=== PATIENT | male | born 1970 | race African-American/Black ===

== ENCOUNTER 2023-07-26 23:59 | Observation (INO) | payer MEDICAID, SELFPAY ==
--- NOTE | ~2023-07-26 | CT_ITS ---
EXAMINATION: CT ABDOMEN AND PELVIS WITHOUT CONTRAST CLINICAL INFORMATION: Rectal bleeding. COMPARISON: None available. TECHNIQUE: Multidetector volumetric imaging was performed from the superior aspect of the liver through the pubic symphysis. Sagittal and coronal reformatted images were obtained on the technologist's workstation. This CT examination was performed using dose optimization techniques as appropriate, variously including the following: *Automated exposure control *Adjustment of mA and/or kV according to patient size (this includes techniques or standardized protocols for targeted exams where dose is matched to indication/reason for exam; i.e. extremities or head) *Use of iterative reconstruction technique DLP: 1216. mGy-cm FINDINGS: LUNG BASES: The visualized lung bases are unremarkable. LIVER, GALLBLADDER, AND BILIARY TREE: The liver is normal in size, shape, and attenuation. No focal hepatic lesion or biliary ductal dilatation is present. The gallbladder is unremarkable with no evidence of radiopaque gallstones, gallbladder wall thickening, or obvious pericholecystic inflammatory changes. PANCREAS: Unremarkable. SPLEEN: Unremarkable. ADRENAL GLANDS: Unremarkable. KIDNEYS AND URETERS: The kidneys are normal in size, shape, and attenuation. There are a few scattered renal hypodensities likely small cysts but too small to characterize. There is no hydronephrosis. BLADDER: Unremarkable. GASTROINTESTINAL TRACT: There are diverticula of the sigmoid colon without diverticulitis. The appendix is visualized and is within normal limits ABDOMINAL WALL: No significant hernia is appreciated. LYMPH NODES: Normal. VASCULAR: There is mild atherosclerotic plaque of the abdominal aorta. PELVIC VISCERA: Unremarkable. OSSEOUS STRUCTURES: Unremarkable. CT/CT abdomen pelvis wo IV con IMPRESSION: Diverticula of the sigmoid colon without diverticulitis. No other significant abnormality seen. Fleischner guidelines were followed.
--- NOTE | ~2023-07-26 | XR_ITS ---
EXAMINATION: XR CHEST CLINICAL INFORMATION: Shortness of breath. COMPARISON: None available. TECHNIQUE: Frontal view of the chest was obtained. FINDINGS: No significant abnormality is noted involving the heart, lungs, mediastinum, bony thorax or soft tissues. XR/XR chest 1V IMPRESSION: Unremarkable examination.
[2023-07-27] VITALS (10 sets, daily range): BP systolic 123–190; BP diastolic 51–83; PULSE 57–122; RESP 12–20; TEMP 36.5–36.9; O2SAT 96–100; BMI 39.6
[2023-07-27 00:33] LABS: MANUAL DIFF FLAG NO
[2023-07-27 00:36] LABS: Basophils Percent Auto 0.2 % (0-2); Eosinophils Absolute Auto 0.2 X10*3/uL (0.0-0.4); Hematocrit 38.5 % (42.0-52.0); Hemoglobin 13.1 g/dl (14.0-18.0); Imm Gran Abs Auto 0.04 X10*3/uL (0.00-0.03); Imm Gran Pct Auto 0.4 % (0.0-0.4); Lymphocytes Percent Auto 28.4 % (20-40); Mean Corpuscular Hemoglobin 32.9 pg (27.0-33.0); Mean Corpuscular Volume 96.7 fL (80.0-98.0); Mean Platelet Volume 9.9 fL (9.4-12.4); Monocytes Absolute Auto 0.5 X10*3/uL (0.1-1.2); Monocytes Percent Auto 5.1 % (2-11); Neutrophils Absolute Auto 6.7 x10*3/uL (2.0-8.3); Neutrophils Percent Auto 63.9 % (45-73); Platelet Count 192 X10*3/uL (160-400); Red Blood Count 3.98 X10*6/uL (4.60-5.80); Red Cell Distribution Width 13.1 % (11.0-16.0); White Blood Count 10.4 X10*3/uL (4.8-10.8)
[2023-07-27 00:48] LABS: Alanine Aminotransferase 25 U/L (0-40); Alkaline Phosphatase 68 U/L (39-117); Anion Gap 19 (12-20); Aspartate Amino Transferase 35 U/L (5-37); Bilirubin Total 0.5 mg/dL (0.0-1.0); Blood Urea Nitrogen 20 mg/dL (9-16); Calcium 9.4 mg/dL (8.4-10.2); Carbon Dioxide 18 mmol/L (22-29); Chloride 109 mmol/L (96-108); Creatinine Clr Calc Pharmacy 66.5; Estimated Glomerular Filt Rate 35; Glucose Random 135 mg/dL (60-115); Potassium 3.6 mmol/L (3.3-5.1); Sodium 142 mmol/L (135-145); Total Protein 7.5 g/dL (6.5-8.0)
--- NOTE | 2023-07-27 01:00 | ED_ITS ---
HPI - General Adult General Chief complaint: General Medical Stated complaint: gen med Time Seen by Provider: 07/27/23 00:45 Source: patient Mode of arrival: ambulatory Limitations: no limitations History of Present Illness HPI narrative: Patient comes to the emergency room complaining of multiple episodes of rectal bleeding. Patient states that about a year ago, he 1st noticed that he started having rectal bleeding. Patient became frightened and did not want to come to the emergency room or see his primary care physician due to fear. Eventually, the bleeding self-resolved. Patient states that over the last year he has had multiple episodes of small amount of rectal bleeding with bowel movements. Patient denies any rectal pain, occasionally patient has abdominal pain. However, over last month, patient noted that he lost approximately 25 lb. This time, patient has had rectal bleeding for about a week. Patient states it only happens with bowel movements. denies dysuria . Patient states that he has not been seen by a primary care physician in many years . Has never had a colonoscopy Related Data Allergies Allergy/AdvReac Type Severity Reaction Status Date / Time No Known Allergies Allergy Unverified 05/24/20 14:48 Review of Systems 2 Review of Systems: Constitutional : reports a 25 lb unintentional weight loss in couple of months, No Fever, No Chills, No Night Sweats, No Fatigue, No Malaise ENT/Mouth : No Hearing loss, No Ear Pain, No Nasal Congestion, No Sinus Pain, No Hoarseness, No sore throat, No Rhinorrhea, No Swallowing Difficulty Eyes: No Eye Pain, No Swelling, No Redness, No Foreign Body, No Discharge, No Vision Changes Cardiovascular : No Chest Pain, No SOB, No Dyspnea on Exertion, No Orthopnea, No Edema, No Palpitations Respiratory : No Cough, No Sputum, No Wheezing, No Smoke Exposure, No Dyspnea Gastrointestinal : No Nausea, No Vomiting, No Diarrhea, No Constipation, Complaining of intermittent rectal bleeding Genitourinary : no irregular bleeding, No Dysuria, No Urinary Frequency, No Hematuria, No Urinary Incontinence, No Urgency, No Flank Pain, No Urinary Flow Changes, No Hesitancy Musculoskeletal : No joint pain, No Myalgias, No Joint Swelling Skin : patient of intermittent rash in the neck and back of the legs. With patches. Neuro : No Weakness, No Numbness, No Paresthesias, No Loss of Consciousness, No Dizziness, No Headache Psych : No Anxiety/Panic, No Depression, No SI/HI/AH/VH, No Social Issues, Heme/Lymph: No Bruising, No Bleeding,No Lymphadenopathy Endocrine : No Polyuria, No Polydipsia, No Temperature Intolerance [facility] Social History Social History Smoked in Last 30 Days: No Use of substances other than those prescribed or required for medical reasons: Yes Substance Use Type: Marijuana Advance Directives: No Advance Directives Information Provided: No Physical Exam ED Vital Signs: Vital Signs - 24 hr 07/27/23 00:02 07/27/23 00:43 07/27/23 04:12 Temperature 98.4 F Pulse Rate 122 H 79 64 Respiratory Rate 18 12 20 Blood Pressure 123/51 L 146/71 H Pulse Oximetry 96 98 Oxygen Delivery Method Room Air Room Air BMI result Body Mass Index 39.6 Const Other: Appearance: Alert. Oriented X3. No acute distress. Eyes: Pupils equal, round and reactive to light. ENT: Pharynx normal. Neck: Normal inspection. Neck supple. No lymph nodes noted. No crepitus CVS: Normal heart rate and rhythm. Pulses normal. Normal S1 and S2 Respiratory: No respiratory distress. Breath sounds normal. No Wheezing. No rales Abdomen: Soft and nontender. No rigidity. No distention. digital rectal exam: Brown stool Skin: Skin warm and dry. Normal skin color. Normal skin turgor. Extremities: No lower extremity edema. No Lacerations. No Rash Neuro: Oriented X 3. No motor deficit. No sensory deficit. Moving all extremities. No slurred speech. CN 2 through 12 grossly intact Psych: calm, cooperative, normal affect Medications Administered Discontinued Medications Generic Name Dose Route Start Last Admin Trade Name Ericq PRN Reason Stop Dose Admin Sodium Chloride 1,000 mls @ 999 mls/hr 07/27/23 01:33 07/27/23 03:20 Ns IVCONT 07/27/23 02:33 Infused .Q1H1M ONE Infusion Medical Decision Making Medical Decision Making [facility] Narrative: - My interpretation of labs: patient's creatinine 1.97, we will have to the exam without contrast. Patient eventually will need a colonoscopy. his hemoglobin is slightly decreased, 13.1. We do not have labs to compare to. Patient has not been seen by physician in many years. Patient's creatinine elevated. Patient denies any recent history of nausea vomiting or diarrhea. -patient has occult test is negative. However, patient eventually will need a colonoscopy. -my interpretation of CT scan: No obvious abnormality mild due to elevated creatinine, CT scan could not be done with contrast -patient's creatinine was 1.97, improved with fluids, now 1.69. -I discussed the patient with Dr. Workman, patient being admitted Differential Diagnosis Differential Diagnoses: The differential diagnosis associated with the presentation includes (Acute kidney injury, chronic kidney injury, GI bleed) Admission/Observation Consideration of admission/observation: Escalation of care including admission/observation considered Consult Healthcare Provider Management of the patient was discussed with: Hospitalist Lab Data MDM Lab Attestation statement: I reviewed the patient's lab results. 07/27/23 00:29 07/27/23 03:10 Labs: Lab Results 07/27/23 07/27/23 07/27/23 Range/Units 00:29 00:59 01:24 WBC 10.4 (4.8-10.8) X10*3/uL RBC 3.98 L (4.60-5.80) X10*6/uL Hgb 13.1 L (14.0-18.0) g/dl Hct 38.5 L (42.0-52.0) % MCV 96.7 (80.0-98.0) fL MCH 32.9 (27.0-33.0) pg MCHC 34.0 (31.0-36.0) g/dl RDW 13.1 (11.0-16.0) % Plt Count 192 (160-400) X10*3/uL MPV 9.9 (9.4-12.4) fL Immature Gran % (Auto) 0.4 (0.0-0.4) % Neut % (Auto) 63.9 (45-73) % Lymph % (Auto) 28.4 (20-40) % [place] % (Auto) 5.1 (2-11) % Eos % (Auto) 2.0 (0-4) % Baso % (Auto) 0.2 (0-2) % Lymph # (Auto) 3.0 (1.2-4.9) X10*3/uL [place] # (Auto) 0.5 (0.1-1.2) X10*3/uL Eos # (Auto) 0.2 (0.0-0.4) X10*3/uL Baso # (Auto) 0.0 (0.0-0.2) X10*3/uL Abs Immat Gran (auto) 0.04 H (0.00-0.03) X10*3/uL Absolute Neuts (auto) 6.7 (2.0-8.3) x10*3/uL Absolute Nucleated RBC 0.000 (0.0-0.012) X10*3/uL Nucleated RBC % (auto) 0.0 (0.0-0.2) /100WBC PT 11.4 (11.1-13.3) SEC INR 0.9 (0.9-1.1) APTT 27.2 (26.0-36.4) SEC Sodium 142 (135-145) mmol/L Potassium 3.6 (3.3-5.1) mmol/L Chloride 109 H (96-108) mmol/L Carbon Dioxide 18 L (22-29) mmol/L Anion Gap 19 (12-20) BUN 20 H (9-16) mg/dL Creatinine 1.97 H (0.5-1.4) mg/dL Estim Creat Clear Calc 66.5 Estimated GFR 35 Random Glucose 135 H (60-115) mg/dL Calcium 9.4 (8.4-10.2) mg/dL Total Bilirubin 0.5 (0.0-1.0) mg/dL AST 35 (5-37) U/L ALT 25 (0-40) U/L Alkaline Phosphatase 68 (39-117) U/L Total Protein 7.5 (6.5-8.0) g/dL Albumin 4.0 (3.5-5.0) g/dL Stool Occult Blood NEGATIVE (NEGATIVE) Influenza Type A (PCR) NEGATIVE (Negative) Influenza Type B (PCR) NEGATIVE (Negative) RSV RNA Qual (PCR) NEGATIVE (Negative) SARS-CoV-2 RNA (RT-PCR) NEGATIVE (Negative) 07/27/23 Range/Units 03:10 WBC (4.8-10.8) X10*3/uL RBC (4.60-5.80) X10*6/uL Hgb (14.0-18.0) g/dl Hct (42.0-52.0) % MCV (80.0-98.0) fL MCH (27.0-33.0) pg MCHC (31.0-36.0) g/dl RDW (11.0-16.0) % Plt Count (160-400) X10*3/uL MPV (9.4-12.4) fL Immature Gran % (Auto) (0.0-0.4) % Neut % (Auto) (45-73) % Lymph % (Auto) (20-40) % [place] % (Auto) (2-11) % Eos % (Auto) (0-4) % Baso % (Auto) (0-2) % Lymph # (Auto) (1.2-4.9) X10*3/uL [place] # (Auto) (0.1-1.2) X10*3/uL Eos # (Auto) (0.0-0.4) X10*3/uL Baso # (Auto) (0.0-0.2) X10*3/uL Abs Immat Gran (auto) (0.00-0.03) X10*3/uL Absolute Neuts (auto) (2.0-8.3) x10*3/uL Absolute Nucleated RBC (0.0-0.012) X10*3/uL Nucleated RBC % (auto) (0.0-0.2) /100WBC PT (11.1-13.3) SEC INR (0.9-1.1) APTT (26.0-36.4) SEC Sodium 141 (135-145) mmol/L Potassium 4.1 (3.3-5.1) mmol/L Chloride 109 H (96-108) mmol/L Carbon Dioxide 23 (22-29) mmol/L Anion Gap 13 (12-20) BUN 19 H (9-16) mg/dL Creatinine 1.69 H (0.5-1.4) mg/dL Estim Creat Clear Calc 77.5 Estimated GFR 42 Random Glucose 107 (60-115) mg/dL Calcium 9.0 (8.4-10.2) mg/dL Total Bilirubin (0.0-1.0) mg/dL AST (5-37) U/L ALT (0-40) U/L Alkaline Phosphatase (39-117) U/L Total Protein (6.5-8.0) g/dL Albumin (3.5-5.0) g/dL Stool Occult Blood (NEGATIVE) Influenza Type A (PCR) (Negative) Influenza Type B (PCR) (Negative) RSV RNA Qual (PCR) (Negative) SARS-CoV-2 RNA (RT-PCR) (Negative) Independent Interpretation I performed an independent interpretation of an: CT Scan Radiology Impression Discussion of test interpretation with radiology: I have reviewed the radiologist's reading. Radiologist Impression: FINDINGS: LUNG BASES: The visualized lung bases are unremarkable. LIVER, GALLBLADDER, AND BILIARY TREE: The liver is normal in size, shape, and attenuation. No focal hepatic lesion or biliary ductal dilatation is present. The gallbladder is unremarkable with no evidence of radiopaque gallstones, gallbladder wall thickening, or obvious pericholecystic inflammatory changes. PANCREAS: Unremarkable. SPLEEN: Unremarkable. ADRENAL GLANDS: Unremarkable. KIDNEYS AND URETERS: The kidneys are normal in size, shape, and attenuation. There are a few scattered renal hypodensities likely small cysts but too small to characterize. There is no hydronephrosis. BLADDER: Unremarkable. GASTROINTESTINAL TRACT: There are diverticula of the sigmoid colon without diverticulitis. The appendix is visualized and is within normal limits ABDOMINAL WALL: No significant hernia is appreciated. LYMPH NODES: Normal. VASCULAR: There is mild atherosclerotic plaque of the abdominal aorta. PELVIC VISCERA: Unremarkable. OSSEOUS STRUCTURES: Unremarkable. CT/CT abdomen pelvis wo IV con IMPRESSION: Diverticula of the sigmoid colon without diverticulitis. No other significant abnormality seen. Fleischner guidelines were followed. Critical Care Time Critical Care Time Critical Care Time: Yes Total Critical Care Time: 60 Attestation: I have personally provided critical care time. Time includes review of lab data, radiology results, discussion with consultants, and monitoring for potential decompensation. Intervention performed as documented. Discharge Plan Discharge Clinical Impression: POPPY (acute kidney injury) Patient Disposition: Admitted As Inpatient
[2023-07-27 01:04] LABS: OBS Int Ctl Valid YES; OBS1 NEGATIVE (NEGATIVE)
[2023-07-27 01:13] LABS: Influenza A PCR NEGATIVE (Negative); Influenza B PCR NEGATIVE (Negative); Resp Syncy Virus RNA Qual PCR NEGATIVE (Negative); SARS COV2 PCR INHOUSE NEGATIVE (Negative)
[2023-07-27 01:35] LABS: INTERNATIONAL NORM RATIO 0.9 (0.9-1.1); Prothrombin Time 11.4 SEC (11.1-13.3)
[2023-07-27 01:38] LABS: Partial Thromboplastin Time 27.2 SEC (26.0-36.4)
[2023-07-27] MEDS: 0.9 % Sodium Chloride 1,000 ML 999 ML IVCONT (01:44)
[2023-07-27 03:27] LABS: Anion Gap 13 (12-20); Blood Urea Nitrogen 19 mg/dL (9-16); Carbon Dioxide 23 mmol/L (22-29); Chloride 109 mmol/L (96-108); Creatinine Clr Calc Pharmacy 77.5; Estimated Glomerular Filt Rate 42; Glucose Random 107 mg/dL (60-115); Potassium 4.1 mmol/L (3.3-5.1); Sodium 141 mmol/L (135-145)
--- NOTE | 2023-07-27 04:45 | P.HPHOSP_ITS ---
History of Present Illness Date of Service: 07/27/23 Chief Complaint: Blood in stools This is a 53-year-old male with no pertinent past medical history and not on prescription medications who presents to the emergency department for evaluation of blood in stools. Patient states he has not seen a physician in many many years. He 1st noticed blood in stool about a year ago. It self resolved and patient did not see physician for it. He noticed blood in stools again about 1 week prior to presentation. It is associated with abdominal pain. Also has been having nausea. No fever or chills. No colonoscopy in the past. Does admit to taking ibuprofen [id number]. No history of alcohol or tobacco use disorder. No chest discomfort, palpitations, cough, changes in urinary habits. In the emergency department, creatinine found to be elevated Review of Systems 2 Constitutional: Constitutional: Reports fatigue Cardiovascular: Cardiovascular: Reports no additional cardiovascular complaints Respiratory: Respiratory: Reports no additional respiratory complaints Gastrointestinal: Gastrointestinal: Reports abdominal pain and Reports hematochezia Genitourinary: Genitourinary: Reports no additional male genitourinary complaints Endocrine: Endocrine: Reports fatigue PMFSH Pertinent family history: No family history of early CAD Social History Patient Tobacco Use Status: Never used Tobacco Smoked in Last 30 Days: No Use of substances other than those prescribed or required for medical reasons: Yes Substance Use Type: Marijuana Advance Directives: No Advance Directives Information Provided: No Nutrition Risks: No Nutritional Risk Meds Allergies Allergy/AdvReac Type Severity Reaction Status Date / Time No Known Allergies Allergy Unverified 05/24/20 14:48 Physical Exam 2 Vital Signs and Narrative: Vital Signs: Last Vital Signs Temp 98.4 F 07/27/23 00:02 Pulse 64 07/27/23 04:12 Resp 20 07/27/23 04:12 BP 146/71 H 07/27/23 04:12 Pulse Ox 98 07/27/23 04:12 O2 Del Method Room Air 07/27/23 04:12 BMI result Body Mass Index 39.6 Middle-aged male lying in bed in no distress Neck supple, no JVD Regular rate and rhythm, S1-S2 heard Regular breath sounds bilaterally, no wheezing or crackles appreciated Abdomen soft nontender, no guarding, no rigidity Patient is awake, alert and oriented to self, place, time and person ; no focal motor deficit Psych: Normal mood No pedal edema Results Labs 07/27/23 00:29 07/27/23 03:10 Labs: Laboratory Results - last 24 hr 07/27/23 07/27/23 07/27/23 00:29 00:59 01:24 MCV 96.7 MCH 32.9 MCHC 34.0 RDW 13.1 Plt Count 192 MPV 9.9 Immature Gran % (Auto) 0.4 Neut % (Auto) 63.9 Lymph % (Auto) 28.4 [place] % (Auto) 5.1 Eos % (Auto) 2.0 Baso % (Auto) 0.2 Lymph # (Auto) 3.0 [place] # (Auto) 0.5 Eos # (Auto) 0.2 Baso # (Auto) 0.0 Abs Immat Gran (auto) 0.04 H Absolute Neuts (auto) 6.7 Absolute Nucleated RBC 0.000 Nucleated RBC % (auto) 0.0 PT 11.4 INR 0.9 APTT 27.2 Anion Gap 19 Estim Creat Clear Calc 66.5 Estimated GFR 35 Random Glucose 135 H Calcium 9.4 Total Bilirubin 0.5 AST 35 ALT 25 Alkaline Phosphatase 68 Total Protein 7.5 Albumin 4.0 Stool Occult Blood NEGATIVE Influenza Type A (PCR) NEGATIVE Influenza Type B (PCR) NEGATIVE RSV RNA Qual (PCR) NEGATIVE SARS-CoV-2 RNA (RT-PCR) NEGATIVE 07/27/23 03:10 MCV MCH MCHC RDW Plt Count MPV Immature Gran % (Auto) Neut % (Auto) Lymph % (Auto) [place] % (Auto) Eos % (Auto) Baso % (Auto) Lymph # (Auto) [place] # (Auto) Eos # (Auto) Baso # (Auto) Abs Immat Gran (auto) Absolute Neuts (auto) Absolute Nucleated RBC Nucleated RBC % (auto) PT INR APTT Anion Gap 13 Estim Creat Clear Calc 77.5 Estimated GFR 42 Random Glucose 107 Calcium 9.0 Total Bilirubin AST ALT Alkaline Phosphatase Total Protein Albumin Stool Occult Blood Influenza Type A (PCR) Influenza Type B (PCR) RSV RNA Qual (PCR) SARS-CoV-2 RNA (RT-PCR) Imaging Radiologist's Impressions: Impressions Chest X-Ray 07/27/23 00:41 IMPRESSION: Unremarkable examination. Abdomen/Pelvis CT 07/27/23 01:32 IMPRESSION: Diverticula of the sigmoid colon without diverticulitis. No other significant abnormality seen. Fleischner guidelines were followed. Assessment and Plan (1) Blood in the stool: Status: Acute (2) Elevated serum creatinine: Status: Acute Plan This is a 53-year-old male with no pertinent past medical history and not on prescription medications who presents to the emergency department for evaluation of blood in stools. #. Bright red blood in stools: Will admit patient with cardiac monitoring. Administering IV Protonix. Resuscitated with IV crystalloids. Consulted Gastroenterology, appreciate assistance. Closely monitor H&H #. Elevated creatinine: POPPY CKD. Unknown baseline. Continue to monitor and avoid nephrotoxins. #. Obesity: Counseled regarding diet and exercise DVT prophylaxis: Mechanical Quality Stroke Does the patient have a stroke diagnosis?: No VTE Prior VTE?: No VTE Risk Level:: Medical - moderate - high VTE Device Contraindication: N/A - Device Ordered VTE Drug Contraindication: Treatment Not Indicated
[2023-07-27] MEDS: 0.9 % Sodium Chloride 500 ML IV (05:25)
[2023-07-27] MEDS: Pantoprazole Sodium 40 MG/10 ML VIAL 80 MG IVPUSH (05:27)
[2023-07-27] MEDS: Melatonin 3 MG TABLET 6 MG PO (05:27)
[2023-07-27 05:35] LABS: Hemoglobin 12.4 g/dl (14.0-18.0); Mean Corpuscular HGB Conc 33.5 g/dl (31.0-36.0); Mean Corpuscular Hemoglobin 32.9 pg (27.0-33.0); Mean Corpuscular Volume 98.1 fL (80.0-98.0); Mean Platelet Volume 10.1 fL (9.4-12.4); Platelet Count 178 X10*3/uL (160-400); Red Blood Count 3.77 X10*6/uL (4.60-5.80); Red Cell Distribution Width 13.2 % (11.0-16.0); White Blood Count 11.1 X10*3/uL (4.8-10.8)
[2023-07-27 05:39] LABS: Anion Gap 12 (12-20); Blood Urea Nitrogen 18 mg/dL (9-16); Calcium 8.9 mg/dL (8.4-10.2); Carbon Dioxide 23 mmol/L (22-29); Chloride 110 mmol/L (96-108); Creatinine Clr Calc Pharmacy 86.2; Estimated Glomerular Filt Rate 48; Glucose Random 106 mg/dL (60-115); Potassium 4.1 mmol/L (3.3-5.1); Sodium 141 mmol/L (135-145)
[2023-07-27 05:44] LABS: Appearance Urine Clear; Color Urine Yellow; Glucose Urine UA Negative (Negative); Leukocyte Esterase Urine Negative (Negative); Nitrite Urine Negative (Negative); PH 5.5 (5.0-9.0); Specific Gravity - Urine 1.025 (1.005-1.025); Urine Blood Negative (Negative); Urine Ketones 15 mg/dL (Negative); Urine Protein Trace mg/dL (Neg-Trace)
[2023-07-27 05:49] LABS: Bacteria Urine None Seen (None Seen); RBC Urine 0-2 /HPF (0-2); Squamous Epithelial Cell Urine 0-2 /HPF (0-2); WBC Urine 0-5 /HPF (0-5)
--- NOTE | 2023-07-27 06:17 | PC.NURSE ---
pt reports not taking any medications during the day
--- NOTE | 2023-07-27 06:31 | PHA.MEDREC ---
Pharmacy Consult ? Medication Reconciliation Pharmacy has completed the medication reconciliation.pt reportes no home medications
[2023-07-27] MEDS: Acetaminophen 325 MG TABLET 650 MG PO ×2 (07:27→20:35)
[2023-07-27] MEDS: 0.9 % Sodium Chloride Flush 3 ML SYRINGE IVFLUSH ×2 (07:28→20:35)
--- NOTE | 2023-07-27 07:32 | PC.NURSE ---
pt is alert and oriented, skin appropriate for ethnicity, respirations even and unlabored, pt reports having a headache, 7/10 pain and an itchy/achy rash under his chin/neck area/abd folds. ns on the monitor and vs stable
--- NOTE | 2023-07-27 09:16 | MHC.CM.PN ---
CM met with patient at bedside. TESHA delivered. Patient states he was staying with a sister up until recently but is now homeless, mostly sleeping in [place] in [place]. Independent with ambulation and ADLs. + THRIVE - resource guide provided. No PCP, requesting assistance with this - task sent to CM assistant teacher. No HCP, CM offered education & assistance, patient declining at this time. DP: Goal is dc to [facility]. CM will provide assistance. May require Lyft or bus pass.
[2023-07-27 10:31] LABS: Iron 92 mcg/dL (45-160); Percent Iron Saturation 37 % (15-50); Total Iron Binding Capacity 252 mcg/dL (228-428); Unsaturated Iron Binding 160 ug/dL
[2023-07-27 10:51] LABS: C Reactive Protein 0.46 mg/dL (< or = 0.50)
[2023-07-27 11:15] LABS: Erythrocyte Sedimentation Rate 18 MM/HR (0-15)
[2023-07-27 11:52] LABS: Vitamin B12 180 pg/mL (200-900)
--- NOTE | 2023-07-27 12:22 | PM.EVENT ---
Event Note Date of Service: 07/27/23 Event Note: Seen and evaluated this morning Stable H&H No recurrent of BRBPR Check lab work pending GI eval Time Spent With Patient Time: Total time managing care of this patient today ____ minutes.
--- NOTE | 2023-07-27 13:05 | PC.NURSE ---
pt is currently resting comfortably, eating some of his liquid diet lunch, in no apparent distress at this time and pt is awaiting a room assignment
--- NOTE | 2023-07-27 15:28 | PC.NURSE ---
report given to imc rn
--- NOTE | 2023-07-27 16:11 | MHC.SHP ---
Pre-Procedural Eval Section A Date of Service: 07/27/23 The patient is an INPATIENT: Yes Changes since office visit: No Cold of Flu in the past 2 weeks, No New Medical Problems, No Changes in Medication and No Patient answered all questions The History & Physical has been completed within 30 days and I have reviewed it.: Yes Section B Chief Complaint: Blood in Stool Allergies: Allergies Allergy/AdvReac Type Severity Reaction Status Date / Time No Known Allergies Allergy Unverified 05/24/20 14:48 Plan I have reviewed the history and physical and performed a pertinent physical examination on my patient. No changes have occurred unless specified. Time Spent With Patient Time: Total time managing care of this patient today ____ minutes.
--- NOTE | 2023-07-27 16:11 | PM.EVENT ---
Event Note Date of Service: 07/27/23 Event Note: GI consult dictated colonoscopy planned 07/28 for further evaluation of rectal bleeding. Time Spent With Patient Time: Total time managing care of this patient today ____ minutes.
[2023-07-27] MEDS: PEG 3350/Na Sulf,Bicarb,Cl/KCL 4,000 ML SOLN.RECON 4000 ML PO (17:53)
[2023-07-28] VITALS (11 sets, daily range): BP systolic 110–175; BP diastolic 60–83; PULSE 64–75; RESP 16–20; TEMP 36.2–37.3; O2SAT 97–100; BMI 39.4
[2023-07-28] MEDS: Melatonin 3 MG TABLET 6 MG PO ×2 (02:05→21:10)
[2023-07-28] MEDS: Acetaminophen 325 MG TABLET 650 MG PO ×3 (02:05→21:10)
--- NOTE | 2023-07-28 02:55 | CONS_ITS ---
DATE OF SERVICE: HISTORY OF PRESENT ILLNESS: Mr. Carpenter is a pleasant 53-year-old man seen today in consultation at the request of Dr. Workman because of rectal bleeding. He reports about a year ago he had a large amount of bright red blood per rectum, which filled the toilet bowl. This was not associated with abdominal pain or rectal pain. More recently, he has had blood associated with bowel movements occurring 3/7 days. There has been some crampy abdominal discomfort. He has not undergone previous colonoscopy. He also has a weight loss of about 20 pounds in this time. He was evaluated in the emergency department where laboratory studies were obtained as well as abdominal imaging. These are reviewed, but showed no obvious malignancy and no blood in the stools. PAST MEDICAL HISTORY: He denies other medical or surgical problems. CURRENT MEDICATIONS: His current medication list is reviewed in the chart. ALLERGIES: THERE ARE NONE REPORTED. FAMILY HISTORY: This is reviewed with the patient and is negative for GI malignancy. SOCIAL HISTORY: He does smoke marijuana. He denies other drug use. REVIEW OF SYSTEMS: SKIN: No pruritus. HEENT: Negative. CARDIOPULMONARY: He denies shortness of breath or chest pain. GASTROINTESTINAL: As above. GENITOURINARY: Negative. NEUROPSYCHIATRIC: Negative. PHYSICAL EXAMINATION: GENERAL: Shows a pleasant male, in no acute distress. VITAL SIGNS: Reviewed in the electronic medical record and are stable. SKIN: Anicteric. HEENT: Shows no scleral icterus. NECK: Without lymphadenopathy or thyromegaly. LUNGS: Clear. HEART: Shows a regular rate and rhythm. S1, S2. No murmur. ABDOMEN: Soft without focal mass or tenderness. Bowel sounds are present. No organomegaly is noted. EXTREMITIES: Without edema. LABORATORY DATA AND IMAGING STUDIES: Reviewed. IMPRESSION: Rectal bleeding. Discussed colonoscopy with the patient including risks and benefits of the procedure. He understands these and agrees to proceed. This will be arranged for tomorrow. In the interim, I recommend avoiding anticoagulants and monitoring his hematocrit. MD MEAGAN Aldana/MADINA / [phone]
[2023-07-28 07:18] LABS: Hematocrit 34.5 % (42.0-52.0); Hemoglobin 11.6 g/dl (14.0-18.0); Mean Corpuscular HGB Conc 33.6 g/dl (31.0-36.0); Mean Corpuscular Hemoglobin 33.3 pg (27.0-33.0); Mean Corpuscular Volume 99.1 fL (80.0-98.0); Mean Platelet Volume 10.7 fL (9.4-12.4); Platelet Count 161 X10*3/uL (160-400); Red Blood Count 3.48 X10*6/uL (4.60-5.80); Red Cell Distribution Width 13.1 % (11.0-16.0); White Blood Count 7.5 X10*3/uL (4.8-10.8)
[2023-07-28 07:33] LABS: Anion Gap 8 (12-20); Blood Urea Nitrogen 12 mg/dL (9-16); Calcium 8.3 mg/dL (8.4-10.2); Carbon Dioxide 26 mmol/L (22-29); Chloride 108 mmol/L (96-108); Creatinine Clr Calc Pharmacy 127.2; Estimated Glomerular Filt Rate > 60; Glucose Random 96 mg/dL (60-115); Potassium 3.6 mmol/L (3.3-5.1); Sodium 138 mmol/L (135-145)
[2023-07-28] MEDS: 0.9 % Sodium Chloride Flush 3 ML SYRINGE IVFLUSH ×2 (09:51→17:14)
--- NOTE | 2023-07-28 10:45 | MHC.CM.PN ---
EMR REVIEWED, CM MET WPT TO DISCUSS DISPO AND PT STILL INTERESTED IN JAIL PLACEMENT, PT REPORTS HE HAD CONTACTED [facility] ONE WEEK AGO AND THERE WERE NO BEDS AVAILABLE. CM CONTACTED [facility] WHO REPORTED THEY ARE FULL AND [facility], CM SPOKE W/RN AT [facility] AND PT IS CLEARED FOR BED, CM GIVEN INSTRUCTIONS TO CALL DAILY AT 9:30AM TO DETERMINE IF THEY HAVE AN AVAILABLE BED.
--- NOTE | 2023-07-28 11:48 | P.CONAN_ITS ---
[facility], [facility] Active Problems Active Problems: All Active Problems (Updated 07/27/23 @ 05:16 by Mitchel Workman MD) Blood in the stool (Acute) Elevated serum creatinine (Acute) POPPY (acute kidney injury) (Acute) Likely sleep apnea Surgical History History of Problems with Anesthesia: No Social History Household Members: None Housing: Homeless Do you presently have visiting nurse or other home services: No Patient Tobacco Use Status: Never used Tobacco Substance Use Type: Marijuana service: No Meds Allergies Allergy/AdvReac Type Severity Reaction Status Date / Time No Known Allergies Allergy Unverified 05/24/20 14:48 Active Medications: Current Medications Acetaminophen (Acetaminophen 325 Mg Tablet) 650 mg PO Q6H PRN PRN Reason: Pain, Mild (Pain Scale 1-3) Last Admin: 07/28/23 02:05 Dose: 650 mg Melatonin (Melatonin 3 Mg Tablet) 6 mg PO BEDTIME PRN PRN Reason: Insomnia Last Admin: 07/28/23 02:05 Dose: 6 mg Ondansetron HCl (Ondansetron Hcl 4 Mg/2 Ml Vial) 4 mg IVPUSH Q8H PRN PRN Reason: Nausea and Vomiting Sodium Chloride (0.9 % Sodium Chloride Flush 3 Ml Syringe) [facility] Last Admin: 07/28/23 09:51 Dose: 3 ml Home Medications Medication Instructions Recorded Confirmed Last Taken Type No Known Home Meds 07/27/23 07/27/23 Unknown History Exam Height,Weight and Vital Signs: Height 6 ft 4 in Weight 147 kg Last Vital Signs Temp 98.6 F 07/28/23 11:38 Pulse 65 07/28/23 11:38 Resp 20 07/28/23 11:38 BP 158/79 H 07/28/23 11:38 Pulse Ox 99 07/28/23 11:38 O2 Del Method Room Air 07/28/23 11:38 Pertinent Lab Results Pertinent Lab Results: Laboratory Tests 07/27/23 07/27/23 07/27/23 00:29 00:59 01:24 WBC 10.4 RBC 3.98 L Hgb 13.1 L Hct 38.5 L MCV 96.7 MCH 32.9 MCHC 34.0 RDW 13.1 Plt Count 192 MPV 9.9 Immature Gran % (Auto) 0.4 Neut % (Auto) 63.9 Lymph % (Auto) 28.4 Carbon % (Auto) 5.1 Eos % (Auto) 2.0 Baso % (Auto) 0.2 Lymph # (Auto) 3.0 Carbon # (Auto) 0.5 Eos # (Auto) 0.2 Baso # (Auto) 0.0 Abs Immat Gran (auto) 0.04 H Absolute Neuts (auto) 6.7 Absolute Nucleated RBC 0.000 Nucleated RBC % (auto) 0.0 ESR PT 11.4 INR 0.9 APTT 27.2 Sodium 142 Potassium 3.6 Chloride 109 H Carbon Dioxide 18 L Anion Gap 19 BUN 20 H Creatinine 1.97 H Estim Creat Clear Calc 66.5 Estimated GFR 35 Random Glucose 135 H Calcium 9.4 Iron TIBC % Saturation Unsat Iron Binding Total Bilirubin 0.5 AST 35 ALT 25 Alkaline Phosphatase 68 C-Reactive Protein Total Protein 7.5 Albumin 4.0 Carcinoembryonic Ag Vitamin B12 Urine Color Urine Appearance Urine pH Ur Specific [place] Urine Protein Urine Glucose (UA) Urine Ketones Urine Blood Urine Nitrite Ur Leukocyte Esterase Urine RBC Urine WBC Ur Squamous Epith Cells Urine Bacteria Hyaline Casts Stool Occult Blood NEGATIVE Influenza Type A (PCR) NEGATIVE Influenza Type B (PCR) NEGATIVE RSV RNA Qual (PCR) NEGATIVE SARS-CoV-2 RNA (RT-PCR) NEGATIVE 07/27/23 07/27/23 07/27/23 03:10 05:18 05:34 WBC 11.1 H RBC 3.77 L Hgb 12.4 L Hct 37.0 L MCV 98.1 H MCH 32.9 MCHC 33.5 RDW 13.2 Plt Count 178 MPV 10.1 Immature Gran % (Auto) Neut % (Auto) Lymph % (Auto) Carbon % (Auto) Eos % (Auto) Baso % (Auto) Lymph # (Auto) Carbon # (Auto) Eos # (Auto) Baso # (Auto) Abs Immat Gran (auto) Absolute Neuts (auto) Absolute Nucleated RBC 0.000 Nucleated RBC % (auto) 0.0 ESR 18 H PT INR APTT Sodium 141 141 Potassium 4.1 4.1 Chloride 109 H 110 H Carbon Dioxide 23 23 Anion Gap 13 12 BUN 19 H 18 H Creatinine 1.69 H 1.52 H Estim Creat Clear Calc 77.5 86.2 Estimated GFR 42 48 Random Glucose 107 106 Calcium 9.0 8.9 Iron TIBC % Saturation Unsat Iron Binding Total Bilirubin AST ALT Alkaline Phosphatase C-Reactive Protein 0.46 Total Protein Albumin Carcinoembryonic Ag 2.00 Vitamin B12 Urine Color Yellow Urine Appearance Clear Urine pH 5.5 Ur Specific [place] 1.025 Urine Protein Trace Urine Glucose (UA) Negative Urine Ketones 15 Urine Blood Negative Urine Nitrite Negative Ur Leukocyte Esterase Negative Urine RBC 0-2 Urine WBC 0-5 Ur Squamous Epith Cells 0-2 Urine Bacteria None Seen Hyaline Casts 3-5 Stool Occult Blood Influenza Type A (PCR) Influenza Type B (PCR) RSV RNA Qual (PCR) SARS-CoV-2 RNA (RT-PCR) 07/27/23 07/27/23 07/28/23 10:09 10:55 05:58 WBC 7.5 RBC 3.48 L Hgb 11.6 L Hct 34.5 L MCV 99.1 H MCH 33.3 H MCHC 33.6 RDW 13.1 Plt Count 161 MPV 10.7 Immature Gran % (Auto) Neut % (Auto) Lymph % (Auto) Carbon % (Auto) Eos % (Auto) Baso % (Auto) Lymph # (Auto) Carbon # (Auto) Eos # (Auto) Baso # (Auto) Abs Immat Gran (auto) Absolute Neuts (auto) Absolute Nucleated RBC 0.000 Nucleated RBC % (auto) 0.0 ESR PT INR APTT Sodium 138 Potassium 3.6 Chloride 108 Carbon Dioxide 26 Anion Gap 8 L BUN 12 Creatinine 1.03 Estim Creat Clear Calc 127.2 Estimated GFR > 60 Random Glucose 96 Calcium 8.3 L D Iron 92 TIBC 252 % Saturation 37 Unsat Iron Binding 160 Total Bilirubin AST ALT Alkaline Phosphatase C-Reactive Protein Total Protein Albumin Carcinoembryonic Ag Vitamin B12 180 L Urine Color Urine Appearance Urine pH Ur Specific [place] Urine Protein Urine Glucose (UA) Urine Ketones Urine Blood Urine Nitrite Ur Leukocyte Esterase Urine RBC Urine WBC Ur Squamous Epith Cells Urine Bacteria Hyaline Casts Stool Occult Blood Influenza Type A (PCR) Influenza Type B (PCR) RSV RNA Qual (PCR) SARS-CoV-2 RNA (RT-PCR) Airway Mallampati Class: III TM Dist: >3cm Neck ROM: Full Loose/Missing/Broken Teeth: Yes, Upper and Lower Heart: RRR Lungs: CTA Assessment and Plan Assessment Anesthesia Assessment: Anesthesia Plan Discussed and Chart Reviewed Final Anesthetic Review History of Problems with Anesthesia: No NPO: Yes ASA Class: III Final Preanesthetic Review: Meds/Allgs Chart Reviewed, Consent Obtained/Reviewed and Anes Risks/Benef Reviewed Patient Risk: Intermediate Procedure Risk: Low Anesthetic Plan Anesthetic Plan: MAC: Disposition: Standard PACU
--- NOTE | 2023-07-28 12:43 | PM.OP ---
Brief Operative Note Date of Service: 07/28/23 Pre-op diagnosis: blood in stool Post-op diagnosis: same Surgeon: Malvin Shepherd MD Anesthesia: MAC Was an Water Main Inspector used for this Procedure?: No Estimated blood loss (mL): 0 Pathology: none sent Condition: stable Disposition: PACU
--- NOTE | 2023-07-28 12:44 | PM.EVENT ---
Event Note Date of Service: 07/28/23 Event Note: Colonoscopy note dictated sigmoid diverticulosis internal hemorrhoids no bleeding rec advance diet dc when stable. Time Spent With Patient Time: Total time managing care of this patient today ____ minutes.
--- NOTE | 2023-07-28 12:52 | MHC.CM.PN ---
CM CONTACTED THE [facility] AND [facility] WHICH HAS REOPENED, UNFORTUNATELY THEY DO NOT HAVE ANY OPEN BEDS.
--- NOTE | 2023-07-28 13:04 | P.PNIM_ITS ---
Subjective Subjective Date of Service: 07/28/23 Interval History: having diarrhea from preperations but no blood denies any pain, fever or chills H&H stable Review of Systems Review of Systems: Yes all other systems are reviewed and are negative Physical Exam 2 Vital Signs: Vital Signs: Last Vital Signs Temp 97.2 F 07/28/23 12:55 Pulse 69 07/28/23 12:55 Resp 16 07/28/23 12:55 BP 130/83 07/28/23 12:55 Pulse Ox 99 07/28/23 12:55 O2 Del Method Room Air 07/28/23 12:55 BMI result Body Mass Index 39.4 Const: Other: Constitutional : Awake, interactive, obese, not in distress Neck : Normal inspection, Supple Cardiovascular : RRR, no JVP, no lower extremity edema Respiratory : good bilateral air entry, no crackles, wheezes or rhonchi Gastrointestinal: soft, lax, Normal bowel sounds, Non tender Skin : Warm, Dry Neurological : Alert & oriented x3, No focal deficit Objective Data Active Medications Acetaminophen (Acetaminophen 325 Mg Tablet) 650 mg PO Q6H PRN PRN Reason: Pain, Mild (Pain Scale 1-3) Last Admin: 07/28/23 02:05 Dose: 650 mg Documented By: SOLITARIO Melatonin (Melatonin 3 Mg Tablet) 6 mg PO BEDTIME PRN PRN Reason: Insomnia Last Admin: 07/28/23 02:05 Dose: 6 mg Documented By: SOLITARIO Ondansetron HCl (Ondansetron Hcl 4 Mg/2 Ml Vial) 4 mg IVPUSH Q8H PRN PRN Reason: Nausea and Vomiting Sodium Chloride (0.9 % Sodium Chloride Flush 3 Ml Syringe) 3 ml IVFLUSH [facility] Last Admin: 07/28/23 09:51 Dose: 3 ml Documented By: VANDANA Labs 07/28/23 05:58 07/28/23 05:58 Labs: Laboratory Results - last 24 hr 07/28/23 05:58 MCV 99.1 H MCH 33.3 H MCHC 33.6 RDW 13.1 Plt Count 161 MPV 10.7 Absolute Nucleated RBC 0.000 Nucleated RBC % (auto) 0.0 Anion Gap 8 L Estim Creat Clear Calc 127.2 Estimated GFR > 60 Random Glucose 96 Calcium 8.3 L D Assessment and Plan (1) Blood in the stool: Status: Acute (2) POPPY (acute kidney injury): Status: Acute Plan This is a 53-year-old male with no pertinent past medical history and not on prescription medications who presents to the emergency department for evaluation of blood in stools. # Bright red blood in stools likely lower GI source on IV Protonix Stable H&H Gastroenterology to do colonoscopy today pending blood work # POPPY Unclear baseline; Cr improved to normal Continue to monitor and avoid nephrotoxins. # Obesity Counseled regarding diet and exercise DVT prophylaxis: Mechanical Quality Stroke Does the patient have a stroke diagnosis?: No VTE Prior VTE?: No VTE Risk Level:: Medical - moderate - high VTE Device Contraindication: N/A - Device Ordered VTE Drug Contraindication: Treatment Not Indicated
--- NOTE | 2023-07-28 13:16 | OP_ITS ---
DATE OF SERVICE: 07/28/2023 SURGEON: Malvin Shepherd MD INDICATIONS: GI bleeding. PREOPERATIVE DIAGNOSIS: POSTOPERATIVE DIAGNOSIS: PROCEDURE PERFORMED: Colonoscopy to the terminal ileum. ESTIMATED BLOOD LOSS: COMPLICATIONS: ANESTHESIA: Monitored anesthesia care. ASSISTANTS: SPECIMENS: DESCRIPTION OF PROCEDURE: A history and physical was performed. The risks and benefits of the procedure were explained to the patient. Informed consent was obtained. The patient was placed in the left lateral decubitus position. A digital rectal exam was performed and was found to be normal. The Olympus pediatric video colonoscope was introduced into the rectum and advanced to the cecum. The cecum was identified by transillumination, palpation, and identification of ileocecal valve. Examination was performed. The scope was removed. He tolerated the procedure well and was returned to the recovery area in stable condition. FINDINGS: The terminal ileum was examined and appeared normal. The visualized colonic mucosa was normal. The quality of the prep was good. There was moderate sigmoid diverticulosis. No polyps were identified. Retroflexed examination showed some small internal hemorrhoids. IMPRESSION: Diverticulosis. RECOMMENDATION: 1. Follow up as needed. 2. Repeat colonoscopy is recommended in 10 years for average risk individuals. MD MEAGAN Aldana/MADINA / [phone]
[2023-07-28] MEDS: Simethicone 80 MG TAB.CHEW PO (21:10)
[2023-07-28] MEDS: diphenhydrAMINE HCl 2 % Cream 28 GM TUBE 1 APPL TOPICAL (22:40)
[2023-07-29] MEDS: 0.9 % Sodium Chloride Flush 3 ML SYRINGE IVFLUSH ×2 (01:48→08:39)
[2023-07-29 03:49] VITALS: BP 134/64; PULSE 67; RESP 15; TEMP 36.7; O2SAT 99
[2023-07-29 08:00] VITALS: BP 146/73; PULSE 63; RESP 18; TEMP 36.5; O2SAT 99
--- NOTE | 2023-07-29 09:18 | HO.POSTANES ---
Post Anesthesia Evaluation Post Anesthesia Evaluation Date of Service: 07/28/23 Vital Signs: Vital Signs Temp Pulse Resp BP Pulse Ox O2 Del Method 07/29/23 08:00 97.7 F 63 18 146/73 H 99 Room Air 07/29/23 03:49 98.1 F 67 15 134/64 99 Room Air 07/28/23 23:21 99.0 F 73 17 155/80 H 97 Room Air Anesthesia: Monitored Mental Status: Awake Pain Control: Satisfactory Nausea/Vomiting: None Hydration: Adequate Anesthesia-Related Issues: No Anes. Related Issues
--- NOTE | 2023-07-29 10:23 | PM.DS ---
DS: Providers Provider Date of Service: 07/29/23 Date of admission: 07/27/23 04:44 Primary care physician: None Physician Consults: 07/27/23 05:09 Consult to Gastroenterology Routine Consulting Provider: Kaushik Turner Reason for consultation: ?GI bleed DS: Diagnosis Discharge Diagnosis (1) Blood in the stool: Status: Acute (2) POPPY (acute kidney injury): Status: Acute (3) B12 deficiency: Status: Acute DS: Summary Hospital Course Hospital Course: Admission note HPI This is a 53-year-old male with no pertinent past medical history and not on prescription medications who presents to the emergency department for evaluation of blood in stools. Patient states he has not seen a physician in many many years. He 1st noticed blood in stool about a year ago. It self resolved and patient did not see physician for it. He noticed blood in stools again about 1 week prior to presentation. It is associated with abdominal pain. Also has been having nausea. No fever or chills. No colonoscopy in the past. Does admit to taking ibuprofen [id number]. No history of alcohol or tobacco use disorder. No chest discomfort, palpitations, cough, changes in urinary habits. Hospital course The patient was admitted for evaluation. seen by GI who did a colonoscopy showing no evidence of polyps or masses. he was found to have internal hemorroids. recommended repeating Colonoscopy in 10 years. Kidney function was elevated and responded well to IV fluids as it improved back to normal level. no previous baseline available for him. Noted to have anemia. Iron studies within normal but B12 was low so he was started on B12 replacement upon discharge. Increase Fiber intake and avoid constipation Start B12 replacement Repeat colonoscopy in 10 years Time Attestation Discharge coordination time: Greater than 30 minutes Quality: Safe Use of Opioids Does Pt have an Active Cancer Diagnosis on the Problem List?: No Quality: Stroke Does the patient have a stroke diagnosis?: No Physical Exam Vital Signs: Vital Signs: Last Vital Signs Temp 97.7 F 07/29/23 08:00 Pulse 63 07/29/23 08:00 Resp 18 07/29/23 08:00 BP 146/73 H 07/29/23 08:00 Pulse Ox 99 07/29/23 08:00 O2 Del Method Room Air 07/29/23 08:00 BMI result Body Mass Index 39.4 Const: Other: Constitutional : Awake, interactive, obese, not in distress Neck : Normal inspection, Supple Cardiovascular : RRR, no JVP, no lower extremity edema Respiratory : good bilateral air entry, no crackles, wheezes or rhonchi Gastrointestinal: soft, lax, Normal bowel sounds, Non tender Skin : Warm, Dry Neurological : Alert & oriented x3, No focal deficit DS: Data Imaging Chest x-ray: Radiologist's impression: ITS Impressions Chest X-Ray 07/27/23 00:41 IMPRESSION: Unremarkable examination. Abdomen/Pelvis CT 07/27/23 01:32 IMPRESSION: Diverticula of the sigmoid colon without diverticulitis. No other significant abnormality seen. Fleischner guidelines were followed. Discharge Plan Discharge Anticipated Discharge Date/Time: 07/29/23 10:20 Patient Disposition: Half-Way Discharge Diagnosis: internal hemorroids Acute kidney injury Referrals: Physician,None [Primary Care Provider] - 1 Week Discharge Medications: New mecobalamin (vitamin B12) 5,000 mcg tablet,chewable 5,000 mcg PO DAILY Qty: 30 0RF Discharge Orders: Discharge Order (Routine); Ordered 07/29/23 Ordered By: Edson Christina Diet: Advance to usual diet Activity on Discharge: As tolerated Plan of Treatment: Increase Fiber intake and avoid constipation Start B12 replacement Repeat colonoscopy in 10 years
--- NOTE | 2023-07-29 11:09 | MHC.CM.PN ---
Pt has been medically cleared for DC, He is going to [facility] via [facility], he was given information and assistance with setting up PCP appt. at [facility] he was given donated backpack.
[2023-07-29 11:18] VITALS: BP 157/78; PULSE 66; RESP 18; TEMP 36.9; O2SAT 98
[2023-07-30 06:39] LABS: Transglutaminase Ab IgG <1.0 U/mL; Transglutaminase IgA <1.0 U/mL
[2023-08-03 23:48] LABS: Calprotectin, Fecal 54 mcg/g
== END 2023-07-29 13:07 | disposition home or self-care (01) ==
LOC: HO.ED 07-27 04:46 → HO.EDOVER 07-27 04:47 → HO.IMC 07-27 15:17
PROVIDERS: Internal Medicine Gastroenterology; Radiology Vascular & Interventional Radiology; Admitting Provider Student in an Organized Health Care Education/Training Program; Emergency Provider Emergency Medicine; Visit Provider Student in an Organized Health Care Education/Training Program
PROC: 0DJD8ZZ Inspection of Lower Intestinal Tract, Via Natural or Artificial Opening Endoscopic (ICD-10-PCS; CPT 45378; principal; 2023-07-28 14:00)
DX: N17.9 Acute kidney failure, unspecified (principal); K62.5 Hemorrhage of anus and rectum; R94.4 Abnormal results of kidney function studies; E66.9 Obesity, unspecified; Z68.39 Body mass index [BMI] 39.0-39.9, adult; K64.8 Other hemorrhoids; K57.30 Diverticulosis of large intestine without perforation or abscess without bleeding; E53.8 Deficiency of other specified B group vitamins; D64.9 Anemia, unspecified; Z20.822 Contact with and (suspected) exposure to COVID-19; Z20.828 Contact with and (suspected) exposure to other viral communicable diseases
CPT/HCPCS: 45378; 0241U; 36415; 71045; 74176; 80048; 80053; 81001; 82272; 82378; 82607; 83540; 83993; 85025; 85027; 85610; 85652; 85730; 86140; 86364; 96361; 96374; 99222; 99285; C9113; J2250; J2704

== ENCOUNTER → 2023-07-27 04:44 | Outpatient (BNV) | payer MEDICAID, SELFPAY | PROVIDERS: Admitting Provider Student in an Organized Health Care Education/Training Program; Emergency Provider Emergency Medicine; Visit Provider Student in an Organized Health Care Education/Training Program | DX: K92.1 Melena (principal); N17.9 Acute kidney failure, unspecified; E53.8 Deficiency of other specified B group vitamins | CPT/HCPCS: 99222; 99232; 99239; 99499 ==

== ENCOUNTER 2024-12-08 07:12 | Emergency (ER) | payer MEDICAID, SELFPAY ==
[2024-12-08 07:14] VITALS: BP 155/80; PULSE 88; RESP 20; TEMP 35.8; O2SAT 100; BMI 35.1
[2024-12-08 07:33] LABS: MANUAL DIFF FLAG NO
[2024-12-08 07:36] LABS: Basophils Percent Auto 0.3 % (0-2); Eosinophils Absolute Auto 0.3 X10*3/uL (0.0-0.4); Eosinophils Percent Auto 3.3 % (0-4); Hematocrit 38.8 % (42.0-52.0); Hemoglobin 13.9 g/dl (14.0-18.0); Imm Gran Abs Auto 0.02 X10*3/uL (0.00-0.03); Imm Gran Pct Auto 0.2 % (0.0-0.4); Lymphocytes Absolute Auto 3.8 X10*3/uL (1.2-4.9); Lymphocytes Percent Auto 42.6 % (20-40); Mean Corpuscular HGB Conc 35.8 g/dl (31.0-36.0); Mean Corpuscular Hemoglobin 34.9 pg (27.0-33.0); Mean Corpuscular Volume 97.5 fL (80.0-98.0); Mean Platelet Volume 9.8 fL (9.4-12.4); Monocytes Absolute Auto 0.6 X10*3/uL (0.1-1.2); Monocytes Percent Auto 6.7 % (2-11); Neutrophils Absolute Auto 4.2 x10*3/uL (2.0-8.3); Neutrophils Percent Auto 46.9 % (45-73); Platelet Count 184 X10*3/uL (160-400); Red Blood Count 3.98 X10*6/uL (4.60-5.80); Red Cell Distribution Width 12.4 % (11.0-16.0); White Blood Count 8.9 X10*3/uL (4.8-10.8)
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
--- OUTSIDE RECORDS SUMMARY | 2024-12-08 07:37 | XMS_ITS | Clinical Summary ---
Author Organization [address] [facility] Address [address] [place] [address] Phone Care Team Providers Care Assisted Living Assistant Name Role Phone Physician, Pcp Unknown Primary Care Provider Linda vailable Social History Tobacco Use Types Packs/Day Years Used Date Smoking Tobacco: Never Assessed Sex and Gender Information Value Date Recorded Sex Assigned at Not on file Legal Sex Male 1:31 PM EDT Gender Identity Not on file Sexual Orientation Not on file Plan of Treatment Health Maintenance Due Date Last Done Comments DTaP,Tdap,and Td Vaccines (1 - Tdap) 02/02/1987 Hepatitis B Vaccines (1 of 3 - 19+ 3-dose series) 02/02/1987 Pneumococcal Vaccine: 50+ Ye ars (1 of 1 - PCV) 02/02/2018 Zoster Vaccines (1 of 2) 02/02/2018 Colorectal Cancer Screening: Colonoscopy 04/08/2024 Depression Screening 04/08/2024 HIV Screening 04/08/2024 Hepatitis C Screening 04/08/2024 Social Influencers of Health Screening 04/08/2024 COVID-19 Vaccine ( - 2023-2 5 season) 2024 Influenza Vaccine (#1) 2024 Cholesterol Screening (Lipid Panel) 07/26/2029 07/26/2024 HIB Vaccines Aged Out No longer eligi ble based on patient's age to complete this topic HPV Vaccines Aged Out No longer eligi ble based on patient's age to complete this topic Hepatitis A Vaccines Aged Out No long er eligible based on patient's age to complete this topic IPV Vaccines Aged Out No longer eligi ble based on patient's age to complete this topic MMR Vaccines Aged Out No longer eligi ble based on patient's age to complete this topic Meningococcal ACWY Vaccine Aged Out N o longer eligible based on patient's age to complete this topic Meningococcal B Vacine Aged Out No lo nger eligible based on patient's age to complete this topic Pneumococcal Vaccine: Pediat rics (0 to 5 Years) and At-Risk Patients (6 to 64 Years) Aged Out No longer eligi ble based on patient's age to complete this topic RSV Immunization Patients Un kelsey 20 months Aged Out No longer eligible b ased on patient's age to complete this topic Varicella Vaccines Aged Out No longer eligible based on patient's age to complete this topic Procedures Procedure Name Priority Date/Time Associated Diagnosis Comments LIPID PANEL WITH REFLEX TO DIRECT LDL Routine 07/26/2024 9:43 AM EST Vitamin B12 deficiency anemia, unspecified Mixed hyperlipidemia Obesity, unspecified from Last 3 Months or Most Recently Relevant to Health Maintenance Results * Lipid panel with reflex to direct LDL (07/26/2024 9:43 AM EST) Cholesterol 162 0 - 200 mg/dL LAB CHEMISTRY METHOD 07/26/2024 6:17 PM EST [facility] Triglycerides 44 0 - 150 mg/dL LAB CHEMISTRY METHOD 07/26/2024 6:17 PM EST [facility] HDL 54 >=40 mg/dL LAB CHEMISTRY METHOD 07/26/2024 6:17 PM [facility] LDL Calculated 99 0 - 100 mg/dL LAB CHEMISTRY METHOD 07/26/2024 6:17 PM EST [facility] VLDL Cholesterol Juan 8.8 mg/dL LAB CHEMISTRY METHOD 07/26/2024 6:17 PM [facility] Non HDL Chol. (LDL+VLDL) 108 <145 mg/dL LAB CHEMISTRY METHOD 07/26/2024 6:17 PM EST [facility] Chol/HDL Ratio 3.0 0.0 - 4.4 LAB CHEMISTRY METHOD 07/26/2024 6:17 PM [facility] Blood Venous blood specimen / Unknown 07/26/2024 9:43 AM EST 07/26/2024 6:01 PM EST us Ginyn Dial NP LAB BLOOD ORDERABLES Final Result [facility] [address] [place] [address], from Last 3 Months or Most Recently Relevant to Health Maintenance Insurance MEDICAID - [place] Care Teams Assisted Living Assistant Relationship Specialty Start Date End Date Physician, Pcp Unknown PCP - General 07/26/24
--- OUTSIDE RECORDS SUMMARY | 2024-12-08 07:37 | XMS_ITS ---
Author Organization [facility] Address [address] [place] [phone] Care Team Providers Care Kiln Transfer Operator Name Role Phone Ginny Dial Primary Care Provider REASON FOR VISIT phone: lab f/u Medications Medication SIG (Take, Route, Frequency, Duration) Notes Start Date End Date Status Naprosyn 500 mg 1 tab(s) orally 2 times a day 02/02/2019 Not-Taking Vitamin B-12 1000 mcg 1 tab(s) chewable once a day 08/13/2023 Active escitalopram 5 mg 1 tab orally once a day in morning Please deliver to [facility] [address] Active Tylenol 8 HR Arthritis Pain 650 mg 2 tab(s) orally every 8 hours for 30 days 09/11/2023 Active rosuvastatin 10 mg 1 tab(s) orally once a day Active cloNIDine 0.1 mg 1 tab(s) orally once a day at bedtime Please deliver to [facility] for [address] 02/23/2024 Active Social History Sex Assigned At : Social History Observation Description Sex Assigned At Male Encounters Encounter Location Date Provider Diagnosis [facility]-HEALTH [address] [place] [address] [place], [place] [phone] 08/10/2024 Ginny Dial Person consulting fo r explanation of examination or test findings Z71.2 and Vitamin B12 deficiency anemia, unspecified D51.9 Assessments Encounter Date Diagnosis (ICD Code) Assessment Notes Treatment Notes Treatment Clinical Notes 08/10/2024 Person consulting for explanation of examination or test findings (ICD-10 - Z71.2) Reviewed results of recent diagnostic testing with client. Testing was (ab)normal. Future plan of action discussed. 08/10/2024 Vitamin B12 deficiency anemia, unspecified (ICD-10 - D51.9) denies fatigue/weakness 08/10/2024 Other Time spent in visit: 8 minutes Plan Of Treatment Medication Medication Name Sig Start Date Stop Date Notes Vitamin B-12 1000 mcg 1 tab(s) chewable once a day 023 Treatment Notes Assessment Notes Person consulting for explan ation of examination or test findings Reviewed results of recent diagnostic testing with client. Testing was (ab)normal. Future plan of action discussed. Vitamin B12 deficiency anemia, unspecifi ed denies fatigue/weakness Other Time spent in visit: 8 minutes Next Appt Details Follow Up: 6 Months, Reason: CPE Provider Name:Ginny mazariegos, 02/20/2025 10:00:00 AM, [address] [place] [address], [phone], Progress Notes * Braeden REYES WDOB: 8 (54 yo M)Acc No.[id number]:08/10/2024 Progress Notes Patient:?Braeden REYES W Provider:?RAJ Stout :1970???Age:54 Y???Sex:Male Mitch e:08/10/2024 Address:[address] [place], [place] [phone] Subjective: * Chief Complaints: * ???Phone: lab f/u * HPI: ???General:? This encounter is being performed over the telephone. The patient has consented to a telephone encounter.Limitations of this method of delivery of health services were discussed. The patient was made aware that privacy measures are in place to protect confidentiality of this type of visit. Location of provider:. ? -[place]: 53 y/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 Diverticulosis and hyperlipidemia, presents self for lab f/u today -[facility] - He was seen by BRENDA. Notes we have was from 11/2023 with noted c6-c7 cervical disc herniation nerve impingement and possible cord compression. He is yet to call [facility] to scheudle surgery due to his increasingly weak left arm with finger paresthesia. The surgery will be on a pinched nerve in the elbow area. - ETOH- as a teenage -MJ - 1-2 x/wk - from the streets; smoking since 9 y/o; calms him down -Mood: reports stable; established with our MH team -cigarettes?denies -Declines Flu shot. * ROS:?GENERAL:?Constitutional?denies,?fevers, Fatigue.?Respiratory?denies,?shortness of breath.?Neuro?Patient notesparesthesia to fingers.?Cardiovascular?denies,?chest pain/pressure.? * Medical History:? * Surgical History:? * Hospitalization/Major Diagno stic Procedure:? * Medications:?TakingcloNIDine 0.1 mg tablet 1 tab(s) orally once a day at bedtime , Notes to Pharmacist: Please deliver to [facility] [address]escitalopram 5 mg tablet 1 tab orally once a day in morning , Notes to Pharmacist: Please deliver to [facility] for [address]Tylenol 8 HR Arthritis Pain 650 mg tablet, extended release 2 tab(s) orally every 8 hours rosuvastatin 10 mg tablet 1 tab(s) orally once a day Vitamin B-12 1000 mcg tablet 1 tab(s) chewable once a day Taking cloNIDine 0.1 mg tablet 1 tab(s) orally once a day at bedtime , Notes to Pharmacist: Please deliver to [facility] [address]Taking escitalopram 5 mg tablet 1 tab orally once a day in morning , Notes to Pharmacist: Please deliver to [facility] Services for [address]Taking Tylenol 8 HR Arthritis Pain 650 mg tablet, extended release 2 tab(s) orally every 8 hours Taking rosuvastatin 10 mg tablet 1 tab(s) orally once a day Taking Vitamin B-12 1000 mcg tablet 1 tab(s) chewable once a day Not-Taking/PRNNaprosyn 500 mg tablet 1 tab(s) orally 2 times a day Medication List reviewed and reconciled with the patientNot-Taking/PRN Naprosyn 500 mg tablet 1 tab(s) orally 2 times a day Medication List reviewed and reconciled with the patient Objective: * Vitals:? * ???Past Orders: ???Lab:THYROID STIMULATING H ORMONE WITH REFLEX TO FREE T4 AND FREE T3 (Order Date - 07/26/2024) (Collection Date & Time - 07/26/2024 09:43 AM) ?Result: Normal ? Value Reference Range ?TSH 0.78 0.40-4.00 - mcI U/mL ???Lab:HEMOGLOBIN A1C (Order Date - 07/26/2024) (Collection Date & Time - 07/26/2024 09:43 AM) ?Result: Normal ? Value Reference Range ?Hemoglobin A1C 4.9 <6.5 - % ?Mean Bld Glu Estim. 94 - mg/dL ???Lab:VITAMIN B12 (Order Da te - 07/26/2024) (Collection Date & Time - 07/26/2024 09:43 AM) ?Result: Normal ? Value Reference Range ?Vitamin B-12 401 250-900 - pcg/mL ???Lab:COMPLETE BLOOD COUNT (Order Date - 07/26/2024) (Collection Date & Time - 07/26/2024 09:43 AM) ?Result: low H & H; h igh MCV and MCH ? Value Reference Range ?WBC 5.7 4.8-10.8 - K/mc L ?RBC 3.90 L 4.50-5.50 - M/m cL ?Hemoglobin 13.1 L 13.5-17.5 - g/dL ?Hematocrit 39.5 L 42.0-54.0 - % ?MCV 102.3 H 79.0-98.0 - FL ?MCH 33.9 H 27.0-32.0 - pcg ?MCHC 33.2 32.0-37.0 - g/d L ?RDW 12.8 11.0-15.0 - % ?Platelets 161 130-400 - K/mcL ?MPV 11.8 H 7.0-11.0 - FL ?NRBC 0.0 <1.0 - % ?NRBC Absolute 0.00 <0.10 - K/mcL ???Lab:LIPID PANEL WITH REFL EX TO DIRECT LDL (Order Date - 07/26/2024) (Collection Date & Time - 07/26/2024 09:43 AM) ?Result: Normal ? Value Reference Range ?Cholesterol 162 0-200 - mg/dL ?Triglycerides 44 0-150 - mg/dL ?HDL 54 >=40 - mg/dL ?LDL Calculated 99 0-100 - mg/dL ?VLDL Cholesterol Juan 8.8 - mg/dL ?Non HDL Chol. (LDL+VLDL) 108 <145 - mg/dL ?Chol/HDL Ratio 3.0 0.0-4 .4 - * Examination: ???General Examination: ???Unable to perform PE due to constraints of telephone encounter. Assessment: * Assessment: 1.?Person consulting for exp lanation of examination or test findings - Z71.2 (Primary)???2.?Vitamin B12 deficiency anemia, unspecified - D51.9??? Plan: * Treatment: 2.?Vitamin B12 deficiency an emia, unspecified? Continue Vitamin B-12 tablet, 1000 mcg, 1 tab(s), chewable, once a day.?? Notes: denies fatigue/weakness?? 3.?Others? Notes: Time spent in visit: 8 minutes?? * Procedure Codes:?40782 Non B illable Level 7L1013 CLINIC VST/ENCOUNTER ALL-INCLUSIVE * Follow Up:?6 Months (Reason: CPE) * Images: Billing Information: * Visit Code:? * Procedure Codes:? 59971 Non Billable Level 3. T1015 CLINIC VST/ENCOUNTER ALL-INCLUSIVE. Care Plan Details* * Sign off status: Completed true * Provider:?RAJ Stout Date: ?08/10/2024 Generated for Howard lomas/Candis/Jaspal on:?12/08/2024 07:37 AM EDT
--- OUTSIDE RECORDS SUMMARY | 2024-12-08 07:37 | XMS_ITS ---
Author Organization [facility] Address [address] [place] [phone] Care Team Providers Care Betting Clerks Name Role Phone Ginny Dial Primary Care Provider REASON FOR VISIT [employer] gift card at clinic for client Social History Sex Assigned At : Social History Observation Description Sex Assigned At Male Encounters Encounter Location Date Provider [facility] [address] [place] [phone] 08/16/2024 Ginny Dial Plan Of Treatment Next Appt Details Provider Name:Bernywinifred mazariegos, 02/20/2025 10:00:00 AM, [address] [place] [address], [phone], Progress Notes * Braeden REYES WDOB: 8 (54 yo M)Acc No.[id number]:08/16/2024 Patient:?Braeden REYES :1970???Age:54 Y???Sex:Male Address:[address] [place] [address], [phone] * true * Date:? Generated for Printi ng/Faxing/eTransmitting on:?12/08/2024 07:37 AM EDT
--- OUTSIDE RECORDS SUMMARY | 2024-12-08 07:37 | XMS_ITS | Encounter Summary ---
Author Organization [employer] Address [address] [place] [address] Care Team Providers Care Kitchen Operator Name Role Phone Physician, Pcp Unknown Primary Care Provider Linda vailable Encounter Details Date Type Department Care Team (Late st Contact Info) Description 07/26/2024 Lab Requisition [facility] - Main Lab [address] [facility] [place] [address] Ginny Dial, TYLER [address] [place] [address] Vitamin B12 deficiency anemia, unspecified; Mixed hyperlipidemia; Obesity, unspecified Social History Tobacco Use Types Packs/Day Years Used Date Smoking Tobacco: Never Assessed Sex and Gender Information Value Date Recorded Sex Assigned at Not on file Legal Sex Male 1:31 PM EDT Gender Identity Not on file Sexual Orientation Not on file documented as of this encounter Plan of Treatment Not on file documented as of this encounter Procedures Procedure Name Priority Date/Time Associated Diagnosis Comments THYROID STIMULATING HORMONE WITH REFLEX TO FREE T4 AND FREE T3 Routine 07/26/2024 9:43 AM EST Vitamin B12 deficiency anemia, unspecified Mixed hyperlipidemia Obesity, unspecified LIPID PANEL WITH REFLEX TO DIRECT LDL Routine 07/26/2024 9:43 AM EST Vitamin B12 deficiency anemia, unspecified Mixed hyperlipidemia Obesity, unspecified COMPLETE BLOOD COUNT Routine 07/26/2024 9:43 AM EST Vitamin B12 deficiency anemia, unspecified Mixed hyperlipidemia Obesity, unspecified HEMOGLOBIN A1C Routine 07/26/2024 9:43 AM EST Vitamin B12 deficiency anemia, unspecified Mixed hyperlipidemia Obesity, unspecified VITAMIN B12 Routine 07/26/2024 9:43 AM EST Vitamin B12 deficiency anemia, unspecified Mixed hyperlipidemia Obesity, unspecified documented in this encounter Results * Vitamin B12 (07/26/2024 9:43 AM EST) Pathologist [facility] Vitamin B-12 401 250 - 900 pcg/mL LAB CHEMISTRY METHOD 07/26/2024 6:22 PM EST [facility] Blood Venous blood specimen / Unknown 07/26/2024 9:43 AM EST 07/26/2024 6:01 PM EST [facility] LAB BLOOD ORDERABLES Final Result [facility] [address] [place] [address], [place] [phone] * Thyroid stimulating hormone with reflex to free t4 and free t3 (07/26/2024 9:43 AM EST) [facility] TSH 0.78 0.40 - 4.00 mcIU/mL LAB CHEMISTRY METHOD 07/26/2024 6:08 PM EST [facility] Blood Venous blood specimen / Unknown 07/26/2024 9:43 AM EST 07/26/2024 6:01 PM EST [facility] LAB BLOOD ORDERABLES Final Result [facility] [address] [place] [address], [place] [phone] * Lipid panel with reflex to direct LDL (07/26/2024 9:43 AM EST) [facility] Cholesterol 162 0 - 200 mg/dL LAB CHEMISTRY METHOD 07/26/2024 6:17 PM EST [facility] Triglycerides 44 0 - 150 mg/dL LAB CHEMISTRY METHOD 07/26/2024 6:17 PM EST [facility] HDL 54 >=40 mg/dL LAB CHEMISTRY METHOD 07/26/2024 6:17 PM [facility] LDL Calculated 99 0 - 100 mg/dL LAB CHEMISTRY METHOD 07/26/2024 6:17 PM [facility] VLDL Cholesterol Juan 8.8 mg/dL LAB CHEMISTRY METHOD 07/26/2024 6:17 PM [facility] Non HDL Chol. (LDL+VLDL) 108 <145 mg/dL LAB CHEMISTRY METHOD 07/26/2024 6:17 PM [facility] Chol/HDL Ratio 3.0 0.0 - 4.4 LAB CHEMISTRY METHOD 07/26/2024 6:17 PM [facility] Blood Venous blood specimen / Unknown 07/26/2024 9:43 AM EST 07/26/2024 6:01 PM EST us Eddionel Dial [employer] LAB BLOOD ORDERABLES Final Result Performing Organization Address City/[facility]/ZIP Co de Phone Number [facility] [address] [place] [address], [place] [phone] * Hemoglobin A1c (07/26/2024 9:43 AM EST) Pathologist [facility] Hemoglobin A1C 4.9 <6.5 % LAB CHEMISTRY METHOD 07/27/2024 1:00 PM [facility] Mean Bld Glu Estim. 94 mg/dL LAB CHEMISTRY METHOD 07/27/2024 1:00 PM [facility] Blood Venous blood specimen / Unknown 07/26/2024 9:43 AM EST 07/26/2024 5:51 PM EST us Eddielinoreen Dial [employer] LAB BLOOD ORDERABLES Final Result Performing Organization Address City/[facility]/ZIP Co de Phone Number [facility] [address] [place] [address], [place] [phone] * (ABNORMAL) Complete blood count (07/26/2024 9:43 AM EST) WBC 5.7 4.8 - 10.8 K/mcL LAB HEMETOLOGY METHOD 07/26/2024 5:51 PM [facility] RBC 3.90(L) 4.50 - 5.50 M/mcL LAB HEMETOLOGY METHOD 07/26/2024 5:51 PM [facility] Hemoglobin 13.1(L) 13.5 - 17.5 g/dL LAB HEMETOLOGY METHOD 07/26/2024 5:51 PM [facility] Hematocrit 39.5(L) 42.0 - 54.0 % LAB HEMETOLOGY METHOD 07/26/2024 5:51 PM [facility] MCV 102.3(H) 79.0 - 98.0 FL LAB HEMETOLOGY METHOD 07/26/2024 5:51 PM [facility] MCH 33.9(H) 27.0 - 32.0 pcg LAB HEMETOLOGY METHOD 07/26/2024 5:51 PM [facility] MCHC 33.2 32.0 - 37.0 g/dL LAB HEMETOLOGY METHOD 07/26/2024 5:51 PM [facility] RDW 12.8 11.0 - 15.0 % LAB HEMETOLOGY METHOD 07/26/2024 5:51 PM [facility] Platelets 161 130 - 400 K/[facility] LAB HEMETOLOGY METHOD 07/26/2024 5:51 PM [facility] MPV 11.8(H) 7.0 - 11.0 FL LAB HEMETOLOGY METHOD 07/26/2024 5:51 PM [facility] NRBC 0.0 <1.0 % LAB HEMETOLOGY METHOD 07/26/2024 5:51 PM [facility] NRBC Absolute 0.00 <0.10 K/[facility] LAB HEMETOLOGY METHOD 07/26/2024 5:51 PM EST [facility] Blood Venous blood specimen / Unknown 07/26/2024 9:43 AM EST 07/26/2024 5:51 PM EST us Ginny Dial [employer] TE[employer] LAB BLOOD ORDERABLES Final Result [facility] [address] [place] [address], documented in this encounter Visit Diagnoses Diagnosis Vitamin B12 deficiency anemia, unspecified Mixed hyperlipidemia Obesity, unspecified documented in this encounter Care Teams Kitchen Operator Relationship Specialty Start Date End Date Physician, Pcp Unknown PCP - General 07/26/24 documented as of this encounter
[2024-12-08 07:51] LABS: Alanine Aminotransferase 16 U/L (0-40); Alkaline Phosphatase 62 U/L (39-117); Anion Gap 10 (12-20); Aspartate Amino Transferase 26 U/L (5-37); Bilirubin Direct 0.2 mg/dL (0.0-0.5); Bilirubin Total 0.5 mg/dL (0.0-1.0); Blood Urea Nitrogen 18 mg/dL (9-16); Carbon Dioxide 23 mmol/L (22-29); Chloride 112 mmol/L (96-108); Creatinine Clr Calc Pharmacy 113.7; Estimated Glomerular Filt Rate > 60; Glucose Random 114 mg/dL (60-115); Lipase 25 U/L (8-78); Potassium 3.7 mmol/L (3.3-5.1); Sodium 141 mmol/L (135-145); Total Protein 7.3 g/dL (6.5-8.0)
--- NOTE | 2024-12-08 08:20 | ECG_ITS ---
Test Reason : cp Blood Pressure : */* mmHG Vent. Rate : 63 BPM Atrial Rate : 63 BPM P-R Int : 180 ms QRS Dur : 82 ms QT Int : 408 ms P-R-T Axes : 43 4 30 degrees QTcB Int : 417 ms Normal sinus rhythm Normal ECG No previous ECGs available Referred By: Keyla Benitez Electronically Signed By: JAZZMINE WHITESIDE
[2024-12-08 08:30] LABS: Appearance Urine Clear; Color Urine Yellow; Glucose Urine UA Negative (Negative); Leukocyte Esterase Urine Negative (Negative); Nitrite Urine Negative (Negative); OBS Int Ctl Valid YES; OBS1 NEGATIVE (NEGATIVE); Specific Gravity - Urine >= 1.030 (1.005-1.025); UMIC TRIGGER UACC YES; Urine Blood Trace (Negative); Urine Ketones Trace mg/dL (Negative); Urine Protein 30 (1+) mg/dL (Neg-Trace)
[2024-12-08] MEDS: Magnesium Hydrox/Alum Hydrox 30 ML ORAL.SUSP PO (08:33)
[2024-12-08] MEDS: ondansetron HCL 4 MG/2 ML VIAL IVPUSH (08:33)
[2024-12-08] MEDS: 0.9 % Sodium Chloride 1,000 ML 999 ML IV (08:34)
[2024-12-08 08:35] LABS: Bacteria Urine None Seen (None Seen); Hyaline Casts Urine 0-2 /LPF (0-2); Squamous Epithelial Cell Urine 0-2 /HPF (0-2); WBC Urine 0-5 /HPF (0-5)
--- NOTE | 2024-12-08 08:42 | ED_ITS ---
HPI - General Adult General Chief complaint: General Medical Stated complaint: vomiting rash head to toe Time Seen by Provider: 12/08/24 07:55 Source: patient, RN notes reviewed and old records reviewed Mode of arrival: ambulatory History of Present Illness ED Provider: Keyla Benitez PA-C HPI narrative: 54-year-old male with no significant past medical history presenting to the ED complaining of epigastric abdominal pain/ worsening acid reflux x 1 week with associated nausea, decreased p.o. intake, and spitting up. Also reports generalized fatigue, lightheadedness, generalized weakness, and black tarry stool noted yesterday. Also reports pruritic/burning intermittent rash to scalp, back, groin, hands x 1 month. Denies rash at present. Did take Zyrtec and prednisone without relief. Denies seeing grease remover. Denies CP/SOB, diarrhea, constipation, dysuria /hematuria, anticoagulation use. Denies new exposures, travel, sick contacts Related Data Previous Rx's ?Medication ?Instructions ?Recorded mecobalamin (vitamin B12) 5,000 5,000 mcg PO DAILY #30 tabs 07/29/23 mcg chewable tablet famotidine 20 mg tablet (Pepcid) 20 mg PO DAILY #14 tabs 12/08/24 triamcinolone acetonide 0.025 % 1 appl topical BID PRN rash #80 12/08/24 topical cream grams Allergies Allergy/AdvReac Type Severity Reaction Status Date / Time No Known Allergies Allergy Verified 12/08/24 07:20 Review of Systems 2 Review of Systems: Yes all other systems are reviewed and are negative Constitutional: Constitutional: Reports as per HPI Neurologic: Denies Abnormal speech present [facility] Past Medical History Attestation statement: The following information was validated with the patient. Source: old records reviewed Social History Social History Household Members: None Housing: Homeless Do you presently have visiting nurse or other home services: No Patient Tobacco Use Status: Never used Tobacco Substance Use Type: Marijuana Advance Directives: No Advance Directives Information Provided: No Do you have a plan to hurt others: No Plan service: No Physical Exam ED Vital Signs: Vital Signs - 24 hr 12/08/24 07:14 12/08/24 10:36 Temperature 96.4 F L 96.4 F L Pulse Rate 88 88 Respiratory Rate 20 20 Blood Pressure 155/80 H 155/80 H Pulse Oximetry 100 100 Oxygen Delivery Method Room Air Room Air BMI result Body Mass Index 35.1 Const General: cooperative, healthy appearing and no acute distress Orientation/consciousness: patient oriented x3 Limitations: no limitations HENMT Head: Yes normal to inspection and Yes atraumatic Ears: hearing grossly normal bilaterally General nose exam: Normal external nose present Face and sinus: Yes normal facial exam Eyes General: appearance normal, both eyes and all related structures EOM: EOMs intact bilaterally Neck Neck: Yes normal visual inspection and Yes no meningeal signs Resp Effort & Inspection: normal respiratory effort and no respiratory distress Auscultation: clear to auscultation bilaterally Cardio Rate: regular rate Heart sounds: S1 normal heart sound present and S2 normal heart sound present GI Inspection: Yes normal to inspection Palpation (GI): Soft to palpation, nontender, no guarding and not rigid General: Yes no CVA tenderness Back/Spine/Pelvis Back: no CVA tenderness Skin Rashes: no rashes Wounds: no wounds Neuro General: patient oriented x3, gait normal, tone normal, moves all extremities, no meningeal signs, no focal motor deficits and CN's II-XI intact bilaterally Cranial nerves: Yes CN's II-XII intact bilaterally and Yes Bilaterally intact EOM present Cognition (Neuro): normal cognition Speech: No Abnormal speech present Gait exam (Neuro): Normal gait present Motor exam (neuro): 5/5 motor strength present throughout Extrem General: Yes normal to inspection Course Course Course Narrative: -1011-- labs reassuring. Troponin negative - UA with RBCs, not infected - occult stool negative Results discussed with patient including worrisome signs and symptoms and strict return precautions, and when to return to the emergency department. > discussed needed follow up with GI for likely endoscopy and dermatology for fluctuating rash patient is tolerating p.o. in the ED without difficulty. They verbalized understanding and feel safe for discharge at this time. Medications Administered Discontinued Medications Generic Name Dose Route Start Last Admin Trade Name Freq PRN Reason Stop Dose Admin Al Hydroxide/Mg Hydroxide 30 ml 12/08/24 08:21 12/08/24 08:33 Magnesium Hydrox/Alum Hydrox 30 Ml Oral.Susp PO 12/08/24 08:22 30 ml ONCE ONE Administration Sodium Chloride 1,000 mls @ 999 mls/hr 12/08/24 08:30 12/08/24 10:31 Ns IV 12/08/24 09:30 Infused .Q1H1M HERRERA Infusion Lidocaine HCl 5 ml 12/08/24 10:09 12/08/24 10:31 Lidocaine Hcl Viscous 2 % 15 Ml Solution MUCOUS MEM 12/08/24 10:10 5 ml ONCE ONE Administration Ondansetron HCl 4 mg 12/08/24 08:21 12/08/24 08:33 Ondansetron Hcl 4 Mg/2 Ml Vial IVPUSH 12/08/24 08:22 4 mg ONCE ONE Administration Medical Decision Making Medical Decision Making MDM Narrative: 54-year-old male with no significant past medical history presenting to the ED complaining of epigastric abdominal pain/ worsening acid reflux x 1 week with associated nausea, decreased p.o. intake, and spitting up. Also reports generalized fatigue, lightheadedness, generalized weakness, and black tarry stool noted yesterday. Also reports pruritic/burning intermittent rash to scalp, back, groin, hands x 1 month. on exam vital signs stable, NAD, nontoxic appearing, abdomen is soft and nontender, no CVAT. No appreciable rash at present. No palm/ sole involvement. No sloughing. Concern for GERD/gastritis vs atypical ACS vs PUD/UGIB. Concern for contact dermatitis vs psoriasis/ eczema. No evidence of SJS or TENs. plan: EKG, labs, UA, occult stool, GI cocktail, re-evaluate Please refer to course for remaining clinical decision making, interpretation of labs/imaging results, and discussions with consultants and/or family members. Differential Diagnosis Differential Diagnoses: The differential diagnosis associated with the presentation includes As above Admission/Observation Consideration of admission/observation: Escalation of care including admission/observation considered Lab Data [facility] Lab Attestation statement: I reviewed the patient's lab results. 12/08/24 07:28 12/08/24 07:28 Labs: Lab Results 12/08/24 12/08/24 Range/Units 07:28 08:22 WBC 8.9 (4.8-10.8) X10*3/uL RBC 3.98 L (4.60-5.80) X10*6/uL Hgb 13.9 L (14.0-18.0) g/dl Hct 38.8 L (42.0-52.0) % MCV 97.5 (80.0-98.0) fL MCH 34.9 H (27.0-33.0) pg MCHC 35.8 (31.0-36.0) g/dl RDW 12.4 (11.0-16.0) % Plt Count 184 (160-400) X10*3/uL MPV 9.8 (9.4-12.4) fL Immature Gran % (Auto) 0.2 (0.0-0.4) % Neut % (Auto) 46.9 (45-73) % Lymph % (Auto) 42.6 H (20-40) % [place] % (Auto) 6.7 (2-11) % Eos % (Auto) 3.3 (0-4) % Baso % (Auto) 0.3 (0-2) % Lymph # (Auto) 3.8 (1.2-4.9) X10*3/uL [place] # (Auto) 0.6 (0.1-1.2) X10*3/uL Eos # (Auto) 0.3 (0.0-0.4) X10*3/uL Baso # (Auto) 0.0 (0.0-0.2) X10*3/uL Abs Immat Gran (auto) 0.02 (0.00-0.03) X10*3/uL Absolute Neuts (auto) 4.2 (2.0-8.3) x10*3/uL Absolute Nucleated RBC 0.000 (0.0-0.012) X10*3/uL Nucleated RBC % (auto) 0.0 (0.0-0.2) /100WBC Sodium 141 (135-145) mmol/L Potassium 3.7 (3.3-5.1) mmol/L Chloride 112 H (96-108) mmol/L Carbon Dioxide 23 (22-29) mmol/L Anion Gap 10 L (12-20) BUN 18 H (9-16) mg/dL Creatinine 1.07 (0.5-1.4) mg/dL Estim Creat Clear Calc 113.7 Estimated GFR > 60 Random Glucose 114 (60-115) mg/dL Calcium 9.0 D (8.4-10.2) mg/dL Magnesium 1.9 (1.6-2.6) mg/dL Total Bilirubin 0.5 (0.0-1.0) mg/dL Direct Bilirubin 0.2 (0.0-0.5) mg/dL AST 26 (5-37) U/L ALT 16 (0-40) U/L Alkaline Phosphatase 62 (39-117) U/L Troponin I High Sens < 2.7 (<3.5-35.0) ng/L Total Protein 7.3 (6.5-8.0) g/dL Albumin 4.0 (3.5-5.0) g/dL Lipase 25 (8-78) U/L Urine Color Yellow Urine Appearance Clear Urine pH 6.0 (5.0-9.0) Ur Specific White >= 1.030 H (1.005-1.025) Urine Protein 30 (1+) H (Neg-Trace) mg/dL Urine Glucose (UA) Negative (Negative) mg/dL Urine Ketones Trace (Negative) mg/dL Urine Blood Trace H (Negative) Urine Nitrite Negative (Negative) Ur Leukocyte Esterase Negative (Negative) Urine RBC 3-5 H (0-2) /HPF Urine WBC 0-5 (0-5) /HPF Ur Squamous Epith Cells 0-2 (0-2) /HPF Urine Bacteria None Seen (None Seen) Hyaline Casts 0-2 (0-2) /LPF Stool Occult Blood NEGATIVE (NEGATIVE) Independent Interpretation I performed an independent interpretation of an: EKG ( My interpretation EKG normal sinus rhythm rate of 63. NC interval 180. QTC 417. No STEMI) Radiology Impression Discussion of test interpretation with radiology: I have reviewed the radiologist's reading. External Record Review External record reviewed: Inpatient record, Office record, Outpatient record, Prior outpatient labs, Prior outpatient radiology, Primary care record and Outside ED record Tests considered The following testing was considered but not selected: As above Prescription Management I considered prescription management with: Pain Medication Chronic Conditions Patient?s care impacted by: Other Social Determinants Patient?s care significantly limited by Social Determinants of Health including: Other Social Determinant of Health Discharge Plan Discharge Clinical Impression: Gastritis, Rash Patient Disposition: Home, Self-Care Instructions: Gastritis (DC), Acute Rash (ED) Additional Instructions: your blood work and EKG are reassuring Your urine does have blood in it, it is not infected. Please follow up with your primary care doctor in regards to this You should follow up with Gastroenterology, you may need an endoscopy Please also follow up with Dermatology If her symptoms persist or worsen, you are unable to eat or drink have persistent or worsening nausea, vomiting, abdominal pain, chest pain, or rash return to the ED Prescriptions: New famotidine [Pepcid] 20 mg tablet 20 mg PO DAILY Qty: 14 0RF triamcinolone acetonide 0.025 % cream 1 appl topical BID PRN (Reason: rash) Qty: 80 0RF Rx Instructions: Apply to RASH only. Can potentially discolor skin. AVOID application to face, hands, feet & genital area No Action mecobalamin (vitamin B12) 5,000 mcg tablet,chewable 5,000 mcg PO DAILY Qty: 30 0RF Referrals: [facility] [Provider Group] - 1 week [facility] [Outside] [facility] [Outside] Ginny Dial APRN [Primary Care Provider] - 5 days Interventions: ED Discharge Assessment Last Done: 12/08/24 10:36 Discharge Date/Time: 12/08/24 10:37 Print Language: Romanian
[2024-12-08 08:59] LABS: Magnesium 1.9 mg/dL (1.6-2.6)
[2024-12-08 09:05] LABS: Troponin-I High Sensitivity < 2.7 ng/L (<3.5-35.0)
[2024-12-08] MEDS: Lidocaine HCl Viscous 2 % 15 ML SOLUTION 5 ML MUCOUS MEM (10:31)
[2024-12-08 10:36] VITALS: BP 155/80; PULSE 88; RESP 20; TEMP 35.8; O2SAT 100
== END 2024-12-08 10:37 | disposition home or self-care (01) ==
PROVIDERS: Physician Assistant; Emergency Provider Emergency Medicine; PCP Nurse Practitioner
DX: K29.70 Gastritis, unspecified, without bleeding (principal); R21 Rash and other nonspecific skin eruption; R10.13 Epigastric pain; F12.90 Cannabis use, unspecified, uncomplicated; Z79.899 Other long term (current) drug therapy
CPT/HCPCS: 36415; 80048; 80076; 81001; 82272; 83690; 83735; 84484; 85025; 93005; 96361; 96374; 99284; J2405

== ENCOUNTER → 2024-12-08 08:20 | Outpatient (BNV) | payer MEDICAID, SELFPAY | PROVIDERS: Emergency Provider Emergency Medicine; PCP Nurse Practitioner; Visit Provider Internal Medicine | DX: R07.9 Chest pain, unspecified (principal) | CPT/HCPCS: 93010 ==

== ENCOUNTER 2024-12-15 06:26 | Emergency (ER) | payer MEDICAID, SELFPAY ==
[2024-12-15 06:38] VITALS: BP 140/76; PULSE 73; RESP 18; TEMP 37.1; O2SAT 99; BMI 33.5
[2024-12-15 06:56] LABS: MANUAL DIFF FLAG NO
[2024-12-15 06:59] LABS: Hematocrit 36.7 % (42.0-52.0); Hemoglobin 13.4 g/dl (14.0-18.0); Mean Corpuscular HGB Conc 36.5 g/dl (31.0-36.0); Mean Corpuscular Hemoglobin 35.2 pg (27.0-33.0); Mean Corpuscular Volume 96.3 fL (80.0-98.0); Red Blood Count 3.81 X10*6/uL (4.60-5.80); Red Cell Distribution Width 12.4 % (11.0-16.0); White Blood Count 8.2 X10*3/uL (4.8-10.8)
[2024-12-15 07:00] LABS: Basophils Percent Auto 0.1 % (0-2); Eosinophils Absolute Auto 0.3 X10*3/uL (0.0-0.4); Eosinophils Percent Auto 3.2 % (0-4); Imm Gran Abs Auto 0.02 X10*3/uL (0.00-0.03); Imm Gran Pct Auto 0.2 % (0.0-0.4); Lymphocytes Absolute Auto 3.3 X10*3/uL (1.2-4.9); Lymphocytes Percent Auto 39.6 % (20-40); Mean Platelet Volume 9.4 fL (9.4-12.4); Monocytes Absolute Auto 0.7 X10*3/uL (0.1-1.2); Monocytes Percent Auto 7.9 % (2-11); Platelet Count 179 X10*3/uL (160-400)
[2024-12-15 07:12] LABS: Alanine Aminotransferase 15 U/L (0-40); Albumin Level 3.8 g/dL (3.5-5.0); Alkaline Phosphatase 53 U/L (39-117); Anion Gap 13 (12-20); Aspartate Amino Transferase 24 U/L (5-37); Bilirubin Direct 0.2 mg/dL (0.0-0.5); Bilirubin Total 0.7 mg/dL (0.0-1.0); Blood Urea Nitrogen 16 mg/dL (9-16); Calcium 10.3 mg/dL (8.4-10.2); Carbon Dioxide 24 mmol/L (22-29); Chloride 110 mmol/L (96-108); Estimated Glomerular Filt Rate > 60; Glucose Random 105 mg/dL (60-115); Potassium 3.5 mmol/L (3.3-5.1); Sodium 143 mmol/L (135-145); Total Protein 6.9 g/dL (6.5-8.0)
--- OUTSIDE RECORDS SUMMARY | 2024-12-15 07:41 | XMS_ITS ---
Author Organization [facility] Address [address] [place] [phone] Care Team Providers Care Belt Maker Name Role Phone Ginny Dial Primary Care Provider [phone] Reason For Referral Reason evaluate for CAL D with no relief from H2 Valerie Diagnosis 1 Gastro-esophageal re flux disease with esophagitis, without bleeding (K21.00) Referral Organization [facility] Referring Provider First Name Ginny Referring Provider Last Name Yojana Referring Provider Speciality Nurse Maurice haddad Referred Provider [facility], Gastroenterology Referred Provider Specialty Gastroentero logy General Notes Charla Ramon 2024 09:27:11 AM >Faxed to [facility] Referral Priority Routine Reason evaluate for rec urrent dermatitis Diagnosis 1 Dermatitis, unspecif ied (L30.9) Referral Organization [facility] Referring Provider First Name Ginny Referring Provider Last Name Yojana Referring Provider Speciality Nurse Maurice haddad Referred Provider Kurtis Yates Referred Provider Specialty Dermatology General Notes Charla Ramon 2024 09:36:46 AM >[facility] does not take [facility], referred to [facility], referral and notes faxed Referral Priority Routine REASON FOR VISIT ER - referral Medications Medication SIG (Take, Route, Frequency, Duration) Notes Start Date End Date Status escitalopram 5 mg 1 tab orally once a day in morning Please deliver to [facility] [address] [place] [address]. Active cloNIDine 0.1 mg 1 tab(s) orally once a day at bedtime Please deliver to [facility] [address] 02/23/2024 Active triamcinolone topical 0.025% 1 mehnaz applied topically 3 times a day Active Naprosyn 500 mg 1 tab(s) orally 2 times a day 02/02/2019 Unknown famotidine 20 mg 1 tab(s) orally 2 times a day Active Tylenol 8 HR Arthritis Pain 650 mg 2 tab(s) orally every 8 hours for 30 days 09/11/2023 Unknown Vitamin B-12 1000 mcg 1 tab(s) chewable once a day 08/13/2023 Active rosuvastatin 10 mg 1 tab(s) orally once a day Active Social History Sex Assigned At : Social History Observation Description Sex Assigned At Male Problems Problem Type SNOMED Code ICD Code Onset Dates Problem Status W/U Status Risk Notes Problem Gastroesophageal reflux disease with esophagitis (disorder) (575169531) Gastro-esoph ageal reflux disease with esophagitis, without bleeding (K21.00) Active confirmed Vital Signs Height 75.5 in 12/12/2024 Encounters Encounter Location Date Provider Diagnosis [address] [phone] 12/12/2024 Ginny Dial Dermatitis, unspecified L30.9 and Gastro-esophageal reflux disease with esophagitis, without bleeding K21.00 Assessments Encounter Date Diagnosis (ICD Code) Assessment Notes Treat ment Notes Treatment Clinical Notes 12/12/2024 Dermatitis, unspecified (ICD-10 - L30.9) 12/12/2024 Gastro-esophageal reflux disease with esophagitis, without bleeding (ICD-10 - K21.00) Plan Of Treatment Referrals Referral Date Details 12/12/2024 12/12/2024, eval uate for GERD with no relief from H2 Valerie, Gastroenterology [facility] 12/12/2024 12/12/2024, eval uate for recurrent dermatitis, Kurtis Yates Next Appt Details Provider Name:Ginny Gore delilah, 12/26/2024 09:00:00 AM, [address] [place] [address], [phone], Provider Name:Ginny Gore delilah, 02/20/2025 10:00:00 AM, [address] [place] [address], [phone], Progress Notes * Braeden REYES WDOB: [birth year] (54 yo M)Acc No.[id number]:12/12/2024 Patient:Braeden GILLIAM :1970???Age:54 Y???Sex:Male Address:[address] [place] [address], Verify address, [place], [address] Subjective: * Chief Complaints: * ???ER - referral * HPI: ???General:? reports skin eruptions from scalp to toes reports abdomina discomfort. * Medical History:? * Surgical History:? * Hospitalization/Major Diagno stic Procedure:? * Medications:?Takingfamotidin e 20 mg tablet 1 tab(s) orally 2 times a day triamcinolone topical 0.025% cream 1 mehnaz applied topically 3 times a day cloNIDine 0.1 mg tablet 1 tab(s) orally once a day at bedtime , Notes to Pharmacist: Please deliver to [facility] [address]escitalopram 5 mg tablet 1 tab orally once a day in morning , Notes to Pharmacist: Please deliver to [facility] [address]rosuvastatin 10 mg tablet 1 tab(s) orally once a day Vitamin B-12 1000 mcg tablet 1 tab(s) chewable once a day Taking famotidine 20 mg tablet 1 tab(s) orally 2 times a day Taking triamcinolone topical 0.025% cream 1 mehnaz applied topically 3 times a day Taking cloNIDine 0.1 mg tablet 1 tab(s) orally once a day at bedtime , Notes to Pharmacist: Please deliver to [facility] [address]Taking escitalopram 5 mg tablet 1 tab orally once a day in morning , Notes to Pharmacist: Please deliver to [facility] [address]Taking rosuvastatin 10 mg tablet 1 tab(s) orally once a day Taking Vitamin B-12 1000 mcg tablet 1 tab(s) chewable once a day UnknownTylenol 8 HR Arthritis Pain 650 mg tablet, extended release 2 tab(s) orally every 8 hours Naprosyn 500 mg tablet 1 tab(s) orally 2 times a day Medication List reviewed and reconciled with the patientUnknown Tylenol 8 HR Arthritis Pain 650 mg tablet, extended release 2 tab(s) orally every 8 hours Unknown Naprosyn 500 mg tablet 1 tab(s) orally 2 times a day Medication List reviewed and reconciled with the patient Objective: * Vitals:?Ht: 75.5. * Physical Examination:? Assessment: * Assessment: 1.?Dermatitis, unspecified - L30.9 (Primary)???2.?Gastro-esophageal reflux disease with esophagitis, without bleeding - K21.00??? Plan: * Treatment: 2.?Gastro-esophageal reflux disease with esophagitis, without bleeding? Referral To:Gastroenterology [facility]??Gastroenterology ?Reason:evaluate for GERD with no relief from H2 Valerie * Procedure Codes:? * true * Date:? Generated for Howard lomas/Candis/eTransmitting on:?12/15/2024 07:41 AM EDT Consultation Request Notes Referral Date Referring Provider Referred Provider Not es 12/12/2024 Ginny Dial [facility], Gastroenterology evaluate for GERD with no relief from H2 Valerie 12/12/2024 Ginny Dial Peter eval uate for recurrent dermatitis
--- OUTSIDE RECORDS SUMMARY | 2024-12-15 07:41 | XMS_ITS | Patient Health Record ---
Author Organization [facility] Address [address], [place] [id number] Care Team Providers Care Cardiac Nurse Specialist Name Role Phone Elena Perez Primary Care Provider [phone] Tam Degroot Unavailable [phone] Jany Che Unavailable [phone] Daina Medrano Unavailable [phone] Allergies No Known Allergies Results Component Value Reference Range Notes VITAMIN B12 Reviewed date:03/17/2024 01:30:30 PM Interpretation:Normal Performing Lab: Notes/Report: Busy Moos, a member of [address] [address] Log Stacker Operator - Annie Pickard MD VITAMIN B12 491 250-900 pg/mL CBC Reviewed date:03/17/2024 01:30:43 PM Interpretation:Abnormal Performing Lab: Notes/Report: Original Ordering Provider: ELENA PEREZ APRN WBC 7.3 4.8-10.8 x10-3/uL RBC 3.8 4.5-5.5 x10-6/uL HEMOGLOBIN 12.8 13.5-17.5 g/dL HEMATOCRIT 38.0 42-54 % MCV 100.3 79-98 fL MCH 33.8 27-32 pg MCHC 33.7 32-37 g/dL RDW 13.3 11-15 % PLT COUNT 239 130-400 x10-3/uL MEAN PLATELET VOLUME 10.2 7-11 fL NRBC % AUTO 0.0 <1 % NRBC # AUTO 0.00 <0.1 x10-3/uL COMPREHENSIVE METABOLIC PANE L Reviewed date:03/17/2024 01:30:15 PM Interpretation:Normal Performing Lab: Notes/Report: GLUCOSE 92 70-100 mg/dL Reference range applicable to fasting specimens only BUN 11 5-25 mg/dL CREAT 1.12 0.7-1.3 mg/dL GLOMERULAR FILTRATION RATE 77 >60 This eGFR result was calculated using the CKD-EPI 2020 Creatinine Equation SODIUM 141 135-145 mEq/L POTASSIUM 4.3 3.5-5.5 mmol/L CHLORIDE 109 96-110 mmol/L CO2 26 21-32 mmol/L ANION GAP 6 3-11 CALCIUM 9.3 8.5-10.5 mg/dL TOTAL PROTEIN 6.8 6.0-8.0 G/dL ALBUMIN 3.3 3.2-5.0 G/dL BILI,TOTAL 0.7 0.0-1.4 mg/dL SGOT 12 10-42 U/L SGPT 13 10-60 U/L ALK PHOS 76 42-121 U/L GLYCOHEMOGLOBIN PROFILE Reviewed date:03/17/2024 01:30:01 PM Interpretation:Normal Performing Lab: Notes/Report: Original Ordering Provider: ELENA PEREZ APRN Busy Moos[place] [address] Log Stacker Operator - Annie Pickard MD GLYCATED HEMOGLOBIN A1C 5.7 <6.5 % ESTIMATED AVERAGE GLUCOSE 117 LIPID PROFILE Reviewed date:03/17/2024 01:30:24 PM Interpretation:High Performing Lab: Notes/Report: CHOLESTEROL 216 0-200 mg/dL TRIGLYCERIDES 73 0-150 mg/dL HDL CHOLESTEROL 43 >40 mg/dL LDL CALCULATED 159 0-100 mg/dL TC-HDLC RATIO 5.0 0-4.4 mg/dL THYROID PROFILE Reviewed date:03/17/2024 01:30:07 PM Interpretation:Normal Performing Lab: Notes/Report: TSH CASCADE 0.78 0.40-4.00 uIU/ml VITAMIN B12 Reviewed date:07/27/2024 01:48:05 PM Interpretation:Normal Performing Lab: Notes/Report: Vitamin B-12 401 250-900 pcg/mL COMPLETE BLOOD COUNT Reviewed date:07/27/2024 01:47:50 PM Interpretation:low H & H; high MCV and MCH Performing Lab: Notes/Report: WBC 5.7 4.8-10.8 K/mcL RBC 3.90 4.50-5.50 M/mcL Hemoglobin 13.1 13.5-17.5 g/dL Hematocrit 39.5 42.0-54.0 % MCV 102.3 79.0-98.0 FL MCH 33.9 27.0-32.0 pcg MCHC 33.2 32.0-37.0 g/dL RDW 12.8 11.0-15.0 % Platelets 161 130-400 K/mcL MPV 11.8 7.0-11.0 FL NRBC 0.0 <1.0 % NRBC Absolute 0.00 <0.10 K/mcL LIPID PANEL WITH REFLEX TO D IRECT LDL Reviewed date:07/27/2024 01:47:01 PM Interpretation:Normal Performing Lab: Notes/Report: Cholesterol 162 0-200 mg/dL Triglycerides 44 0-150 mg/dL HDL 54 >=40 mg/dL LDL Calculated 99 0-100 mg/dL VLDL Cholesterol Juan 8.8 Non HDL Chol. (LDL+VLDL) 108 <145 mg/dL Chol/HDL Ratio 3.0 0.0-4.4 THYROID STIMULATING HORMONE WITH REFLEX TO FREE T4 AND FREE T3 Reviewed date:07/27/2024 01:47:08 PM Interpretation:Normal Performing Lab: Notes/Report: TSH 0.78 0.40-4.00 mcIU/mL HEMOGLOBIN A1C Reviewed date:07/27/2024 01:46:53 PM Interpretation:Normal Performing Lab: Notes/Report: Hemoglobin A1C 4.9 <6.5 % Mean Bld Glu Estim. 94 Reason For Referral Reason PT-1 Requested for [facility] [address] [facility] 12 months x 2 visits a month Referral Organization [facility] Referring Provider First Name Elena Referring Provider Last Name Yojana Referring Provider Speciality Nurse Prac cornelioioner Referred Provider PT1, Request Referral Priority Routine Reason evaluate for CAL D with no relief from H2 Valerie Diagnosis 1 Gastro-esophageal re flux disease with esophagitis, without bleeding (K21.00) Referral Organization [facility] Referring Provider First Name Elena Referring Provider Last Name Yojana Referring Provider Speciality Nurse Prac cornelioioner Referred Provider [facility], Gastroenterology Referred Provider Specialty Gastroentero logy General Charla Lincoln 2024 09:27:11 AM >Faxed to [facility] Referral Priority Routine Reason evaluate for rec urrent dermatitis Diagnosis 1 Dermatitis, unspecif ied (L30.9) Referral Organization [facility] Referring Provider First Name Elena Referring Provider Last Name Yojana Referring Provider Speciality Nurse Maurice haddad Referred Provider Kurtis Yates Referred Provider Specialty Dermatology General Notes Charla Ramon 2024 09:36:46 AM >[facility] does not take [facility], referred to [facility], referral and notes faxed Referral Priority Routine Medications Medication SIG (Take, Route, Frequency, Duration) Notes Start Date End Date Status Tylenol 8 HR Arthritis Pain 650 mg 2 tab(s) orally every 8 hours for 30 days 09/11/2023 Unknown escitalopram 5 mg 1 tab orally once a day in morning Please deliver to [facility] [address] [place] [address]. Active cloNIDine 0.1 mg 1 tab(s) orally once a day at bedtime Please deliver to [facility] [address] 02/23/2024 Active triamcinolone topical 0.025% 1 mehnaz applied topically 3 times a day Active Naprosyn 500 mg 1 tab(s) orally 2 times a day 02/02/2019 Unknown Vitamin B-12 1000 mcg 1 tab(s) chewable once a day 08/13/2023 Active rosuvastatin 10 mg 1 tab(s) orally once a day Active famotidine 20 mg 1 tab(s) orally 2 times a day Active Social History Tobacco Use: Social History Observation Description Date Details (start date - stop date) Never Smoker NA - NA Sex Assigned At : Social History Observation Description Sex Assigned At Male Tobacco Use Assessment MU Question Answer Notes What is your current smoking status? nonsmoker Problems Problem Type SNOMED Code ICD Code Onset Dates Problem Status W/U Status Risk Notes Problem Vitamin B>12< deficiency anaemia (41037603) Vitamin B12 deficiency anemia, unspecified (D51.9) Active confirmed Problem Obesity (610004225) Obesity, unspecified (E66.9) Active confirmed Problem Mixed hyperlipidemia (528982986) Mixed hyperlipidemia (E78.2) Active confirmed Problem Severe recurrent major depression without psychotic features (29365355) Major depressive disorder, recurrent severe without psychotic features (F33.2) Active confirmed Problem Generalized anxiety disorder (44293335) Generalized anxiety disorder (F41.1) Active confirmed Problem Insomnia 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 disorder (73407839) Insomnia due to other mental disorder (F51.05) Active confirmed Problem Peripheral vascular disease (453665642) Peripheral vascular disease, unspecified (I73.9) Active confirmed Problem Diverticular disease of colon (193609828) Diverticulosis of large intestine without perforation or abscess without bleeding (K57.30) Active confirmed Problem Cervical radiculopathy (27765961) Radiculopathy, cervical region (M54.12) Active confirmed Problem Lumbar radiculopathy (991240321) Radiculopathy, lumbar region (M54.16) Active confirmed Problem Gastroesophageal reflux disease with esophagitis (disorder) (111711439) Gastro-esophageal reflux disease with esophagitis, without bleeding (K21.00) Active confirmed Problem Body mass index 35.00 to 39.99 (304263205306870) Body mass index [BMI] 36.0-36.9, adult (Z68.36) Active confirmed Problem Sheltered homelessness (480813018723178) Sheltered homelessness (Z59.01) Active confirmed Problem Recurrent major depression (28145675) Major depressive disorder, recurrent, unspecified (F33.9) Inactive confirmed Problem Migraine without aura, not refractory (disorder) (418488787) Migraine, unspecified, not intractable, without status migrainosus (G43.909) Inactive confirmed Problem Backache (491936272) Dorsalgia, unspecified (M54.9) Inactive confirmed Problem Headache (28438932) Headache (R51) Inactive conf irmed Problem Financially poor (76463927) Insufficient social insurance and welfare support (Z59.7) Inactive confirmed Vital Signs Temperature 98.6 degrees Fahrenheit 07/26/2024 Blood pressure diastolic 83 07/26/2024 Oximetry 100 07/26/2024 Height 75.5 in 12/12/2024 Blood pressure systolic 143 07/26/2024 Weight 276.4 lbs 07/26/2024 BMI 34.09 kg/m2 07/26/2024 Encounters Encounter Location Date Provider Diagnosis [address] [id number] 02/23/2024 Tam Degroot Major depressive disorder, recurrent severe without psychotic features F33.2 ; Generalized anxiety disorder F41.1 ; Insomnia due to other mental disorder F51.05 ; Vitamin B12 deficiency anemia, unspecified D51.9 ; Obesity, unspecified E66.9 and Encounter for screening for COVID-[address]11[address] [id number] 03/16/2024 Eddieliza Casionan Encounter for screening for COVID-19 Z11.52 ; Mixed hyperlipidemia E78.2 ; Obesity, unspecified E66.9 ; Vitamin B12 deficiency anemia, unspecified D51.9 and Peripheral vascular disease, unspecified I73.[address] [id number] 03/16/2024 Tam Degroot Major depressive disorder, recurrent severe without psychotic features F33.2 ; Generalized anxiety disorder F41.1 ; Insomnia due to other mental disorder F51.05 ; Sheltered homelessness Z59.01 ; Vitamin B12 deficiency anemia, unspecified D51.9 ; Obesity, unspecified E66.9 and Encounter for screening for COVID-19 Z11.52 [facility] [address] [place] [address] [facility] [place], [place] [id number] 03/28/2024 Eddieliza Casionan Mixed hyperlipidemia E78.2 ; Person consulting for explanation of examination or test findings Z71.2 and Vitamin B12 deficiency anemia, unspecified D51.[address] [id number] 05/17/2024 Tam Degroot Major depressive disorder, recurrent severe without psychotic features F33.2 ; Generalized anxiety disorder F41.1 ; Insomnia due to other mental disorder F51.05 ; Sheltered homelessness Z59.01 ; Vitamin B12 deficiency anemia, unspecified D51.9 ; Obesity, unspecified E66.9 ; Mixed hyperlipidemia E78.2 and Encounter for screening for COVID-[address] Z11.[address] [id number] 06/22/2024 Tam Degroot Major depressive disorder, recurrent severe without psychotic features F33.2 ; Generalized anxiety disorder F41.1 ; Insomnia due to other mental disorder F51.05 ; Mixed hyperlipidemia E78.2 and Encounter for screening for COVID-19 Z11.52 [facility] [address] [phone] 07/12/2024 Daina Medrano [facility] [address] [place] [phone] 07/13/2024 Daina Medrano [address] [id number] 07/26/2024 Eddieliza Casionan Encounter for screening for COVID-19 Z11.52 ; Mixed hyperlipidemia E78.2 ; Obesity, unspecified E66.9 ; Vitamin B12 deficiency anemia, unspecified D51.9 ; Immunization not carried out because of patient refusal Z28.21 and Sheltered homelessness Z59.01 [facility] [address] [place] [address] [facility] [place] [id number] 08/10/2024 Eddieliza Casionan Person consulting for explanation of examination or test findings Z71.2 and Vitamin B12 deficiency anemia, unspecified D51.[address] [id number] 02/23/2024 Eddieliza Casionan [address] [id number] 02/23/2024 Eddieliza Casionan Vitamin B12 deficiency anemia, unspecified D51.[address] [id number] 07/26/2024 Eddieliza Casionan [facility] [address] [place] [id number] 07/26/2024 Eddieliza Casionan [address] [id number] 07/28/2024 Eddieliza Casionan [facility] [address] [place] [id number] 08/09/2024 [facility]a [facility] [address] [place] [address] [address] [place] [address] 08/16/2024 Eddieliza Casionan [address] [id number] 12/12/2024 Eddieliza Casionan Dermatitis, unspecified L30.9 and Gastro-esophageal reflux disease with esophagitis, without bleeding K21.00 Assessments Encounter Date Diagnosis (ICD Code) Assessment Notes Treat ment Notes Treatment Clinical Notes 02/23/2024 Major depressive disorder, recurrent severe without psychotic features (ICD-10 - F33.2) Reviewed hx of psychiatric illness, treatment received and medication trials with client. Discussed current medications as to indications, actions and side effects. Reviewed risks benefits of treatment versus non treatment. Medication education provided. Patient given opportunity to ask questions. Patient gives informed consent to proceed with prescribed treatment. 1. [employer] HEALTH MANAGEMENT CONSULTANT reviewed: see exam 2. Medications: will continue escitalopram to target depression and anxiety S/E of Escitalopram include but are not limited to: nausea, sweating, insomnia, somnolence, sexual side effects and headache. Serious but rare S/E include but are not limited to hyponatremia, mainly in elderly, GI bleeding especially when combined with NSAIDS. First line SSRI option R/T tolerability and minimal drug interaction potential. Off lablel for social anxiety and PTSD 3. Cont psychotherapy: has f/u appt Darcy hCe [facility] scheduled 4. Labs/Procedures: labs ordered by PCP at [facility] and reviewed with PCP. 5. Exercise/Nutrition: sleep, regular exercise and nutrition all have a direct impact on our health and well-being. Keeping them in balance is especially important when we face stressful times in our lives. Eat balanced meals, get 6-8 hours of sleep a night, daily walking as able. 6. Understands plan and verbalizes agreement, allowed time for clarifying questions. Clonidine most common side effects include but are not limited to dry mouth, somnolence, dizziness, constipation, fatigue, headache. Serious but rare s/e include hypotension, syncope, orthostasis. Minimize s/e by administering at bedtime. Need to taper dose to avoid rebound hypertension. 03/16/2024 Mixed hyperlipidemia (ICD-10 - E78.2) Denies statin SE 03/16/2024 Encounter for screening for COVID-19 (ICD-10 - Z11.52) Covid screening is negative. Discussed in detail with patient how to practice social distancing by avoiding public spaces and crowds now, wearing a mask in public to keep nose and mouth covered, and washing hands frequently especially before eating and after using the bathroom. Return to clinic if you develop any symptoms of concern to be rescreened or go to the emergency room if you are having concerning symptoms for COVID-19. 03/16/2024 Major depressive disorder, recurrent severe without psychotic features (ICD-10 - F33.2) Reviewed hx of psychiatric illness, treatment received and medication trials with client. Discussed current medications as to indications, actions and side effects. Reviewed risks benefits of treatment versus non treatment. Medication education provided. Patient given opportunity to ask questions. Patient gives informed consent to proceed with prescribed treatment. 1. [employer] HEALTH MANAGEMENT CONSULTANT reviewed: see exam 2. Medications: will continue escitalopram to target depression and anxiety S/E of Escitalopram include but are not limited to: nausea, sweating, insomnia, somnolence, sexual side effects and headache. Serious but rare S/E include but are not limited to hyponatremia, mainly in elderly, GI bleeding especially when combined with NSAIDS. First line SSRI option R/T tolerability and minimal drug interaction potential. Off lablel for social anxiety and PTSD 3. Cont psychotherapy: has f/u jennifer Che [facility] scheduled 4. Labs/Procedures: labs ordered by PCP at [facility] and reviewed with PCP. 5. Exercise/Nutrition: sleep, regular exercise and nutrition all have a direct impact on our health and well-being. Keeping them in balance is especially important when we face stressful times in our lives. Eat balanced meals, get 6-8 hours of sleep a night, daily walking as able. 6. Understands plan and verbalizes agreement, allowed time for clarifying questions. Clonidine most common side effects include but are not limited to dry mouth, somnolence, dizziness, constipation, fatigue, headache. Serious but rare s/e include hypotension, syncope, orthostasis. Minimize s/e by administering at bedtime. Need to taper dose to avoid rebound hypertension. 03/28/2024 Mixed hyperlipidemia (ICD-10 - E78.2) denies SE from statin 03/28/2024 Person consulting for explanation of examination or test findings (ICD-10 - Z71.2) Reviewed results of recent diagnostic testing with client. Future plan of action discussed with from results of diagnostic testing. 05/17/2024 Major depressive disorder, recurrent severe without psychotic features (ICD-10 - F33.2) Reviewed hx of psychiatric illness, treatment received and medication trials with client. Discussed current medications as to indications, actions and side effects. Reviewed risks benefits of treatment versus non treatment. Medication education provided. Patient given opportunity to ask questions. Patient gives informed consent to proceed with prescribed treatment. 1. [employer] HEALTH MANAGEMENT CONSULTANT reviewed: see exam 2. Medications: will continue escitalopram to target depression and anxiety S/E of Escitalopram include but are not limited to: nausea, sweating, insomnia, somnolence, sexual side effects and headache. Serious but rare S/E include but are not limited to hyponatremia, mainly in elderly, GI bleeding especially when combined with NSAIDS. First line SSRI option R/T tolerability and minimal drug interaction potential. Off lablel for social anxiety and PTSD 3. Cont psychotherapy: has f/u appt Darcy Che [facility] scheduled 4. Labs/Procedures: labs ordered by PCP at [facility] and reviewed with PCP. 5. Exercise/Nutrition: sleep, regular exercise and nutrition all have a direct impact on our health and well-being. Keeping them in balance is especially important when we face stressful times in our lives. Eat balanced meals, get 6-8 hours of sleep a night, daily walking as able. 6. Understands plan and verbalizes agreement, allowed time for clarifying questions. Continue clonidine for insomnia and iritability. Clonidine most common side effects include but are not limited to dry mouth, somnolence, dizziness, constipation, fatigue, headache. Serious but rare s/e include hypotension, syncope, orthostasis. Minimize s/e by administering at bedtime. Need to taper dose to avoid rebound hypertension. 06/22/2024 Major depressive disorder, recurrent severe without psychotic features (ICD-10 - F33.2) Reviewed hx of psychiatric illness, treatment received and medication trials with client. Discussed current medications as to indications, actions and side effects. Reviewed risks benefits of treatment versus non treatment. Medication education provided. Patient given opportunity to ask questions. Patient gives informed consent to proceed with prescribed treatment. 1. [employer] HEALTH MANAGEMENT CONSULTANT reviewed: see exam 2. Medications: will continue escitalopram to target depression and anxiety S/E of Escitalopram include but are not limited to: nausea, sweating, insomnia, somnolence, sexual side effects and headache. Serious but rare S/E include but are not limited to hyponatremia, mainly in elderly, GI bleeding especially when combined with NSAIDS. First line SSRI option R/T tolerability and minimal drug interaction potential. Off lablel for social anxiety and PTSD 3. Cont psychotherapy: has f/u appt Darcy Che [facility] scheduled 4. Labs/Procedures: no nnew labs for review 5. Exercise/Nutrition: sleep, regular exercise and nutrition all have a direct impact on our health and well-being. Keeping them in balance is especially important when we face stressful times in our lives. Eat balanced meals, get 6-8 hours of sleep a night, daily walking as able. 6. Understands plan and verbalizes agreement, allowed time for clarifying questions. Continue clonidine for insomnia and iritability. Clonidine most common side effects include but are not limited to dry mouth, somnolence, dizziness, constipation, fatigue, headache. Serious but rare s/e include hypotension, syncope, orthostasis. Minimize s/e by administering at bedtime. Need to taper dose to avoid rebound hypertension. 07/26/2024 Mixed hyperlipidemia (ICD-10 - E78.2) Denies SE from statins 07/26/2024 Encounter for screening for COVID-19 (ICD-10 - Z11.52) Covid screening is negative. Discussed in detail with patient how to practice social distancing by avoiding public spaces and crowds now, wearing a mask in public to keep nose and mouth covered, and washing hands frequently especially before eating and after using the bathroom. Return to clinic if you develop any symptoms of concern to be rescreened or go to the emergency room if you are having concerning symptoms for COVID-19. 08/10/2024 Person consulting for explanation of examination or test findings (ICD-10 - Z71.2) Reviewed results of recent diagnostic testing with client. Testing was (ab)normal. Future plan of action discussed. 02/23/2024 Vitamin B12 deficiency anemia, unspecified (ICD-10 - D51.9) 12/12/2024 Dermatitis, unspecified (ICD-10 - L30.9) 12/12/2024 Gastro-esophageal reflux disease with esophagitis, without bleeding (ICD-10 - K21.00) 02/23/2024 Generalized anxiety disorder (ICD-10 - F41.1) Common side effects of Hydroxyzine/Vistari l include but are not limited to: dizziness, drowsiness, blurred vision, dry mouth, stomach upset, or headache. Do not drive or perform activities which require concentration until you understand how Hydroxyzine affects you. 03/16/2024 Obesity, unspecified (ICD-10 - E66.9) Engaged discussion on maintaining healthy lifestyle: healthy diet low on fats and simple carbohydrates, and regular physical exercise of at least 30 minutes daily 03/16/2024 Generalized anxiety disorder (ICD-10 - F41.1) Per clt hydroxyzine not as effective as clonidine and would like to stop. Will cont clonidine at HS. 03/28/2024 Vitamin B12 deficiency anemia, unspecified (ICD-10 - D51.9) will continue with B12 supplement 05/17/2024 Generalized anxiety disorder (ICD-10 - F41.1) Stopped previously, too sedating. Will remove from active med list. 06/22/2024 Generalized anxiety disorder (ICD-10 - F41.1) Stopped hydroxyzine as too sedating.Aware clonidine and escitalopram may help with anxiety reduction. 07/26/2024 Obesity, unspecified (ICD-10 - E66.9) Engaged discussion on maintaining healthy lifestyle: healthy diet low on fats and simple carbohydrates, and regular physical exercise of at least 30 minutes daily 08/10/2024 Vitamin B12 deficiency anemia, unspecified (ICD-10 - D51.9) denies fatigue/weakness 02/23/2024 Insomnia due to other mental disorder (ICD-10 - F51.05) Aware clonidine may help with sleep, anxiety and irritability. 03/16/2024 Vitamin B12 deficiency anemia, unspecified (ICD-10 - D51.9) Will check cbc and B12 03/16/2024 Insomnia due to other mental disorder (ICD-10 - F51.05) Aware clonidine may help with sleep, anxiety and irritability. 05/17/2024 Insomnia due to other mental disorder (ICD-10 - F51.05) Aware clonidine may help with sleep, anxiety and irritability. 06/22/2024 Insomnia due to other mental disorder (ICD-10 - F51.05) Aware clonidine may help with sleep, anxiety and irritability. 07/26/2024 Vitamin B12 deficiency anemia, unspecified (ICD-10 - D51.9) Will check B12 02/23/2024 Vitamin B12 deficiency anemia, unspecified (ICD-10 - D51.9) F/U with PCP on B-12 replacement. 03/16/2024 Peripheral vascular disease, unspecified (ICD-10 - I73.9) gave compression stockings and instructed on proper use 03/16/2024 Sheltered homelessness (ICD-10 - Z59.01) Clt just learned he got an apartment at [address] [address] in [place]. He also got his SS benefits. He is excited and anxious. 05/17/2024 Sheltered homelessness (ICD-10 - Z59.01) Clslime will be moving to new apartment at [address] in [place] in August. He is collecting SS benefits and purchasing things for the apartment. He is excited and anxious. 06/22/2024 Mixed hyperlipidemia (ICD-10 - E78.2) Prescribed by PCP for cholesterol, educated on medication and encouraged to take on daily basis. 07/26/2024 Immunization not carried out because of patient refusal (ICD-10 - Z28.21) Declines Flu shot. Aware of risks 02/23/2024 Obesity, unspecified (ICD-10 - E66.9) Has lost some weight purposefully, walking more. 03/16/2024 Vitamin B12 deficiency anemia, unspecified (ICD-10 - D51.9) F/U with PCP on B-12 replacement today. 05/17/2024 Vitamin B12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
--- OUTSIDE RECORDS SUMMARY | 2024-12-15 07:41 | XMS_ITS | Clinical Summary ---
Author Organization [address] [facility] Address [address] [place] [address] Phone Care Team Providers Care Collet Maker Name Role Phone Physician, Pcp Unknown Primary [...] age to complete this topic Meningococcal B Vaccine Aged Out No l onger eligible based on patient's age to complete [...] LAB CHEMISTRY METHOD 07/26/2024 6:17 PM EST [facility] Triglycerides 44 0 - 150 mg/dL LAB CHEMISTRY METHOD 07/26/2024 6:17 PM EST [facility] HDL 54 >=40 mg/dL LAB CHEMISTRY METHOD 07/26/2024 6:17 PM EST [facility] LDL Calculated 99 0 - 100 mg/dL LAB CHEMISTRY METHOD 07/26/2024 6:17 PM EST [facility] VLDL Cholesterol Juan 8.8 mg/dL LAB CHEMISTRY METHOD 07/26/2024 6:17 PM EST [facility] Non HDL Chol. (LDL+VLDL) 108 <145 mg/dL LAB CHEMISTRY METHOD 07/26/2024 6:17 PM EST [facility] Chol/HDL Ratio 3.0 0.0 - 4.4 LAB CHEMISTRY METHOD 07/26/2024 6:17 PM [facility] Blood Venous blood specimen / Unknown 07/26/2024 9:43 AM EST 07/26/2024 6:01 PM EST us Ginny Dial NP LAB BLOOD ORDERABLES Final Result [facility] [address] [place] [address], from Last 3 Months or Most Recently Relevant to Health Maintenance Insurance MEDICAID - [place] Care Teams Collet Maker Relationship Specialty Start Date End Date Physician, Pcp Unknown PCP - General 07/26/24
--- OUTSIDE RECORDS SUMMARY | 2024-12-15 07:41 | XMS_ITS ---
Author Organization [facility] Address [address] [place] [phone] Care Team Providers Care Dental Laboratory Technician Name Role Phone Ginny Dial Primary Care Provider Tam Degroot Unavailable [phone] REASON FOR VISIT BH: check on new apartment, Symptom screening by [facility] staff pre entrance to clinic, if does [...] deliver to [facility] [address] [place] [address]. Active cloNIDine 0.1 mg 1 tab(s) orally once a day at bedtime Please deliver to [facility] [address] [place] [address]. 02/23/2024 Active Social History Tobacco Use: Social History Observation Description Date Details (start date - stop date) Never Smoker NA - NA Sex Assigned At : Social History Observation Description Sex Assigned At Male Tobacco Use Assessment MU Question Answer Notes What is your current smoking status? nonsmoker Encounters Encounter Location Date Provider Diagnosis [facility] [address] [place] [address] [facility] [place] [phone] 08/18/2024 Tam Degroot Encounter for screening for [...] for COVID-19. Next Appt Details Provider Name:Ginny Gore delilah, 12/26/2024 09:00:00 AM, [address] [place] [address], [phone], Provider Name:Ginny Gore delilah, 02/20/2025 10:00:00 AM, [address] [place] [address], [phone], Progress Notes * Braeden REYES WDOB: 8 (54 yo M)Acc No.[id number]:08/18/2024 Progress Notes Patient:?Braeden REYES W Provider:?Tam Degroot PMHNP-BC :1970???Age:54 Y???Sex:Male Mitch e:08/18/2024 Address:[address] [place] [address], [phone] Pcp:Ginny Dial Subjective: * Chief Complaints: * ???1. BH: check on new apart ment. 2. Symptom screening by [facility] staff pre entrance to clinic. 3. if [...] ligaments torn 2015. * Hospitalization/Major Diagno stic Procedure:?[facility] Orthopedic surgery 2014. * Family History:?Mother: dece ased 50 yrs, Multiple Myeloma, heart disease, diagnosed with Cancer, disseminated, diagnosed with Cardiopathy.?Father: , hx unknown.?Family Hx: diagnosed with Cardiopathy, Cancer, disseminated.?2 sister(s) - healthy. 1 son(s) . .? Has not heard from son, he is in [employer] Unknown health info for father. * Social History:?Housing/living arrangements: 09/09/23-been at [facility] over 1 month, previously sleeping outside in [place] HX:08/14/[address] [place] [address], 2 weeks ago; feels unsafe from insect bites in the clinic01/23: at was living on streets.. ???SDoH Screening?Entered Date?09/09/2023 ?How is this screening being conducted today??By phone ?What is your housing situation today??I have housing today, but I am worried about losing housing in the future [facility] Detention ?Think about the place you live. Do you have problems with any of the following? (Check all that apply)?Pest such as bugs, ants, or mice Pt has received multiple bug bites in the long term. ?Within the past 12 months, you worried [...] ?In the past 12 months has the [facility], gas, oil, or water Health Plotter threatened to shut off services in your [...] STI testing today?08/14/2023 ???Mental Health: 09/09/23-engaging with [facility] team. Has an intake with med prescriber, Fannie Degroot, FLORYP-09/10/2411 Depression and anxiety; not currenlty seeing anyone for MH counseling.. ???School?Last grade completed?12 ?Required SPED services?No ?Reading/Writing competent?Literate ???Work Hx: most recent employment [employer] last worked in 1995Incarcerated doing pre-release [phone]. 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 ???Income: 09/09/23-received SNAP but has been waiting for appt with medical and/or psych provider to complete med report for his EAEDC tdakxgrmptf62/8/23 Food stamps; has applied SSI spoke with Shy for next steps.. ???Legal issues/Incarcerations: Fio came out 2006.. ???PCP/last visit: 07/29/23 [facility] Inpatient for Blood in Stool. ???Transportation: 08/14/2023, [...] deliver to [facility] Taking escitalopram 5 mg tablet 1 tab orally once a day in morning , Notes to Pharmacist: Please deliver to [facility] Taking Tylenol 8 HR Arthritis Pain 650 [...] * Electronic signature of STEPHANIE Palm on 12/15/2024 at 07:41 AM EDT Sign off status: Pending * Provider:?CAILIN NuñezHNP-BC Date:?1 10/19/2023 Generated for Howard lomas/Candis/Rosaitting on:?12/15/2024 07:41 AM EDT History and Physical Notes * Examination Category Sub-Category Detail Notes Psychiatry MassPat Review as appropriate Re viewed 08/17/2024, no entries
--- OUTSIDE RECORDS SUMMARY | 2024-12-15 07:41 | XMS_ITS ---
Author Organization [facility] Address [address] [place] [phone] Care Team Providers Care Digital Production Manager Name Role Phone Ginny Dial Primary Care Provider REASON FOR VISIT Ben's gift card at clinic for client Social History Sex Assigned At : Social History Observation Description Sex Assigned At Male Encounters Encounter Location Date Provider [facility] [address] [place] [phone] 08/16/2024 Ginny Dial Plan Of Treatment Next Appt Details Provider Name:Ginny Camglenda mazariegos, 12/26/2024 09:00:00 AM, [address] [place] [address], [phone], Provider Name:Bernywinifred mazariegos, 02/20/2025 10:00:00 AM, [address] [place] [address], [phone], Progress Notes * Braeden REYES WDOB: 8 (54 yo M)Acc No.[id number]:08/16/2024 Patient:?Braeden REYES :1970???Age:54 Y???Sex:Male Address:[address] [place] [address], [phone] * true * Date:? Generated for Printi ng/Faxing/eTransmitting on:?12/15/2024 07:41 AM EDT
--- OUTSIDE RECORDS SUMMARY | 2024-12-15 07:41 | XMS_ITS | Encounter Summary ---
Author Organization [employer] Address [address] [place] [address] Care Team Providers Care Passenger Car Cleaning Supervisor Name Role Phone Physician, Pcp Unknown Primary Care Provider Linda vailable Encounter Details Date Type Department Care Team (Late st Contact Info) Description 07/26/2024 Lab Requisition [facility] - Main Lab [address] [facility] [place] [address] Ginny Dial, TYL[address] [place] [address] Vitamin B12 deficiency anemia, unspecified; Mixed hyperlipidemia; [...] LAB CHEMISTRY METHOD 07/26/2024 6:22 PM EST [facility] Blood Venous blood specimen / Unknown 07/26/2024 9:43 AM EST 07/26/2024 6:01 PM EST [facility] BLOOD ORDERABLES Final Result [facility] [address] [place] [address], [place] [phone] * Thyroid stimulating hormone with reflex to free t4 and free t3 (07/26/2024 9:43 AM EST) [facility] TSH 0.78 0.40 - 4.00 mcIU/mL LAB CHEMISTRY METHOD 07/26/2024 6:08 PM EST [facility] Blood Venous blood specimen / Unknown 07/26/2024 9:43 AM EST 07/26/2024 6:01 PM EST [facility] BLOOD ORDERABLES Final Result [facility] [address] [place] [address], [place] [phone] * Lipid panel with reflex to direct LDL (07/26/2024 9:43 AM EST) [facility] Cholesterol 162 0 - 200 mg/dL LAB CHEMISTRY METHOD 07/26/2024 6:17 PM EST [facility] Triglycerides 44 0 - 150 mg/dL LAB CHEMISTRY METHOD 07/26/2024 6:17 PM EST [facility] HDL 54 >=40 mg/dL LAB CHEMISTRY METHOD 07/26/2024 6:17 PM [facility] LDL Calculated 99 0 - 100 mg/dL LAB CHEMISTRY METHOD 07/26/2024 6:17 PM [facility] VLDL Cholesterol Juan 8.8 mg/dL LAB CHEMISTRY METHOD 07/26/2024 6:17 PM [facility] Non HDL Chol. (LDL+VLDL) 108 <145 mg/dL LAB CHEMISTRY METHOD 07/26/2024 6:17 PM [facility] Chol/HDL Ratio 3.0 0.0 - 4.4 LAB CHEMISTRY METHOD 07/26/2024 6:17 PM [facility] Blood Venous blood specimen / Unknown 07/26/2024 9:43 AM EST 07/26/2024 6:01 PM EST us Eddionel Dial KEYSEATING MACHINE SET UP OPERATOR LAB BLOOD ORDERABLES Final Result Performing Organization Address City/[facility]/ZIP Co de Phone Number [facility] [address] [place] [address], [place] [phone] * Hemoglobin A1c (07/26/2024 9:43 AM EST) Pathologist [facility] Hemoglobin A1C 4.9 <6.5 % LAB CHEMISTRY METHOD 07/27/2024 1:00 PM [facility] Mean Bld Glu Estim. 94 mg/dL LAB CHEMISTRY METHOD 07/27/2024 1:00 PM [facility] Blood Venous blood specimen / Unknown 07/26/2024 9:43 AM EST 07/26/2024 5:51 PM EST us Eddielinoreen Dial KEYSEATING MACHINE SET UP OPERATOR LAB BLOOD ORDERABLES Final Result Performing Organization Address City/[facility]/ZIP Co de Phone Number [facility] [address] [place] [address], [place] [phone] * (ABNORMAL) Complete blood count (07/26/2024 9:43 AM EST) WBC 5.7 4.8 - 10.8 K/mcL LAB HEMETOLOGY METHOD 07/26/2024 5:51 PM [facility] RBC 3.90(L) 4.50 - 5.50 M/mcL LAB HEMETOLOGY METHOD 07/26/2024 5:51 PM [facility] Hemoglobin 13.1(L) 13.5 - 17.5 g/dL LAB HEMETOLOGY METHOD 07/26/2024 5:51 PM [facility] Hematocrit 39.5(L) 42.0 - 54.0 % LAB HEMETOLOGY METHOD 07/26/2024 5:51 PM [facility] MCV 102.3(H) 79.0 - 98.0 FL LAB HEMETOLOGY METHOD 07/26/2024 5:51 PM [facility] MCH 33.9(H) 27.0 - 32.0 pcg LAB HEMETOLOGY METHOD 07/26/2024 5:51 PM [facility] MCHC 33.2 32.0 - 37.0 g/dL LAB HEMETOLOGY METHOD 07/26/2024 5:51 PM [facility] RDW 12.8 11.0 - 15.0 % LAB HEMETOLOGY METHOD 07/26/2024 5:51 PM [facility] Platelets 161 130 - 400 K/[facility] LAB HEMETOLOGY METHOD 07/26/2024 5:51 PM [facility] MPV 11.8(H) 7.0 - 11.0 FL LAB HEMETOLOGY METHOD 07/26/2024 5:51 PM [facility] NRBC 0.0 <1.0 % LAB HEMETOLOGY METHOD 07/26/2024 5:51 PM [facility] NRBC Absolute 0.00 <0.10 K/[facility] LAB HEMETOLOGY METHOD 07/26/2024 5:51 PM EST [facility] Blood Venous blood specimen / Unknown 07/26/2024 9:43 AM EST 07/26/2024 5:51 PM EST us Ginny Dial KEYSEATING MACHINE SET UP OPERATOR LAB BLOOD ORDERABLES Final Result [facility] [address] [place] [address], documented in this encounter Visit Diagnoses Diagnosis Vitamin B12 deficiency anemia, unspecified Mixed hyperlipidemia Obesity, unspecified documented in this encounter Care Teams Passenger Car Cleaning Supervisor Relationship Specialty Start Date End Date Physician, Pcp Unknown PCP - General 07/26/24 documented as of this encounter
--- NOTE | 2024-12-15 08:01 | ED_ITS ---
HPI - General Adult General Chief complaint: Abdominal Pain Stated complaint: Gastritis + Rash Time Seen by Provider: 12/15/24 07:53 Source: patient Mode of arrival: ambulatory Limitations: no limitations History of Present Illness HPI narrative: This is a 54-year-old man with a past medical history of internal hemorrhoids, vitamin-D B12 deficiency who presents for evaluation noted gastritis. Patient states that his symptoms have been present for the last several weeks. Patient states on occasion spitting up. He states no nausea or vomiting. He states no hematemesis. He states decreased oral intake as a result of this discomfort. He states no fevers or chills. He states no chest pain or dyspnea. He states no exertional symptoms, lighthedness or syncope. He states no melena or hematochezia. He states he called and was able to schedule an appointment with Gastroenterology in March. He states no urinary symptoms. Related Data Previous Rx's ?Medication ?Instructions ?Recorded mecobalamin (vitamin B12) 5,000 5,000 mcg PO DAILY #30 tabs 07/29/ mcg chewable tablet famotidine 20 mg tablet (Pepcid) 20 mg PO DAILY #14 tabs 12/08/24 triamcinolone acetonide 0.025 % 1 appl topical BID PRN rash #80 12/08/24 topical cream grams famotidine 20 mg tablet 20 mg PO BID 30 days #60 tabs 12/15/24 Allergies Allergy/AdvReac Type Severity Reaction Status Date / Time No Known Allergies Allergy Verified 12/15/24 06:40 [facility] Social History Social History Household Members: None Housing: Homeless Do you presently have visiting nurse or other home services: No Patient Tobacco Use Status: Never used Tobacco Substance Use Type: Marijuana Advance Directives: No Advance Directives Information Provided: No Do you have a plan to hurt others: No Plan service: No Physical Exam ED Vital Signs: Vital Signs - 24 hr 12/15/24 06:38 Temperature 98.8 F Pulse Rate 73 Respiratory Rate 18 Blood Pressure 140/76 H Pulse Oximetry 99 Oxygen Delivery Method Room Air BMI result Body Mass Index 33.5 Gen: NAD, AOx3 HEENT: NCAT, EOMI, normal conjunctiva CV: RRR Pulm: CTAB, no increased work of breathing GI: Soft, NTND, no rebound, guarding or rigidity Neuro: Grossly non focal Medical Decision Making Medical Decision Making MDM Narrative: Differential diagnosis includes, but is not limited to Gastritis, gastroesophageal reflux, pancreatitis. Patient is afebrile and hemodynamically stable on room air. Exam is benign and reassuring. I reviewed and interpreted labs, which are noncontributory. On re-examination, patient is well-appearing and in no acute distress. I suspect patient's symptoms are likely secondary to gastritis and thus will increase famotidine to twice daily from once daily. He will certainly benefit from outpatient Gastroenterology follow up and outpatient endoscopy. I have discussed these recommendations with the patient, which he verbalizes understanding. There is no indication for further emergent evaluation in this otherwise well-appearing patient as above. Patient is provided written and verbal instructions, educational materials, recommendations for outpatient follow-up, prescription for Famotidine, strict return precautions and teach back is performed. Patient states understanding and agreement with plan of care. Patient is discharged home in stable and improved condition. Admission/Observation Consideration of admission/observation: Escalation of care including admission/observation considered Lab Data [facility] Lab Attestation statement: I reviewed the patient's lab results. CBC demonstrates baseline chronic anemia with Hemoglobin 13.4 (previous 13.), CMP shows no acute kidney injury or elevated anion gap to suggest starvation ketosis, otherwise metabolic panel is reassuring. Lipase is within normal limits pointing away from acute pancreatitis. 12/15/24 06:44 12/15/24 06:44 Labs: Lab Results 12/15/24 Range/Units 06:44 WBC 8.2 (4.8-10.8) X10*3/uL RBC 3.81 L (4.60-5.80) X10*6/uL Hgb 13.4 L (14.0-18.0) g/dl Hct 36.7 L (42.0-52.0) % MCV 96.3 (80.0-98.0) fL MCH 35.2 H (27.0-33.0) pg MCHC 36.5 H (31.0-36.0) g/dl RDW 12.4 (11.0-16.0) % Plt Count 179 (160-400) X10*3/uL MPV 9.4 (9.4-12.4) fL Immature Gran % (Auto) 0.2 (0.0-0.4) % Neut % (Auto) 49.0 (45-73) % Lymph % (Auto) 39.6 (20-40) % Cochran % (Auto) 7.9 (2-11) % Eos % (Auto) 3.2 (0-4) % Baso % (Auto) 0.1 (0-2) % Lymph # (Auto) 3.3 (1.2-4.9) X10*3/uL Cochran # (Auto) 0.7 (0.1-1.2) X10*3/uL Eos # (Auto) 0.3 (0.0-0.4) X10*3/uL Baso # (Auto) 0.0 (0.0-0.2) X10*3/uL Abs Immat Gran (auto) 0.02 (0.00-0.03) X10*3/uL Absolute Neuts (auto) 4.0 (2.0-8.3) x10*3/uL Absolute Nucleated RBC 0.000 (0.0-0.012) X10*3/uL Nucleated RBC % (auto) 0.0 (0.0-0.2) /100WBC Sodium 143 (135-145) mmol/L Potassium 3.5 (3.3-5.1) mmol/L Chloride 110 H (96-108) mmol/L Carbon Dioxide 24 (22-29) mmol/L Anion Gap 13 (12-20) BUN 16 (9-16) mg/dL Creatinine 1.20 (0.5-1.4) mg/dL Estim Creat Clear Calc TNP Estimated GFR > 60 Random Glucose 105 (60-115) mg/dL Calcium 10.3 H D (8.4-10.2) mg/dL Total Bilirubin 0.7 (0.0-1.0) mg/dL Direct Bilirubin 0.2 (0.0-0.5) mg/dL AST 24 (5-37) U/L ALT 15 (0-40) U/L Alkaline Phosphatase 53 (39-117) U/L Total Protein 6.9 (6.5-8.0) g/dL Albumin 3.8 (3.5-5.0) g/dL Discharge Plan Discharge Clinical Impression: Acute gastritis Patient Disposition: Home, Self-Care Instructions: Gastritis (ED), Diet for Stomach Ulcers and Gastritis (ED) Additional Instructions: You were seen and evaluated in the emergency room. Your vital signs and blood work were very reassuring. You were given a new prescription for famotidine/Pepcid. You should 20 mg by mouth twice a day (once in the morning and once at night). If after 2 weeks of this therapy your symptoms are persisting, please call your Outboard Motor Assembler as they may need to consider additional/alternative medication options. Please follow-up with your primary care doctor in the next 5-7 days. Please return to the emergency room if you develop any worsening symptoms. Prescriptions: New famotidine 20 mg tablet 20 mg PO BID 30 Days Qty: 60 0RF No Action famotidine [Pepcid] 20 mg tablet 20 mg PO DAILY Qty: 14 0RF triamcinolone acetonide 0.025 % cream 1 appl topical BID PRN (Reason: rash) Qty: 80 0RF Rx Instructions: Apply to RASH only. Can potentially discolor skin. AVOID application to face, hands, feet & genital area mecobalamin (vitamin B12) 5,000 mcg tablet,chewable 5,000 mcg PO DAILY Qty: 30 0RF Print Language: Mosotho
[2024-12-15 08:09] LABS: Lipase 25 U/L (8-78)
[2024-12-15 08:55] VITALS: BP 146/81; PULSE 63; RESP 16; TEMP 36.7; O2SAT 100
== END 2024-12-15 08:56 | disposition home or self-care (01) ==
PROVIDERS: Emergency Provider Emergency Medicine; PCP Nurse Practitioner
DX: K29.00 Acute gastritis without bleeding (principal); Z79.899 Other long term (current) drug therapy
CPT/HCPCS: 36415; 80048; 80076; 83690; 85025; 99282; 99283

== ENCOUNTER 2025-01-04 10:52 | Outpatient (AMB) | payer MEDICAID, SELFPAY ==
--- NOTE | 2025-01-04 10:54 | A.OFFVIS_ITS ---
Vital Signs 01/04/25 11:11 Height 6 ft 4 in Weight 276 lb BMI 33.6 BP 166/77 H Blood Pressure Location Lt brachial Position Sitting Pulse 70 Pulse Oximetry (%) 100 Oxygen Delivery Method Room Air Intake Visit Reasons: Gastroesophageal reflux disease (GERD) Intake Note: Patient new consult for GERD. Patient cc: abdominal pain with bloating, gagging/nauseas with food and saliva(can not eat), constipation with hard stool, and acid reflux. Patient is been going to the ER due his Melena and abd pain. Oil Heat Technician Required: No Accompanied by: Self / Same As Patient Allergies No Known Allergies Allergy (Verified 01/04/25 10:53) HPI HPI Gastroesophageal reflux disease (GERD): Details: Patient is a 54-year-old male with PMH of vitamin B12 deficiency and hyperlipidemia. Referred by PCP for further evaluation of GERD. The patient reports a five-year history of GERD, with primary symptom of regurgitation and minimal pyrosis. He has been self-managing with OTC omeprazole, taken approximately once weekly. Over the past 1.5 months, he has experienced a worsening of symptoms, without an identifiable trigger. He presented to the ER at [facility] on 12/08/24 for dark stools. A stool test was negative for occult blood. He denies any recurrence of melena since that visit. At that time, he was prescribed famotidine 20 mg daily. Due to persistent GERD symptoms, he returned to [facility] ER on 12/15/24, and famotidine was increased to 20 mg BID. After no symptom relief, he presented again on 12/28/24, and sought further evaluation at [facility], where carafate was added to his treatment regimen. The patient reports experiencing mild improvement in symptoms as of yesterday. He also notes a recent episode of constipation over the past week, though he had a bowel movement yesterday. He states his bowel habits are typically regular. He endorses intermittent use of ibuprofen (Motrin) for headaches, typically 800?1600 mg once weekly, until discontinuing this practice about a month ago. When discussing weight history, he shares that he resided in a longterm last July, during which he had limited access to food and experienced high stress, which may have contributed to weight change Associated symptoms: n/v x 1 week, decreased appetite Aggravating factors: Fried foods, dairy Alleviating attempts: as above Patient denies: fever/chills, ab pain, dysphasia or hematochezia. Social hx: denies ETOH use marijuana 3-4x/week, denies recreational drug use non-smoker family hx -Mother ? multiple myeloma -denies personal hx of CA denies significant cardiopulmonary history omperazole 20 mg daily h. pylori EGD [facility] Medical History (Updated 01/04/25 @ 13:22 by Sera Nassar CNP) Acid reflux Surgical History (Updated 01/04/25 @ 11:16 by Letty Barron) History of ankle surgery Family History (Updated 01/04/25 @ 11:17 by Letty Barron) Mother Cancer Social History Household Members: None Housing: Homeless Do you presently have visiting nurse or other home services: No Patient Tobacco Use Status: Never used Tobacco Substance Use Type: Marijuana service: No Review of Systems Const Reports as per HPI ENT Reports as per HPI Card Reports as per HPI Resp Reports as per HPI GI Reports as per HPI Reports as per HPI Physical Exam Vital Signs: Last Vital Signs Pulse 70 01/04/25 11:11 BP 166/77 H 01/04/25 11:11 Pulse Ox 100 01/04/25 11:11 Oxygen Delivery Method Room Air 01/04/25 11:11 BMI result Body Mass Index 33.6 Const General: healthy appearing, no acute distress and well developed Nutritional Appearance: well nourished Orientation/consciousness: patient oriented x3 HEENT Head: Yes normal to inspection, Yes normocephalic and Yes atraumatic Face and sinus: Yes normal facial exam Eyes General: appearance normal, both eyes and all related structures Neck Neck: Yes normal visual inspection Resp Effort & Inspection: normal respiratory effort, able to speak in complete sentences, no tracheal deviation and symmetric chest movement Auscultation: clear to auscultation bilaterally Cardio Jugular venous distension: no JVD Rate: regular rate Rhythm: regular rhythm Heart sounds: S1 normal heart sound present, S2 normal heart sound present, no gallops and no murmurs GI Inspection: Yes normal to inspection and No distended Palpation (GI): Soft to palpation, not firm, nontender and No hepatosplenomegaly present Auscultation: normal bowel sounds Neuro General: patient oriented x3 Gait exam (Neuro): Normal gait present Psych Appearance: grossly normal Mental Status: mental status grossly normal Speech and movement: Normal speech and movement present Affect: normal affect Attitude: cooperative Thought process: Normal thought process present Thought content: Normal thought content present Insight: Good insight present (Psych) Judgement: Good judgement present (Psych) Results Reviewed Results Reviewed: Laboratory Tests 07/27/23 07/27/23 12/15/24 10:09 21:00 06:44 RBC 3.81 L Hgb 13.4 L Hct 36.7 L MCV 96.3 MCH 35.2 H MCHC 36.5 H AST 24 ALT 15 Alkaline Phosphatase 53 Total Protein 6.9 Albumin 3.8 Lipase 25 Stool Calprotectin 54 Tiss Transglutamin IgG <1.0 Tiss Transglutamin IgA <1.0 Results: Thyroid, TSH, B12 levels all stable July 2024 per referral documentation. Also with normal lipid levels. CBC with evidence of anemia. DATE OF SERVICE: 07/28/2023 SURGEON: Malvin Shepherd MD INDICATIONS: GI bleeding. PREOPERATIVE DIAGNOSIS: POSTOPERATIVE DIAGNOSIS: PROCEDURE PERFORMED: Colonoscopy to the terminal ileum. ESTIMATED BLOOD LOSS: COMPLICATIONS: ANESTHESIA: Monitored anesthesia care. ASSISTANTS: SPECIMENS: DESCRIPTION OF PROCEDURE: A history and physical was performed. The risks and benefits of the procedure were explained to the patient. Informed consent was obtained. The patient was placed in the left lateral decubitus position. A digital rectal exam was performed and was found to be normal. The Olympus pediatric video colonoscope was introduced into the rectum and advanced to the cecum. The cecum was identified by transillumination, palpation, and identification of ileocecal valve. Examination was performed. The scope was removed. He tolerated the procedure well and was returned to the recovery area in stable condition. FINDINGS: The terminal ileum was examined and appeared normal. The visualized colonic mucosa was normal. The quality of the prep was good. There was moderate sigmoid diverticulosis. No polyps were identified. Retroflexed examination showed some small internal hemorrhoids. IMPRESSION: Diverticulosis. RECOMMENDATION: 1. Follow up as needed. 2. Repeat colonoscopy is recommended in 10 years for average risk individuals. Assessment & Plan Assessment & Plan (1) Acid reflux: Code(s): K21.9 - Gastro-esophageal reflux disease without esophagitis Category: Medical Qualifiers: Esophagitis presence: esophagitis presence not specified Qualified Code(s): K21.9 - Gastro-esophageal reflux disease without esophagitis Plan: * Reviewed ER note from 12/08/2024 with reassuring ACS rule-out; repeat labs and findings from 12/15/2024 ER visit were unchanged. * Records from 12/29/2023 ER visit are unavailable for review. * Agree with differential diagnosis of gastritis vs peptic ulcer disease (PUD) vs uncontrolled GERD. * Plan to obtain H. pylori testing. * Patient understands to hold Pepcid for 1 week and not to resume omeprazole until after testing is complete. He can bridge with the sucralfate. * EGD is planned for further evaluation. * Patient instructed to resume omeprazole as prescribed after testing, to be taken 30?60 minutes before meals. * advised against NSAID use, Tylenol is preferred agent for pain management GERD Lifestyle and Dietary Education: * Advised against heavy meals; encouraged small, frequent meals instead of large ones. * Instructed to remain upright for 2?3 hours after eating. * Advised to avoid late-night meals, spicy foods, caffeine, alcohol, known dietary triggers, and tight-fitting clothing. * Emphasis placed on gradual implementation of lifestyle changes to improve adherence and symptom control. Plan Follow-up in 2 weeks or sooner as needed. Time: I spent a total of 60 minutes on the date of encounter which includes: Preparing to see the patient (reviewed previous documentation, test results and medical history) Performing a medically appropriate exam and/or evaluation Ordering medications, tests, and procedures Documenting clinical information in the health record Orders: Orders IRON PROFILE Today K21.9 - Gastro-esophageal reflux disease without esophagitis H Pylori Breath Test Today K21.9 - Gastro-esophageal reflux disease without esophagitis Medications: New omeprazole 20 mg PO DAILY 90 caps 1RF Coding Level of Care Code New Pt New Pt Level 5 (71476) Patient Type New Diagnoses Gastroesophageal reflux disease, unspecified whether esophagitis present K21.9 Esophagitis presence: esophagitis presence not specified
[2025-01-04 11:11] VITALS: BP 166/77; PULSE 70; O2SAT 100; BMI 33.6
--- OUTSIDE RECORDS SUMMARY | 2025-01-04 12:22 | XMS_ITS | Clinical Summary ---
Author Organization [address] [facility] Address [address] [place] [address] Phone Care Team Providers Care Epitaxial Reactor Technician Name Role Phone Physician, Pcp Unknown Primary [...] - 2023-2 5 season) 2024 Influenza Vaccine (Season Ended) 2025 Cholesterol Screening (Lipid Panel) 07/26/2029 07/26/2024 HIB [...] LAB CHEMISTRY METHOD 07/26/2024 6:17 PM EST [facility] Triglycerides 44 0 - 150 mg/dL LAB CHEMISTRY METHOD 07/26/2024 6:17 PM EST [facility] HDL 54 >=40 mg/dL LAB CHEMISTRY METHOD 07/26/2024 6:17 PM EST [facility] LDL Calculated 99 0 - 100 mg/dL LAB CHEMISTRY METHOD 07/26/2024 6:17 PM EST [facility] VLDL Cholesterol Juan 8.8 mg/dL LAB CHEMISTRY METHOD 07/26/2024 6:17 PM EST [facility] Non HDL Chol. (LDL+VLDL) 108 <145 mg/dL LAB CHEMISTRY METHOD 07/26/2024 6:17 PM EST [facility] Chol/HDL Ratio 3.0 0.0 - 4.4 LAB CHEMISTRY METHOD 07/26/2024 6:17 PM [facility] Blood Venous blood specimen / Unknown 07/26/2024 9:43 AM EST 07/26/2024 6:01 PM EST us Ginny Dial NP LAB BLOOD ORDERABLES Final Result [facility] [place] [facility] LAB [address] [place] [address], from Last 3 Months or Most Recently Relevant to Health Maintenance Insurance MEDICAID - [place] Care Teams Epitaxial Reactor Technician Relationship Specialty Start Date End Date Physician, Pcp Unknown PCP - General 07/26/24
--- OUTSIDE RECORDS SUMMARY | 2025-01-04 12:22 | XMS_ITS | Encounter Summary ---
Author Organization [employer] Address [address] [place] [address] Care Team Providers Care Java Security Engineer Name Role Phone Physician, Pcp Unknown Primary Care Provider Linda vailable Encounter Details Date Type Department Care Team (Late st Contact Info) Description 07/26/2024 Lab Requisition [facility] - Main Lab [address] [facility] [place] [address] Ginny Dial, TYLER [address] [place] [address] Vitamin B12 deficiency anemia, unspecified; Mixed hyperlipidemia; [...] Vitamin B12 (07/26/2024 9:43 AM EST) Pathologist [facility] Vitamin B-12 401 250 - 900 pcg/mL LAB CHEMISTRY METHOD 07/26/2024 6:22 PM EST [facility] Blood Venous blood specimen / Unknown 07/26/2024 9:43 AM EST 07/26/2024 6:01 PM EST [facility] LAB BLOOD ORDERABLES Final Result [facility] [address] [place] [address], [place] [phone] * Thyroid stimulating hormone with reflex to free t4 and free t3 (07/26/2024 9:43 AM EST) [facility] TSH 0.78 0.40 - 4.00 mcIU/mL LAB CHEMISTRY METHOD 07/26/2024 6:08 PM EST [facility] Blood Venous blood specimen / Unknown 07/26/2024 9:43 AM EST 07/26/2024 6:01 PM EST [facility] LAB BLOOD ORDERABLES Final Result [facility] [address] [place] [address], [place] [phone] * Lipid panel with reflex to direct LDL (07/26/2024 9:43 AM EST) [facility] Cholesterol 162 0 - 200 mg/dL LAB CHEMISTRY METHOD 07/26/2024 6:17 PM EST [facility] Triglycerides 44 0 - 150 mg/dL LAB CHEMISTRY METHOD 07/26/2024 6:17 PM EST [facility] HDL 54 >=40 mg/dL LAB CHEMISTRY METHOD 07/26/2024 6:17 PM [facility] LDL Calculated 99 0 - 100 mg/dL LAB CHEMISTRY METHOD 07/26/2024 6:17 PM [facility] VLDL Cholesterol Juan 8.8 mg/dL LAB CHEMISTRY METHOD 07/26/2024 6:17 PM [facility] Non HDL Chol. (LDL+VLDL) 108 <145 mg/dL LAB CHEMISTRY METHOD 07/26/2024 6:17 PM [facility] Chol/HDL Ratio 3.0 0.0 - 4.4 LAB CHEMISTRY METHOD 07/26/2024 6:17 PM [facility] Blood Venous blood specimen / Unknown 07/26/2024 9:43 AM EST 07/26/2024 6:01 PM EST us Eddionel Dial SENIOR MEDICAL TECHNOLOGIST LAB BLOOD ORDERABLES Final Result Performing Organization Address City/[facility]/ZIP Co de Phone Number [facility] [address] [place] [address], [place] [phone] * Hemoglobin A1c (07/26/2024 9:43 AM EST) Pathologist [facility] Hemoglobin A1C 4.9 <6.5 % LAB CHEMISTRY METHOD 07/27/2024 1:00 PM [facility] Mean Bld Glu Estim. 94 mg/dL LAB CHEMISTRY METHOD 07/27/2024 1:00 PM [facility] Blood Venous blood specimen / Unknown 07/26/2024 9:43 AM EST 07/26/2024 5:51 PM EST us Eddielinoreen Dial SENIOR MEDICAL TECHNOLOGIST LAB BLOOD ORDERABLES Final Result Performing Organization Address City/[facility]/ZIP Co de Phone Number [facility] [address] [place] [address], [place] [phone] * (ABNORMAL) Complete blood count (07/26/2024 9:43 AM EST) WBC 5.7 4.8 - 10.8 K/mcL LAB HEMETOLOGY METHOD 07/26/2024 5:51 PM [facility] RBC 3.90(L) 4.50 - 5.50 M/mcL LAB HEMETOLOGY METHOD 07/26/2024 5:51 PM [facility] Hemoglobin 13.1(L) 13.5 - 17.5 g/dL LAB HEMETOLOGY METHOD 07/26/2024 5:51 PM [facility] Hematocrit 39.5(L) 42.0 - 54.0 % LAB HEMETOLOGY METHOD 07/26/2024 5:51 PM [facility] MCV 102.3(H) 79.0 - 98.0 FL LAB HEMETOLOGY METHOD 07/26/2024 5:51 PM [facility] MCH 33.9(H) 27.0 - 32.0 pcg LAB HEMETOLOGY METHOD 07/26/2024 5:51 PM [facility] MCHC 33.2 32.0 - 37.0 g/dL LAB HEMETOLOGY METHOD 07/26/2024 5:51 PM [facility] RDW 12.8 11.0 - 15.0 % LAB HEMETOLOGY METHOD 07/26/2024 5:51 PM [facility] Platelets 161 130 - 400 K/[facility] LAB HEMETOLOGY METHOD 07/26/2024 5:51 PM [facility] MPV 11.8(H) 7.0 - 11.0 FL LAB HEMETOLOGY METHOD 07/26/2024 5:51 PM [facility] NRBC 0.0 <1.0 % LAB HEMETOLOGY METHOD 07/26/2024 5:51 PM [facility] NRBC Absolute 0.00 <0.10 K/[facility] LAB HEMETOLOGY METHOD 07/26/2024 5:51 PM EST [facility] Blood Venous blood specimen / Unknown 07/26/2024 9:43 AM EST 07/26/2024 5:51 PM EST us Ginny Dial SENIOR MEDICAL TECHNOLOGIST LAB BLOOD ORDERABLES Final Result [facility] [address] [place] [address], documented in this encounter Visit Diagnoses Diagnosis Vitamin B12 deficiency anemia, unspecified Mixed hyperlipidemia Obesity, unspecified documented in this encounter Care Teams Java Security Engineer Relationship Specialty Start Date End Date Physician, Pcp Unknown PCP - General 07/26/24 documented as of this encounter
== END 2025-01-04 12:10 | disposition home or self-care (01) ==
LOC: HO.HGI 10:53
PROVIDERS: PCP Nurse Practitioner; Visit Provider Nurse Practitioner Family
DX: K21.9 Gastro-esophageal reflux disease without esophagitis (principal)
CPT/HCPCS: 99205

== ENCOUNTER → 2025-01-04 10:52 | Outpatient (BNVA) | payer MEDICAID, SELFPAY | PROVIDERS: PCP Nurse Practitioner; Visit Provider Nurse Practitioner Family | DX: K21.9 Gastro-esophageal reflux disease without esophagitis (principal) | CPT/HCPCS: 99212 ==

== ENCOUNTER 2025-01-18 10:49 | Outpatient (AMB) | payer MEDICAID, SELFPAY ==
[2025-01-18 11:03] VITALS: BP 146/78; PULSE 96; BMI 33.3
--- NOTE | 2025-01-18 11:03 | A.OFFVIS_ITS ---
Vital Signs 01/18/25 11:03 Height 6 ft 4 in Weight 273 lb 5.971 oz BMI 33.3 BP 146/78 H Blood Pressure Location Lt brachial Position Sitting Pulse 96 Intake Visit Reasons: 2w GERD Intake Note: Braeden presents in the office as a 2 week follow up GERD. CC: He wants to have an EGD - he states that when he eats or drinks he has the feeling of is stuck in is chest. He has issues with nausea and vomiting, pains in the stomach. Residential Therapist Required: No Allergies No Known Allergies Allergy (Verified 01/18/25 11:06) HPI HPI 2w GERD: Details: Patient is a 54-year-old male with PMH of vitamin B12 deficiency and hyperlipidemia. He is here today for two week follow up on GERD. He expresses frustration over previous medications not providing relief and uncertainties about steps taken for diagnosis. Shares he does not recall our plan from last visit to hold omeprazole for H. pylori testing. States he would like to proceed with endoscopy and not go through with breath testing. He reports persistent nausea, regurgitation and inability to ingest food or liquids. These symptoms have been ongoing for the past six weeks and worsened over the last two weeks. Food and water are regurgitated within minutes, causing him to avoid eating. He also reports difficulty swallowing both liquids and solids, which has worsened over the past two weeks. These symptoms cause persistent headaches due to dehydration and nutrition deficiencies. He reports severe discomfort post meals, which jaclyn him from eating regularly. Previous treatments with omeprazole and sucralfate have been ineffective. Patient denies: ab pain or melena/hematochezia. Social History: - Diet: Avoiding fried or highly seasoned foods, consuming bland diets. - Alcohol/Tobacco/Drug Use: Rare alcohol use in the past, not currently using. Marijuana is used occasionally. - Occupation: Currently on [employer], no recent work due to health issues. [facility] Medical History (Updated 01/18/25 @ 12:43 by Sera Nassar CNP) Weight loss Acid reflux Surgical History Hx of colonoscopy History of ankle surgery Family History Mother Cancer Social History Household Members: None Housing: Homeless Do you presently have visiting nurse or other home services: No Patient Tobacco Use Status: Never used Tobacco Substance Use Type: Marijuana service: No Review of Systems Const Reports as per HPI ENT Reports as per HPI Card Reports as per HPI Resp Reports as per HPI GI Reports as per HPI Reports as per HPI Physical Exam Vital Signs: Last Vital Signs Pulse 96 01/18/25 11:03 BP 146/78 H 01/18/25 11:03 BMI result Body Mass Index 33.3 Const General: healthy appearing, no acute distress and well developed Nutritional Appearance: well nourished Orientation/consciousness: patient oriented x3 HEENT Head: Yes normal to inspection, Yes normocephalic and Yes atraumatic Face and sinus: Yes normal facial exam Eyes General: appearance normal, both eyes and all related structures Neck Neck: Yes normal visual inspection Resp Effort & Inspection: normal respiratory effort, able to speak in complete sentences, no tracheal deviation and symmetric chest movement Auscultation: clear to auscultation bilaterally Cardio Jugular venous distension: no JVD Rate: regular rate Rhythm: regular rhythm Heart sounds: S1 normal heart sound present, S2 normal heart sound present, no gallops and no murmurs GI Inspection: Yes normal to inspection, No distended and Yes obesity Palpation (GI): Soft to palpation, not firm, nontender and No hepatosplenomegaly present Auscultation: normal bowel sounds Neuro General: patient oriented x3 Gait exam (Neuro): Normal gait present Psych Appearance: grossly normal Mental Status: mental status grossly normal Speech and movement: Normal speech and movement present Affect: normal affect Attitude: cooperative Thought process: Normal thought process present Thought content: Normal thought content present Insight: Good insight present (Psych) Judgement: Good judgement present (Psych) Assessment & Plan Assessment & Plan (1) Acid reflux: Code(s): K21.9 - Gastro-esophageal reflux disease without esophagitis Category: Medical Qualifiers: Esophagitis presence: esophagitis presence not specified Qualified Code(s): K21.9 - Gastro-esophageal reflux disease without esophagitis Plan: Reviewed the plan from our previous visit and the rationale for the initial workup. DDX also discussed:Poorly controlled GERD VS Esophageal stricture VS PUD VS other gastrointestinal obstruction. EGD ordered at time of our last visit. Educated about scheduling process and to expect a call from our surgical assistant certified team. Would like H.pylori testing given abrupt exacerbation in GERD symptoms and PUD as differential. However, Braeden declined as he is apprehensive on holding the PPI for 2 weeks as indicated for accurate results despite education. Additional Tests: Barium swallow study to evaluate swallowing difficulties. Medications: Switch to Pantoprazole 40 mg twice daily. Can continue sucralfate if helpful, refill sent. Encouraged to take pantoprazole as prescribed, taken at least 30-60 minutes before a meal. Education on GERD prevention : -Advised against heavy meals; encouraged small, frequent meals instead of large ones. - Instructed to remain upright for 2?3 hours after eating. - Advised to avoid late-night meals, spicy foods, caffeine, alcohol, known dietary triggers, and tight-fitting clothing. - Emphasis placed on gradual implementation of lifestyle changes to improve adherence and symptom control. (2) Weight loss: Code(s): R63.4 - Abnormal weight loss Category: Medical Plan: We do note an 3 lb weight loss since our last visit on 01/04/2025 and a total of 15 lb weight loss since 12/08/2024. Colonoscopy done in July 2023, showed diverticulosis, no polyps with recommendation to repeat in 10 years. He is a nonsmoker and denies EtOH use. We will attempt to obtain recent ER note from [facility] to explore if any imaging was complete. We will proceed with plan as above and also obtain basic and screening labs. Plan Written instructions provided. Follow-up 6 weeks or sooner as needed. 1345: Spoke with pt after visit to let him know we added on the CXR and urine test. Also discuss changing pantorprazole to 40 mg daily to avoid insurance approval delays. He requested anti-nausea medication at the time of our call. We will send Rx of ondansetron. 12/08/2024 EKG with NSR and QT of 408. Time: I spent a total of 60 minutes on the date of encounter which includes: Preparing to see the patient (reviewed previous documentation, test results and medical history) Performing a medically appropriate exam and/or evaluation Ordering medications, tests, and procedures Documenting clinical information in the health record Orders: Orders Hepatitis A,B,C Profile Today Z11.59 - Encounter for screening for other viral diseases Vitamin B12 and Folate Today E53.8 - Deficiency of other specified B group vitamins Vitamin D 1,25 dihydroxy Today K21.9 - Gastro-esophageal reflux disease without esophagitis Comprehensive Met. Panel Today K21.9 - Gastro-esophageal reflux disease without esophagitis TSH reflex Free T4 Today R63.4 - Abnormal weight loss Lipase Today R63.4 - Abnormal weight loss FL barium swallow Today K21.9 - Gastro-esophageal reflux disease without esophagitis, R13.10 - Dysphagia, unspecified Parathyroid Hormone Intact Today E83.52 - Hypercalcemia HIV Ab/Ag Today Z11.3 - Encounter for screening for infections with a predominantly sexual mode of transmission Hemoglobin A1c Today R63.4 - Abnormal weight loss C Reactive Protein Today R63.4 - Abnormal weight loss Protein Electrophoresis, Serum Today R63.4 - Abnormal weight loss Protein Electrophoresis,Ran Ur Today R63.4 - Abnormal weight loss XR chest 2V Today R63.4 - Abnormal weight loss Medications: New pantoprazole Take one tablet daily. Best taken on empty stomach 30 minutes before a meal. 40 mg PO DAILY [address] tablet on tongue and allow to dissolve three times a day NEEDED for nausea 4 mg translingual Q8H PRN 45 tabs 0RF nausea and vomiting Changed From sucralfate 1 g PO QIDACHS To sucralfate Take on tablet three times daily as needed. Take on an empty stomach. Avoid antacids within 30 minutes. 1 g PO TID 90 tabs 1RF Discontinued omeprazole Discontinued Reason: Duplicate 20 mg PO DAILY 90 caps 1RF Coding Level of Care Code Established Pt Est Pt Level 5 (02785) Patient Type Established Diagnoses Gastroesophageal reflux disease, unspecified whether esophagitis present K21.9 Esophagitis presence: esophagitis presence not specified Weight loss R63.4
--- OUTSIDE RECORDS SUMMARY | 2025-01-18 11:55 | XMS_ITS | Encounter Summary ---
Author Organization [facility] Address [address] [place] [address] Care Team Providers Care Company Driver Name Role Phone Physician, Pcp Unknown Primary Care Provider Linda vailable Encounter Details Date Type Department Care Team (Late st Contact Info) Description 07/26/2024 Lab Requisition [facility] - Main Lab [address] [facility] [place] [address] Ginny Dial, TYLER [address] [place] [address] Vitamin B12 deficiency anemia, unspecified; Mixed hyperlipidemia; [...] Vitamin B12 (07/26/2024 9:43 AM EST) Pathologist [facility] Vitamin B-12 401 250 - 900 pcg/mL LAB CHEMISTRY METHOD 07/26/2024 6:[address] [facility] Blood Venous blood specimen / Unknown 07/26/2024 9:43 AM EST 07/26/2024 6:01 PM EST [facility] LAB BLOOD ORDERABLES Final Result [facility] [address] [place] [address], [place] [phone] * Thyroid stimulating hormone with reflex to free t4 and free t3 (07/26/2024 9:43 AM EST) [facility] TSH 0.78 0.40 - 4.00 mcIU/mL LAB CHEMISTRY METHOD 07/26/2024 6:[address] [facility] Blood Venous blood specimen / Unknown 07/26/2024 9:43 AM EST 07/26/2024 6:01 PM EST [facility] LAB BLOOD ORDERABLES Final Result [facility] [address] [place] [address], [place] [phone] * Lipid panel with reflex to direct LDL (07/26/2024 9:43 AM EST) [facility] Cholesterol 162 0 - 200 mg/dL LAB CHEMISTRY METHOD 07/26/2024 6:[address] [facility] Triglycerides 44 0 - 150 mg/dL LAB CHEMISTRY METHOD 07/26/2024 6:[address] [facility] HDL 54 >=40 mg/dL LAB CHEMISTRY METHOD 07/26/2024 6:17 PM [facility] LDL Calculated 99 0 - 100 mg/dL LAB CHEMISTRY METHOD 07/26/2024 6:17 PM [facility] VLDL Cholesterol Juan 8.8 mg/dL LAB CHEMISTRY METHOD 07/26/2024 6:17 PM [facility] Non HDL Chol. (LDL+VLDL) 108 <145 mg/dL LAB CHEMISTRY METHOD 07/26/2024 6:17 PM [facility] Chol/HDL Ratio 3.0 0.0 - 4.4 LAB CHEMISTRY METHOD 07/26/2024 6:17 PM [facility] Blood Venous blood specimen / Unknown 07/26/2024 9:43 AM EST 07/26/2024 6:01 PM EST us Eddionel Dial [employer] LAB BLOOD ORDERABLES Final Result Performing Organization Address City/[facility]/ZIP Co de Phone Number [facility] [address] [place] [address], [place] [phone] * Hemoglobin A1c (07/26/2024 9:43 AM EST) Pathologist [facility] Hemoglobin A1C 4.9 <6.5 % LAB CHEMISTRY METHOD 07/27/2024 1:00 PM [facility] Mean Bld Glu Estim. 94 mg/dL LAB CHEMISTRY METHOD 07/27/2024 1:00 PM [facility] Blood Venous blood specimen / Unknown 07/26/2024 9:43 AM EST 07/26/2024 5:51 PM EST us Eddielinoreen Dial [employer] LAB BLOOD ORDERABLES Final Result Performing Organization Address City/[facility]/ZIP Co de Phone Number [facility] [address] [place] [address], [place] [phone] * (ABNORMAL) Complete blood count (07/26/2024 9:43 AM EST) WBC 5.7 4.8 - 10.8 K/mcL LAB HEMETOLOGY METHOD 07/26/2024 5:51 PM [facility] RBC 3.90(L) 4.50 - 5.50 M/mcL LAB HEMETOLOGY METHOD 07/26/2024 5:51 PM [facility] Hemoglobin 13.1(L) 13.5 - 17.5 g/dL LAB HEMETOLOGY METHOD 07/26/2024 5:51 PM [facility] Hematocrit 39.5(L) 42.0 - 54.0 % LAB HEMETOLOGY METHOD 07/26/2024 5:51 PM [facility] MCV 102.3(H) 79.0 - 98.0 FL LAB HEMETOLOGY METHOD 07/26/2024 5:51 PM [facility] MCH 33.9(H) 27.0 - 32.0 pcg LAB HEMETOLOGY METHOD 07/26/2024 5:51 PM [facility] MCHC 33.2 32.0 - 37.0 g/dL LAB HEMETOLOGY METHOD 07/26/2024 5:51 PM [facility] RDW 12.8 11.0 - 15.0 % LAB HEMETOLOGY METHOD 07/26/2024 5:51 PM [facility] Platelets 161 130 - 400 K/[facility] LAB HEMETOLOGY METHOD 07/26/2024 5:51 PM [facility] MPV 11.8(H) 7.0 - 11.0 FL LAB HEMETOLOGY METHOD 07/26/2024 5:51 PM [facility] NRBC 0.0 <1.0 % LAB HEMETOLOGY METHOD 07/26/2024 5:51 PM [facility] NRBC Absolute 0.00 <0.10 K/[facility] LAB HEMETOLOGY METHOD 07/26/2024 5:[address] [facility] Blood Venous blood specimen / Unknown 07/26/2024 9:43 AM EST 07/26/2024 5:51 PM EST us Ginny Dial [employer] LAB BLOOD ORDERABLES Final Result [facility] [address] [place] [address], documented in this encounter Visit Diagnoses Diagnosis Vitamin B12 deficiency anemia, unspecified Mixed hyperlipidemia Obesity, unspecified documented in this encounter Care Teams Company Driver Relationship Specialty Start Date End Date Physician, Pcp Unknown PCP - General 07/26/24 documented as of this encounter
--- OUTSIDE RECORDS SUMMARY | 2025-01-18 11:55 | XMS_ITS | Patient Health Record ---
Author Organization [facility] Address [address] [place], [place] [id number] Care Team Providers Care Medical Tech Name Role Phone Elena Perez Primary Care Provider Tam Degroot Unavailable [phone] Jany Che Unavailable [phone] Daina Medrano Unavailable [phone] Allergies No Known Allergies Results Component Value Reference Range Notes VITAMIN B12 Reviewed date:03/17/2024 01:30:30 PM Interpretation:Normal Performing Lab: Notes/Report: [employer], a member of [address] [address] Can Intake Worker - Annie Pickard MD VITAMIN B12 491 [...] Notes/Report: Original Ordering Provider: ELENA PEREZ APRN [employer], [place] [address] Can Intake Worker - Annie Pickard MD GLYCATED HEMOGLOBIN A1C [...] Reason For Referral Reason PT-1 Requested for [place] [id number] [facility] 12 months x 2 visits a month Referral Organization [facility] Referring Provider First Name Elena Referring Provider Last Name Yojana Referring Provider Speciality Nurse Prac titioner Referred Provider PT1, Request Referral Priority Routine Reason evaluate for CAL D with no relief from H2 Valerie Diagnosis 1 Gastro-esophageal re flux disease with esophagitis, without bleeding (K21.00) Referral Organization [facility] Referring Provider First Name Elena Referring Provider Last Name Yojana Referring Provider Speciality Nurse Prac titioner Referred Provider [facility] er, Gastroenterology Referred Provider Specialty Gastroentero logy General Notes Charla Ramon 2024 09:27:11 AM >Faxed to [facility] Ryland MILLER Ligia 12/19/2024 10:35:21 AM > paperwork refaxed Referral Priority Routine Reason evaluate for rec urrent dermatitis Diagnosis 1 Dermatitis, unspecif ied (L30.9) Referral Organization [facility] Referring Provider First Name Elena Referring Provider Last Name Yojana Referring Provider Speciality Nurse Prac cornelioioner Referred Provider Kurtis Yates Referred Provider Specialty Dermatology General Notes YennyCharla 2024 09:36:46 AM >[facility] does not take [facility], referred to [facility], referral and notes faxedRyland Ligia 12/19/2024 10:36:17 AM > paperwork refaxed Referral Priority Routine Reason To [address] [place] [address] Zelda Heath Referral Organization [facility] Referring Provider First Name Elena Referring Provider Last Name Yojana Referring Provider Speciality Nurse Prac jamesr Referred Provider PT1, Request Referral Priority Routine Medications Medication SIG (Take, Route, Frequency, Duration) Notes Start Date End Date Status famotidine 20 mg 1 tab(s) orally 2 times a day Active triamcinolone topical 0.025% 1 mehnaz applied topically 3 times a day Active cloNIDine 0.1 mg 1 tab(s) orally once a day at bedtime Please deliver to [facility] [address] 02/23/2024 Active Vitamin B-12 1000 mcg 1 tab(s) chewable once a day 08/13/2023 Active Naprosyn 500 mg 1 tab(s) orally 2 times a day 02/02/2019 Unknown escitalopram 5 mg 1 tab orally once a day in morning Please deliver to [facility] [address] Active Tylenol 8 HR Arthritis Pain 650 mg 2 tab(s) orally every 8 hours for 30 days 09/11/2023 Unknown rosuvastatin 10 mg 1 tab(s) orally once a day Active Social History Tobacco Use: [...] Risk Notes Problem Vitamin B>12< deficiency anaemia (03267079) Vitamin B12 deficiency anemia, unspecified (D51.9) Active confirmed Problem Obesity (678272802) Obesity, unspecified (E66.9) Active confirmed Problem Mixed hyperlipidemia (461091323) Mixed hyperlipidemia (E78.2) Active confirmed Problem Severe recurrent major depression without psychotic features (62704911) Major depressive disorder, recurrent severe without psychotic features (F33.2) Active confirmed Problem Generalized anxiety disorder (05679576) Generalized anxiety disorder (F41.1) Active confirmed Problem Insomnia 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 disorder (14585243) Insomnia due to other mental disorder (F51.05) Active confirmed Problem Peripheral vascular disease (718932916) Peripheral vascular disease, unspecified (I73.9) Active confirmed Problem Diverticular disease of colon (521942460) Diverticulosis of large intestine without perforation or abscess without bleeding (K57.30) Active confirmed Problem Cervical radiculopathy (61451479) Radiculopathy, cervical region (M54.12) Active confirmed Problem Lumbar radiculopathy (554143003) Radiculopathy, lumbar region (M54.16) Active confirmed Problem Gastroesophageal reflux disease with esophagitis (disorder) (314084673) Gastro-esophageal reflux disease with esophagitis, without bleeding (K21.00) Active confirmed Problem Body mass index 35.00 to 39.99 (667592822251432) Body mass index [BMI] 36.0-36.9, adult (Z68.36) Active confirmed Problem Sheltered homelessness (715338449736283) Sheltered homelessness (Z59.01) Active confirmed Problem Recurrent major depression (81695490) Major depressive disorder, recurrent, unspecified (F33.9) Inactive confirmed Problem Migraine without aura, not refractory (disorder) (117983370) Migraine, unspecified, not intractable, without status migrainosus (G43.909) Inactive confirmed Problem Backache (985173831) Dorsalgia, unspecified (M54.9) Inactive confirmed Problem Headache (46220801) Headache (R51) Inactive conf irmed Problem Financially poor (40743605) Insufficient social insurance and welfare support (Z59.7) Inactive confirmed Vital Signs Temperature 98.6 degrees Fahrenheit 07/26/2024 Blood pressure diastolic 83 07/26/2024 Oximetry 100 07/26/2024 Height 75.5 in 12/12/2024 Blood pressure systolic 143 07/26/2024 Weight 276.4 lbs 07/26/2024 BMI 34.09 kg/m2 07/26/2024 Encounters Encounter Location Date Provider Diagnosis [address] [id number] 02/23/2024 Tam Degroot Major depressive disorder, recurrent severe without psychotic features F33.2 ; Generalized anxiety disorder F41.1 ; Insomnia due to other mental disorder F51.05 ; Vitamin B12 deficiency anemia, unspecified D51.9 ; Obesity, unspecified E66.9 and Encounter for screening for COVID-[address] [id number] 03/16/2024 Eddieliza Casionan Encounter for screening for COVID-19 Z11.52 ; Mixed hyperlipidemia E78.2 ; Obesity, unspecified E66.9 ; Vitamin B12 deficiency anemia, unspecified D51.9 and Peripheral vascular disease, unspecified I73.[address] [id number] 03/16/2024 Tam Dgeroot Major depressive disorder, recurrent severe without psychotic features F33.2 ; Generalized anxiety disorder F41.1 ; Insomnia due to other mental disorder F51.05 ; Sheltered homelessness Z59.01 ; Vitamin B12 deficiency anemia, unspecified D51.9 ; Obesity, unspecified E66.9 and Encounter for screening for COVID-19 Z11.52 [facility] [address] [place] [address] [facility] [place] [id number] 03/28/2024 Eddieliza Casionan Mixed hyperlipidemia E78.2 ; Person consulting for explanation of examination or test findings Z71.2 and Vitamin B12 deficiency anemia, unspecified D51.[address] [id number] 05/17/2024 Tam Degroot Major depressive disorder, recurrent severe without psychotic features F33.2 ; Generalized anxiety disorder F41.1 ; Insomnia due to other mental disorder F51.05 ; Sheltered homelessness Z59.01 ; Vitamin B12 deficiency anemia, unspecified D51.9 ; Obesity, unspecified E66.9 ; Mixed hyperlipidemia E78.2 and Encounter for screening for COVID-19 [address] [id number] 06/22/2024 Tam Degroot Major depressive disorder, recurrent severe without psychotic features F33.2 ; Generalized anxiety disorder F41.1 ; Insomnia due to other mental disorder F51.05 ; Mixed hyperlipidemia E78.2 and Encounter for screening for COVID-19 Z11.52 [facility] [address] [place] [phone] 07/12/2024 Daina DeFlorio [facility] [address] [place] [phone] 07/13/2024 Daina DeFlorio [address] [id number] 07/26/2024 Eddieliza Casionan Encounter for screening for COVID-19 Z11.52 ; Mixed hyperlipidemia E78.2 ; Obesity, unspecified E66.9 ; Vitamin B12 deficiency anemia, unspecified D51.9 ; Immunization not carried out because of patient refusal Z28.21 and Sheltered homelessness Z59.01 [facility] [address] [place] [address] [facility] [place] [id number] 08/10/2024 Eddieliza Casionan Person consulting for explanation of examination or test findings Z71.2 and Vitamin B12 deficiency anemia, unspecified D51.9 [facility] [address] [place] [id number] 12/29/2024 Eddieliza Casionan [address] [id number] 02/23/2024 Eddieliza Casionan [address] [id number] 02/23/2024 Eddieliza Casionan Vitamin B12 deficiency anemia, unspecified D51.[address] [id number] 07/26/2024 Eddieliza Casionan [facility] [address] [place] [id number] 07/26/2024 Eddieliza Casionan [address] [id number] 07/28/2024 Eddieliza Casionan [facility] [address] [place] [id number] 08/09/2024 Daina Medrano [address] [phone] 08/16/2024 Eddieliza Casionan [address] [id number] 12/12/2024 Eddieliza Casionan Dermatitis, unspecified L30.9 and Gastro-esophageal reflux disease with esophagitis, without bleeding K21.[address] [id number] 12/16/2024 Eddieliza Casionan [address] [id number] 12/29/2024 Eddieliza Casionan [facility] [address] [place], [place] [phone] 12/30/2024 Eddieliza Casionan Assessments Encounter Date Diagnosis (ICD Code) Assessment Notes Treatment Notes Treatment Clinical Notes Section Notes 02/23/2024 Major depressive disorder, recurrent severe without psychotic features (ICD-10 - F33.2) Reviewed hx of psychiatric illness, treatment received and medication trials with client. Discussed current medications as to indications, actions and side effects. Reviewed risks benefits of treatment versus non treatment. Medication education provided. Patient given opportunity to ask questions. Patient gives informed consent to proceed with prescribed treatment. 1. [place] BACK END WEB DEVELOPER reviewed: see exam 2. Medications: will continue [...] Cont psychotherapy: has f/u appt Darcy Che [facility] scheduled 4. Labs/Procedures: labs ordered by PCP at [facility] and reviewed with PCP. 5. Exercise/Nutritio n: sleep, regular exercise and nutrition all have [...] to proceed with prescribed treatment. 1. [place] BACK END WEB DEVELOPER reviewed: see exam 2. Medications: will continue [...] Cont psychotherapy: has f/u appt Darcy Che [facility] scheduled 4. Labs/Procedures: labs ordered by PCP at [facility] and reviewed with PCP. 5. Exercise/Nutritio n: sleep, regular exercise and nutrition all have [...] to proceed with prescribed treatment. 1. [place] BACK END WEB DEVELOPER reviewed: see exam 2. Medications: will continue [...] 3. Cont psychotherapy: has f/u jennifer Che [facility] scheduled 4. Labs/Procedures: labs ordered by PCP at [facility] and reviewed with PCP. 5. Exercise/Nutritio n: sleep, regular exercise and nutrition all have [...] to proceed with prescribed treatment. 1. [place] BACK END WEB DEVELOPER reviewed: see exam 2. Medications: will continue [...] and PTSD 3. Cont psychotherapy: has f/u mehnazt Darcy Che [facility] scheduled 4. Labs/Procedures: no nnew labs for review 5. Exercise/Nutritio n: sleep, regular exercise and nutrition all have [...] (ICD-10 - F41.1) Common side effects of Hydroxyzine/Cocoa ril include but are not limited to: dizziness, [...] just learned he got an apartment at [address] [address] in [place]. He also got his SS benefits. He is excited and anxious. 05/17/2024 Sheltered homelessness (ICD-10 - Z59.01) Clt will be moving to new apartment at [address] [address] in [place] in August. He is collecting SS benefits [...] COVID-19. 07/27/2024 Other 08/09/2024 Other 08/18/2024 Other 12/26/2024 Other 01/03/2025 Other 02/23/2024 Other 03/16/2024 Other 03/16/2024 Other [...] PROFILE 09/10/2023 Next Appt Details Provider Name:Elena mazariegos, 02/20/2025 10:00:00 AM, [facility], [place], [place], [phone], Insurance Providers Payer Name Payer Address Payer Phone Subscriber Number Group Number Insured Name Patient Relationship to Insured Coverage Start Date Coverage End Date [place] C3 [address] [place], [place] [id number] CarpenterBraeden cantor Self - patient is the insured 4 [place] [employer] [facility] [address] [place] [address] [id number] Braeden Carpenter Self - patient is the insured 3 [facility] [address] [address] [place] [address] [id number] Braeden Carpenter Self - patient is the [...] ligaments torn 2014 Hospitalization History Reason Date(Month/Year) [facility] Orthopedic surger y 2014
--- OUTSIDE RECORDS SUMMARY | 2025-01-18 11:55 | XMS_ITS ---
Author Organization [facility] Address [address] [place] [phone] Care Team Providers Care Career Services Assistant Name Role Phone Ginny Dial Primary Care Provider [phone] Allergies No Known Allergies REASON FOR VISIT Office; Abdominal pain, Preplan - f/u referral to GI Medications Medication SIG (Take, Route, Frequency, Duration) Notes Start Date End Date Status Vitamin B-12 1000 mcg 1 tab(s) chewable once a day 08/13/2023 Active Naprosyn 500 mg 1 tab(s) orally 2 times a day 02/02/2019 Unknown escitalopram 5 mg 1 tab orally once a day in morning Please deliver to [facility] [address] Active Tylenol 8 HR Arthritis Pain [...] bedtime Please deliver to [facility] [address] 02/23/2024 Active Social History Tobacco Use: Social History Observation Description Date Details (start date - stop date) Never Smoker NA - NA Sex Assigned At : Social History Observation Description Sex Assigned At Male Tobacco Use Assessment MU Question Answer Notes What is your current smoking status? nonsmoker Encounters Encounter Location Date Provider Diagnosis [address] [id number] 01/03/2025 Ginny Dial Encounter for screening for [...] Details Provider Name:Ginny mazariegos, 02/20/2025 10:00:00 AM, [address] [place] [address], [phone], Progress Notes * Braeden REYES WDOB: [birth year] (54 yo M)Acc No.[id number]:01/03/2025 Progress Notes Patient:?Braeden REYES W Provider:?RAJ Stout :1970???Age:54 Y???Sex:Male Mitch e:01/03/2025 Address:[address] [place], [place] [phone] Subjective: * Chief Complaints: * ???1. Office; Abdominal pain . 2. Preplan - f/u referral to GI. * HPI: ???General:? Symptom Screen: - Fever [...] type of visit. Location of provider:. ? -LEAD CARE MANAGER: 53 y/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 Diverticulosis and hyperlipidemia, presents self for lab f/u today -He just moved to his apartment through [employer] [facility] - He was seen by BRENDA. Notes we have was from 11/2023 with noted c6-c7 cervical disc herniation nerve impingement and possible cord compression. He is yet to call [facility] to scheudle surgery due to his increasingly [...] MH team -cigarettes?denies -Declines Flu shot. * ROS:?No acute C/P no acute SOB, [...] ligaments torn 2014. * Hospitalization/Major Diagno stic Procedure:?[facility] Orthopedic surgery 2014. * Family History:?Mother: dece ased 50 yrs, Multiple Myeloma, heart disease, diagnosed with Cancer, disseminated, diagnosed with Cardiopathy.?Father: , hx unknown.?Family Hx: diagnosed with Cardiopathy, Cancer, disseminated.?2 sister(s) - healthy. 1 son(s) . .? Has not heard from son, he is in [employer] Unknown health info for father. * Social History:?Housing/living arrangements: 09/09/23-been at [facility] over 1 month, previously sleeping outside [place] HX:08/14/[address] [place] [address], 2 weeks ago; feels unsafe from insect bites in the clinic01/23: at [facility] [place] living on streets.. ???SDoH Screening?Entered Date?09/09/2023 ?How is this screening being conducted today??By phone ?What is your housing situation today??I have housing today, but I am worried about losing housing in the future [facility] Half-Way ?Think about the place you live. Do [...] ?In the past 12 months has the [employer], gas, oil, or water [employer] threatened to shut off services in your [...] STI testing today?08/14/2023 ???Mental Health: 09/09/23-engaging with [facility] team. Has an intake with med prescriber, Fannie Degroot, TENISHA-09/10/2411 Depression and anxiety; not currenlty seeing anyone for MH counseling.. 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 ???Income: 09/09/23-received SNAP but has been waiting for appt with medical and/or psych provider to [id number] Food stamps; has applied SSI spoke with Shy for next steps.. ???Legal issues/Incarcerations: Fritz came out 2006.. ???PCP/last visit: 07/29/23 [facility] Inpatient for Blood in Stool. ???Transportation: 08/14/2023, Pt is able to walk most places, Pt is comfortable navigating bus system. ???Marital Status: Single. ???Children: 1 son in does not talk to. ???TBI screening/Head injury Hx: Patient can not recall any times in which he/she experienced sig blow to the head (fall, blast, collision). * Medications:?Taking famotidi ne 20 mg tablet 1 tab(s) orally 2 times a day , Taking triamcinolone topical 0.025% cream 1 mehnaz applied topically 3 times a day , Taking cloNIDine 0.1 mg tablet 1 tab(s) orally once a day at bedtime , Notes to Pharmacist: Please deliver to [facility] [address] [place] [address]., Taking escitalopram 5 mg tablet 1 tab orally once a day in morning , Notes to Pharmacist: Please deliver to [facility] [address] [place] [address]., Taking rosuvastatin 10 mg tablet 1 tab(s) orally once a day , Taking Vitamin B-12 1000 mcg tablet 1 tab(s) chewable once a day , Unknown Tylenol 8 HR Arthritis Pain 650 mg tablet, extended release 2 tab(s) orally every 8 hours , Unknown Naprosyn 500 mg tablet 1 tab(s) orally 2 times a day * Allergies:?N.K.D.A. Objective: * Vitals:? Assessment: * Assessment: 1.?Encounter for screening f or COVID-19 - Z11.52 (Primary)??? Plan: * Treatment: * Images: Billing Information: * Visit Code:? * Procedure Codes:? Care Plan Details* * Electronic signature of Doyle Dial on 01/18/2025 at 11:55 AM EDT Sign off status: Pending * Provider:?RAJ Stout Date: ?01/03/2025 Generated for Howard lomas/Candis/Jaspal on:?01/18/2025 11:55 AM EDT History and Physical Notes * HPI (History of Present Illness) Category Sub-Category Detail Notes Category Not es General -LEAD CARE MANAGER: 53 y/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 Diverticulosis and hyperlipidemia, presents self for lab f/u today -He just moved to his apartment through [employer] - He was seen by BRENDA. Notes [...]
--- OUTSIDE RECORDS SUMMARY | 2025-01-18 11:55 | XMS_ITS | Clinical Summary ---
Author Organization [facility] Address [address] [place] [address] Phone Care Team Providers Care Senior C Software Engineer Name Role Phone Physician, Pcp Unknown [...] LAB CHEMISTRY METHOD 07/26/2024 6:17 PM EST [facility] Triglycerides 44 0 - 150 mg/dL LAB CHEMISTRY METHOD 07/26/2024 6:17 PM EST [facility] HDL 54 >=40 mg/dL LAB CHEMISTRY METHOD 07/26/2024 6:17 PM EST [facility] LDL Calculated 99 0 - 100 mg/dL LAB CHEMISTRY METHOD 07/26/2024 6:17 PM EST [facility] VLDL Cholesterol Juan 8.8 mg/dL LAB CHEMISTRY METHOD 07/26/2024 6:17 PM EST [facility] Non HDL Chol. (LDL+VLDL) 108 <145 mg/dL LAB CHEMISTRY METHOD 07/26/2024 6:17 PM EST [facility] Chol/HDL Ratio 3.0 0.0 - 4.4 LAB CHEMISTRY METHOD 07/26/2024 6:[address] [facility] Blood Venous blood specimen / Unknown 07/26/2024 9:43 AM EST 07/26/2024 6:01 PM EST us Ginny Dial NP LAB BLOOD ORDERABLES Final Result [facility] [place] [facility] [address] [place] [address], from Last 3 Months or Most Recently Relevant to Health Maintenance Insurance MEDICAID - [place] Care Teams Senior C Software Engineer Relationship Specialty Start Date End Date Physician, Pcp Unknown PCP - General 07/26/24
== END 2025-01-18 12:03 | disposition home or self-care (01) ==
LOC: HO.HGI 10:50
PROVIDERS: PCP Nurse Practitioner; Visit Provider Nurse Practitioner Family
DX: K21.9 Gastro-esophageal reflux disease without esophagitis (principal); R63.4 Abnormal weight loss
CPT/HCPCS: 99215

== ENCOUNTER → 2025-01-18 10:49 | Outpatient (BNVA) | payer MEDICAID, SELFPAY | PROVIDERS: PCP Nurse Practitioner; Visit Provider Nurse Practitioner Family | DX: K21.9 Gastro-esophageal reflux disease without esophagitis (principal); R63.4 Abnormal weight loss | CPT/HCPCS: 99212 ==

== ENCOUNTER 2025-02-13 07:55 | Outpatient (REF) | payer MEDICAID, SELFPAY ==
--- NOTE | ~2025-02-13 | FL_ITS ---
EXAMINATION: XR BARIUM SWALLOW CLINICAL INFORMATION: Difficulty swallowing liquids and solids especially solids COMPARISON: None available. TECHNIQUE: Routine barium swallow was performed with thick barium followed by saltine crackers in upright view and thin barium in prone lying view. FINDINGS: Allowing oral administration of thick barium there is normal propagation of bolus from the oral cavity through the pharynx, upper and mid esophagus. In the distal esophagus circumferential narrowing and in the distal esophagus there is a small to moderate size segment of circumferential narrowing and induration suspicious for underlying lesion. The endograft examination measures at least 2 to 5 cm long and circumferential narrowing is 1 cm long. There GE junction is patent. No hiatal hernia or reflux seen in prone lying position FLUOROSCOPY TIME: 2 minutes and 15 seconds DOSE AREA PRODUCT: 288.3 uGy-m2 (microgray-meter squared) FL/FL barium swallow IMPRESSION: Distal esophagus without segment circumferential narrowing and a long segment of induration suspicious for underlying esophageal lesion. Rest of the barium swallow appears unremarkable. Recommend endoscopy. Results were immediately called by phone to Dr. Valencia at 9:00 AM Electronically signed by: Alfred De Anda MD 02/13/2025 09:13 AM EDT
--- NOTE | ~2025-02-13 | XR_ITS ---
CLINICAL HISTORY: R63.4 - Abnormal weight loss 2 view chest x-ray Comparison: None Findings: No consolidation or effusion. Heart size is normal. No acute fracture. IMPRESSION: 1. No acute findings. This document has been electronically signed by: Edward Kirkpatrick MD on 02/16/2025 20:57:36
--- OUTSIDE RECORDS SUMMARY | 2025-02-13 07:58 | XMS_ITS | Patient Health Record ---
Author Organization [facility] Address [address], [place] [id number] Care Team Providers Care Dental Therapist Name Role Phone Elena Perez Primary Care Provider Tam Degroot Unavailable [phone] Jany Che Unavailable [phone] Daina Medrano Unavailable [phone] Allergies No Known Allergies Results Component Value Reference Range Notes VITAMIN B12 Reviewed date:03/17/2024 01:30:30 PM Interpretation:Normal Performing Lab: Notes/Report: [employer], a member of [address] [address] Legal Operations Manager - Annie Pickard MD VITAMIN B12 491 [...] Notes/Report: Original Ordering Provider: ELENA PEREZ APRN [employer], a member of [address] [address] Legal Operations Manager - Annie Pickard MD GLYCATED HEMOGLOBIN A1C [...] Reason For Referral Reason PT-1 Requested for [address] 12 months x 2 visits a month Referral Organization [facility] Referring Provider First Name Elena Referring Provider Last Name Yojana Referring Provider Speciality Nurse Prac titioner Referred Provider PT1, Request Referral Priority Routine Reason [facility] evaluat e for GERD with no relief from H2 Valerie Diagnosis 1 Gastro-esophageal re flux disease with esophagitis, without bleeding (K21.00) Referral Organization [facility] Referring Provider First Name Elena Referring Provider Last Name Yojana Referring Provider Speciality Nurse Prac titioner Referred Provider [facility], Gastroenterology Referred Provider Specialty Gastroentero logy General Notes Charla Ramon 2024 09:27:11 AM >Faxed to [facility] GIRyland Ligia 12/19/2024 10:35:21 AM > paperwork refaxed, FermínRamonaSydney 01/31/2025 02:01:28 PM > pt seen twice - notes requestedArun Paris 01/31/2025 03:20:45 PM > notes to scan Referral Priority Routine Referral Appointment Date 01/04/2025 Reason evaluate for rec urrent dermatitis Diagnosis 1 Dermatitis, unspecif ied (L30.9) Referral Organization [facility] Referring Provider First Name Elena Referring Provider Last Name Yojana Referring Provider Speciality Nurse Prac titioner Referred Provider Kurtis Yates Referred Provider Specialty Dermatology General Notes Charla Ramon 2024 09:36:46 AM >[facility] does not take [facility], referred to [facility], referral and notes faxed, Junay Marcelino 12/19/2024 10:36:17 AM > paperwork refaxed Referral Priority Routine Reason To [address] [place] [address] Zelda Heath GKleberIKleber Referral Organization [facility] Referring Provider First Name Elena Referring Provider Last Name Yojana Referring Provider Speciality Nurse Prac titioner Referred Provider PT1, Request Referral Priority Routine Reason [facility] [address] [address] (12 months X 3 visit) Referral Organization [facility] Referring Provider First Name Elena Referring Provider Last Name Yojana Referring Provider Speciality Nurse Prac titioner Referred Provider PT, -1 Referral Priority Routine Medications Medication SIG (Take, Route, Frequency, Duration) Notes Start Date End Date Status famotidine 20 mg 1 tab(s) orally 2 times a day Active triamcinolone topical 0.025% 1 mehnaz applied topically 3 times a day Active cloNIDine 0.1 mg 1 tab(s) orally once a day at bedtime Please deliver to [facility] [address] [place] [address]. 02/23/2024 Active pantoprazole 40 mg 1 tab(s) orally once a day for 30 day(s) 02/01/2025 Active Vitamin B-12 1000 mcg 1 tab(s) chewable once a day 08/13/2023 Active Naprosyn 500 mg 1 tab(s) orally 2 times a day 02/02/2019 Unknown escitalopram 5 mg 1 tab orally once a day in morning Please deliver to [facility]. Active Tylenol 8 HR Arthritis Pain 650 [...] Risk Notes Problem Vitamin B>12< deficiency anaemia (40725482) Vitamin B12 deficiency anemia, unspecified (D51.9) Active confirmed Problem Obesity (008672462) Obesity, unspecified (E66.9) Active confirmed Problem Mixed hyperlipidemia (436989524) Mixed hyperlipidemia (E78.2) Active confirmed Problem Severe recurrent major depression without psychotic features (09927485) Major depressive disorder, recurrent severe without psychotic features (F33.2) Active confirmed Problem Generalized anxiety disorder (94742029) Generalized anxiety disorder (F41.1) Active confirmed Problem Insomnia 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 disorder (90155417) Insomnia due to other mental disorder (F51.05) Active confirmed Problem Peripheral vascular disease (671884606) Peripheral vascular disease, unspecified (I73.9) Active confirmed Problem Diverticular disease of colon (751653425) Diverticulosis of large intestine without perforation or abscess without bleeding (K57.30) Active confirmed Problem Cervical radiculopathy (03642482) Radiculopathy, cervical region (M54.12) Active confirmed Problem Lumbar radiculopathy (360246731) Radiculopathy, lumbar region (M54.16) Active confirmed Problem Gastroesophageal reflux disease with esophagitis (disorder) (461747225) Gastro-esophageal reflux disease with esophagitis, without bleeding (K21.00) Active confirmed Problem Body mass index 35.00 to 39.99 (012858430481988) Body mass index [BMI] 36.0-36.9, adult (Z68.36) Active confirmed Problem Sheltered homelessness (237661819063334) Sheltered homelessness (Z59.01) Active confirmed Problem Recurrent major depression (79534147) Major depressive disorder, recurrent, unspecified (F33.9) Inactive confirmed Problem Migraine without aura, not refractory (disorder) (729200247) Migraine, unspecified, not intractable, without status migrainosus (G43.909) Inactive confirmed Problem Backache (628471548) Dorsalgia, unspecified (M54.9) Inactive confirmed Problem Headache (83989005) Headache (R51) Inactive conf irmed Problem Financially poor (73559813) Insufficient social insurance and welfare support (Z59.7) Inactive confirmed Vital Signs Temperature 98.6 degrees Fahrenheit 07/26/2024 Blood pressure diastolic 83 07/26/2024 Oximetry 100 07/26/2024 Height 75.5 in 12/12/2024 Blood pressure systolic 143 07/26/2024 Weight 276.4 lbs 07/26/2024 BMI 34.09 kg/m2 07/26/2024 Encounters Encounter Location Date Provider Diagnosis [address] [id number] 02/23/2024 Tam Degroot Major depressive disorder, recurrent severe without psychotic features F33.2 ; Generalized anxiety disorder F41.1 ; Insomnia due to other mental disorder F51.05 ; Vitamin B12 deficiency anemia, unspecified D51.9 ; Obesity, unspecified E66.9 and Encounter for screening for COVID-19 Z11[address] [id number] 03/16/2024 Eddieliza Casionan Encounter for screening for COVID-19 Z11.52 ; Mixed hyperlipidemia E78.2 ; Obesity, unspecified E66.9 ; Vitamin B12 deficiency anemia, unspecified D51.9 and Peripheral vascular disease, unspecified I73.[address] [id number] 03/16/2024 Tam Degroot Major depressive disorder, recurrent severe without psychotic features F33.2 ; Generalized anxiety disorder F41.1 ; Insomnia due to other mental disorder F51.05 ; Sheltered homelessness Z59.01 ; Vitamin B12 deficiency anemia, unspecified D51.9 ; Obesity, unspecified E66.9 and Encounter for screening for COVID-19 Z11.52 [facility] [address] [place] [address] [facility] [place] [id number] 03/28/2024 Eddieliza Casionan Mixed hyperlipidemia E78.2 ; Person consulting for explanation of examination or test findings Z71.2 and Vitamin B12 deficiency anemia, unspecified D51.[address] [id number] 05/17/2024 Tam Degroot Major depressive disorder, recurrent severe without psychotic features F33.2 ; Generalized anxiety disorder F41.1 ; Insomnia due to other mental disorder F51.05 ; Sheltered homelessness Z59.01 ; Vitamin B12 deficiency anemia, unspecified D51.9 ; Obesity, unspecified E66.9 ; Mixed hyperlipidemia E78.2 and Encounter for screening for COVID-19 Z11.[address] [id number] 06/22/2024 Tam Degroot Major depressive disorder, recurrent severe without psychotic features F33.2 ; Generalized anxiety disorder F41.1 ; Insomnia due to other mental disorder F51.05 ; Mixed hyperlipidemia E78.2 and Encounter for screening for COVID-19 Z11.52 [facility] [address] [place] [phone] 07/12/2024 Daina DeFlorio [facility] [address] [place] [phone] 07/13/[address] [id number] 07/26/2024 Eddieliza Casionan Encounter for screening for COVID-19 Z11.52 ; Mixed hyperlipidemia E78.2 ; Obesity, unspecified E66.9 ; Vitamin B12 deficiency anemia, unspecified D51.9 ; Immunization not carried out because of patient refusal Z28.21 and Sheltered homelessness Z59.01 [facility] [address] [place] [address] [facility] [place] [id number] 08/10/2024 Eddieliza Casionan Person consulting for explanation of examination or test findings Z71.2 and Vitamin B12 deficiency anemia, unspecified D51.9 [facility] [address] [place] [id number] 12/29/2024 Eddieliza Casionan [address] [id number] 02/23/2024 Eddieliza Casionan [address] [id number] 02/23/2024 Eddieliza Casionan Vitamin B12 deficiency anemia, unspecified D51.[address] [id number] 07/26/2024 Eddieliza Casionan [facility] [address] [place] [id number] 07/26/2024 Eddieliza Casionan [address] [id number] 07/28/2024 Eddieliza Casionan [facility] [address] [place] [id number] 08/09/2024 Daina [facility] [address] [phone] 08/16/2024 Eddieliza Casionan [address] [id number] 12/12/2024 Eddieliza Casionan Dermatitis, unspecified L30.9 and Gastro-esophageal reflux disease with esophagitis, without bleeding K21.[address] [id number] 12/16/2024 Eddieliza Casionan [address] [id number] 12/29/2024 Eddieliza Casionan [facility] [address] [place] [id number] 12/30/2024 Eddieliza Casionan [address] [id number] 02/01/2025 Eddieliza Casionan Assessments Encounter Date Diagnosis (ICD [...] to proceed with prescribed treatment. 1. 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 Medications: will continue [...] Cont psychotherapy: has f/u appt Darcy Che [facility] scheduled 4. Labs/Procedures: labs ordered by PCP at [facility] and reviewed with PCP. 5. Exercise/Nutritio n: [...] to proceed with prescribed treatment. 1. 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 Medications: will continue [...] Cont psychotherapy: has f/u appt Darcy Che [facility] scheduled 4. Labs/Procedures: labs ordered by PCP at [facility] and reviewed with PCP. 5. Exercise/Nutritio n: [...] to proceed with prescribed treatment. 1. 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 Medications: will continue [...] Cont psychotherapy: has f/u appt Darcy Che [facility] scheduled 4. Labs/Procedures: labs ordered by PCP at [facility] and reviewed with PCP. 5. Exercise/Nutritio n: [...] to proceed with prescribed treatment. 1. 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 Medications: will continue [...] 3. Cont psychotherapy: has f/u jennifer Che [facility] scheduled 4. Labs/Procedures: no nnew labs [...] (ICD-10 - F41.1) Common side effects of Hydroxyzine/[place] ril include but are not limited to: [...] use 03/16/2024 Sheltered homelessness (ICD-10 - Z59.01) Shayne just learned he got an apartment at [address] [address] in [place]. He also got his SS benefits. He is excited and anxious. 05/17/2024 Sheltered homelessness (ICD-10 - Z59.01) Clt will be moving to new apartment at [address] [address] in [place] in August. He is collecting SS benefits [...] PROFILE 09/10/2023 Next Appt Details Provider Name:Elena Sofía delilah, 02/20/2025 10:00:00 AM, [address] [facility], [place], [place], [phone], Insurance Providers Payer Name Payer Address Payer Phone Subscriber Number Group Number Insured Name Patient Relationship to Insured Coverage Start Date Coverage End Date MD Medicaid C3 [address] [place], [place] [id number] [phone] [id number] Braeden Carpenter Self - patient is the insured 4 [employer] [facility] [address] [place] [address] [id number] Braeden Carpenter Self - patient is the insured 3 [facility] [address] [address] [place] [id number] Braeden Carpenter Self - patient is the [...] ligaments torn 2014 Hospitalization History Reason Date(Month/Year) [facility] Orthopedic surger y 2014
[2025-02-13 09:18] LABS: Estimated Average Glucose 100 mg/dL; Hemoglobin A1c % 5.1 % (<6.0)
[2025-02-13 10:02] LABS: Alanine Aminotransferase 10 U/L (0-40); Alkaline Phosphatase 48 U/L (39-117); Anion Gap 9 (12-20); Aspartate Amino Transferase 20 U/L (5-37); Bilirubin Total 1.2 mg/dL (0.0-1.0); Blood Urea Nitrogen 11 mg/dL (9-16); C Reactive Protein 0.13 mg/dL (< or = 0.50); Calcium 8.7 mg/dL (8.4-10.2); Carbon Dioxide 26 mmol/L (22-29); Chloride 108 mmol/L (96-108); Estimated Glomerular Filt Rate > 60; Glucose Random 87 mg/dL (60-115); Iron 133 mcg/dL (45-160); Lipase 14 U/L (8-78); Percent Iron Saturation 51 % (15-50); Potassium 3.1 mmol/L (3.3-5.1); Sodium 140 mmol/L (135-145); Total Iron Binding Capacity 261 mcg/dL (228-428); Total Protein 6.7 g/dL (6.5-8.0); Unsaturated Iron Binding 128 ug/dL
[2025-02-13 10:08] LABS: HBc Num1 0.11 S/CO (0.00-0.79); HBsAGNum1 0.37 S/CO (0.00-0.99); HIV AB/AG Nonreactive (Nonreactive); HIV Num 1 0.07 S/CO (0.00-0.99); Hepatitis A Antibody IgM 0.25 Index (0-0.79); Hepatitis B Core Antibody Nonreactive (Nonreactive); Hepatitis B Surface Antigen Negative (Negative); ~HepC Num1 0.12 S/CO (0.00-0.79); ~Hepatitis A Antibody IgM Nonreactive (Nonreactive); ~Hepatitis B Surface Antibody NONREACTIVE (Nonreactive); ~Hepatitis C Antibody Nonreactive (Nonreactive)
[2025-02-13 10:09] LABS: TSH reflex Free T4 1.13 uIU/mL (0.32-4.0)
[2025-02-13 10:24] LABS: Folate 6.4 ng/mL (> or = 4.0); Vitamin B12 341 pg/mL (200-900)
[2025-02-13 10:26] LABS: Parathyroid Hormone Intact 146.9 pg/mL (8.7-77.1)
[2025-02-14 21:34] LABS: Prot Elec - Albumin 3.9 g/dL (3.8-4.8); Prot Elec - Alpha1 0.3 g/dL (0.2-0.3); Prot Elec - Alpha2 0.4 g/dL (0.5-0.9); Prot Elec - Beta 1 0.5 g/dL (0.4-0.6); Prot Elec - Beta 2 0.4 g/dL (0.2-0.5); Prot Elec - Gamma 1.1 g/dL (0.8-1.7); Prot Elec - Total Protein 6.6 g/dL (6.1-8.1)
[2025-02-20 01:19] LABS: VITAMIN D (1,25 OH) D3 40 pg/mL; Vit D (1,25-Dihydroxy) Total 40 pg/mL (18-72); Vitamin D (1,25 OH) D2 <8 pg/mL
== END 2025-02-13 07:56 | disposition home or self-care (01) ==
LOC: HO.XRAY 07:55
PROVIDERS: PCP Nurse Practitioner; Visit Provider Nurse Practitioner Family
DX: R63.4 Abnormal weight loss (principal); K21.9 Gastro-esophageal reflux disease without esophagitis; R13.10 Dysphagia, unspecified; E53.8 Deficiency of other specified B group vitamins; E83.52 Hypercalcemia; Z11.59 Encounter for screening for other viral diseases; Z11.3 Encounter for screening for infections with a predominantly sexual mode of transmission
CPT/HCPCS: 71046; 74220; 80053; 82607; 82652; 82746; 83036; 83540; 83690; 83970; 84165; 84443; 86140; 86704; 86706; 86709; 86803; 87340; 87389

== ENCOUNTER → 2025-02-13 07:56 | Outpatient (BNV) | payer MEDICAID, SELFPAY | PROVIDERS: PCP Nurse Practitioner; Visit Provider Radiology Diagnostic Radiology | DX: R63.4 Abnormal weight loss (principal) | CPT/HCPCS: 71046 ==

== ENCOUNTER 2025-02-16 12:44 | Day surgery (SDC) | payer OTHER, SELFPAY ==
--- NOTE | 2025-02-15 12:14 | HO.ANESPROP2 ---
HPI - Anesthesia Eval Consult details Narrative: 55yo M for Upper Endoscopy PMFSH Active Problems Active Problems: All Active Problems Weight loss (Acute) Acid reflux (Acute) B12 deficiency (Acute) Past Medical History Medical History (Updated 01/18/25 @ 12:43 by Sera Nassar CNP) Weight loss Acid reflux Family History Family History Mother Cancer Surgical History Surgical History Hx of colonoscopy History of ankle surgery History of Problems with Anesthesia: No Social History Social History Household Members: None Housing: Homeless Do you presently have visiting nurse or other home services: No Patient Tobacco Use Status: Never used Tobacco Substance Use Type: Marijuana service: No Meds Allergies Allergy/AdvReac Type Severity Reaction Status Date / Time No Known Allergies Allergy Verified 01/18/25 11:06 Assessment and Plan Assessment Anesthesia Assessment: Chart Reviewed Final Anesthetic Review History of Problems with Anesthesia: No
[2025-02-16 12:48] VITALS: BMI 33.2
--- NOTE | 2025-02-16 13:13 | P.HPSUR_ITS ---
Pre-Procedural Eval Section A - 24 Hr Update-Section A only Date of Service: 02/16/25 Section B - Complete if H&P > 30 days Chief Complaint: gerd Details of Present Illness: concern for mass on swallowing study Relevant Family History (Specify if Yes): No Relevant Social History: None Present Medications: see Short Stay Collaborative assessment Medical History: Significant History History of Previous Operations: Relevant previous surgery/procedure and date(s) Allergies: Allergies Allergy/AdvReac Type Severity Reaction Status Date / Time No Known Allergies Allergy Verified 02/16/25 12:55 Review of Systems Sugical H&P ROS: Negative: Constitution, Cardiovascular, Respiratory, Neurological, Psychiatric, Hem-Onc, Allergic/Immunologic, Gastrointestinal, Genitourinary, Musculoskeletal, Integumentary, Endocrine and Eyes/Ears/Nose/T hroat Exam Surgical H&P Exam: Normal: HEENT, Normal: Heart, Normal: Lungs, Normal: Extremities, Normal: Abdomen, Normal: Skin and Normal: Neurological Plan Diagnosis/Plan: Unchanged I have reviewed the history and physical and performed a pertinent physical examination on my patient. No changes have occurred unless specified. EGD for esophageal mass Time Spent With Patient Time: Total time managing care of this patient today ____ minutes.
[2025-02-16] MEDS: Lactated Ringers 1,000 ML 100 ML IVCONT (13:14)
[2025-02-16 13:15] VITALS: BP 166/83; PULSE 63; RESP 18; TEMP 36.8; O2SAT 98
--- NOTE | 2025-02-16 13:51 | W.PM.OPN ---
Operative Note Operative Note Date of Service: 02/16/25 Narrative: Procedure Description: EGD Indication: dysphagia and abn ba swallow Anesthesia: MAC FLEXIBLE TRANSORAL UPPER GASTROINTESTINAL ENDOSCOPY UPPER ENDOSCOPY Consent: Indications for the procedure and potential complications of bleeding, perforation, reaction to medications and missed diagnosis were discussed with the patient and informed consent was obtained. Instrument: Olympus GIF H 190 J mid size upper endoscope Monitoring: Vital signs and clinical assessment, continuous EKG monitoring, Pulse oximetry, Carbon Dioxide monitoring and blood pressure monitoring were done throughout the procedure. Procedure: The patient was placed in the left lateral decubitis position and pre-procedure medications were administered and a bite block was placed. The endoscope was inserted into the mouth and advanced under direct vision to the third part of duodenum. A careful inspection was made as the upper endoscope was withdrawn including a retroflexed examination of the proximal stomach; Findings and interventions are described below. Findings: Larynx:normal Esophagus: GE junction at 40 cm, diaphragm hiatus at 44 cm, consistent with 4 cm fixed hiatal hernia. no mass seen. Balloon dialtion at LES and UES to 20 mm, no tears seen. bx taken from GEJ, distal and proximal esophagus Stomach: patchy granularity and erythema . Biopsies were obtained. Grade 2 flap valve on retroflexed examination of the cardia. Pylorus was tight and dilated using balloon with wire guided technique to 20 mm, no tears seen Duodenum: Normal bulb and descending duodenum, bx taken Intervention: Biopsies as noted above, wire guided balloon dilation Impression/Findings: gastritis hiatal hernia tight pyloric outlet PLAN: max dose of PPI, will change to nexium 40 mg BID GERD precautions if ongoing sx and bx neg then CT chest, abdo and pelvis and if still neg then refer for hernia repair
[2025-02-16 13:55] VITALS: BP 132/69; PULSE 64; RESP 18; TEMP 36.3; O2SAT 100
[2025-02-16 14:10] VITALS: BP 150/100; PULSE 56; RESP 16; TEMP 36.5; O2SAT 100
== END 2025-02-16 14:49 | disposition home or self-care (01) ==
PROVIDERS: PCP Nurse Practitioner; Visit Provider Internal Medicine Gastroenterology
PROC: 0DJ08ZZ Inspection of Upper Intestinal Tract, Via Natural or Artificial Opening Endoscopic (ICD-10-PCS; CPT 43235; principal; 2025-02-16 14:30)
DX: R13.10 Dysphagia, unspecified (principal); K21.9 Gastro-esophageal reflux disease without esophagitis; K31.1 Adult hypertrophic pyloric stenosis; K29.30 Chronic superficial gastritis without bleeding; K44.9 Diaphragmatic hernia without obstruction or gangrene; E78.5 Hyperlipidemia, unspecified; E83.52 Hypercalcemia; R63.4 Abnormal weight loss; Z68.33 Body mass index [BMI] 33.0-33.9, adult; E53.8 Deficiency of other specified B group vitamins; Z79.899 Other long term (current) drug therapy
CPT/HCPCS: 43249; 43245; 43239; 88305; 88313; 88342; C1726; J2003; J2704

== ENCOUNTER → 2025-02-16 12:44 | Outpatient (BNV) | payer OTHER, SELFPAY | PROVIDERS: PCP Nurse Practitioner; Visit Provider Internal Medicine Gastroenterology | DX: R13.10 Dysphagia, unspecified (principal); R93.3 Abnormal findings on diagnostic imaging of other parts of digestive tract; K44.0 Diaphragmatic hernia with obstruction, without gangrene; K31.1 Adult hypertrophic pyloric stenosis | CPT/HCPCS: 43245; 43249 ==

== ENCOUNTER 2025-02-16 14:04 | Outpatient (REF) | payer OTHER, SELFPAY ==
--- OUTSIDE RECORDS SUMMARY | 2025-02-16 16:37 | XMS_ITS | Patient Health Record ---
Author Organization [facility] Address [address], [place] [id number] Care Team Providers Care Senior Computer Specialist Name Role Phone Elena Perez Primary Care Provider Tam Degroot Unavailable [phone] Jany Che Unavailable [phone] Daina Medrano Unavailable [phone] Allergies No Known Allergies Results Component Value Reference Range Notes VITAMIN B12 Reviewed date:03/17/2024 01:30:30 PM Interpretation:Normal Performing Lab: Notes/Report: [employer], a member of [address] [address] Banking Analyst - Annie Pickard MD VITAMIN B12 491 [...] Notes/Report: Original Ordering Provider: ELENA PEREZ APRN [employer], a member of [address] [address] Banking Analyst - Annie Pickard MD GLYCATED HEMOGLOBIN A1C [...] <6.5 % Mean Bld Glu Estim. 94 COMPREHENSIVE METABOLIC PANE L Reviewed date:02/14/2025 03:53:57 PM Interpretation:k=3.1 Performing Lab: Notes/Report: k=3.1 ALBUMIN 4 ALK PHOS 48 SGPT 10 ANION GAP 9 SGOT 20 BUN 11 CALCIUM 8.7 CHLORIDE 108 CO2 26 CREAT 1.06 GLOMERULAR FILTRATION RATE >60 GLUCOSE 67 POTASSIUM 3.1 SODIUM 140 LIPASE Reviewed date:02/14/2025 03:54:48 PM Interpretation:Normal Performing Lab: Notes/Report: Normal LIPASE 14 TSH Reviewed date:02/14/2025 03:55:51 PM Interpretation:Normal Performing Lab: Notes/Report: Normal TSH 1.03 IRON Reviewed date:02/14/2025 03:57:17 PM Interpretation:Normal Performing Lab: Notes/Report: Normal Iron 133 GLYCOHEMOGLOBIN PROFILE Reviewed date:02/14/2025 03:58:07 PM Interpretation:Normal Performing Lab: Notes/Report: Normal ESTIMATED AVERAGE GLUCOSE 100 GLYCATED HEMOGLOBIN A1C 5.1 B12 AND FOLATE PROFILE Reviewed date:02/14/2025 03:59:41 PM Interpretation:Negative Performing Lab: Notes/Report: Negative VITAMIN B12 341 FOLATE 6.4 INTACT PTH Reviewed date:02/14/2025 04:00:34 PM Interpretation:High Performing Lab: Notes/Report: High INTACT PTH 146.9 Reason For Referral Reason PT-1 Requested for [facility] [address] [facility] 12 months x 2 visits a month Referral Organization [facility] Referring Provider First Name Elena Referring Provider Last Name Yojana Referring Provider Speciality Nurse Maurice haddad Referred Provider PT1, Request Referral Priority Routine Reason [facility] evaluat e for GERD with no relief from H2 Valerie Diagnosis 1 Gastro-esophageal re flux disease with esophagitis, without bleeding (K21.00) Referral Organization [facility] Referring Provider First Name Elena Referring Provider Last Name Yojana Referring Provider Speciality Nurse Maurice haddad Referred Provider [facility] er, Gastroenterology Referred Provider Specialty Gastroentero logy General Notes Charla Ramon 2024 09:27:11 AM >Faxed to [facility], Junay Marcelino 12/19/2024 10:35:21 AM > paperwork refaxed, Sydney Kovacs 01/31/2025 02:01:28 PM > pt seen twice - notes requestedArun Paris 01/31/2025 03:20:45 PM > notes to scan Referral Priority Routine Referral Appointment Date 01/04/2025 Reason evaluate for rec urrent dermatitis Diagnosis 1 Dermatitis, unspecif ied (L30.9) Referral Organization [facility] Referring Provider First Name Elena Referring Provider Last Name Yojana Referring Provider Speciality Nurse Maurice haddad Referred Provider Javier - NOT [facility], Kurtis Yates Referred Provider Specialty Dermatology General Notes Charla Ramon 2024 09:36:46 AM >[facility] does not take [facility], referred to Truyd Munguia, referral and notes faxed, Juany Marcelino 12/19/2024 10:36:17 AM > paperwork refaxed Referral Priority Routine Reason To [address] [place] [address] Zelda Heath Referral Organization [facility] Referring Provider First Name Elena Referring Provider Last Name Tututy Referring Provider Speciality Nurse Maurice haddad Referred Provider PT1, Request Referral Priority Routine Reason [facility] [address] [facility] [address] [facility] [address] (12 months X 3 visit) Referral Organization [facility] Referring Provider First Name Bernywinifred Referring Provider Last Name Georgimelissa Referring Provider Speciality Nurse Maurice haddad Referred Provider PT, -1 Referral Priority Routine Medications Medication SIG (Take, Route, Frequency, Duration) Notes Start Date End Date Status famotidine 20 mg 1 tab(s) orally 2 times a day Active triamcinolone topical 0.025% 1 mehnaz applied topically 3 times a day Active cloNIDine 0.1 mg 1 tab(s) orally once a day at bedtime Please deliver to [facility] [address] 02/23/2024 Active pantoprazole 40 mg 1 tab(s) orally once a day for 30 day(s) 02/01/2025 Active Vitamin B-12 1000 mcg 1 tab(s) chewable once a day 08/13/2023 Active Naprosyn 500 mg 1 tab(s) orally 2 times a day 02/02/2019 Unknown escitalopram 5 mg 1 tab orally once a day in morning Please deliver to [facility] [address] [place] [address]. Active Tylenol 8 HR Arthritis Pain 650 [...] Risk Notes Problem Vitamin B>12< deficiency anaemia (98879922) Vitamin B12 deficiency anemia, unspecified (D51.9) Active confirmed Problem Obesity (193146314) Obesity, unspecified (E66.9) Active confirmed Problem Mixed hyperlipidemia (579567879) Mixed hyperlipidemia (E78.2) Active confirmed Problem Severe recurrent major depression without psychotic features (82680767) Major depressive disorder, recurrent severe without psychotic features (F33.2) Active confirmed Problem Generalized anxiety disorder (08905322) Generalized anxiety disorder (F41.1) Active confirmed Problem Insomnia 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 disorder (87100769) Insomnia due to other mental disorder (F51.05) Active confirmed Problem Peripheral vascular disease (413910659) Peripheral vascular disease, unspecified (I73.9) Active confirmed Problem Diverticular disease of colon (825292141) Diverticulosis of large intestine without perforation or abscess without bleeding (K57.30) Active confirmed Problem Cervical radiculopathy (45182986) Radiculopathy, cervical region (M54.12) Active confirmed Problem Lumbar radiculopathy (168472053) Radiculopathy, lumbar region (M54.16) Active confirmed Problem Gastroesophageal reflux disease with esophagitis (disorder) (056855707) Gastro-esophageal reflux disease with esophagitis, without bleeding (K21.00) Active confirmed Problem Body mass index 35.00 to 39.99 (537521620912278) Body mass index [BMI] 36.0-36.9, adult (Z68.36) Active confirmed Problem Sheltered homelessness (245075003531151) Sheltered homelessness (Z59.01) Active confirmed Problem Recurrent major depression (57067035) Major depressive disorder, recurrent, unspecified (F33.9) Inactive confirmed Problem Migraine without aura, not refractory (disorder) (677914094) Migraine, unspecified, not intractable, without status migrainosus (G43.909) Inactive confirmed Problem Backache (136835675) Dorsalgia, unspecified (M54.9) Inactive confirmed Problem Headache (16044276) Headache (R51) Inactive conf irmed Problem Financially poor (28642209) Insufficient social insurance and welfare support (Z59.7) Inactive confirmed Vital Signs Temperature 98.6 degrees Fahrenheit 07/26/2024 Blood pressure diastolic 83 07/26/2024 Oximetry 100 07/26/2024 Height 75.5 in 12/12/2024 Blood pressure systolic 143 07/26/2024 Weight 276.4 lbs 07/26/2024 BMI 34.09 kg/m2 07/26/2024 Encounters Encounter Location Date Provider Diagnosis [address] [id number] 02/23/2024 Tam Degroot Major depressive disorder, recurrent severe without psychotic features F33.2 ; Generalized anxiety disorder F41.1 ; Insomnia due to other mental disorder F51.05 ; Vitamin B12 deficiency anemia, unspecified D51.9 ; Obesity, unspecified E66.9 and Encounter for screening for COVID-[address] [id number] 03/16/2024 Eddieliza Casionan Encounter for screening for COVID-19 Z11.52 ; Mixed hyperlipidemia E78.2 ; Obesity, unspecified E66.9 ; Vitamin B12 deficiency anemia, unspecified D51.9 and Peripheral vascular disease, unspecified I73.[address] [id number] 03/16/2024 Tam Degroot Major depressive disorder, recurrent severe without psychotic features F33.2 ; Generalized anxiety disorder F41.1 ; Insomnia due to other mental disorder F51.05 ; Sheltered homelessness Z59.01 ; Vitamin B12 deficiency anemia, unspecified D51.9 ; Obesity, unspecified E66.9 and Encounter for screening for COVID-19 Z11.52 [facility] [address] [place] [address] [facility] [place] [id number] 03/28/2024 Eddieliza Casionan Mixed hyperlipidemia E78.2 ; Person consulting for explanation of examination or test findings Z71.2 and Vitamin B12 deficiency anemia, unspecified D51.[address] [id number] 05/17/2024 Tam Degroot Major depressive disorder, recurrent severe without psychotic features F33.2 ; Generalized anxiety disorder F41.1 ; Insomnia due to other mental disorder F51.05 ; Sheltered homelessness Z59.01 ; Vitamin B12 deficiency anemia, unspecified D51.9 ; Obesity, unspecified E66.9 ; Mixed hyperlipidemia E78.2 and Encounter for screening for COVID-[address] [id number] 06/22/2024 Tam Degroot Major depressive disorder, recurrent severe without psychotic features F33.2 ; Generalized anxiety disorder F41.1 ; Insomnia due to other mental disorder F51.05 ; Mixed hyperlipidemia E78.2 and Encounter for screening for COVID-19 Z11.52 [facility] [address] [place] [phone] 07/12/2024 Daina Medrano [facility] [address] [place] [phone] 07/13/2024 [address]aina [address]Florio [address] [id number] 07/26/2024 Eddieliza Casionan Encounter for screening for COVID-19 Z11.52 ; Mixed hyperlipidemia E78.2 ; Obesity, unspecified E66.9 ; Vitamin B12 deficiency anemia, unspecified D51.9 ; Immunization not carried out because of patient refusal Z28.21 and Sheltered homelessness Z59.01 [facility] [address] [place] [address] [facility] [place] [phone] 08/10/2024 Eddieliza Casionan Person consulting for explanation of examination or test findings Z71.2 and Vitamin B12 deficiency anemia, unspecified D51.9 [facility] [address] [place] [id number] 12/29/2024 Eddieliza Casionan [address] [id number] 02/23/2024 Eddieliza Casionan [address] [id number] 02/23/2024 Eddieliza Casionan Vitamin B12 deficiency anemia, unspecified D51.[address] [id number] 07/26/2024 Eddieliza Casionan [facility] [address] [place] [id number] 07/26/2024 Eddieliza Casionan [address] [id number] 07/28/2024 Eddieliza Casionan [facility] [address] [place] [id number] 08/09/2024 Daina Medrano [address] [phone] 08/16/2024 Eddieliza Casionan [address] [id number] 12/12/2024 Eddieliza Casionan Dermatitis, unspecified L30.9 and Gastro-esophageal reflux disease with esophagitis, without bleeding K21.[address] [id number] 12/16/2024 Edwinifred [facility] [address] [id number] 12/29/2024 [facility] [address] [place] [id number] 12/30/2024 Eddieliza [facility] [address] [id number] 02/01/2025 [facility] Assessments Encounter Date Diagnosis (ICD Code) Assessment [...] to proceed with prescribed treatment. 1. 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 Medications: will continue [...] 3. Cont psychotherapy: has f/u jennifer Che [facility] scheduled 4. Labs/Procedures: labs ordered by PCP at [facility] and reviewed with PCP. 5. [...] to proceed with prescribed treatment. 1. 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 Medications: will continue [...] 3. Cont psychotherapy: has f/u jennifer Che [facility] scheduled 4. Labs/Procedures: labs ordered by PCP at [facility] and reviewed with PCP. 5. [...] to proceed with prescribed treatment. 1. 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 Medications: will continue [...] 3. Cont psychotherapy: has f/u jennifer Che [facility] scheduled 4. Labs/Procedures: labs ordered by PCP at [facility] and reviewed with PCP. 5. [...] to proceed with prescribed treatment. 1. 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 Medications: will continue [...] Cont psychotherapy: has f/u appt Darcy Che [facility] scheduled 4. Labs/Procedures: no nnew labs for [...] (ICD-10 - F41.1) Common side effects of Hydroxyzine/[place] ril include but are not limited to: [...] just learned he got an apartment at [place] [address] in [place]. He also got his SS benefits. He is excited and anxious. 05/17/2024 Sheltered homelessness (ICD-10 - Z59.01) Shayne will be moving to new apartment at [place] [address] in [place] in August. He is collecting SS benefits [...] Date HEPATITIS B SURFACE AB IMMUNITY, QN 060 11/2018 CBC 07/26/2024 GLYCOHEMOGLOBIN PROFILE 07/26/2024 LIPID PROFILE 07/26/2024 THYROID PROFILE 07/26/2024 URINE CULTURE 09/14/2023 HEPATITIS A,B,C PROFILE 09/10/2023 Next Appt Details Provider Name:Elena mazariegos, 02/20/2025 10:00:00 AM, [address] [facility], [place], [place], [phone], Insurance Providers Payer Name Payer Address Payer Phone Subscriber Number Group Number Insured Name Patient Relationship to Insured Coverage Start Date Coverage End Date [place] C[place] [address] [place], [place] [id number] CarpenterBraeden cantor Self - patient is the insured 4 [employer] [address] [place] [address] [id number] Braeden Carpenter Self - patient is the insured 3 [facility] [address] [address] [place] [id number] Braeden Carpenter Self - patient is the [...] ligaments torn 2014 Hospitalization History Reason Date(Month/Year) [facility] Orthopedic surger y 2014
[2025-02-21 14:24] LABS: PEU-Protein Creat Ratio Rand 0.054 (0.025-0.148); PEU-Rand. Prot/Creat Ratio 54 mg/g creat (25-148); PEU-Random Ur. Gamma Globulin 0 %; PEU-Random Urine A1 Globulin 0 %; PEU-Random Urine A2 Globulin 0 %; PEU-Random Urine Albumin 100 %; PEU-Random Urine Beta Globulin 0 %; PEU-Random Urine Creatinine 130 mg/dL (20-320); PEU-Random Urine Protein 7 mg/dL (5-25)
== END 2025-02-16 14:05 | disposition home or self-care (01) ==
LOC: HO.LNP 14:04
PROVIDERS: Visit Provider Nurse Practitioner Family
DX: R63.4 Abnormal weight loss (principal)
CPT/HCPCS: 82570; 84156; 84166

== ENCOUNTER 2025-03-03 11:05 | Outpatient (AMB) | payer OTHER, SELFPAY ==
--- NOTE | 2025-03-03 11:16 | MHC.OFFVIS ---
Vital Signs 03/03/25 11:17 Height 6 ft 4 in Weight 252 lb BMI 30.7 BP 136/67 Blood Pressure Location Lt brachial Position Sitting Pulse 80 Pulse Oximetry (%) 99 Oxygen Delivery Method Room Air Intake Visit Reasons: 6 weeks Gerd Intake Note: Patient 6 weeks follow up for GERD, lab, chest x-ray and BS results. Patient cc: abdominal discomfort, patient is not able to eat due his GERD ? and he needed refill on his Ondasentron. Tax Director Required: No Accompanied by: Self / Same As Patient Allergies No Known Allergies Allergy (Verified 03/03/25 11:17) Medication List - Last Reconciled 03/03/25 by Sera Nassar CNP amlodipine 5 mg PO DAILY esomeprazole magnesium 40 mg PO DAILY ondansetron 4 mg translingual Q8H PRN HPI HPI 6 weeks Gerd: Details: Patient is a 54-year-old male with PMH of vitamin B12 deficiency and hyperlipidemia. Who presents for follow up on n/v. He reports ongoing nausea and vomiting that occurs immediately after eating or drinking. These symptoms began roughly two months ago. He tries to eat once a day, and after consuming food, he experiences nausea followed by vomiting. There is no associated physical pain with these episodes. He reports continued weight loss. He requesting refill for ondansetron. Braeden reports constipation, having a bowel movement once a week with soft, formed stool and no blood. Additionally, he feels cold easily and has had poor sleep due to skin issues, including a pervasive rash. Shares he is scheduled to see dermatology next month. States he was started on amlodipine approx 2 weeks ago for hypertension management. Reports he is currently without a PCP due to insurance changes. States he is to established with [facility]CP 10/2025. [facility] Medical History (Updated 03/04/25 @ 06:21 by Sera Nassar CNP) Elevated parathyroid hormone Weight loss Acid reflux Surgical History Hx of colonoscopy History of ankle surgery Family History Mother Cancer Social History Household Members: None Housing: Homeless Are you a primary home child care provider to a significant other at home: No Do you presently have visiting nurse or other home services: No Patient Tobacco Use Status: Never used Tobacco Substance Use Type: Marijuana service: No Review of Systems Const Reports as per [facility] ENT Reports as per HPI Card Reports as per HPI Resp Reports as per HPI GI Reports as per HPI Reports as per [facility] Physical Exam Vital Signs: Last Vital Signs Pulse 80 03/03/25 11:17 BP 136/67 03/03/25 11:17 Pulse Ox 99 03/03/25 11:17 Oxygen Delivery Method Room Air 03/03/25 11:17 BMI result Body Mass Index 30.7 Const General: no acute distress Nutritional Appearance: average body habitus Orientation/consciousness: patient oriented x3 HEENT Head: Yes normal to inspection, Yes normocephalic and Yes atraumatic Face and sinus: Yes normal facial exam Eyes General: appearance normal, both eyes and all related structures Neck Neck: Yes normal visual inspection Resp Effort & Inspection: normal respiratory effort, able to speak in complete sentences, no tracheal deviation and symmetric chest movement Cardio Jugular venous distension: no JVD GI Inspection: Yes distended Neuro General: patient oriented x3 Gait exam (Neuro): Normal gait present Psych Appearance: grossly normal Mental Status: mental status grossly normal Speech and movement: Normal speech and movement present Attitude: Guarded attititude/behavior present Thought process: Normal thought process present Thought content: Normal thought content present Insight: Fair insight present (Psych) Judgement: Good judgement present (Psych) Results Reviewed Results Reviewed: Date of Service: 02/13/25 Procedure(s): XR chest 2V Accession Number(s): [id number] cc: 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 Heart size is normal. No acute fracture. IMPRESSION: 1. No acute findings. Operative Note Date of Service: 02/16/25 Narrative: Procedure Description: EGD Indication: dysphagia and abn ba swallow Anesthesia: MAC FLEXIBLE TRANSORAL UPPER GASTROINTESTINAL ENDOSCOPY UPPER ENDOSCOPY Consent: Indications for the procedure and potential complications of bleeding, perforation, reaction to medications and missed diagnosis were discussed with the patient and informed consent was obtained. Instrument: Olympus GIF H 190 J mid size upper endoscope Monitoring: Vital signs and clinical assessment, continuous EKG monitoring, Pulse oximetry, Carbon Dioxide monitoring and blood pressure monitoring were done throughout the procedure. Procedure: The patient was placed in the left lateral decubitis position and pre-procedure medications were administered and a bite block was placed. The endoscope was inserted into the mouth and advanced under direct vision to the third part of duodenum. A careful inspection was made as the upper endoscope was withdrawn including a retroflexed examination of the proximal stomach; Findings and interventions are described below. Findings: Larynx:normal Esophagus: GE junction at 40 cm, diaphragm hiatus at 44 cm, consistent with 4 cm fixed hiatal hernia. no mass seen. Balloon dialtion at LES and UES to 20 mm, no tears seen. bx taken from GEJ, distal and proximal esophagus Stomach: patchy granularity and erythema . Biopsies were obtained. Grade 2 flap valve on retroflexed examination of the cardia. Pylorus was tight and dilated using balloon with wire guided technique to 20 mm, no tears seen Duodenum: Normal bulb and descending duodenum, bx taken Intervention: Biopsies as noted above, wire guided balloon dilation Impression/Findings: gastritis hiatal hernia tight pyloric outlet PLAN: max dose of PPI, will change to nexium 40 mg BID GERD precautions if ongoing sx and bx neg then CT chest, abdo and pelvis and if still neg then refer for hernia repair PATHOLOGY Collected: 02/16/25 Location: [facility] Received: 02/16/25 Diagnosis A. Duodenum, biopsy: Duodenal mucosa within normal limits; preserved villous architecture and no increase in intraepithelial lymphocytes; negative for metaplasia/dysplasia. B. Stomach, biopsy: Gastric antral mucosa with reactive gastropathy; body mucosa with mild superficial chronic gastritis; negative for H pylori/intestinal metaplasia/dysplasia. C. Gastroesophageal junction, biopsy: Squamocolumnar junctional mucosa with mild chronic inflammation; negative for intestinal metaplasia/dysplasia. D. Esophagus, distal, biopsy: Squamous mucosa within normal limits; negative for inflammation/fungal organism/dysplasia/malignancy. E. Esophagus, proximal, biopsy: Squamous mucosa within normal limits; negative for inflammation/ fungal organisms/dysplasia/malignancy. Clinical History Pre-Op Dx: GERD Post-Op Dx: Hiatal hernia, gastritis Assessment & Plan Assessment & Plan (1) Acid reflux: Comment: EGD with balloon dilation 02/16/25 -hiatal hernia, gastritis , no esophageal mass tears seen, tight pylorus outlet ( balloon dilation). Code(s): K21.9 - Gastro-esophageal reflux disease without esophagitis Category: Medical Qualifiers: Esophagitis presence: esophagitis presence not specified Qualified Code(s): K21.9 - Gastro-esophageal reflux disease without esophagitis Plan: Review above EGD results. Medication: Now taking esomeprazole 40 mg daily. Will add famotindine for HS dosing. Refilled requested ondansteron with instructions on proper use. (2) Weight loss: Code(s): R63.4 - Abnormal weight loss Category: Medical Plan: 21lb loss since our last visit. secondary to low caloric intake/nausea and vomiting. His PTH level is elevated. Repeat Ca is normal. Cannot exclude malignancy. Additional Tests: -CT scan pending to evaluate for underlying causes of weight loss and vomiting. -repeat labs Plan Visit ended prematurely due to early transportation arrival, limiting exam. We were unable to discuss the plan for repeat labs or schedule the next follow-up. Patient is aware of upcoming imaging scheduled for 03/15/25. Our team will reach out to provide an updated plan and coordinate follow-up scheduling. Time: I spent a total of 40 minutes on the date of encounter which includes: Preparing to see the patient (reviewed previous documentation, test results and medical history) Performing a medically appropriate exam and/or evaluation Interprofessional discussion held for optimal care approach Ordering medications, tests, and procedures Documenting clinical information in the health record Orders: Orders Albumin Level Today K21.9 - Gastro-esophageal reflux disease without esophagitis, R63.4 - Abnormal weight loss, R79.89 - Other specified abnormal findings of blood chemistry Parathyroid Hormone Intact Today R79.89 - Other specified abnormal findings of blood chemistry Calcium Today R79.89 - Other specified abnormal findings of blood chemistry Medications: New famotidine Take one tablet daily at bedtime 20 mg PO DAILY 90 tabs 1RF GERD Refilled ondansetron place tablet on tongue and allow to dissolve three times a day NEEDED for nausea 4 mg translingual Q8H PRN 45 tabs 0RF nausea and vomiting Coding Level of Care Code Established Pt Est Pt Level 3 (15840) Patient Type Established Diagnoses Gastroesophageal reflux disease, unspecified whether esophagitis present K21.9 Esophagitis presence: esophagitis presence not specified Weight loss R63.4
[2025-03-03 11:17] VITALS: BP 136/67; PULSE 80; O2SAT 99; BMI 30.7
--- OUTSIDE RECORDS SUMMARY | 2025-03-03 12:20 | XMS_ITS | Patient Health Record ---
Author Organization [facility] Address [address], [place] [id number] Care Team Providers Care Freight Car Builder Name Role Phone Elena Perez Primary Care Provider [phone] Tam Degroot Unavailable [phone] Jany Che Unavailable [phone] Daina Rudolph Unavailable [phone] [facility] Unavailable [phone] Allergies No Known Allergies Results Component Value Reference Range Notes VITAMIN B12 Reviewed date:03/17/2024 01:30:30 PM Interpretation:Normal Performing Lab: Notes/Report: Dymant, a member of [address] [address] Refund Clerk - Annie Pickard MD VITAMIN B12 491 [...] Notes/Report: Original Ordering Provider: ELENA PEREZ APRN [place] [address] Refund Clerk - Annie Pickard MD GLYCATED HEMOGLOBIN A1C [...] Reason For Referral Reason PT-1 Requested for [facility] [address] [facility] 12 months x 2 visits a month Referral Organization [facility] Referring Provider First Name Elena Referring Provider Last Name Yojana Referring Provider Speciality Nurse Maurice haddad Referred Provider PT1, Request Referral Priority Routine Reason [facility] gastro evaluat e for GERD with no relief from H2 Valerie Diagnosis 1 Gastro-esophageal re flux disease with esophagitis, without bleeding (K21.00) Referral Organization [facility] Referring Provider First Name Elena Referring Provider Last Name Yojana Referring Provider Speciality Nurse Maurice haddad Referred Provider [facility] er, Gastroenterology Referred Provider Specialty Gastroentero logy General Notes Charla Ramon 2024 09:27:11 AM >Faxed to [facility], Juany Marcelino 12/19/2024 10:35:21 AM > paperwork refaxed, Sydney Kovacs 01/31/2025 02:01:28 PM > pt seen twice - notes requestedArun Paris 01/31/2025 03:20:45 PM > notes to scan Referral Priority Routine Referral Appointment Date 01/04/2025 Reason evaluate for rec urrent dermatitis Diagnosis 1 Dermatitis, unspecif ied (L30.9) Referral Organization [facility] Referring Provider First Name Elena Referring Provider Last Name Yojana Referring Provider Speciality Nurse Maurice haddad Referred Provider Javier - DO NOT U SE, Kurtis Yates Referred Provider Specialty Dermatology General Notes Charla Ramon 2024 09:36:46 AM >[facility] does not take [facility], referred to Trudy Munguia, referral and notes faxed, Juany Marcelino 12/19/2024 10:36:17 AM > paperwork refaxed Referral Priority Routine Reason To [address] [place] [address] Zelda Heath Referral Organization [facility] Referring Provider First Name Elena Referring Provider Last Name Yojana Referring Provider Speciality Nurse Maurice haddad Referred Provider PT1, Request Referral Priority Routine Reason [facility] [address] [facility] [address] [facility] [address] (12 months X 3 visit) Referral Organization [facility] Referring Provider First Name Elena Referring Provider Last Name Yojana Referring Provider Speciality Nurse Maurice haddad Referred Provider PT, -1 Referral Priority Routine Reason [facility], [address], [facility] P: [phone] F: [phone] evaluate for blurred vision Diagnosis 1 Diverticulosis of la rge intestine without perforation or abscess without bleeding (K57.30) Referral Organization [facility] Referring Provider First Name Elena Referring Provider Last Name Yojana Referring Provider Speciality Nurse Maurice haddad Referred Provider [facility] Referred Provider Specialty Ophthalmolog y General Notes Marie Dias 08:54:38 AM > Faxed to Arun Rm Paris 02/22/2025 12:58:59 PM > tried to contact pt. to schedule, pt. needs to call back to schedule Referral Priority Routine Medications Medication SIG (Take, Route, Frequency, Duration) Notes Start Date End Date Status Tylenol 8 HR Arthritis Pain 650 mg 2 tab(s) orally every 8 hours for 30 days 09/11/2023 Not-Taking cloNIDine 0.1 mg 1 tab(s) orally once a day at bedtime Please deliver to [facility] [address] [place] [address]. 02/23/2024 Not-Taking esomeprazole 40 mg 1 cap(s) orally once a day Active triamcinolone topical 0.025% 1 mehnaz applied topically 3 times a day Not-Taking pantoprazole 40 mg 1 tab(s) orally once a day for 30 day(s) 02/01/2025 Not-Taking AmLODIPine Besylate 5 mg 1 tab(s) orally once a day for 90 days 02/21/2025 Active Naprosyn 500 mg 1 tab(s) orally 2 times a day 02/02/2019 Not-Taking Vitamin B-12 1000 mcg 1 tab(s) chewable once a day 08/13/2023 Not-Taking rosuvastatin 10 mg 1 tab(s) orally once a day Not-Taking escitalopram 5 mg 1 tab orally once a day in morning Please deliver to [facility] [facility]. Not-Taking Social History Tobacco Use: Social History Observation [...] Risk Notes Problem Vitamin B>12< deficiency anaemia (68986716) Vitamin B12 deficiency anemia, unspecified (D51.9) Active confirmed Problem Obesity (379150654) Obesity, unspecified (E66.9) Active confirmed Problem Mixed hyperlipidemia (983369469) Mixed hyperlipidemia (E78.2) Active confirmed Problem Severe recurrent major depression without psychotic features (59385030) Major depressive disorder, recurrent severe without psychotic features (F33.2) Active confirmed Problem Generalized anxiety disorder (30514836) Generalized anxiety disorder (F41.1) Active confirmed Problem Insomnia 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 disorder (71232753) Insomnia due to other mental disorder (F51.05) Active confirmed Problem Essential hypertension (38795428) Essential (primary) hypertension (I10) Active confirmed Problem Peripheral vascular disease (285511186) Peripheral vascular disease, unspecified (I73.9) Active confirmed Problem Diverticular disease of colon (396827829) Diverticulosis of large intestine without perforation or abscess without bleeding (K57.30) Active confirmed Problem Cervical radiculopathy (50181236) Radiculopathy, cervical region (M54.12) Active confirmed Problem Lumbar radiculopathy (216062012) Radiculopathy, lumbar region (M54.16) Active confirmed Problem Gastroesophageal reflux disease with esophagitis (disorder) (497175265) Gastro-esophageal reflux disease with esophagitis, without bleeding (K21.00) Active confirmed Problem Body mass index 30.00 to 34.99 (345992493928060) Body mass index [BMI] 32.0-32.9, adult (Z68.32) Active confirmed Problem Sheltered homelessness (273249259455488) Sheltered homelessness (Z59.01) Active confirmed Problem Recurrent major depression (18120917) Major depressive disorder, recurrent, unspecified (F33.9) Inactive confirmed Problem Migraine without aura, not refractory (disorder) (203241469) Migraine, unspecified, not intractable, without status migrainosus (G43.909) Inactive confirmed Problem Backache (928264265) Dorsalgia, unspecified (M54.9) Inactive confirmed Problem Headache (42595622) Headache (R51) Inactive conf irmed Problem Financially poor (59969360) Insufficient social insurance and welfare support (Z59.7) Inactive confirmed Problem Body mass index 35.00 to 39.99 (453887367504843) Body mass index [BMI] 36.0-36.9, adult (Z68.36) Inactive confirmed Vital Signs Temperature 98 degrees Fahrenheit 02/20/2025 Blood pressure diastolic 88 02/20/2025 Oximetry 97 02/20/2025 Height 75.5 in 02/20/2025 Blood pressure systolic 180 02/20/2025 Weight 264.6 lbs 02/20/2025 BMI 32.63 kg/m2 02/20/2025 Encounters Encounter Location Date Provider Diagnosis [address] [id number] 03/16/2024 Eddielinoreen Perez Encounter for screening for COVID-19 Z11.52 ; Mixed hyperlipidemia E78.2 ; Obesity, unspecified E66.9 ; Vitamin B12 deficiency anemia, unspecified D51.9 and Peripheral vascular disease, unspecified I73.[address] [id number] 03/16/2024 Tam Degroot Major depressive disorder, recurrent severe without psychotic features F33.2 ; Generalized anxiety disorder F41.1 ; Insomnia due to other mental disorder F51.05 ; Sheltered homelessness Z59.01 ; Vitamin B12 deficiency anemia, unspecified D51.9 ; Obesity, unspecified E66.9 and Encounter for screening for COVID-19 Z11.52 [facility] [address] [place] [address] [facility] [place] [id number] 03/28/2024 Eddieliza Casionan Mixed hyperlipidemia E78.2 ; Person consulting for explanation of examination or test findings Z71.2 and Vitamin B12 deficiency anemia, unspecified D51.[address] [id number] 05/17/2024 Tam Degroot Major depressive disorder, recurrent severe without psychotic features F33.2 ; Generalized anxiety disorder F41.1 ; Insomnia due to other mental disorder F51.05 ; Sheltered homelessness Z59.01 ; Vitamin B12 deficiency anemia, unspecified D51.9 ; Obesity, unspecified E66.9 ; Mixed hyperlipidemia E78.2 and Encounter for screening for COVID-[address] [id number] 06/22/2024 Tam Degroot Major depressive disorder, recurrent severe without psychotic features F33.2 ; Generalized anxiety disorder F41.1 ; Insomnia due to other mental disorder F51.05 ; Mixed hyperlipidemia E78.2 and Encounter for screening for COVID-19 Z11.[address] [facility] [address] [address] 07/12/2024 [facility]a [facility] [address] [address] 07/13/[address] [id number] 07/26/2024 Eddieliza Casionan Encounter for screening for COVID-19 Z11.52 ; Mixed hyperlipidemia E78.2 ; Obesity, unspecified E66.9 ; Vitamin B12 deficiency anemia, unspecified D51.9 ; Immunization not carried out because of patient refusal Z28.21 and Sheltered homelessness Z59.01 [facility] [address] [place] [address] [facility] [place] [place] [id number] 08/10/2024 Eddieliza Casionan Person consulting for explanation of examination or test findings Z71.2 and Vitamin B12 deficiency anemia, unspecified D51.[address] [id number] 02/20/2025 Eddieliza Casionan Encounter for screening for COVID-19 Z11.52 ; Encounter for general adult medical examination with abnormal findings Z00.01 ; Dermatitis, unspecified L30.9 ; Diverticulosis of large intestine without perforation or abscess without bleeding K57.30 ; Radiculopathy, lumbar region M54.16 ; Radiculopathy, cervical region M54.12 ; Sheltered homelessness Z59.01 ; Major depressive disorder, recurrent severe without psychotic features F33.2 ; Body mass index [BMI] 32.0-32.9, adult Z68.32 ; Essential (primary) hypertension I10 and Unspecified subjective visual disturbances H53.[address] [id number] 02/20/2025 [facility] [address] [place] [id number] 12/29/2024 Eddieliza Casionan [address] [id number] 02/20/2025 Eddieliza Casionan [address] [id number] 07/26/2024 Eddieliza Casionan [facility] [address] [place] [id number] 07/26/2024 Eddieliza Casionan [address] [id number] 07/28/2024 Eddieliza Casionan [facility] [address] [place] [id number] 08/09/2024 Daina Rudolph [facility] [address] [place] [address] 08/16/2024 Eddieliza Casionan [address] [id number] 12/12/2024 Eddieliza Casionan Dermatitis, unspecified L30.9 and Gastro-esophageal reflux disease with esophagitis, without bleeding K21.[address] [id number] 12/16/2024 Eddieliza Casionan [address] [id number] 12/29/2024 Eddieliza Casionan [facility] [address] [place] [id number] 12/30/2024 Eddieliza Casionan [address] [id number] 02/01/2025 Eddieliza Casionan Assessments Encounter Date Diagnosis (ICD Code) Assessment Notes Treatment Notes Treatment Clinical Notes Section Notes 03/16/2024 Mixed hyperlipidemia (ICD-10 - E78.2) Denies [...] to proceed with prescribed treatment. 1. Mass BOOKING AGENT reviewed: see exam 2. Medications: will continue [...] psychotherapy: has f/u jennifer Che [facility] scheduled 4. Labs/Procedures: labs ordered by PCP at [facility] and reviewed with PCP. 5. Exercise/Nutrition: sleep, [...] to proceed with prescribed treatment. 1. Mass BOOKING AGENT reviewed: see exam 2. Medications: will continue [...] psychotherapy: has f/u jennifer Che [facility] scheduled 4. Labs/Procedures: labs ordered by PCP at [facility] and reviewed with PCP. 5. Exercise/Nutrition: sleep, [...] to proceed with prescribed treatment. 1. Mass BOOKING AGENT reviewed: see exam 2. Medications: will continue [...] has f/u appt Darcy Che [facility] scheduled 4. Labs/Procedures: no nnew [...] was (ab)normal. Future plan of action discussed. 02/20/2025 Encounter for general adult medical examination with abnormal findings (ICD-10 - Z00.01) Annual PE performed.General recommendation for good health made: brush/floss your teeth 2x per day. Eat a healthy diet and obtain 30 minutes of aerobic exercise 5/7 days per week.. Maintain high in take of water and avoid soda and energy drinks. Get 8 hours of sleep every night. 02/20/2025 Encounter for screening for COVID-19 (ICD-10 - [...] you are having concerning symptoms for COVID-19. 12/12/2024 Dermatitis, unspecified (ICD-10 - L30.9) 12/12/2024 Gastro-esophageal reflux disease with esophagitis, without bleeding (ICD-10 - K21.00) 03/16/2024 Obesity, unspecified (ICD-10 - E66.9) Engaged [...] anemia, unspecified (ICD-10 - D51.9) denies fatigue/weakness 02/20/2025 Dermatitis, unspecified (ICD-10 - L30.9) He was showed pictures of when his skin conditions are worse showing excoriations/desqua mations. Today the skin areas of concern are hyperpigmented with leathey texture from possible previous irritation. He stopped his hydroxyzine and reports pruritus in the areas, driving him to scrub with soap, water, alcohol or hydrogen peroxide aside from vatious lotions. He is insisting that he should be on oral medications for this. Advised him to restart his hydroxyzine. I will talk to his [facility] provider. He should refrain from scrubbing and using alcohol and [id number] plain cold water and soap with no aggressive scrubbing. There may be an element of fungal infection especially on inner thighs and buttocks. Gave him a tube of Ketoconazole 1 % to apply 2x/day x 2 weeks with flares 03/16/2024 Vitamin B12 deficiency anemia, unspecified (ICD-10 [...] unspecified (ICD-10 - D51.9) Will check B12 02/20/2025 Diverticulosis of large intestine without perforation or abscess without bleeding (ICD-10 - K57.30) denies bloody stool 03/16/2024 Peripheral vascular disease, unspecified (ICD-10 - I73.9) gave compression stockings and instructed on proper use 03/16/2024 Sheltered homelessness (ICD-10 - Z59.01) Clt just learned he got an apartment at [address] [address] in [place]. He also got his SS benefits. He is excited and anxious. 05/17/2024 Sheltered homelessness (ICD-10 - Z59.01) Clt will be moving to new apartment at [address] [address] in [place] in August. He is collecting SS benefits and purchasing things for the apartment. He is excited and anxious. 06/22/2024 Mixed hyperlipidemia (ICD-10 - E78.2) Prescribed by PCP for cholesterol, educated on medication and encouraged to take on daily basis. 07/26/2024 Immunization not carried out because of patient refusal (ICD-10 - Z28.21) Declines Flu shot. Aware of risks 02/20/2025 Radiculopathy, lumbar region (ICD-10 - M54.16) no ative complaint 03/16/2024 Vitamin B12 deficiency anemia, unspecified (ICD-10 [...] for any assistance with furnishing his apartment 02/20/2025 Radiculopathy, cervical region (ICD-10 - M54.12) No active complaint 03/16/2024 Obesity, unspecified (ICD-10 - E66.9) Has lost some weight purposefully, walking more. 05/17/2024 Obesity, unspecified (ICD-10 - E66.9) Gained back some of the weight he lost. 02/20/2025 Sheltered homelessness (ICD-10 - Z59.01) Has apartment with [facility] 03/16/2024 Encounter for screening for COVID-19 (ICD-10 - Z11.52) Covid screening is negative. 05/17/2024 Mixed hyperlipidemia (ICD-10 - E78.2) Prescribed by PCP for cholesterol, educated on medication and encouraged to take on daily basis. 02/20/2025 Major depressive disorder, recurrent severe without psychotic features (ICD-10 - F33.2) Encouraged to re engage with his mental health provider 05/17/2024 Encounter for screening for COVID-19 (ICD-10 [...] you are having concerning symptoms for COVID-19. 02/20/2025 Body mass index [BMI] 32.0-32.9, adult (ICD-10 - Z68.32) Engaged discussion on maintaining healthy lifestyle: healthy diet low on fats and simple carbohydrates, and regular physical exercise of at least 30 minutes daily 02/20/2025 Essential (primary) hypertension (ICD-10 - I10) He stopped his clonidine. Advised to restart his psyche provider agrees Discussed Amlodipine. Serious S/E: chest pain, LA, hypotension, hepatitis, hypersensitivity reacitons. Lesser S/E: peripheral edema, fatigue, palpitations. dizziness, nausea, flushing, skin reactions. 02/20/2025 Unspecified subjective visual disturbances (ICD-10 - H53.10) Request referaal to ophthalmology 07/27/2024 Other 08/09/2024 Other 08/18/2024 Other 12/26/2024 Other 01/03/2025 Other 03/16/2024 Other 03/16/2024 Other 03/28/2024 Other Time spent in visit: 8 minutes 05/17/2024 Other 06/22/2024 Other 07/26/2024 Other 08/10/2024 Other Time spent in visit: 8 minutes 02/20/2025 Other Plan Of Treatment Pending Test Test Name Order Date HEPATITIS B SURFACE AB IMMUNITY, QN 11/2018 CBC 07/26/2024 GLYCOHEMOGLOBIN PROFILE 07/26/2024 LIPID PROFILE 07/26/2024 THYROID PROFILE 07/26/2024 URINE CULTURE 09/14/2023 HEPATITIS A,B,C PROFILE 09/10/2023 Insurance Providers Payer Name Payer Address Payer Phone Subscriber Number Group Number Insured Name Patient Relationship to Insured Coverage Start Date Coverage End Date MD Medicaid C3 [address] [place], [place] [id number] Braeden Carpenter Self - patient is the insured 4 [employer] [address] [place] [address] [id number] Braeden Carpenter Self - patient is the insured 3 [facility] [address] [address] [place] [address] [id number] Braeden Carpenter Self - patient is the [...] ligaments torn 2014 Hospitalization History Reason Date(Month/Year) [facility] Orthopedic surger y 2014
== END 2025-03-03 12:11 | disposition home or self-care (01) ==
LOC: HO.HGI 11:06
PROVIDERS: Visit Provider Nurse Practitioner Family
DX: K21.9 Gastro-esophageal reflux disease without esophagitis (principal); R63.4 Abnormal weight loss
CPT/HCPCS: 99213

== ENCOUNTER → 2025-03-03 11:05 | Outpatient (BNVA) | payer OTHER, SELFPAY | PROVIDERS: Visit Provider Nurse Practitioner Family | DX: K21.9 Gastro-esophageal reflux disease without esophagitis (principal); R63.4 Abnormal weight loss; Z76.0 Encounter for issue of repeat prescription; Z59.02 Unsheltered homelessness | CPT/HCPCS: 99212 ==

== ENCOUNTER 2025-03-15 09:35 | Outpatient (REF) | payer OTHER, SELFPAY ==
--- NOTE | ~2025-03-15 | CT_ITS ---
EXAMINATION: CT ABDOMEN AND PELVIS WITH CONTRAST CLINICAL INFORMATION: Abnormal weight loss. COMPARISON: July 27, 2023. TECHNIQUE: Multidetector volumetric images were obtained from the superior aspect of the liver through the pubic symphysis following administration 85 mL of Omnipaque 350 intravenous contrast. Sagittal and coronal reformatted images were obtained on the technologist's workstation. Oral contrast: No This CT examination was performed using dose optimization techniques as appropriate, variously including the following: *Automated exposure control *Adjustment of mA and/or kV according to patient size (this includes techniques or standardized protocols for targeted exams where dose is matched to indication/reason for exam; i.e. extremities or head) *Use of iterative reconstruction technique DLP: 1226.6 mGy centimeter. FINDINGS: LUNG BASES: No acute airspace disease. LIVER, GALLBLADDER, AND BILIARY TREE: Liver measures 13 cm. No focal mass. Portal veins, hepatic veins and intrahepatic portion of the IVC are patent. No pericholecystic fluid collection or gallbladder wall thickening. No intrahepatic or extrahepatic biliary ductal dilatation. PANCREAS: No focal mass. No peripancreatic fluid collection. No main pancreatic ductal dilatation. SPLEEN: 9 cm. No focal lesion. ADRENAL GLANDS: No nodular lesion. KIDNEYS AND URETERS: Scattered fluid density lesions both kidneys, the largest measures 1.9 cm in the lower pole right kidney. There is a 0.5 cm slightly dense, 40 units exophytic lesion in the medial aspect midportion of the left kidney.. No hydronephrosis. No gross nephrolithiasis.. BLADDER: Fluid-filled. GASTROINTESTINAL TRACT: Thickened intrathoracic esophagus/gastroesophageal junction. Abundant stool throughout the large intestine. Scattered diverticula in the sigmoid colon. No intestinal obstruction pattern. No pneumatosis intestinalis. The appendix is normal. Scattered diverticula in the right hemicolon with the likely retained contrast. No ascites. No pneumoperitoneum. ABDOMINAL WALL: Fat-containing umbilical hernia, small. LYMPH NODES: Nonspecific mildly prominent mesenteric. VASCULAR: Throughout the abdominal aorta wall and iliac arteries without aneurysm or dissection. PELVIC VISCERA: Not enlarged prostate gland. OSSEOUS STRUCTURES: Mild multilevel spondylosis. Grade 1 retrolisthesis L5-S1 on a degenerative basis. Degenerative changes in both coxofemoral joints. No lytic or blastic lesions. Sclerosis and the inferior sacroiliac joints with vacuum phenomenon. CT/CT abdomen pelvis w IV con IMPRESSION: Thickened intrathoracic esophagus/gastroesophageal junction. Inflammatory versus infectious process should be considered. Neoplasm cannot be excluded. Proteinaceous/hemorrhagic subcentimeter cystic lesion, smaller since prior examination, left kidney. Bilateral renal cysts. Diverticular disease. Moderate osteoarthrosis both coxofemoral joints. Nonspecific mild prominent mesenteric lymph nodes. Small fat-containing umbilical hernia. Fleischner guidelines were followed. Electronically signed by: Adolfo Wei MD 03/15/2025 10:47 AM EDT
--- NOTE | ~2025-03-15 | CT_ITS ---
EXAMINATION: CT CHEST WITH CONTRAST CLINICAL INFORMATION: Abnormal weight loss. COMPARISON: None available. TECHNIQUE: Multidetector volumetric CT imaging of the chest was obtained after the administration of 85 mL of Omnipaque 350 intravenous contrast without immediate adverse reactions. Axial MIP volume rendering provided. Sagittal and coronal reformatted images were obtained. This CT examination was performed using dose optimization techniques as appropriate, variously including the following: *Automated exposure control *Adjustment of mA and/or kV according to patient size (this includes techniques or standardized protocols for targeted exams where dose is matched to indication/reason for exam; i.e. extremities or head) *Use of iterative reconstruction technique DLP: 596.2 mGy centimeter. FINDINGS: TEXTILE MACHINE MECHANIC: Patient's large body habitus. Cardiomediastinal silhouette size is normal. Both upper extremities at the size of the head. Calcifications overlapping the right kidney shadow. LUNGS: No acute airspace disease. No gross pulmonary nodules. No bronchiectasis. No honeycombing. 6 mm thin-wall bleb, right upper lung lobe. MEDIASTINUM: No lymphadenopathy. No pericardial effusion. No aneurysm or dissection, thoracic aorta. No gross calcified plaques. No gross masses. Nonspecific concentric wall thickening, intrathoracic esophagus. The thyroid gland is not enlarged. No gross dominant nodules.. PLEURA: No pleural effusion. No pneumothorax. No calcified pleural plaques. AXILLA: No lymphadenopathy. UPPER ABDOMEN: Subcentimeter cystic lesions, right kidney. Small hiatal hernia. OSSEOUS STRUCTURES: Mild multilevel spondylosis without acute fracture or listhesis. No lytic or blastic lesions. CT/CT chest w IV con IMPRESSION: Concentric wall thickening/edematous intrathoracic esophagus. Inflammatory versus infectious versus neoplasm should be considered. Fleischner guidelines were followed. Electronically signed by: Adolfo Wei MD 03/15/2025 10:40 AM EDT
--- OUTSIDE RECORDS SUMMARY | 2025-03-15 10:05 | XMS_ITS | Encounter Summary ---
Author Organization [facility] Address [address] [place] [address] Care Team Providers Care Rapid Outsole Stitcher Name Role Phone Physician, Pcp Unknown Primary Care Provider Linda vailable Encounter Details Date Type Department Care Team (Late st Contact Info) Description 07/26/2024 Lab Requisition [facility] - Main Lab [address] [facility] [place] [address] Ginny Dial, TYLER [address] [place] [address] Vitamin B12 deficiency anemia, unspecified; Mixed hyperlipidemia; [...] Vitamin B12 (07/26/2024 9:43 AM EST) Pathologist [facility] Vitamin B-12 401 250 - 900 pcg/mL LAB CHEMISTRY METHOD 07/26/2024 6:22 PM EST [facility] Blood Venous blood specimen / Unknown 07/26/2024 9:43 AM EST 07/26/2024 6:01 PM [facility]LOOD [facility] Final Result [facility] [address] [place] [address], [place] [phone] * Thyroid stimulating hormone with reflex to free t4 and free t3 (07/26/2024 9:43 AM EST) [facility] TSH 0.78 0.40 - 4.00 mcIU/mL LAB CHEMISTRY METHOD 07/26/2024 6:08 PM EST [facility] Blood Venous blood specimen / Unknown 07/26/2024 9:43 AM EST 07/26/2024 6:01 PM EST [facility] BLOOD ORDER[facility]LES Final Result [facility] [address] [place] [address], [place] [phone] * Lipid panel with reflex to direct LDL (07/26/2024 9:43 AM EST) [facility] Cholesterol 162 0 - 200 mg/dL LAB CHEMISTRY METHOD 07/26/2024 6:17 PM EST [facility] Triglycerides 44 0 - 150 mg/dL LAB CHEMISTRY METHOD 07/26/2024 6:17 PM EST [facility] HDL 54 >=40 mg/dL LAB CHEMISTRY METHOD 07/26/2024 6:17 PM [facility] LDL Calculated 99 0 - 100 mg/dL LAB CHEMISTRY METHOD 07/26/2024 6:17 PM [facility] VLDL Cholesterol Juan 8.8 mg/dL LAB CHEMISTRY METHOD 07/26/2024 6:17 PM [facility] Non HDL Chol. (LDL+VLDL) 108 <145 mg/dL LAB CHEMISTRY METHOD 07/26/2024 6:17 PM [facility] Chol/HDL Ratio 3.0 0.0 - 4.4 LAB CHEMISTRY METHOD 07/26/2024 6:17 PM [facility] Blood Venous blood specimen / Unknown 07/26/2024 9:43 AM EST 07/26/2024 6:01 PM EST us Eddionel Dial [facility] LAB BLOOD ORDERABLES Final Result Performing Organization Address City/[facility]/ZIP Co de Phone Number [facility] [address] [place] [address], [place] [phone] * Hemoglobin A1c (07/26/2024 9:43 AM EST) Pathologist [facility] Hemoglobin A1C 4.9 <6.5 % LAB CHEMISTRY METHOD 07/27/2024 1:00 PM [facility] Mean Bld Glu Estim. 94 mg/dL LAB CHEMISTRY METHOD 07/27/2024 1:00 PM [facility] Blood Venous blood specimen / Unknown 07/26/2024 9:43 AM EST 07/26/2024 5:51 PM EST us Eddielinoreen Dial [facility] LAB BLOOD ORDERABLES Final Result Performing Organization Address City/[facility]/ZIP Co de Phone Number [facility] [address] [place] [address], [place] [phone] * (ABNORMAL) Complete blood count (07/26/2024 9:43 AM EST) WBC 5.7 4.8 - 10.8 K/mcL LAB HEMETOLOGY METHOD 07/26/2024 5:51 PM [facility] RBC 3.90(L) 4.50 - 5.50 M/mcL LAB HEMETOLOGY METHOD 07/26/2024 5:51 PM [facility] Hemoglobin 13.1(L) 13.5 - 17.5 g/dL LAB HEMETOLOGY METHOD 07/26/2024 5:51 PM [facility] Hematocrit 39.5(L) 42.0 - 54.0 % LAB HEMETOLOGY METHOD 07/26/2024 5:51 PM [facility] MCV 102.3(H) 79.0 - 98.0 FL LAB HEMETOLOGY METHOD 07/26/2024 5:51 PM [facility] MCH 33.9(H) 27.0 - 32.0 pcg LAB HEMETOLOGY METHOD 07/26/2024 5:51 PM [facility] MCHC 33.2 32.0 - 37.0 g/dL LAB HEMETOLOGY METHOD 07/26/2024 5:51 PM [facility] RDW 12.8 11.0 - 15.0 % LAB HEMETOLOGY METHOD 07/26/2024 5:51 PM [facility] Platelets 161 130 - 400 K/[facility] LAB HEMETOLOGY METHOD 07/26/2024 5:51 PM [facility] MPV 11.8(H) 7.0 - 11.0 FL LAB HEMETOLOGY METHOD 07/26/2024 5:51 PM [facility] NRBC 0.0 <1.0 % LAB HEMETOLOGY METHOD 07/26/2024 5:51 PM [facility] NRBC Absolute 0.00 <0.10 K/[facility] LAB HEMETOLOGY METHOD 07/26/2024 5:51 PM EST [facility] Blood Venous blood specimen / Unknown 07/26/2024 9:43 AM EST 07/26/2024 5:51 PM EST us Ginny Dial [facility] LAB BLOOD ORDERABLES Final Result [facility] [address] [place] [address], documented in this encounter Visit Diagnoses Diagnosis Vitamin B12 deficiency anemia, unspecified Mixed hyperlipidemia Obesity, unspecified documented in this encounter Care Teams Rapid Outsole Stitcher Relationship Specialty Start Date End Date Physician, Pcp Unknown PCP - General 07/26/24 documented as of this encounter
--- OUTSIDE RECORDS SUMMARY | 2025-03-15 10:05 | XMS_ITS | Patient Health Record ---
Author Organization [facility] Address [address] [place], [place] [id number] Care Team Providers Care Hotel Services Sales Representative Name Role Phone Elena Perez Primary Care Provider [phone] Tam Degroot Unavailable [phone] [facility], Nursing Unavailable [phone] Jany Che Unavailable [phone] Daina Rudolph Unavailable [phone] [facility], CHW Unavailable [phone] Allergies No Known Allergies Results Component Value Reference Range Notes VITAMIN B12 Reviewed date:03/17/2024 01:30:30 PM Interpretation:Normal Performing Lab: Notes/Report: [facility], a member of [address] [address] Sports Medicine Physician - Annie Pickard MD VITAMIN B12 [id number] [...] Notes/Report: Original Ordering Provider: ELENA PEREZ APRN [facility], a member of [address] [address] Sports Medicine Physician - Annie Pickard MD GLYCATED HEMOGLOBIN A1C [...] Reason For Referral Reason PT-1 Requested for [facility] [address] [facility] 12 months x 2 visits a month Referral Organization [facility] Referring Provider First Name Elena Referring Provider Last Name Yojana Referring Provider Speciality Nurse Maurice haddad Referred Provider PT1, Request Referral Priority Routine Reason [facility] gastro evaluat e for GERD with no relief from H2 Valerie Diagnosis 1 Gastro-esophageal re flux disease with esophagitis, without bleeding (K21.00) Referral Organization [facility] Referring Provider First Name Elena Referring Provider Last Name Yoajna Referring Provider Speciality Nurse Maurice haddad Referred Provider [facility], Gastroenterology Referred Provider Specialty Gastroentero logy General Notes Charla Ramon 2024 09:27:11 AM >Faxed to [facility], Juany Marcelino 12/19/2024 10:35:21 AM > paperwork refaxedFermín Katelyn 01/31/2025 02:01:28 PM > pt seen twice - notes requestedArun Paris 01/31/2025 03:20:45 PM > notes to scan Referral Priority Routine Referral Appointment Date 01/04/2025 Reason evaluate for rec urrent dermatitis Diagnosis 1 Dermatitis, unspecif ied (L30.9) Referral Organization [facility] Referring Provider First Name Elena Referring Provider Last Name Yojana Referring Provider Speciality Nurse Maurice haddad Referred Provider [facility] Referred Provider Specialty Dermatology General Notes Charla Ramon 2024 09:36:46 AM >[facility] does not take [facility], referred to Trudy Munguia, referral and notes faxed, Juany Marcelino 12/19/2024 10:36:17 AM > paperwork refaxed Referral Priority Routine Reason To [address] [place] [address] Zelda Heath Referral Organization [facility] Referring Provider First Name Elena Referring Provider Last Name Yojana Referring Provider Speciality Nurse Maurice haddad Referred Provider PT1, Request Referral Priority Routine Reason [facility] [address] [facility] [address] [facility] [address] (12 months X 3 visit) Referral Organization [facility] Referring Provider First Name Elena Referring Provider Last Name Yojana Referring Provider Speciality Nurse Maurice haddad Referred Provider PT, -1 Referral Priority Routine Reason [facility], [address], [facility] P: [phone] F: [phone] evaluate for blurred vision Diagnosis 1 Diverticulosis of la rge intestine without perforation or abscess without bleeding (K57.30) Referral Organization [facility] Referring Provider First Name Elena Referring Provider Last Name Yojana Referring Provider Speciality Nurse Maurice haddad Referred Provider [facility] Referred Provider Specialty Ophthalmolog y General Notes Marie Dias 08:54:38 AM > Faxed to Ar[facility]m Paris 02/22/2025 12:58:59 PM > tried to contact pt. to schedule, pt. needs to call back to schedule, Charla Ramno 03/07/2025 10:13:29 AM >[facility] tried to reach out to pt again to schedule. I left message with pt to call them back. Referral Priority Routine Medications Medication SIG (Take, Route, Frequency, Duration) Notes Start Date End Date Status Tylenol 8 HR Arthritis Pain 650 mg 2 tab(s) orally every 8 hours for 30 days 09/11/2023 Not-Taking cloNIDine 0.1 mg 1 tab(s) orally once a day at bedtime Please deliver to [facility] [address] [place] [address]. 02/23/2024 Not-Taking esomeprazole 40 mg 1 cap(s) [...] to [facility] [address] [place] [address]. Not-Taking Social History Tobacco Use: Social History [...] Risk Notes Problem Vitamin B>12< deficiency anaemia (27262316) Vitamin B12 deficiency anemia, unspecified (D51.9) Active confirmed Problem Obesity (090558476) Obesity, unspecified (E66.9) Active confirmed Problem Mixed hyperlipidemia (588616294) Mixed hyperlipidemia (E78.2) Active confirmed Problem Severe recurrent major depression without psychotic features (47375143) Major depressive disorder, recurrent severe without psychotic features (F33.2) Active confirmed Problem Generalized anxiety disorder (54993474) Generalized anxiety disorder (F41.1) Active confirmed Problem Insomnia 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 disorder (13215986) Insomnia due to other mental disorder (F51.05) Active confirmed Problem Essential hypertension (28641968) Essential (primary) hypertension (I10) Active confirmed Problem Peripheral vascular disease (892777977) Peripheral vascular disease, unspecified (I73.9) Active confirmed Problem Diverticular disease of colon (098412551) Diverticulosis of large intestine without perforation or abscess without bleeding (K57.30) Active confirmed Problem Cervical radiculopathy (33438008) Radiculopathy, cervical region (M54.12) Active confirmed Problem Lumbar radiculopathy (692582056) Radiculopathy, lumbar region (M54.16) Active confirmed Problem Gastroesophageal reflux disease with esophagitis (disorder) (087273221) Gastro-esophageal reflux disease with esophagitis, without bleeding (K21.00) Active confirmed Problem Body mass index 30.00 to 34.99 (644850381235673) Body mass index [BMI] 32.0-32.9, adult (Z68.32) Active confirmed Problem Sheltered homelessness (123120026630542) Sheltered homelessness (Z59.01) Active confirmed Problem Recurrent major depression (81238553) Major depressive disorder, recurrent, unspecified (F33.9) Inactive confirmed Problem Migraine without aura, not refractory (disorder) (171099470) Migraine, unspecified, not intractable, without status migrainosus (G43.909) Inactive confirmed Problem Backache (930881534) Dorsalgia, unspecified (M54.9) Inactive confirmed Problem Headache (40978078) Headache (R51) Inactive conf irmed Problem Financially poor (39059881) Insufficient social insurance and welfare support (Z59.7) Inactive confirmed Problem Body mass index 35.00 to 39.99 (870319782277692) Body mass index [BMI] 36.0-36.9, adult (Z68.36) Inactive confirmed Vital Signs Temperature 98 degrees Fahrenheit 02/20/2025 Blood pressure diastolic 88 02/20/2025 Oximetry 97 02/20/2025 Height 75.5 in 02/20/2025 Blood pressure systolic 180 02/20/2025 Weight 264.6 lbs 02/20/2025 BMI 32.63 kg/m2 02/20/2025 Encounters Encounter Location Date Provider Diagnosis [address] [id number] 03/16/2024 Elena Perez Encounter for screening for COVID-19 Z11.52 ; Mixed hyperlipidemia E78.2 ; Obesity, unspecified E66.9 ; Vitamin B12 deficiency anemia, unspecified D51.9 and Peripheral vascular disease, unspecified I73.[address] [id number] 03/16/2024 Tam Degroot Major depressive disorder, recurrent severe without psychotic features F33.2 ; Generalized anxiety disorder F41.1 ; Insomnia due to other mental disorder F51.05 ; Sheltered homelessness Z59.01 ; Vitamin B12 deficiency anemia, unspecified D51.9 ; Obesity, unspecified E66.9 and Encounter for screening for COVID-19 Z11.52 [facility] [address] [place], [place] [id number] 03/28/2024 Eddieliza Casionan Mixed hyperlipidemia E78.2 ; Person consulting for explanation of examination or test findings Z71.2 and Vitamin B12 deficiency anemia, unspecified D51.[address] [id number] 05/17/2024 Tam Degroot Major depressive disorder, recurrent severe without psychotic features F33.2 ; Generalized anxiety disorder F41.1 ; Insomnia due to other mental disorder F51.05 ; Sheltered homelessness Z59.01 ; Vitamin B12 deficiency anemia, unspecified D51.9 ; Obesity, unspecified E66.9 ; Mixed hyperlipidemia E78.2 and Encounter for screening for COVID-19 [address] [id number] 06/22/2024 Tam Degroot Major depressive disorder, recurrent severe without psychotic features F33.2 ; Generalized anxiety disorder F41.1 ; Insomnia due to other mental disorder F51.05 ; Mixed hyperlipidemia E78.2 and Encounter for screening for COVID-19 Z11.52 [facility] [address] [phone] 07/12/2024 [facility] [address] [phone] 07/13/[address] [id number] 07/26/2024 Eddieliza Casionan Encounter for screening for COVID-19 Z11.52 ; Mixed hyperlipidemia E78.2 ; Obesity, unspecified E66.9 ; Vitamin B12 deficiency anemia, unspecified D51.9 ; Immunization not carried out because of patient refusal Z28.21 and Sheltered homelessness Z59.01 [facility] [address] [place] [address] [place], [place] [id number] 08/10/2024 Eddieliza Casionan Person consulting for explanation of examination or test findings Z71.2 and Vitamin B12 deficiency anemia, unspecified D51.[address] [id number] 02/20/2025 Eddieliza Casionan Encounter for screening for [...] I10 and Unspecified subjective visual disturbances H53.[address] [id number] 02/20/2025 [facility] [address] [place] [id number] 12/29/2024 Eddieliza Casionan [address] [id number] 07/26/2024 [facility] [address] [place] [id number] 07/26/2024 Eddieliza Casionan [address] [id number] 07/28/2024 Eddieliza Casionan [facility] [address] [place] [id number] 08/09/2024 [facility] [address] [place] [phone] 08/16/2024 Eddieliza Casionan [address] [id number] 12/12/2024 Eddieliza Casionan Dermatitis, unspecified L30.9 and Gastro-esophageal reflux disease with esophagitis, without bleeding K21.[address] [id number] 12/16/2024 Eddieliza Casionan [address] [id number] 12/29/2024 Eddieliza Casionan [facility] [address] [place] [id number] 12/30/2024 Eddieliza Casionan [address] [id number] 02/01/2025 Eddieliza Casionan [place] [place], [place] [id number] 02/20/2025 Elena Perez Assessments Encounter Date Diagnosis (ICD Code) Assessment [...] to proceed with prescribed treatment. 1. Mass WHARF TALLY CLERK reviewed: see exam 2. Medications: will continue [...] Cont psychotherapy: has f/u appt Darcy Che [facility] scheduled 4. Labs/Procedures: labs ordered by PCP at [facility] and reviewed with PCP. 5. Exercise/Nutrition: [...] to proceed with prescribed treatment. 1. Mass WHARF TALLY CLERK reviewed: see exam 2. Medications: will continue [...] 3. Cont psychotherapy: has f/u jennifer Che [facility] scheduled 4. Labs/Procedures: labs ordered by PCP at [facility] and reviewed with PCP. 5. Exercise/Nutrition: [...] to proceed with prescribed treatment. 1. Mass WHARF TALLY CLERK reviewed: see exam 2. Medications: will continue [...] Cont psychotherapy: has f/u mehnazt Darcy Che [facility] scheduled 4. Labs/Procedures: no nnew [...] his hydroxyzine. I will talk to his [facility] provider. He should refrain from scrubbing and using alcohol and [id number] plain cold water and soap with no [...] just learned he got an apartment at [address] [address] in [place]. He also got his SS benefits. He is excited and anxious. 05/17/2024 Sheltered homelessness (ICD-10 - Z59.01) Clt will be moving to new apartment at [address] in [place] in August. He is collecting SS benefits [...] homelessness (ICD-10 - Z59.01) [facility] 03/16/2024 Encounter for screening for [...] agrees Discussed Amlodipine. Serious S/E: chest pain, CT, hypotension, hepatitis, hypersensitivity reacitons. Lesser S/E: peripheral [...] Insured Coverage Start Date Coverage End Date [place] Medicaid C3 [address] [place], [place] [id number] CarpenterBraeden cantor Self - patient is the insured 4 [place] [facility] [address] [place] [address] [id number] Braeden Carpenter Self - patient is the insured 3 [facility] [address] [address] [place] [address] [id number] Braeden Carpenter Self - patient is the [...] ligaments torn 2014 Hospitalization History Reason Date(Month/Year) [facility] Orthopedic surger y 2014
[2025-03-15] MEDS: iohexoL 350 MG/ML 100 ML INFUS..BTL 85 ML IV (10:28)
== END 2025-03-15 09:36 | disposition home or self-care (01) ==
LOC: HO.CT 09:35
PROVIDERS: Visit Provider Internal Medicine Gastroenterology
DX: R63.4 Abnormal weight loss (principal)
CPT/HCPCS: 71260; 74177; Q9967

== ENCOUNTER → 2025-03-15 09:37 | Outpatient (BNV) | payer OTHER, SELFPAY | PROVIDERS: Visit Provider Radiology Diagnostic Radiology | DX: N28.1 Cyst of kidney, acquired (principal); K22.89 Other specified disease of esophagus | CPT/HCPCS: 71260; 74177 ==

== ENCOUNTER 2025-05-26 13:44 | Outpatient (REF) | payer OTHER, SELFPAY ==
--- OUTSIDE RECORDS SUMMARY | 2025-05-26 13:53 | XMS_ITS | Clinical Summary ---
Author Organization [facility] Address [address] [place] [address] Phone Care Team Providers Care Meat Butcher Name Role Phone Physician, Pcp Unknown Primary [...] 2) 02/02/2018 Colorectal Cancer Screening: Colonoscopy 04/08/2024 HIV Screening 04/08/2024 Hepatitis C Screening 04/08/2024 Social Influencers of Health Screening 04/08/2024 Depression Screening 09/07/2024 COVID-19 Vaccine ( - 2023-2 5 season) 2025 Influenza Vaccine (#1) 2025 Cholesterol Screening (Lipid Panel) 07/26/2029 07/26/2024 [...] LAB CHEMISTRY METHOD 07/26/2024 6:17 PM EST [facility] Triglycerides 44 0 - 150 mg/dL LAB CHEMISTRY METHOD 07/26/2024 6:17 PM EST [facility] HDL 54 >=40 mg/dL LAB CHEMISTRY METHOD 07/26/2024 6:17 PM EST [facility] LDL Calculated 99 0 - 100 mg/dL LAB CHEMISTRY METHOD 07/26/2024 6:17 PM EST [facility] VLDL Cholesterol Juan 8.8 mg/dL LAB CHEMISTRY METHOD 07/26/2024 6:17 PM EST [facility] Non HDL Chol. (LDL+VLDL) 108 <145 mg/dL LAB CHEMISTRY METHOD 07/26/2024 6:17 PM EST [facility] Chol/HDL Ratio 3.0 0.0 - 4.4 LAB CHEMISTRY METHOD 07/26/2024 6:17 PM EST [facility] Blood Venous blood specimen / Unknown 07/26/2024 9:43 AM EST 07/26/2024 6:01 PM EST us Ginny Dial NP LAB BLOOD ORDERABLES Final Result [facility] [address] [place] [address], from Last 3 Months or Most Recently Relevant to Health Maintenance Insurance MEDICAID - [place] Care Teams Meat Butcher Relationship Specialty Start Date End Date Physician, Pcp Unknown PCP - General 07/26/24
--- OUTSIDE RECORDS SUMMARY | 2025-05-26 13:53 | XMS_ITS | Encounter Summary ---
Author Organization [facility] Address [address] [place] [address] Care Team Providers Care President Finance Company Name Role Phone Physician, Pcp Unknown Primary Care Provider Linda vailable Encounter Details Date Type Department Care Team (Late st Contact Info) Description 07/26/2024 Lab Requisition [facility] Lab [address] [facility] [place] [address] Ginny Dial, TYLER [address] [place] [address] Vitamin B12 deficiency anemia, unspecified; Mixed hyperlipidemia; [...] Vitamin B12 (07/26/2024 9:43 AM EST) Pathologist [facility] Vitamin B-12 401 250 - 900 pcg/mL LAB CHEMISTRY METHOD 07/26/2024 6:22 PM EST [facility] Blood Venous blood specimen / Unknown 07/26/2024 9:43 AM EST 07/26/2024 6:01 PM EST [facility] LAB BLOOD ORDERABLES Final Result [facility] [address] [place] [address], [place] [phone] * Thyroid stimulating hormone with reflex to free t4 and free t3 (07/26/2024 9:43 AM EST) [facility] TSH 0.78 0.40 - 4.00 mcIU/mL LAB CHEMISTRY METHOD 07/26/2024 6:08 PM EST [facility] Blood Venous blood specimen / Unknown 07/26/2024 9:43 AM EST 07/26/2024 6:01 PM EST [facility] LAB BLOOD ORDERABLES Final Result [facility] [address] [place] [address], [place] [phone] * Lipid panel with reflex to direct LDL (07/26/2024 9:43 AM EST) [facility] Cholesterol 162 0 - 200 mg/dL LAB CHEMISTRY METHOD 07/26/2024 6:17 PM EST [facility] Triglycerides 44 0 - 150 mg/dL LAB CHEMISTRY METHOD 07/26/2024 6:17 PM EST [facility] HDL 54 >=40 mg/dL LAB CHEMISTRY METHOD 07/26/2024 6:17 PM [facility] LDL Calculated 99 0 - 100 mg/dL LAB CHEMISTRY METHOD 07/26/2024 6:17 PM [facility] VLDL Cholesterol Juan 8.8 mg/dL LAB CHEMISTRY METHOD 07/26/2024 6:17 PM [facility] Non HDL Chol. (LDL+VLDL) 108 <145 mg/dL LAB CHEMISTRY METHOD 07/26/2024 6:17 PM [facility] Chol/HDL Ratio 3.0 0.0 - 4.4 LAB CHEMISTRY METHOD 07/26/2024 6:17 PM [facility] Blood Venous blood specimen / Unknown 07/26/2024 9:43 AM EST 07/26/2024 6:01 PM EST us Eddionel Dial [employer] LAB BLOOD ORDERABLES Final Result Performing Organization Address City/[facility]/ZIP Co de Phone Number [facility] [address] [place] [address], [place] [phone] * Hemoglobin A1c (07/26/2024 9:43 AM EST) Pathologist [facility] Hemoglobin A1C 4.9 <6.5 % LAB CHEMISTRY METHOD 07/27/2024 1:00 PM [facility] Mean Bld Glu Estim. 94 mg/dL LAB CHEMISTRY METHOD 07/27/2024 1:00 PM [facility] Blood Venous blood specimen / Unknown 07/26/2024 9:43 AM EST 07/26/2024 5:51 PM EST us Eddielinoreen Dial [employer] INS[employer] LAB BLOOD ORDERABLES Final Result Performing Organization Address City/[facility]/ZIP Co de Phone Number [facility] [address] [place] [address], [place] [phone] * (ABNORMAL) Complete blood count (07/26/2024 9:43 AM EST) WBC 5.7 4.8 - 10.8 K/mcL LAB HEMETOLOGY METHOD 07/26/2024 5:51 PM [facility] RBC 3.90(L) 4.50 - 5.50 M/mcL LAB HEMETOLOGY METHOD 07/26/2024 5:51 PM [facility] Hemoglobin 13.1(L) 13.5 - 17.5 g/dL LAB HEMETOLOGY METHOD 07/26/2024 5:51 PM [facility] Hematocrit 39.5(L) 42.0 - 54.0 % LAB HEMETOLOGY METHOD 07/26/2024 5:51 PM [facility] MCV 102.3(H) 79.0 - 98.0 FL LAB HEMETOLOGY METHOD 07/26/2024 5:51 PM [facility] MCH 33.9(H) 27.0 - 32.0 pcg LAB HEMETOLOGY METHOD 07/26/2024 5:51 PM [facility] MCHC 33.2 32.0 - 37.0 g/dL LAB HEMETOLOGY METHOD 07/26/2024 5:51 PM [facility] RDW 12.8 11.0 - 15.0 % LAB HEMETOLOGY METHOD 07/26/2024 5:51 PM [facility] Platelets 161 130 - 400 K/[facility] LAB HEMETOLOGY METHOD 07/26/2024 5:51 PM [facility] MPV 11.8(H) 7.0 - 11.0 FL LAB HEMETOLOGY METHOD 07/26/2024 5:51 PM [facility] NRBC 0.0 <1.0 % LAB HEMETOLOGY METHOD 07/26/2024 5:51 PM [facility] NRBC Absolute 0.00 <0.10 K/[facility] LAB HEMETOLOGY METHOD 07/26/2024 5:51 PM EST [facility] Blood Venous blood specimen / Unknown 07/26/2024 9:43 AM EST 07/26/2024 5:51 PM EST us Ginny Dial [employer] INSPECTOR LAB BLOOD ORDERABLES Final Result [facility] [address] [place] [address], documented in this encounter Visit Diagnoses Diagnosis Vitamin B12 deficiency anemia, unspecified Mixed hyperlipidemia Obesity, unspecified documented in this encounter Care Teams President Finance Company Relationship Specialty Start Date End Date Physician, Pcp Unknown PCP - General 07/26/24 documented as of this encounter
[2025-05-26 15:01] LABS: Albumin Level 4.2 g/dL (3.5-5.0); Calcium 9.2 mg/dL (8.4-10.2)
[2025-05-26 15:02] LABS: Parathyroid Hormone Intact 64.2 pg/mL (8.7-77.1)
== END 2025-05-26 13:45 | disposition home or self-care (01) ==
LOC: HO.LAB 13:44
PROVIDERS: Visit Provider Nurse Practitioner Family
DX: K44.9 Diaphragmatic hernia without obstruction or gangrene (principal); K21.9 Gastro-esophageal reflux disease without esophagitis; K59.00 Constipation, unspecified; R79.89 Other specified abnormal findings of blood chemistry; R63.4 Abnormal weight loss; Z68.31 Body mass index [BMI] 31.0-31.9, adult
CPT/HCPCS: 36415; 82040; 82310; 83970; 99212

== ENCOUNTER 2025-05-26 13:58 | Outpatient (AMB) | payer OTHER, SELFPAY ==
--- NOTE | 2025-05-26 14:01 | MHC.OFFVIS ---
Vital Signs 05/26/25 14:02 Height 6 ft 4 in Weight 255 lb BMI 31.0 BP 130/66 Blood Pressure Location Lt brachial Position Sitting Pulse 70 Pulse Oximetry (%) 98 Oxygen Delivery Method Room Air Intake Visit Reasons: ct scan results Intake Note: Patient follow up for acid reflux and CT scan results. Patient cc: acid reflux, spitting the food after eating, medication is not helping and he is having same GI issues. Patient wanted to know when he is getting the surgery that he needed for his abd infection. 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 F/U for persistent upper GI sxs (regurgitation, weight concerns, GI discomfort) and review workup for hiatal hernia. Pt describes ongoing upper GI sxs with persistent need to carry receptacle due to expectation of regurgitation. No new or worsening sxs. Weight stable (gained 3 lbs since February). Constipation improved; now has BMs most days (vs. once per week prior), stool consistency still sometimes hard, occasional straining. Open to alternative for constipation that?s covered by insurance . Pt reports regular compliance with prescribed meds but has not noticed sxs relief, resulting in frustration. Barriers to purchasing OTC meds due to cost; unable to obtain Miralax unless covered. No interim hospitalizations or ER visits. No acute events since last review. Completed repeat labs (including hormone studies) today. motility study -[facility] Medical History (Updated 05/31/25 @ 13:27 by Sera Nassar CNP) Constipation Hiatal hernia with gastroesophageal reflux Elevated parathyroid hormone Weight loss Acid reflux Surgical History Hx of colonoscopy History of ankle surgery Family History Mother Cancer Social History Household Members: None Housing: Homeless Are you a primary home care aide to a significant other at home: No Do you presently have visiting nurse or other home services: No Patient Tobacco Use Status: Never used Tobacco Substance Use Type: Marijuana service: No Review of Systems Const Reports as per HPI ENT Reports as per HPI Card Reports as per [facility] Resp Reports as per [facility] GI Reports as per [facility] Reports as per [facility] Physical Exam Vital Signs: Last Vital Signs Pulse 70 05/26/25 14:02 BP 130/66 05/26/25 14:02 Pulse Ox 98 05/26/25 14:02 Oxygen Delivery Method Room Air 05/26/25 14:02 BMI result Body Mass Index 31.0 Const General: healthy appearing, no acute distress and well developed Nutritional Appearance: average body habitus Orientation/consciousness: patient oriented x3 HEENT Head: Yes normal to inspection, Yes normocephalic and Yes atraumatic Face and sinus: Yes normal facial exam Eyes General: appearance normal, both eyes and all related structures Neck Neck: Yes normal visual inspection Resp Effort & Inspection: normal respiratory effort, able to speak in complete sentences, no tracheal deviation and symmetric chest movement Cardio Jugular venous distension: no JVD Rate: regular rate Rhythm: regular rhythm Heart sounds: S1 normal heart sound present, S2 normal heart sound present, no gallops and no murmurs GI Auscultation: normal bowel sounds Neuro General: patient oriented x3 Gait exam (Neuro): Normal gait present Psych Appearance: grossly normal Mental Status: mental status grossly normal Speech and movement: Normal speech and movement present Affect: Irritable affect present Attitude: Guarded attititude/behavior present Thought process: Normal thought process present Thought content: Normal thought content present Insight: Fair insight present (Psych) Judgement: Good judgement present (Psych) Results Reviewed Results Reviewed: Date of Service: 03/15/25 Procedure(s): CT chest w IV con Accession Number(s): [id number] cc: Lonnie Valencia MD~ Report Number: [id number]: Total DLP = 605.00 mGy-cm EXAMINATION: CT CHEST WITH CONTRAST CLINICAL INFORMATION: Abnormal weight loss. COMPARISON: None available. TECHNIQUE: Multidetector volumetric CT imaging of the chest was obtained after the administration of 85 mL of Omnipaque 350 intravenous contrast without immediate adverse reactions. Axial MIP volume rendering provided. Sagittal and coronal reformatted images were obtained. This CT examination was performed using dose optimization techniques as appropriate, variously including the following: *Automated exposure control *Adjustment of mA and/or kV according to patient size (this includes techniques or standardized protocols for targeted exams where dose is matched to indication/reason for exam; i.e. extremities or head) *Use of iterative reconstruction technique DLP: 596.2 mGy centimeter. FINDINGS: FINISHER SPECIAL STOCKS: Patient's large body habitus. Cardiomediastinal silhouette size is normal. Both upper extremities at the size of the head. Calcifications overlapping the right kidney shadow. LUNGS: No acute airspace disease. No gross pulmonary nodules. No bronchiectasis. No honeycombing. 6 mm thin-wall bleb, right upper lung lobe. MEDIASTINUM: No lymphadenopathy. No pericardial effusion. No aneurysm or dissection, thoracic aorta. No gross calcified plaques. No gross masses. Nonspecific concentric wall thickening, intrathoracic esophagus. The thyroid gland is not enlarged. No gross dominant nodules.. PLEURA: No pleural effusion. No pneumothorax. No calcified pleural plaques. AXILLA: No lymphadenopathy. UPPER ABDOMEN: Subcentimeter cystic lesions, right kidney. Small hiatal hernia. OSSEOUS STRUCTURES: Mild multilevel spondylosis without acute fracture or listhesis. No lytic or blastic lesions. CT/CT chest w IV con IMPRESSION: Concentric wall thickening/edematous intrathoracic esophagus. Inflammatory versus infectious versus neoplasm should be considered. Date of Service: 03/15/25 Procedure(s): CT abdomen pelvis w IV con CT ABDOMEN AND PELVIS WITH CONTRAST CLINICAL INFORMATION: Abnormal weight loss. COMPARISON: July 27, 2023. TECHNIQUE: Multidetector volumetric images were obtained from the superior aspect of the liver through the pubic symphysis following administration 85 mL of Omnipaque 350 intravenous contrast. Sagittal and coronal reformatted images were obtained on the technologist's workstation. Oral contrast: No This CT examination was performed using dose optimization techniques as appropriate, variously including the following: *Automated exposure control *Adjustment of mA and/or kV according to patient size (this includes techniques or standardized protocols for targeted exams where dose is matched to indication/reason for exam; i.e. extremities or head) *Use of iterative reconstruction technique DLP: 1226.6 mGy centimeter. FINDINGS: LUNG BASES: No acute airspace disease. LIVER, GALLBLADDER, AND BILIARY TREE: Liver measures 13 cm. No focal mass. Portal veins, hepatic veins and intrahepatic portion of the IVC are patent. No pericholecystic fluid collection or gallbladder wall thickening. No intrahepatic or extrahepatic biliary ductal dilatation. PANCREAS: No focal mass. No peripancreatic fluid collection. No main pancreatic ductal dilatation. SPLEEN: 9 cm. No focal lesion. ADRENAL GLANDS: No nodular lesion. KIDNEYS AND URETERS: Scattered fluid density lesions both kidneys, the largest measures 1.9 cm in the lower pole right kidney. There is a 0.5 cm slightly dense, 40 units exophytic lesion in the medial aspect midportion of the left kidney.. No hydronephrosis. No gross nephrolithiasis.. BLADDER: Fluid-filled. GASTROINTESTINAL TRACT: Thickened intrathoracic esophagus/gastroesophageal junction. Abundant stool throughout the large intestine. Scattered diverticula in the sigmoid colon. No intestinal obstruction pattern. No pneumatosis intestinalis. The appendix is normal. Scattered diverticula in the right hemicolon with the likely retained contrast. No ascites. No pneumoperitoneum. ABDOMINAL WALL: Fat-containing umbilical hernia, small. LYMPH NODES: Nonspecific mildly prominent mesenteric. VASCULAR: Throughout the abdominal aorta wall and iliac arteries without aneurysm or dissection. PELVIC VISCERA: Not enlarged prostate gland. OSSEOUS STRUCTURES: Mild multilevel spondylosis. Grade 1 retrolisthesis L5-S1 on a degenerative basis. Degenerative changes in both coxofemoral joints. No lytic or blastic lesions. Sclerosis and the inferior sacroiliac joints with vacuum phenomenon. CT/CT abdomen pelvis w IV con IMPRESSION: Thickened intrathoracic esophagus/gastroesophageal junction. Inflammatory versus infectious process should be considered. Neoplasm cannot be excluded. Proteinaceous/hemorrhagic subcentimeter cystic lesion, smaller since prior examination, left kidney. Bilateral renal cysts. Diverticular disease. Moderate osteoarthrosis both coxofemoral joints. Nonspecific mild prominent mesenteric lymph nodes. Small fat-containing umbilical hernia. Assessment & Plan Assessment & Plan (1) Hiatal hernia with gastroesophageal reflux: Comment: EGD with balloon dilation 02/16/25 -hiatal hernia, gastritis , no esophageal mass/tears seen, tight pylorus outlet (balloon dilation). Code(s): K44.9 - Diaphragmatic hernia without obstruction or gangrene; K21.9 - Gastro-esophageal reflux disease without esophagitis Category: Medical Plan: Stable, Symptom persistence despite maximal medical mgmt; no acute worsening, weight stabilized. imaging and EGD confirm diagnosis. CT chest and ab/pelvis with findings of Thickened intrathoracic GEl junction; suggestive of Inflammatory versus infectious VS Inflammatory VS neoplasm. However, reassured given unremarkable EGD. Additional Testing: -Await repeat hormone labs?refer to Endo if elevated to R/O contributing endocrine process. -Consider H. plyori retesting off PPI, if patient agreeable Medications: -Continue current GI meds; no new Rx unless sxs change. Lifestyle Recommendations: -Continue hydration (preferably water), small/frequent meals, avoid recumbency post-prandial. -Provided verbal education; reinforce dietary mods. Referrals / Coordination of Care: -Await schedule for general surgery consult (target Jul 2025). -new referral placed to bariatric team today for comprehensive consultation with surgeons who specializes in hiatal hernia repairs with potential for a sooner appt. F/U Plan: Anticipate contact from bariatrics; Offered sooner appt, Braeden opted for F/U after Bariatric/GS input. Call back precautions reviewed. 05/31/25: After dicussion with colleague we will proceed with motility study. We will reach out with patient to discuss. (2) Constipation: Comment: 07/28/2023 colonoscopy complete with good prep-diverticulosis, small internal hemorrhoids. Code(s): K59.00 - Constipation, unspecified Category: Medical Qualifiers: Constipation type: unspecified constipation type Qualified Code(s): K59.00 - Constipation, unspecified Plan: Improved since last f/u; pt declined additional Rx at this time due to cost and symptom resolution. Additional Testing: None at present. Medications: -Discontinue Miralax (pt not taking, unable to afford). -Prescribed Senna 1 tab qHS PRN for backup; avoid daily use long-term. -Continue OTC/generic osmotic laxative only if cost allows and as needed. Lifestyle Recommendations: High fiber diet, maintain hydration, regular physical activity as tolerated. F/U Plan:Monitor sxs; F/U prn for change. (3) Weight loss: Code(s): R63.4 - Abnormal weight loss Category: Medical Plan: Previous wt loss may be multifactorial (hiatal hernia, possible endocrine etiology); now stable. 03/2025 Chest and Abd/pelvis CT scan completed?revealed significant constipation and known hiatal hernia. Normal colonoscopy 2022. Additional Testing:Pending repeat hormone labs; further workup per Endo if abnormal persists. Medications:No changes at present. Lifestyle Recommendations:Continue current dietary and hydration guidance. Referrals / Coordination of Care:Endo referral if hormone labs remain abnormal. F/U Plan:Review labs via portal or at next visit; reassess wt trend at next F/U. (4) Elevated parathyroid hormone: Code(s): R79.89 - Other specified abnormal findings of blood chemistry Category: Medical Plan: Awaiting repeat lab results. Prior abnormal result, possible cause for some sxs/weight issue. Additional Testing:Pending today's results; refer to Endo if abnormal persists. Medications:No changes until Endo input. Lifestyle Recommendations: None specific. Referrals / Coordination of Care:Endo referral if labs remain abnormal. F/U Plan:Review labs via portal or at next visit. Plan Follow-up in 3 months or sooner as needed Time: I spent a total of 20 minutes on the date of encounter which includes: Preparing to see the patient (reviewed previous documentation, test results and medical history) Performing a medically appropriate exam and/or evaluation Ordering medications, tests, and procedures Documenting clinical information in the health record Orders: Referrals Bariatric Surgery Referral K21.9 - Gastro-esophageal reflux disease without esophagitis, K44.9 - Diaphragmatic hernia without obstruction or gangrene Medications: New sennosides (senna) Take one tablet daily at bedtime as needed constipation 8.6 mg PO BEDTIME PRN 90 caps 0RF constipation Discontinued polyethylene glycol 3350 (Miralax) Take 17G (one cap full) daily with 8oz of water Discontinued Reason: Insurance Denied 17 grams PO DAILY 30 days 510 grams 2RF constipation Coding Level of Care Code Established Pt Est Pt Level 3 (53650) Patient Type Established Diagnoses Hiatal hernia with gastroesophageal reflux K44.9; K21.9 Constipation, unspecified constipation type K59.00 Constipation type: unspecified constipation type Weight loss R63.4 Elevated parathyroid hormone R79.89
[2025-05-26 14:02] VITALS: BP 130/66; PULSE 70; O2SAT 98; BMI 31.0
== END 2025-05-26 14:54 | disposition home or self-care (01) ==
PROVIDERS: Visit Provider Nurse Practitioner Family
DX: K44.9 Diaphragmatic hernia without obstruction or gangrene (principal); K21.9 Gastro-esophageal reflux disease without esophagitis; K59.00 Constipation, unspecified; R63.4 Abnormal weight loss; R79.89 Other specified abnormal findings of blood chemistry
CPT/HCPCS: 99213

== ENCOUNTER 2025-06-07 08:55 | Outpatient (AMB) | payer OTHER, SELFPAY ==
--- OUTSIDE RECORDS SUMMARY | 2025-03-06 06:30 | XMS_ITS ---
Author Organization [facility] Address [address] [place] [address] Care Team Providers Care Superintendent Factory Name Role Phone Ginny Dial Primary Care Provider [facility], Nursing Unavailable [phone] REASON FOR VISIT Office: BP 2 week f/u Social History Sex Assigned At : Social History Observation Description Sex Assigned At Male Encounters Encounter Location Date Provider Diagnosis [facility] [address] [place] [address] 03/06/2025 Nursing [facility] Plan Of Treatment No Information Progress Notes * Braeden REYES WDOB: [birth year] (55 yo M)Acc No.[id number]:03/06/2025 Progress Notes Patient: Braeden WAYNE Provider: Nando paez [facility] :1970 A ge:55 Y S ex:Male Date:03/06/2025 Address:[address] [place], [place] [id number] Pcp:Ginny Dial Subjective: * Chief Complaints: * 1 . Office: BP 2 week f/u. * Medical History: Objective: * Vitals: Assessment: Plan: * Treatment: * Images: Billing Information: * Electronic signature of Ivana malhotra [facility] on 06/07/2025 at 09:35 AM EDT Sign off status: Pending * Provider: Nando paez [facility] Date: 0 03/06/2025 Generated for Printi ng/Faxing/eTransmitting on: 1 09:35 AM EDT
--- OUTSIDE RECORDS SUMMARY | 2025-05-20 17:00 | XMS_ITS ---
Author Organization [facility] Address [address] [place] [phone] Care Team Providers Care Funeral Arranger Name Role Phone Ginny Dial Primary Care Provider Migration, Provider Unavailable Unavailable REAS[facility] FOR VISIT [facility] Encounter Medications Medication SIG (Take, [...] deliver to [facility] [address] [place] [address]. 02/23/2024 Not-Taking Escitalopram Oxalate 5 MG 1 tab orally once a day in morning Please deliver to [facility] [address] [place] [address]. Not-Taking Esomeprazole Magnesium 40 MG 1 cap(s) orally once a day Active Triamcinolone Acetonide 0.025 % 1 mehnaz applied topically 3 times a day Not-Taking Social History Sex Assigned At : Social History Observation Description Sex Assigned At Male Encounters Encounter Location Date Provider Diagnosis [address] [phone] 05/20/2025 Provider Migration Essential (primary) hypertension I10 [...] Braeden REYES WDOB: [birth year] (55 yo M)Acc No.[id number]:05/20/2025 Patient: Braeden WAYNE Provider: :1970 A ge:55 Y S ex:Male Date:05/20/2025 Address:[address] [place] [phone] Pcp:Ginny Dial Subjective: * Chief Complaints: * 1 . [facility] En[facility]. * Medical History: * [...] deliver to [facility] [address] [place] [address]., Not-Taking/PRN Escitalopram Oxalate 5 MG Tablet 1 tab orally once a day in morning , Notes to Pharmacist: Please deliver to [facility] [address] [place] [address]., Not-Taking/PRN Rosuvastatin Calcium 10 MG Tablet 1 [...] Electronic signature of Prov ider Migration on 06/07/2025 at 09:35 AM EDT Sign off status: Pending * Provider: Date: 0 05/20/2025 Generated for Howard lomas/Candis/Jaspal on: 1 09:35 AM EDT
[2025-06-07 09:16] VITALS: BP 160/79; PULSE 70; TEMP 36.6; O2SAT 99; BMI 31.2
--- NOTE | 2025-06-07 09:16 | A.OFFVIS_ITS ---
VS Expanded 06/07/25 09:16 BP 160/79 H Blood Pressure Location Rt brachial Blood Pressure Position Sitting Pulse 70 Pulse Source Pulse Oximeter Temp 97.8 F Temperature Source Temporal Artery Scan Pulse Oximetry 99 Height 6 ft 4 in Weight 256 lb 9.6 oz BMI 31.2 Body Fat % 29.3 Body Fat Mass 75.2 Fat Free Mass 181.2 Visceral Fat Rating 16 Body Water % 48.2 Body Water Mass 123.6 Muscle Mass/Score 172.4 Basal Metabolic Rate/Score 2,460 Intake Visit Reasons: OV Hiatal Hernia - Cesario SCOTT Ref. (GI) Allergies No Known Allergies Allergy (Verified 06/07/25 09:26) Medication List - Last Reconciled 06/07/25 by Jude Escobedo MD amlodipine 5 mg PO DAILY esomeprazole magnesium 40 mg PO DAILY famotidine 20 mg PO DAILY ondansetron 4 mg sublingual Q8H PRN sennosides (senna) 8.6 mg PO BEDTIME PRN HPI Comments Details: Was referred by Dr Valencia for a diaphragmatic hernia. Reports worsening regurgitation and heartburn the last year. As a result he has lost 100lbs unintentionally. Tests reviewed: EGD (02/[address] Valencia): 4cm fixed HH, Path: mild GEJ inflammation, no esophageal lesions, H pylori neg. UGI: 02/13/25: circumferential esophageal narrowing CT-chest 03/15/25: small HH, small liver Ct-abd/pelvis 03/15/25: small umbilical hernia EK/25: NSR Colonoscopy (2022): [place] [facility] Medical History (Updated 06/07/25 @ 11:04 by Jude Escobedo MD) Diaphragmatic hernia Hypertension BMI 31.0-31.9,adult Obesity Constipation Hiatal hernia with gastroesophageal reflux Elevated parathyroid hormone Weight loss Acid reflux Surgical History Hx of colonoscopy History of ankle surgery Family History Mother Cancer Social History Household Members: None Housing: Homeless Are you a primary floor care specialist to a significant other at home: No Do you presently have visiting nurse or other home services: No Patient Tobacco Use Status: Never used Tobacco Substance Use Type: Marijuana service: No Physical Exam Vital Signs: Last Vital Signs Temp 97.8 F 06/07/25 09:16 Pulse 70 06/07/25 09:16 BP 160/79 H 06/07/25 09:16 Pulse Ox 99 06/07/25 09:16 BMI result Body Mass Index 31.2 GI Inspection: Yes normal to inspection and Yes obesity Palpation (GI): Soft to palpation Extrem Right lower extremity: normal to inspection Left lower extremity: normal to inspection Assessment & Plan Assessment & Plan (1) Diaphragmatic hernia: Code(s): K44.9 - Diaphragmatic hernia without obstruction or gangrene Category: Medical Qualifiers: Obstruction and gangrene presence: without obstruction or gangrene Qualified Code(s): K44.9 - Diaphragmatic hernia without obstruction or gangrene Plan: 1. We discussed the potential etiology of the hernia worsened by his weight. We discussed the details of the diaphragmatic hernia repair and the potential technical challenges such as being able to achieve enough mobilization of the esophagus back in the abdomen and being able to close the diaphragmatic muscle (crura) primarily with sutures. We also discussed the possibility of using a biologic mesh to close the hernia defect if the crura cannot be adequately re- approximated primarily with sutures. We also discussed the option of doing a gastropexy or a fundoplication to prevent postoperative reflux and prevent hernia recurrence. As we discussed, I favor the gastropexy as the fundoplication can cause several distrurbing symptoms such as gas-bloating, flatulence, inabi lity to burp which can be bothersome to patients. Also we discussed the complexity of a potential hernia recurrence in association with a hernia recurrence. He was in agreement not to have a fundoplication. We also discussed that after surgery, he will need to be on a liquid diet with protein shakes the first week. The second week will add protein bars and soft foods and after the third week we will introduce small amounts of regular food. The transition to normal eating habits will take about 6 weeks which is the time required for the repair to heal completely. 2. Nutritional counseling. Start with one premade PREMIER protein (buy at [employer] or [employer]) shake (mix 4oz of Premier mixed with 4oz low fat unsweetened almond milk each) at 8am-10am, one protein bar (Fit Crunch protein bar, buy at [employer], or [employer]) at 11am-1pm, another premade PREMIER protein shake (mix 4oz of Premier mixed with 4oz low fat unsweetened almond milk each) at 2pm-4pm, dinner at 5pm (10 forks of protein and 10 forks of salad/vegetables), another another [employer]unch protein bar at 7pm-9pm and one more premade PREMIER protein shake (mix 4oz of Premier mixed with 4oz low fat unsweetened almond milk each) at 10pm to midnight. So you do 3 protein shakes, 2.5 protein bars and one meal per day. Meal to include lean meat (beef, fish, pork, turkey, chicken), or afghan yogurt, or egg whites, or beans with a salad with olive oil and fruits (berries, pears, apples, kiwi). Avoid salt, breads, potatoes, rice, pasta, desserts. 3. Each shake would be drunk slowly, like coffee in a period of 2 hours. 4. Cut each bar in 4 pieces and eat each piece in 30min ?to make each bar last 2 hours. 5. I emphasized the importance of measuring accurately the food portion and measure it when serving the food in plate 6. The meal portions include 10 full-size forks of meat and 10 full-size forks of salad. You always eat the meat portion but you can replace up to 5 forks for salad/vegetables with rice, potatoes or pasta, or a fruit ?if you like. The less you do it the better weight loss will be. 7. One full-size fork is what it can be scooped on the fork without falling aside and not what can be bit with the fork. Use regular forks like those you find in a typical restaurant. 8.? Please buy the body composition scale we discussed and send me weight measurements as soon as possible and then once a week. Always include your diet and exercise plan. 9. Start treadmill with an incline of 2.0 and speed of 3.0. Increase incline by 1 every 3 min to a max incline of 8.0, stay 3min at 8.0 and then return to 2.0 and repeat same steps until calorie goal is met. Goal is to burn 2000 calories per week on exercise, which means either 300 calories daily. 10. Alternatively instead of treadmill, or splitting between the two, do stationary bike at a resistance level of 4.0 Increase level by 1.0 every 3 min to a max level of 10.0. Stay at this level for 3 min and then return to level 4.0 and repeat same steps until 300 calories are burned. Goal is to burn 2000 calories per week on exercise 11. Goal is to lose at least 1.5-2lbs per week 12. Goal to lose 10% of your weight before surgery, which is about 25lbs. Ultimate weight goal: 200lbs before surgery 13. Please follow the diet plan exactly without any change. If you don't like something about the plan or you feel hungry you need to communicate with me so I can help you revise the plan. You should not change the plan yourself 14. To be scheduled for EGD to assess the stomach's anatomy. The possibility of biopsies was discussed. Patient needs to avoid use of NSAIDs and aspirin for 1 week prior to EGD. You must be on liquids only the day before your endoscopy. Risks of perforation and bleeding was discussed with the patient. This will be an outpatient procedure with IV sedation.
--- OUTSIDE RECORDS SUMMARY | 2025-06-07 09:35 | XMS_ITS | Patient Health Record ---
Author Organization [facility] Address [address] [place] [address] Care Team Providers Care Eyelet Machine Operator Name Role Phone Ginny Dial Primary Care Provider [phone] Tam Degroot Unavailable [phone] [facility], Nursing Unavailable [phone] Daina Rudolph Unavailable [phone] [facility], CHW Unavailable [phone] Migration, Provider Unavailable Unavailable Allergies No Known Allergies Results Component Value Reference Range Notes VITAMIN B12 Reviewed date:07/27/2024 01:48:05 PM Interpretation:Normal [...] For Referral Reason PT-[address] [facility] [facility] 12 months x 2 visits a month Referral Organization [facility] Referring Provider First Name Ginny Referring Provider Last Name Yojana Referring Provider Speciality Nurse Prac titioner Referred Provider PT1, Request Referral Priority Routine Reason [facility] evaluat e for GERD with no relief from H2 Valerie Diagnosis 1 Gastro-esophageal re flux disease with esophagitis, without bleeding (K21.00) Referral Organization [facility] Referring Provider First Name Ginny Referring Provider Last Name Yojana Referring Provider Speciality Nurse Maurice haddad Referred Provider [facility], Gastroenterology Referred Provider Specialty Gastroentero logy General Notes Charla Ramon 2024 09:27:11 AM >Faxed to [facility], Juany Marcelino 12/19/2024 10:35:21 AM > paperwork refaxedFermín Katelyn 01/31/2025 02:01:28 PM > pt seen twice - notes requestedArun Paris 01/31/2025 03:20:45 PM > notes to scan Referral Priority Routine Referral Appointment Date 01/04/2025 Reason evaluate for recurre nt dermatitis Diagnosis 1 Dermatitis, unspecif ied (L30.9) Referral Organization [facility] Referring Provider First Name Ginny Referring Provider Last Name Yojana Referring Provider Speciality Nurse Maurice haddad Referred Provider Dodie, Dermatology Referred Provider Specialty Dermatology General Notes Charla Ramon 2024 09:36:46 AM >[facility] does not take [facility], referred to Trudy Munguia, referral and notes faxed, Juany Marcelino 12/19/2024 10:36:17 AM > paperwork refaxFermín jay Katelyn 04/04/2025 11:54:49 AM > pt seen note scanned Referral Priority Routine Referral Appointment Date 03/30/[address] [place] [address] Zelda Heath [facility] Referral Organization [facility] Referring Provider First Name Ginny Referring Provider Last Name Yojana Referring Provider Speciality Nurse Maurice haddad Referred Provider PT1, Request Referral Priority Routine Reason [facility] [address] [place] [address] [facility] [address] (12 months X 3 visit) Referral Organization [facility] Referring Provider First Name Ginny Referring Provider Last Name Yojana Referring Provider Speciality Nurse Maurice haddad Referred Provider PT, -1 Referral Priority Routine Reason [facility], [address], [facility] P: [phone] F: [phone] evaluate for blurred vision Diagnosis 1 Diverticulosis of la rge intestine without perforation or abscess without bleeding (K57.30) Referral Organization [facility] Referring Provider First Name Ginny Referring Provider Last Name Yojana Referring Provider Speciality Nurse Maurice haddad Referred Provider Eye, Jag Referred Provider Specialty Ophthalmolog y General Notes Marie Dias 08:54:38 AM > Faxed to Arun Rm Paris 02/22/2025 12:58:59 PM > tried to contact pt. to schedule, pt. needs to call back to schedule, Charla Ramon 03/07/2025 10:13:29 AM >Jag tried to reach out to pt again to schedule. I left message with pt to call them back. Referral Priority Routine Medications Medication SIG (Take, Route, Frequency, Duration) Notes Start Date End Date Status Rosuvastatin Calcium 10 MG 1 tab(s) orally once a day Not-Taking Vitamin B-12 1000 MCG 1 tab(s) chewable once a day 08/13/2023 Not-Taking cloNIDine HCl 0.1 MG 1 tab(s) orally once a day at bedtime Please deliver to [facility] [address] [place] [address]. 02/23/2024 Not-Taking Escitalopram Oxalate 5 MG 1 tab orally once a day in morning Please deliver to [facility] [address] [place] [address]. Not-Taking Esomeprazole Magnesium 40 MG 1 cap(s) orally once a day Active Triamcinolone Acetonide 0.025 % 1 mehnaz applied topically 3 times a day Not-Taking amLODIPine Besylate 5 MG TAKE 1 TABLET BY MOUTH EVERY DAY for 90 Active Tylenol 8 Hour Arthritis Pain 650 MG 2 tab(s) orally every 8 hours for 30 days 09/11/2023 Not-Taking Naprosyn 500 MG 1 tab(s) orally 2 times a day 02/02/2019 Not-Taking Pantoprazole Sodium 40 MG 1 tab(s) orally once a day for 30 day(s) 02/01/2025 Not-Taking Social History Tobacco Use: Social History [...] Risk Notes Problem Vitamin B>12< deficiency anaemia (31635878) Vitamin B12 deficiency anemia, unspecified (D51.9) Active confirmed Problem Obesity (798566837) Obesity, unspecified (E66.9) Active confirmed Problem Mixed hyperlipidemia (204811284) Mixed hyperlipidemia (E78.2) Active confirmed Problem Severe recurrent major depression without psychotic features (88496763) Major depressive disorder, recurrent severe without psychotic features (F33.2) Active confirmed Problem Generalized anxiety disorder (28880865) Generalized anxiety disorder (F41.1) Active confirmed Problem Insomnia 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 disorder (39897033) Insomnia due to other mental disorder (F51.05) Active confirmed Problem Essential hypertension (50462454) Essential (primary) hypertension (I10) Active confirmed Problem Peripheral vascular disease (316063379) Peripheral vascular disease, unspecified (I73.9) Active confirmed Problem Diverticular disease of colon (183339301) Diverticulosis of large intestine without perforation or abscess without bleeding (K57.30) Active confirmed Problem Cervical radiculopathy (42568354) Radiculopathy, cervical region (M54.12) Active confirmed Problem Lumbar radiculopathy (982767720) Radiculopathy, lumbar region (M54.16) Active confirmed Problem Gastroesophageal reflux disease with esophagitis (disorder) (031247333) Gastro-esophageal reflux disease with esophagitis, without bleeding (K21.00) Active confirmed Problem Body mass index 30.00 to 34.99 (262863579703692) Body mass index [BMI] 32.0-32.9, adult (Z68.32) Active confirmed Problem Sheltered homelessness (177491630823107) Sheltered homelessness (Z59.01) Active confirmed Problem Recurrent major depression (32910935) Major depressive disorder, recurrent, unspecified (F33.9) Inactive confirmed Problem Migraine without aura, not refractory (disorder) (921875692) Migraine, unspecified, not intractable, without status migrainosus (G43.909) Inactive confirmed Problem Backache (742076075) Dorsalgia, unspecified (M54.9) Inactive confirmed Problem Headache (41846065) Headache (R51) Inactive conf irmed Problem Financially poor (83699557) Insufficient social insurance and welfare support (Z59.7) Inactive confirmed Problem Body mass index 35.00 to 39.99 (112750670729327) Body mass index [BMI] 36.0-36.9, adult (Z68.36) Inactive confirmed Vital Signs Temperature 98 degrees Fahrenheit 02/20/2025 Blood pressure diastolic 88 02/20/2025 Oximetry 97 02/20/2025 Height 75.5 in 02/20/2025 Blood pressure systolic 180 02/20/2025 Weight 264.6 lbs 02/20/2025 BMI 32.63 kg/m2 02/20/2025 Encounters Encounter Location Date Provider Diagnosis [address] [address] 05/20/2025 Provider Migration Essential (primary) hypertension I10 [address] [address] 06/22/2024 Tam Degroot Major depressive disorder, recurrent severe without psychotic features F33.2 ; Generalized anxiety disorder F41.1 ; Insomnia due to other mental disorder F51.05 ; Mixed hyperlipidemia E78.2 and Encounter for screening for COVID-19 Z11.52 [facility] [address] [address] 07/12/[address] [address] 07/13/[address] [address] 07/26/2024 Eddieliza Georgian Encounter for screening for COVID-19 Z11.52 ; Mixed hyperlipidemia E78.2 ; Obesity, unspecified E66.9 ; Vitamin B12 deficiency anemia, unspecified D51.9 ; Immunization not carried out because of patient refusal Z28.21 and Sheltered homelessness Z59.01 [facility] [address] [place] [address] [facility] [place] [phone] 08/10/2024 Eddielinoreen Camionan Person consulting for explanation of examination or test findings Z71.2 and Vitamin B12 deficiency anemia, unspecified D51.[address] [address] 02/20/2025 Eddieliza Casionan Encounter for screening for [...] I10 and Unspecified subjective visual disturbances H53.[address] [address] 02/20/2025 [facility] [address] [place] [phone] 12/29/2024 Eddieliza Casionan [address] [address] 07/26/2024 Eddieliza Casionan [facility] [address] [place] [phone] 07/26/2024 Eddieliza Casionan [address] [address] 07/28/2024 Eddieliza Casionan [facility] [address] [place] [phone] 08/09/2024 Daina Rudolph [facility] [address] [place] [phone] 08/16/2024 Eddieliza Casionan [address] [address] 12/12/2024 Eddieliza Casionan Dermatitis, unspecified L30.9 and Gastro-esophageal reflux disease with esophagitis, without bleeding K21.[address] [address] 12/16/2024 Eddieliza Casionan [address] [address] 12/29/2024 Eddieliza Casionan [facility] [address] [place] [phone] 12/30/2024 Eddieliza Casionan [address] [address] 02/01/2025 Eddieliza Tutuionan [address] [place] [address] 02/20/2025 Eddieliza Tutuionan [address] [address] 03/30/2025 Bernydionel Laureanoan Assessments Encounter Date Diagnosis (ICD Code) Assessment Notes Treatment Notes Treatment Clinical Notes Section Notes 06/22/2024 Major depressive disorder, recurrent severe without psychotic features (ICD-10 - F33.2) Reviewed hx of psychiatric illness, treatment received and medication trials with client. Discussed current medications as to indications, actions and side effects. Reviewed risks benefits of treatment versus non treatment. Medication education provided. Patient given opportunity to ask questions. Patient gives informed consent to proceed with prescribed treatment. 1. Mass LOOP CUTTER reviewed: see exam 2. Medications: will continue [...] 3. Cont psychotherapy: has f/u jennifer Che [facility] scheduled 4. Labs/Procedures: no nnew [...] with esophagitis, without bleeding (ICD-10 - K21.00) 06/22/2024 Generalized anxiety disorder (ICD-10 - F41.1) [...] his hydroxyzine. I will talk to his [facility] provider. He should refrain from scrubbing and using alcohol and [id number] plain cold water and soap with no aggressive scrubbing. There may be an element of fungal infection especially on inner thighs and buttocks. Gave him a tube of Ketoconazole 1 % to apply 2x/day x 2 weeks with flares 06/22/2024 Insomnia due to other mental disorder (ICD-10 - F51.05) Aware clonidine may help with sleep, anxiety and irritability. 07/26/2024 Vitamin B12 deficiency anemia, unspecified (ICD-10 - D51.9) Will check B12 02/20/2025 Diverticulosis of large intestine without perforation or abscess without bleeding (ICD-10 - K57.30) denies bloody stool 06/22/2024 Mixed hyperlipidemia (ICD-10 - E78.2) Prescribed by PCP for cholesterol, educated on medication and encouraged to take on daily basis. 07/26/2024 Immunization not carried out because of patient refusal (ICD-10 - Z28.21) Declines Flu shot. Aware of risks 02/20/2025 Radiculopathy, lumbar region (ICD-10 - M54.16) no ative complaint 06/22/2024 Encounter for screening for COVID-19 (ICD-10 [...] region (ICD-10 - M54.12) No active complaint 02/20/2025 Sheltered homelessness (ICD-10 - Z59.01) Has apartment with [employer] 02/20/2025 Major depressive disorder, recurrent severe without psychotic features (ICD-10 - F33.2) Encouraged to re engage with his mental health provider 02/20/2025 Body mass index [BMI] 32.0-32.9, adult (ICD-10 - Z68.32) Engaged discussion on maintaining healthy lifestyle: healthy diet low on fats and simple carbohydrates, and regular physical exercise of at least 30 minutes daily 05/20/2025 Essential (primary) hypertension (ICD-10 - I10) 02/20/2025 Essential (primary) hypertension (ICD-10 - I10) He stopped his clonidine. Advised to restart his psyche provider agrees Discussed Amlodipine. Serious S/E: chest pain, [place], hypotension, hepatitis, hypersensitivity reacitons. Lesser S/E: peripheral edema, fatigue, palpitations. dizziness, nausea, flushing, skin reactions. 02/20/2025 Unspecified subjective visual disturbances (ICD-10 - H53.10) Request referaal to ophthalmology 07/27/2024 Other 08/09/2024 Other 08/18/2024 Other 12/26/2024 Other 01/03/2025 Other 06/22/2024 Other 07/26/2024 Other 08/10/2024 Other [...] Insured Coverage Start Date Coverage End Date [place] Medicaid C3 [address] [place], [place] [id number] Braeden Carpenter Self - patient is the insured 4 [facility] [address] [place] [address] [id number] Braeden Carpenter Self - patient is the insured 3 [facility] [address] [address] [place] [address] [id number] Braeden Carpenter Self - patient is the [...] ligaments torn 2014 Hospitalization History Reason Date(Month/Year) [facility] Orthopedic surger y 2014
--- OUTSIDE RECORDS SUMMARY | 2025-06-07 09:35 | XMS_ITS | Encounter Summary ---
Author Organization [employer] Address [address] [place] [address] Care Team Providers Care Rn Recovery Name Role Phone Physician, Pcp Unknown Primary Care Provider Linda vailable Encounter Details Date Type Department Care Team (Late st Contact Info) Description 07/26/2024 Lab Requisition [facility] - Main Lab [address] [facility] [place] [address] Ginny Dial, TYLER [address] [place] [address] Vitamin B12 deficiency anemia, unspecified; Mixed hyperlipidemia; [...] LAB CHEMISTRY METHOD 07/26/2024 6:22 PM EST [facility] Blood Venous blood specimen / Unknown 07/26/2024 9:43 AM EST 07/26/2024 6:01 PM EST [facility] BLOOD [facility] Final Result [facility] [address] [place] [address], [place] [phone] * Thyroid stimulating hormone with reflex to free t4 and free t3 (07/26/2024 9:43 AM EST) [facility] TSH 0.78 0.40 - 4.00 mcIU/mL LAB CHEMISTRY METHOD 07/26/2024 6:08 PM EST [facility] Blood Venous blood specimen / Unknown 07/26/2024 9:43 AM EST 07/26/2024 6:01 PM EST [facility] LAB BLOOD ORDERABLES Final Result [facility] [address] [place] [address], [place] [phone] * Lipid panel with reflex to direct LDL (07/26/2024 9:43 AM EST) [facility] Cholesterol 162 0 - 200 mg/dL LAB CHEMISTRY METHOD 07/26/2024 6:17 PM EST [facility] Triglycerides 44 0 - 150 mg/dL LAB CHEMISTRY METHOD 07/26/2024 6:17 PM EST [facility] HDL 54 >=40 mg/dL LAB CHEMISTRY METHOD 07/26/2024 6:17 PM [facility] LDL Calculated 99 0 - 100 mg/dL LAB CHEMISTRY METHOD 07/26/2024 6:17 PM [facility] VLDL Cholesterol Juan 8.8 mg/dL LAB CHEMISTRY METHOD 07/26/2024 6:17 PM [facility] Non HDL Chol. (LDL+VLDL) 108 <145 mg/dL LAB CHEMISTRY METHOD 07/26/2024 6:17 PM [facility] Chol/HDL Ratio 3.0 0.0 - 4.4 LAB CHEMISTRY METHOD 07/26/2024 6:17 PM [facility] Blood Venous blood specimen / Unknown 07/26/2024 9:43 AM EST 07/26/2024 6:01 PM EST us Eddionel Dial RESIDENTIAL PROPERTY MANAGER LAB BLOOD ORDERABLES Final Result Performing Organization Address City/[facility]/ZIP Co de Phone Number [facility] [address] [place] [address], [place] [phone] * Hemoglobin A1c (07/26/2024 9:43 AM EST) Pathologist [facility] Hemoglobin A1C 4.9 <6.5 % LAB CHEMISTRY METHOD 07/27/2024 1:00 PM [facility] Mean Bld Glu Estim. 94 mg/dL LAB CHEMISTRY METHOD 07/27/2024 1:00 PM [facility] Blood Venous blood specimen / Unknown 07/26/2024 9:43 AM EST 07/26/2024 5:51 PM EST us Eddielinoreen Dial RESIDENTIAL PROPERTY MANAGER LAB BLOOD ORDERABLES Final Result Performing Organization Address City/[facility]/ZIP Co de Phone Number [facility] [address] [place] [address], [place] [phone] * (ABNORMAL) Complete blood count (07/26/2024 9:43 AM EST) WBC 5.7 4.8 - 10.8 K/mcL LAB HEMETOLOGY METHOD 07/26/2024 5:51 PM [facility] RBC 3.90(L) 4.50 - 5.50 M/mcL LAB HEMETOLOGY METHOD 07/26/2024 5:51 PM [facility] Hemoglobin 13.1(L) 13.5 - 17.5 g/dL LAB HEMETOLOGY METHOD 07/26/2024 5:51 PM [facility] Hematocrit 39.5(L) 42.0 - 54.0 % LAB HEMETOLOGY METHOD 07/26/2024 5:51 PM [facility] MCV 102.3(H) 79.0 - 98.0 FL LAB HEMETOLOGY METHOD 07/26/2024 5:51 PM [facility] MCH 33.9(H) 27.0 - 32.0 pcg LAB HEMETOLOGY METHOD 07/26/2024 5:51 PM [facility] MCHC 33.2 32.0 - 37.0 g/dL LAB HEMETOLOGY METHOD 07/26/2024 5:51 PM [facility] RDW 12.8 11.0 - 15.0 % LAB HEMETOLOGY METHOD 07/26/2024 5:51 PM [facility] Platelets 161 130 - 400 K/[facility] LAB HEMETOLOGY METHOD 07/26/2024 5:51 PM [facility] MPV 11.8(H) 7.0 - 11.0 FL LAB HEMETOLOGY METHOD 07/26/2024 5:51 PM [facility] NRBC 0.0 <1.0 % LAB HEMETOLOGY METHOD 07/26/2024 5:51 PM [facility] NRBC Absolute 0.00 <0.10 K/[facility] LAB HEMETOLOGY METHOD 07/26/2024 5:51 PM EST [facility] Blood Venous blood specimen / Unknown 07/26/2024 9:43 AM EST 07/26/2024 5:51 PM EST us Ginny Dial RESIDENTIAL PROPERTY MANAGER LAB BLOOD ORDERABLES Final Result [facility] [address] [place] [address], documented in this encounter Visit Diagnoses Diagnosis Vitamin B12 deficiency anemia, unspecified Mixed hyperlipidemia Obesity, unspecified documented in this encounter Care Teams Rn Recovery Relationship Specialty Start Date End Date Physician, Pcp Unknown PCP - General 07/26/24 documented as of this encounter
--- OUTSIDE RECORDS SUMMARY | 2025-06-07 09:36 | XMS_ITS | Clinical Summary ---
Author Organization [facility] Address [address] [place] [address] Phone Care Team Providers Care Claims Vice President Name Role Phone Physician, Pcp Unknown Primary Care Provider Linda vailable Social History Tobacco Use Types Packs/Day Years Used Date Smoking Tobacco: Never Assessed Sex and Gender Information Value Date Recorded Sex Assigned at Not on file Legal Sex Male 1:31 PM EDT Gender Identity Not on file Sexual Orientation Not on file Plan of Treatment Health Maintenance Due Date Last Done Comments Colorectal Cancer Screening: Colonoscopy 1968 DTaP,Tdap,and Td Vaccines (1 - Tdap) 02/02/1987 Hepatitis B Vaccines (1 of 3 - 19+ 3-dose series) 02/02/1987 Pneumococcal Vaccine: 50+ Ye ars (1 of 1 - PCV) 02/02/2018 Zoster Vaccines (1 of 2) 02/02/2018 HIV Screening 04/08/2024 Hepatitis C Screening 04/08/2024 Social Influencers of Health Screening 04/08/2024 Depression Screening 09/07/2024 COVID-19 Vaccine (1 - 2023-2 5 season) 2025 Influenza Vaccine (#1) 2025 Cholesterol Screening (Lipid Panel) 07/26/2029 07/26/2024 RSV Immunization Adult Patie nts (1 - 1-dose 75+ series) 02/02/2043 HIB Vaccines Aged Out No longer eligi [...] LAB CHEMISTRY METHOD 07/26/2024 6:17 PM EST [facility] Triglycerides 44 0 - 150 mg/dL LAB CHEMISTRY METHOD 07/26/2024 6:17 PM EST [facility] HDL 54 >=40 mg/dL LAB CHEMISTRY METHOD 07/26/2024 6:17 PM EST [facility] LDL Calculated 99 0 - 100 mg/dL LAB CHEMISTRY METHOD 07/26/2024 6:17 PM EST [facility] VLDL Cholesterol Juan 8.8 mg/dL LAB CHEMISTRY METHOD 07/26/2024 6:17 PM EST [facility] Non HDL Chol. (LDL+VLDL) 108 <145 mg/dL LAB CHEMISTRY METHOD 07/26/2024 6:17 PM EST [facility] Chol/HDL Ratio 3.0 0.0 - 4.4 LAB CHEMISTRY METHOD 07/26/2024 6:17 PM EST [facility] Blood Venous blood specimen / Unknown 07/26/2024 9:43 AM EST 07/26/2024 6:01 PM EST us Eddionel Dial MATERIALS TECHNICIAN LAB BLOOD ORDERABLES Final Result [facility] [address] [place] [address], from Last 3 Months or Most Recently Relevant to Health Maintenance Insurance MEDICAID - [place] Care Teams Claims Vice President Relationship Specialty Start Date End Date Physician, Pcp Unknown PCP - General 07/26/24
== END 2025-06-07 11:10 | disposition home or self-care (01) ==
LOC: HO.HBS 08:55
PROVIDERS: Visit Provider Surgery
DX: K44.9 Diaphragmatic hernia without obstruction or gangrene (principal); Z71.3 Dietary counseling and surveillance
CPT/HCPCS: 99204

== ENCOUNTER → 2025-06-07 08:55 | Outpatient (BNVA) | payer OTHER, SELFPAY | PROVIDERS: Visit Provider Surgery | DX: K44.9 Diaphragmatic hernia without obstruction or gangrene (principal) | CPT/HCPCS: 99202 ==

== ENCOUNTER 2025-06-12 10:29 | Day surgery (SDC) | payer OTHER, SELFPAY ==
--- NOTE | 2025-06-08 14:23 | HO.ANESPROP2 ---
Documented by User: Leonela Petty NP 06/08/25 14:23 HPI - Anesthesia Eval Consult details Narrative: 55yo M for Upper Endo Vega PMFSH Active Problems Active Problems: All Active Problems Diaphragmatic hernia (Acute) Hypertension (Acute) BMI 31.0-31.9,adult (Acute) Obesity (Acute) Constipation (Acute) Hiatal hernia with gastroesophageal reflux (Acute) Elevated parathyroid hormone (Acute) Weight loss (Acute) Acid reflux (Acute) B12 deficiency (Acute) Past Medical History Medical History (Updated 06/07/25 @ 11:04 by Jude Escobedo MD) Diaphragmatic hernia Hypertension BMI 31.0-31.9,adult Obesity Constipation Hiatal hernia with gastroesophageal reflux Elevated parathyroid hormone Weight loss Acid reflux Family History Family History Mother Cancer Surgical History Surgical History Hx of colonoscopy History of ankle surgery History of Problems with Anesthesia: No Social History Social History Household Members: None Housing: Homeless Are you a primary career services manager to a significant other at home: No Do you presently have visiting nurse or other home services: No Patient Tobacco Use Status: Never used Tobacco Substance Use Type: Marijuana Have you been hit, kicked, punched, or otherwise hurt by someone within the past year? If so, by whom?: No Are you DNR?: No Advance Directives: No Advance Directives Information Provided: Yes service: No Meds Allergies Allergy/AdvReac Type Severity Reaction Status Date / Time No Known Allergies Allergy Verified 06/07/25 09:26 Home Medications ?Medication ?Instructions ?Recorded ?Confirmed ?Last Taken ?Type amlodipine 5 mg tablet 5 mg PO DAILY 03/03/25 06/07/25 Unknown History Assessment and Plan Assessment Anesthesia Assessment: Chart Reviewed Final Anesthetic Review History of Problems with Anesthesia: No Documented by User: Sheri Mason MD 06/12/25 10:44 [facility] Past Medical History Medical History (Updated 06/07/25 @ 11:04 by Jude Escobedo MD) Diaphragmatic hernia Hypertension BMI 31.0-31.9,adult Obesity Constipation Hiatal hernia with gastroesophageal reflux Elevated parathyroid hormone Weight loss Acid reflux Family History Family History Mother Cancer Family history of problems with anesthesia: No Surgical History Surgical History Hx of colonoscopy History of ankle surgery Social History Social History Household Members: None Housing: Homeless Are you a primary career services manager to a significant other at home: No Do you presently have visiting nurse or other home services: No Patient Tobacco Use Status: Never used Tobacco Substance Use Type: Marijuana Have you been hit, kicked, punched, or otherwise hurt by someone within the past year? If so, by whom?: No Are you DNR?: No Advance Directives: No Advance Directives Information Provided: Yes service: No Meds Allergies Allergy/AdvReac Type Severity Reaction Status Date / Time No Known Allergies Allergy Verified 06/07/25 09:26 Home Medications ?Medication ?Instructions ?Recorded ?Confirmed ?Last Taken ?Type amlodipine 5 mg tablet 5 mg PO DAILY 03/03/25 06/07/25 Unknown History Exam Airway Mallampati Class: II (missing multiple teeth, including top front) TM Dist: >3cm Neck ROM: Full Heart: rrr Lungs: cta Assessment and Plan Assessment Anesthesia Assessment: Anesthesia Plan Discussed Final Anesthetic Review Family History of Problems with Anesthesia: No NPO: Yes ASA Class: II Final Preanesthetic Review: No Changes in Pt Med Stat, Meds/Allgs Chart Reviewed and Consent Obtained/Reviewed Patient Risk: Intermediate Procedure Risk: Intermediate Anesthetic Plan Anesthetic Plan: MAC: Disposition: Standard PACU
[2025-06-10 15:16] VITALS: BMI 31.0
[2025-06-12 10:32] VITALS: BP 124/61; PULSE 89; RESP 18; TEMP 36.1; O2SAT 96; BMI 31.3
[2025-06-12] MEDS: Lactated Ringers 1,000 ML 100 ML IVCONT (10:45)
--- NOTE | 2025-06-12 11:32 | MHC.SHP ---
Pre-Procedural Eval Section A - 24 Hr Update-Section A only Date of Service: 06/12/25 The patient is an INPATIENT: No The patient has been examined within 24 hours of the surgical procedure. The History & Physical has been completed within 30 days and I have reviewed it.: Yes Section B - Complete if H&P > 30 days Chief Complaint: gerd, Relevant Family History (Specify if Yes): No Relevant Social History: None Present Medications: None Medical History: No relevant PMH History of Previous Operations: No relevant previous surgery Allergies: Allergies Allergy/AdvReac Type Severity Reaction Status Date / Time No Known Allergies Allergy Verified 06/07/25 09:26 Review of Systems Sugical H&P ROS: Negative: Constitution, Cardiovascular, Respiratory, Neurological, Psychiatric, Hem-Onc, Allergic/Immunologic, Genitourinary, Musculoskeletal, Integumentary, Endocrine and Eyes/Ears/Nose/Throat and Yes, Specify: Gastrointestinal (Regurgitation) Exam Surgical H&P Exam: Normal: HEENT, Normal: Heart, Normal: Lungs, Normal: Extremities, Normal: Abdomen, Normal: Skin and Normal: Neurological Plan Diagnosis/Plan: Unchanged (EGD to assess etiology of GERD, the hiatal hernia and place the Vega device. Risks of bleeding and perforation were discussed with the patient and he is in agreement with the plan.) I have reviewed the history and physical and performed a pertinent physical examination on my patient. No changes have occurred unless specified. Time Spent With Patient Time: Total time managing care of this patient today ____ minutes.
--- NOTE | 2025-06-12 11:37 | PM.OP ---
Brief Operative Note Date of Service: 06/12/25 Pre-op diagnosis: Diaphragmatic hernia and regurgitation Post-op diagnosis: same Procedure: PROCEDURE DATE: 06/12/2025 PREOPERATIVE DIAGNOSIS: Diaphragmatic hernia and regurgitation POSTOPERATIVE DIAGNOSIS: ?Same as above. 1) 4cm fixed diaphragmatic hernia, PROCEDURE: Ddtaryxk-kzlktm-pwzekvchfklx with biopsies and Vega procedure Surgeon: ?Ger Escobedo M.D.. Ph.D. Freezer Tunnel Operator: None ? Anesthesia: IV sedation Estimated blood loss: ?Minimal FINDINGS AND PROCEDURE: ? OPERATIVE INDICATIONS: ?The patient is a 55 year old male who was referred to me for persistent regurgitation despite use of PPIs and a history of diaphragmatic hernia. Based on this information I recommended an upper endoscopy with the Vega procedure to evaluate the patient's symptoms and assess her GERD. Risks and complications of the surgery were discussed with the patient in advance particularly the possibility of perforation or bleeding that may require surgical intervention. The patient understood the risks and was in agreement with the plan. ? PROCEDURE: After informed consent was obtained by the patient, the patient was ?transferred to the Operating Room and was placed in the supine position.? After successful induction of IV sedation, a mouth block was inserted and the patient was placed in the left lateral decubitus position. An upper endoscopy was performed next, the oropharynx and esophagus appeared within the normal limits. There was a 4cm fixed diaphragmatic hernia. The z-line was smooth. Two biopsies were obtained from the distal esophagus 2-3 cm proximal to the GE junction and two additional biopsies from the GE junction. The stomach was entered and it appeared to be of normal size. There was no gastritis. There was no stricture or ulcer. A biopsy was obtained from the gastric fundus and the antrum. No significant bleeding was noted from any of the biopsy sites. The scope was then advanced into the duodenum which appeared to be normal as well. At that point the duodenum ?and the stomach were decompressed and the scope was withdrawn to the GE junction. We measured 6 cm proximal from the GEJ and that was about 30cm from incisors. The scope was withdrawn from the mouth and the Vega device was introduced to 30cm from incisors. The scope was re-introduced to confirm that the probe was in the esophagus and it was. The scope was withdrawn from the patient's mouth. Suction was connected to the device and was kept on for 45sec. At that point the device was deployed without difficulty and the remaining of the device was withdrawn from the patient's mouth without difficulty. The endoscope was re-introduced and I confirmed that the device was properly deployed in the esophagus at the intended location. At that point the scope was withdrawn from the patient's mouth and the procedure was ended. The patient extubated and was transferred in stable condition to the Recovery Room for further care. I was present and performed all steps of the procedure. There were no residents to assist with this case. Ger Escobedo M.D., Ph.D. Surgeon: Jude Escobedo MD Anesthesia: MAC Was an Freezer Tunnel Operator used for this Procedure?: No Estimated blood loss (mL): 0 IV fluids (mL): 400 Urine output (mL): 0 (No Swift to record output) Pathology: other (1) antrum x1, 2) fundus x1, 3) GE junction x2, 4) distal esophagus x2) Condition: stable Disposition: PACU
--- NOTE | 2025-06-12 11:44 | PC.NURSE ---
redness to right eye noted
[2025-06-12 12:35] VITALS: BP 137/74; PULSE 80; RESP 16; TEMP 36.5; O2SAT 100
[2025-06-12 12:45] VITALS: BP 146/90; PULSE 72; RESP 16; TEMP 36.4; O2SAT 100
[2025-06-12 13:00] VITALS: BP 151/95; PULSE 60; RESP 16; O2SAT 100
--- NOTE | 2025-06-12 13:02 | PC.NURSE ---
patient stated he is nauseous at baseline and always has a lot of siliva after eating or drinking , medicated with Zofran 4mg IV with some relief.
== END 2025-06-12 13:35 | disposition home or self-care (01) ==
PROVIDERS: Visit Provider Surgery
PROC: (CPT 43239; principal; 2025-06-12 11:30)
DX: K21.9 Gastro-esophageal reflux disease without esophagitis (principal); K44.9 Diaphragmatic hernia without obstruction or gangrene; I10 Essential (primary) hypertension
CPT/HCPCS: 43239; 88305; 88313; 88342; J2003; J2250; J2405; J2704

== ENCOUNTER → 2025-06-12 10:29 | Outpatient (BNV) | payer OTHER, SELFPAY | PROVIDERS: Visit Provider Surgery | DX: K44.9 Diaphragmatic hernia without obstruction or gangrene (principal); K21.9 Gastro-esophageal reflux disease without esophagitis | CPT/HCPCS: 43239; 91035 ==

== ENCOUNTER 2025-06-23 09:34 | Outpatient (AMB) | payer OTHER, SELFPAY ==
--- OUTSIDE RECORDS SUMMARY | 2025-01-03 07:30 | XMS_ITS ---
Author Organization [facility] Address [address] [place] [phone] Care Team Providers Care Impression Printer Name Role Phone Ginny Dial Primary Care [...] morning Please deliver to Health Services for [address] Active TYLENOL 8 HR ARTHRITIS PAIN [...] bedtime Please deliver to Health Services for [address] 02/23/2024 Active Social History Tobacco Use: Social History Observation Description Date Details (start date - stop date) Never Smoker NA - NA Sex Assigned At : Social History Observation Description Sex Assigned At Male Tobacco Use Assessment MU Question Answer Notes What is your current smoking status? nonsmoker Encounters Encounter Location Date Provider Diagnosis [address] [address] 01/03/2025 Ginny Dial Encounter for screening for [...] Braeden REYES WDOB: [birth year] (55 yo M)Acc No.[id number]:01/03/2025 Progress Notes Patient: Braeden WAYNE Provider: RAJ Emmanuel :1970 A ge:54 Y S ex:Male Date:01/03/2025 Address:[address] [place], [place] [phone] Subjective: * Chief Complaints: * 1 . [...] this type of visit. Location of provider:. 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 * Hospitalization/Major Diagno stic Procedure: [facility] Orthopedic surgery 2014. * Family History: M other: 50 yrs, Multiple Myeloma, heart disease, diagnosed with Cardiopathy, Cancer, disseminated. F ather: , hx unknown. F amily Hx: diagnosed with Cardiopathy, Cancer, disseminated. 2 sister(s) - healthy. 1 son(s) . . Has not heard from son, he is in [employer] Unknown health info for father. * Social History: H ousing/living arrangements: 09/09/23-been at [facility] over 1 month, previously sleeping outside in [place] in the parksPreviuous HX:08/14/23 [address] into [address] [place] [address], 2 weeks ago; feels unsafe from insect bites in the clinic01/23: [facility] living [facility] streets.. S Alisia Screening Entered Date 0 09/09/2023 How is this screening being conducted today? B y phone What is your housing situation today? I have housing today, but I am worried about losing housing in the future [facility] Think about the place you live. Do you have problems with any of the following? (Check all that apply) P est such as bugs, ants, or mice Pt has received multiple bug bites in the snf. Within the past 12 months, you worried [...] 1 10/15/2022 M ental Health: 09/09/23-engaging with [facility] team. Has an intake with med prescriber, Fannie Degroot, PMHNP-09/10/2411 Depression and anxiety; not currenlty seeing anyone for MH counseling.. S gilma Last grade completed 1 2 Required SPED services N o Reading/Writing competent L iterate W ork Hx: most recent employment Yadira last worked in 1995Incarcerated doing pre-release [id number]. 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 I ncome: 09/09/23-received SNAP but has been waiting for appt with medical and/or psych provider to complete med report for his EAEDC /8/23 Food stamps; has applied SSI spoke with Shy for next steps.. L egal issues/Incarcerations: [employer] came out 2006.. P CP/last visit: 07/29/23 [facility] Inpatient for Blood in Stool. T ransportation: [...] deliver to [facility] [address] [place] [address]., Taking ESCITALOPRAM 5 mg tablet 1 tab orally once a day in morning , Notes to Pharmacist: Please deliver to [facility] [address] [place] [address]., Taking ROSUVASTATIN 10 mg tablet 1 tab(s) [...] * Electronic signature of Doyle Dial on 06/23/2025 at 10:54 AM EDT Sign off status: Pending * Provider: Isaac Dial, ROSALINEC Date: 0 01/03/2025 Generated for Howard lomas/Candis/Jaspal on: 1 10:54 AM EDT History and Physical Notes * HPI (History of Present Illness) Category Sub-Category Detail Notes Category Not es General -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 Diverticulosis and hyperlipidemia, presents self for lab f/u today -[facility] - He was seen by BRENDA. Notes [...]
--- OUTSIDE RECORDS SUMMARY | 2025-03-06 06:30 | XMS_ITS ---
Author Organization [facility] Address [address] [place] [address] Care Team Providers Care Manager Actuarial Name Role Phone Ginny Dial Primary Care Provider [facility], Nursing Unavailable [phone] REASON FOR VISIT Office: BP 2 week f/u Social History Sex Assigned At : Social History Observation Description Sex Assigned At Male Encounters Encounter Location Date Provider Diagnosis [facility] [address] [place] [address] 03/06/2025 Nursing [facility] Plan Of Treatment No Information Progress Notes * Braeden REYES WDOB: [birth year] (55 yo M)Acc No.[id number]:03/06/2025 Progress Notes Patient: Braeden WAYNE Provider: Nando paez [facility] :1970 A ge:55 Y S ex:Male Date:03/06/2025 Address:[address] [place], [place] [id number] Pcp:Ginny Dial Subjective: * Chief Complaints: * 1 . Office: BP 2 week f/u. * Medical History: Objective: * Vitals: Assessment: Plan: * Treatment: * Images: Billing Information: * Electronic signature of Ivana malhotra [facility] on 06/23/2025 at 10:54 AM EDT Sign off status: Pending * Provider: Nando paez [facility] Date: 0 03/06/2025 Generated for Printi ng/Faxing/eTransmitting on: 1 10:54 AM EDT
--- OUTSIDE RECORDS SUMMARY | 2025-05-20 17:00 | XMS_ITS ---
Author Organization [facility] Address [address] [place] [phone] Care Team Providers Care Night Order Selector Name Role Phone Ginny Dial Primary Care Provider Migration, Provider Unavailable Unavailable [facility] VISIT [facility] Encounter Medications Medication SIG (Take, [...] deliver to [facility] [address] [place] [address]. 02/23/2024 Not-Taking Escitalopram Oxalate 5 MG 1 tab orally once a day in morning Please deliver to [facility] [address] [place] [address]. Not-Taking Esomeprazole Magnesium 40 MG 1 cap(s) orally once a day Active Triamcinolone Acetonide 0.025 % 1 mehnaz applied topically 3 times a day Not-Taking Social History Sex Assigned At : Social History Observation Description Sex Assigned At Male Encounters Encounter Location Date Provider Diagnosis [address] [phone] 05/20/2025 Provider Migration Essential (primary) hypertension I10 [...] Braeden REYES WDOB: [birth year] (55 yo M)Acc No.[id number]:05/20/2025 Patient: Braeden WAYNE Provider: :1970 A ge:55 Y S ex:Male Date:05/20/2025 Address:[address] [place] [phone] Pcp:Ginny Dial Subjective: * Chief Complaints: * 1 . [facility] En[facility]. * Medical History: * [...] deliver to [facility] [address] [place] [address]., Not-Taking/PRN Escitalopram Oxalate 5 MG Tablet 1 tab orally once a day in morning , Notes to Pharmacist: Please deliver to [facility] [address] [place] [address]., Not-Taking/PRN Rosuvastatin Calcium 10 MG Tablet 1 [...] Electronic signature of Prov ider Migration on 06/23/2025 at 10:53 AM EDT Sign off status: Pending * Provider: Date: 0 05/20/2025 Generated for Howard lomas/Candis/Jaspal on: 1 10:53 AM EDT
--- OUTSIDE RECORDS SUMMARY | 2025-06-23 10:54 | XMS_ITS | Patient Health Record ---
Author Organization [facility] Address [address] [place] [address] Care Team Providers Care Car Distributor Name Role Phone Ginny Dial Primary Care Provider Tam Degroot Unavailable [phone] [facility], Nursing Unavailable [phone] Daina Rudolph Unavailable [phone] [facility], CHW Unavailable [phone] [facility], Provider Unavailable Unavailable Allergies No Known [...] For Referral Reason PT-1 Requested for H [facility] [address] [facility] 12 months x 2 visits a month Referral Organization [facility] Referring Provider First Name Ginny Referring Provider Last Name Yojana Referring Provider Speciality Nurse Prac titioner Referred Provider PT1, Request Referral Priority Routine Reason [facility] gastro evaluat e for GERD with no relief from H2 Valerie Diagnosis 1 Gastro-esophageal re flux disease with esophagitis, without bleeding (K21.00) Referral Organization [facility] Referring Provider First Name Ginny Referring Provider Last Name Yojana Referring Provider Speciality Nurse Maurice haddad Referred Provider [facility], Gastroenterology Referred Provider Specialty Gastroentero logy General Notes Charla Ramon 2024 09:27:11 AM >Faxed to [facility], Juany Marcelino 12/19/2024 10:35:21 AM > paperwork refaxedFermín Katelyn 01/31/2025 02:01:28 PM > pt seen twice - notes requestedArun Paris 01/31/2025 03:20:45 PM > notes to scan Referral Priority Routine Referral Appointment Date 01/04/2025 Reason evaluate for recurre nt dermatitis Diagnosis 1 Dermatitis, unspecif ied (L30.9) Referral Organization [facility] Referring Provider First Name Ginny Referring Provider Last Name Yojana Referring Provider Speciality Nurse Maurice haddad Referred Provider Dodie, Dermatology Referred Provider Specialty Dermatology General Notes Charla Ramon 2024 09:36:46 AM >[facility] does not take [facility], referred to Trudy Munguia, referral and notes faxed, Juany Marcelino 12/19/2024 10:36:17 AM > paperwork refaxFermín jay Katelyn 04/04/2025 11:54:49 AM > pt seen note scanned Referral Priority Routine Referral Appointment Date 03/30/[address] [place] [address] Zelda Heath [facility] Referral Organization [facility] Referring Provider First Name Ginny Referring Provider Last Name Yojana Referring Provider Speciality Nurse Maurice haddad Referred Provider PT1, Request Referral Priority Routine Reason [facility] [address] [place] [facility] [address] (12 months X 3 visit) Referral Organization [facility] Referring Provider First Name Ginny Referring Provider Last Name Yojana Referring Provider Speciality Nurse Maurice haddad Referred Provider PT, -1 Referral Priority Routine Reason [facility], [address], [facility] P: [phone] F: [phone] evaluate for blurred vision Diagnosis 1 Diverticulosis of la rge intestine without perforation or abscess without bleeding (K57.30) Referral Organization [facility] Referring Provider First Name Ginny Referring [...] deliver to [facility] [address] [place] [address]. 02/23/2024 Not-Taking Escitalopram Oxalate 5 MG 1 tab orally once a day in morning Please deliver to [facility] [address] [place] [address]. Not-Taking Esomeprazole Magnesium 40 MG 1 cap(s) [...] Risk Notes Problem Vitamin B>12< deficiency anaemia (36450886) Vitamin B12 deficiency anemia, unspecified (D51.9) Active confirmed Problem Obesity (376277251) Obesity, unspecified (E66.9) Active confirmed Problem Mixed hyperlipidemia (708491343) Mixed hyperlipidemia (E78.2) Active confirmed Problem Severe recurrent major depression without psychotic features (76803322) Major depressive disorder, recurrent severe without psychotic features (F33.2) Active confirmed Problem Generalized anxiety disorder (78706644) Generalized anxiety disorder (F41.1) Active confirmed Problem Insomnia 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 disorder (86645167) Insomnia due to other mental disorder (F51.05) Active confirmed Problem Essential hypertension (62691046) Essential (primary) hypertension (I10) Active confirmed Problem Peripheral vascular disease (168152462) Peripheral vascular disease, unspecified (I73.9) Active confirmed Problem Diverticular disease of colon (237057172) Diverticulosis of large intestine without perforation or abscess without bleeding (K57.30) Active confirmed Problem Cervical radiculopathy (50679416) Radiculopathy, cervical region (M54.12) Active confirmed Problem Lumbar radiculopathy (636884535) Radiculopathy, lumbar region (M54.16) Active confirmed Problem Gastroesophageal reflux disease with esophagitis (disorder) (426138540) Gastro-esophageal reflux disease with esophagitis, without bleeding (K21.00) Active confirmed Problem Body mass index 30.00 to 34.99 (265597247530839) Body mass index [BMI] 32.0-32.9, adult (Z68.32) Active confirmed Problem Sheltered homelessness (607880592479665) Sheltered homelessness (Z59.01) Active confirmed Problem Recurrent major depression (89803173) Major depressive disorder, recurrent, unspecified (F33.9) Inactive confirmed Problem Migraine without aura, not refractory (disorder) (091009432) Migraine, unspecified, not intractable, without status migrainosus (G43.909) Inactive confirmed Problem Backache (050431305) Dorsalgia, unspecified (M54.9) Inactive confirmed Problem Headache (16436084) Headache (R51) Inactive conf irmed Problem Financially poor (52757937) Insufficient social insurance and welfare support (Z59.7) Inactive confirmed Problem Body mass index 35.00 to 39.99 (819553470884892) Body mass index [BMI] 36.0-36.9, adult (Z68.36) Inactive confirmed Vital Signs Temperature 98 degrees Fahrenheit 02/20/2025 Oximetry 97 02/20/2025 Blood pressure diastolic 88 02/20/2025 Height 75.5 in 02/20/2025 Blood pressure systolic 180 02/20/2025 Weight 264.6 lbs 02/20/2025 BMI 32.63 kg/m2 02/20/2025 Encounters Encounter Location Date Provider Diagnosis [address] [address] 05/20/2025 Provider Migration Essential (primary) hypertension I10 [facility] [address] [address] 07/12/[address] [address] 07/13/[address] [address] 07/26/2024 Eddieliza Casionan Encounter for screening for COVID-19 Z11.52 ; Mixed hyperlipidemia E78.2 ; Obesity, unspecified E66.9 ; Vitamin B12 deficiency anemia, unspecified D51.9 ; Immunization not carried out because of patient refusal Z28.21 and Sheltered homelessness Z59.01 [facility] [address] [place] [address] [facility] [place] [phone] 08/10/2024 Eddionel Laureanoan Person consulting for explanation of examination or test findings Z71.2 and Vitamin B12 deficiency anemia, unspecified D51.[address] [address] 02/20/2025 Eddieliza Casionan Encounter for screening for [...] I10 and Unspecified subjective visual disturbances H53.[address] [address] 02/20/2025 [facility] [address] [place] [phone] 12/29/2024 Eddieliza Casionan [address] [address] 07/26/2024 Eddieliza Casionan [facility] [address] [place] [phone] 07/26/2024 Eddieliza Casionan [address] [address] 07/28/2024 Eddieliza Casionan [facility] [address] [place] [phone] 08/09/2024 [facility]a [facility] [address] [place] [phone] 08/16/2024 Eddieliza Casionan [address] [address] 12/12/2024 Eddieliza Casionan Dermatitis, unspecified L30.9 and Gastro-esophageal reflux disease with esophagitis, without bleeding K21.[address] [address] 12/16/2024 Eddieliza Casionan [address] [address] 12/29/2024 Eddieliza Casionan [facility] [address] [place] [phone] 12/30/2024 Eddieliza Casionan [address] [address] 02/01/2025 Eddieliza Casionan [address] [address] 02/20/2025 Eddieliza Casionan [address] [address] 03/30/2025 Eddieliza Casionan Assessments Encounter Date Diagnosis (ICD Code) Assessment Notes Treatment Notes Treatment Clinical Notes Section Notes 07/26/2024 Mixed hyperlipidemia (ICD-10 - E78.2) Denies [...] with esophagitis, without bleeding (ICD-10 - K21.00) 07/26/2024 Obesity, unspecified (ICD-10 - E66.9) Engaged [...] his hydroxyzine. I will talk to his [facility] health provider. He should refrain from scrubbing and using alcohol and [id number] plain cold water and soap with no aggressive scrubbing. There may be an element of fungal infection especially on inner thighs and buttocks. Gave him a tube of Ketoconazole 1 % to apply 2x/day x 2 weeks with flares 07/26/2024 Vitamin B12 deficiency anemia, unspecified (ICD-10 - D51.9) Will check B12 02/20/2025 Diverticulosis of large intestine without perforation or abscess without bleeding (ICD-10 - K57.30) denies bloody stool 07/26/2024 Immunization not carried out because of patient refusal (ICD-10 - Z28.21) Declines Flu shot. Aware of risks 02/20/2025 Radiculopathy, lumbar region (ICD-10 - M54.16) no ative complaint 07/26/2024 Sheltered homelessness (ICD-10 - Z59.01) Sent message to Venita Che to check for any assistance with furnishing his apartment 02/20/2025 Radiculopathy, cervical region (ICD-10 - M54.12) No active complaint 02/20/2025 Sheltered homelessness (ICD-10 - Z59.01) Has apartment with [employer] 02/20/2025 Major depressive disorder, recurrent severe without [...] agrees Discussed Amlodipine. Serious S/E: chest pain, MS, hypotension, hepatitis, hypersensitivity reacitons. Lesser S/E: peripheral edema, fatigue, palpitations. dizziness, nausea, flushing, skin reactions. 02/20/2025 Unspecified subjective visual disturbances (ICD-10 - H53.10) Request referaal to ophthalmology 07/27/2024 Other 08/09/2024 Other 08/18/2024 Other 12/26/2024 Other 01/03/2025 Other 07/26/2024 Other 08/10/2024 Other Time spent [...] End Date [place] Medicaid C3 [address] [place], [place] [id number] Braeden Carpenter Self - patient is the insured 4 [place] [facility] [address] [place] [address] [id number] Braeden Carpenter Self - patient is the insured 3 [facility] [place] [address] [address] [place] [address] [id number] Braeden Carpenter Self - patient is the [...] torn 2014 Hospitalization History Reason Date(Month/Year) [facility] Orthopedic surger y 2014
--- OUTSIDE RECORDS SUMMARY | 2025-06-23 10:54 | XMS_ITS | Clinical Summary ---
Author Organization [address] [facility] Address [address] [place] [address] Phone Care Team Providers Care Latex Caster Name Role Phone Physician, Pcp Unknown Primary [...] LAB CHEMISTRY METHOD 07/26/2024 6:17 PM EST [facility] Triglycerides 44 0 - 150 mg/dL LAB CHEMISTRY METHOD 07/26/2024 6:17 PM EST [facility] HDL 54 >=40 mg/dL LAB CHEMISTRY METHOD 07/26/2024 6:17 PM EST [facility] LDL Calculated 99 0 - 100 mg/dL LAB CHEMISTRY METHOD 07/26/2024 6:17 PM EST [facility] VLDL Cholesterol Juan 8.8 mg/dL LAB CHEMISTRY METHOD 07/26/2024 6:17 PM EST [facility] Non HDL Chol. (LDL+VLDL) 108 <145 mg/dL LAB CHEMISTRY METHOD 07/26/2024 6:17 PM EST [facility] Chol/HDL Ratio 3.0 0.0 - 4.4 LAB CHEMISTRY METHOD 07/26/2024 6:17 PM EST [facility] Blood Venous blood specimen / Unknown 07/26/2024 9:43 AM EST 07/26/2024 6:01 PM EST us Eddionel Dial MULTI NEEDLE MACHINE OPERATOR LAB BLOOD ORDERABLES Final Result [facility] [address] [place] [address], from Last 3 Months or Most Recently Relevant to Health Maintenance Insurance MEDICAID - [place] Member Subscriber Plan / Payer (Ef fective 2024-Present) Name:Braeden Carpenter Relation to Subscriber:Self Name:Braeden Carpenter Payer ID:[id number] Group ID:Not on file Type:Not on file Address: [facility] [email or web address] [place] ATTN:CLAIM[employer] [address] [place] [address] Care Teams Latex Caster Relationship Specialty Start Date End Date Physician, Pcp Unknown PCP - General 07/26/24
--- OUTSIDE RECORDS SUMMARY | 2025-06-23 10:54 | XMS_ITS | Encounter Summary ---
Author Organization [employer] Address [address] [place] [address] Care Team Providers Care Seismograph Operator Helper Name Role Phone Physician, Pcp Unknown Primary Care Provider Linda vailable Encounter Details Date Type Department Care Team (Late st Contact Info) Description 07/26/2024 Lab Requisition [facility] - Main Lab [address] [facility] [place] [address] Ginny Dial, TYLER [address] [place] [address] Vitamin B12 deficiency anemia, unspecified; Mixed hyperlipidemia; [...] Vitamin B12 (07/26/2024 9:43 AM EST) Pathologist [facility] Vitamin B-12 401 250 - 900 pcg/mL LAB CHEMISTRY METHOD 07/26/2024 6:22 PM EST [facility] Blood Venous blood specimen / Unknown 07/26/2024 9:43 AM EST 07/26/2024 6:01 PM EST [facility] BLOOD ORDERABLES Final Result [facility] [address] [place] [address], [place] [phone] * Thyroid stimulating hormone with reflex to free t4 and free t3 (07/26/2024 9:43 AM EST) [facility] TSH 0.78 0.40 - 4.00 mcIU/mL LAB CHEMISTRY METHOD 07/26/2024 6:08 PM EST [facility] Blood Venous blood specimen / Unknown 07/26/2024 9:43 AM EST 07/26/2024 6:01 PM EST [facility] BLOOD ORDERABLES Final Result [facility] [address] [place] [address], [place] [phone] * Lipid panel with reflex to direct LDL (07/26/2024 9:43 AM EST) [facility] Cholesterol 162 0 - 200 mg/dL LAB CHEMISTRY METHOD 07/26/2024 6:17 PM EST [facility] Triglycerides 44 0 - 150 mg/dL LAB CHEMISTRY METHOD 07/26/2024 6:17 PM EST [facility] HDL 54 >=40 mg/dL LAB CHEMISTRY METHOD 07/26/2024 6:17 PM [facility] LDL Calculated 99 0 - 100 mg/dL LAB CHEMISTRY METHOD 07/26/2024 6:17 PM [facility] VLDL Cholesterol Juan 8.8 mg/dL LAB CHEMISTRY METHOD 07/26/2024 6:17 PM [facility] Non HDL Chol. (LDL+VLDL) 108 <145 mg/dL LAB CHEMISTRY METHOD 07/26/2024 6:17 PM [facility] Chol/HDL Ratio 3.0 0.0 - 4.4 LAB CHEMISTRY METHOD 07/26/2024 6:17 PM [facility] Blood Venous blood specimen / Unknown 07/26/2024 9:43 AM EST 07/26/2024 6:01 PM EST us Eddionel Dial BLANKING PRESS OPERATOR LAB BLOOD ORDERABLES Final Result Performing Organization Address City/[facility]/ZIP Co de Phone Number [facility] [address] [place] [address], [place] [phone] * Hemoglobin A1c (07/26/2024 9:43 AM EST) Pathologist [facility] Hemoglobin A1C 4.9 <6.5 % LAB CHEMISTRY METHOD 07/27/2024 1:00 PM [facility] Mean Bld Glu Estim. 94 mg/dL LAB CHEMISTRY METHOD 07/27/2024 1:00 PM [facility] Blood Venous blood specimen / Unknown 07/26/2024 9:43 AM EST 07/26/2024 5:51 PM EST us Eddielinoreen Dial BLANKING PRESS OPERATOR LAB BLOOD ORDERABLES Final Result Performing Organization Address City/[facility]/ZIP Co de Phone Number [facility] [address] [place] [address], [place] [phone] * (ABNORMAL) Complete blood count (07/26/2024 9:43 AM EST) WBC 5.7 4.8 - 10.8 K/mcL LAB HEMETOLOGY METHOD 07/26/2024 5:51 PM [facility] RBC 3.90(L) 4.50 - 5.50 M/mcL LAB HEMETOLOGY METHOD 07/26/2024 5:51 PM [facility] Hemoglobin 13.1(L) 13.5 - 17.5 g/dL LAB HEMETOLOGY METHOD 07/26/2024 5:51 PM [facility] Hematocrit 39.5(L) 42.0 - 54.0 % LAB HEMETOLOGY METHOD 07/26/2024 5:51 PM [facility] MCV 102.3(H) 79.0 - 98.0 FL LAB HEMETOLOGY METHOD 07/26/2024 5:51 PM [facility] MCH 33.9(H) 27.0 - 32.0 pcg LAB HEMETOLOGY METHOD 07/26/2024 5:51 PM [facility] MCHC 33.2 32.0 - 37.0 g/dL LAB HEMETOLOGY METHOD 07/26/2024 5:51 PM [facility] RDW 12.8 11.0 - 15.0 % LAB HEMETOLOGY METHOD 07/26/2024 5:51 PM [facility] Platelets 161 130 - 400 K/[facility] LAB HEMETOLOGY METHOD 07/26/2024 5:51 PM [facility] MPV 11.8(H) 7.0 - 11.0 FL LAB HEMETOLOGY METHOD 07/26/2024 5:51 PM [facility] NRBC 0.0 <1.0 % LAB HEMETOLOGY METHOD 07/26/2024 5:51 PM [facility] NRBC Absolute 0.00 <0.10 K/[facility] LAB HEMETOLOGY METHOD 07/26/2024 5:51 PM EST [facility] Blood Venous blood specimen / Unknown 07/26/2024 9:43 AM EST 07/26/2024 5:51 PM EST us Ginny Dial BLANKING PRESS OPERATOR LAB BLOOD ORDERABLES Final Result [facility] [address] [place] [address], documented in this encounter Visit Diagnoses Diagnosis Vitamin B12 deficiency anemia, unspecified Mixed hyperlipidemia Obesity, unspecified documented in this encounter Care Teams Seismograph Operator Helper Relationship Specialty Start Date End Date Physician, Pcp Unknown PCP - General 07/26/24 documented as of this encounter
--- NOTE | 2025-06-23 13:37 | A.OFFVIS_ITS ---
Intake Visit Reasons: TV Pre Op Diaphragmatic Hernia 06/27/25 Allergies No Known Allergies Allergy (Verified 06/23/25 13:37) Medication List - Last Reconciled 06/23/25 by Jude Escobedo MD amlodipine 5 mg PO DAILY esomeprazole magnesium 40 mg PO DAILY famotidine 20 mg PO DAILY ondansetron 4 mg PO Q12H ondansetron 4 mg sublingual Q8H PRN polyethylene glycol 3350 17 grams PO DAILY sennosides (senna) 8.6 mg PO BEDTIME PRN sucralfate 10 mL PO BID HPI HPI TV Pre Op Diaphragmatic Hernia 06/27/25: Details: Start time: 1.32pm, End time: 2.02pm ?I spent 25 minutes speaking with the patient on the phone plus an additional 5 minutes reviewing and updating records for a total of 30 minutes HPI Comments Details: This is his preoperative appointment for laparoscopic diaphragmatic hernia I reviewed and discussed with the patient the findings of the Vega test: DeMeester score was 23 which indicates severe GERD but there was no correlation with the symptoms he recorded. I did tell him that we do have objective findings to proceed with the surgery but because there was no correlation between the score and his symptoms, it is possible that his symptoms may have another etiology and they may persist even after the repair of the hernia. The patient understands and wishes to proceed with the surgery. [facility] Medical History (Updated 06/07/25 @ 11:04 by Jude Escobedo MD) Diaphragmatic hernia Hypertension BMI 31.0-31.9,adult Obesity Constipation Hiatal hernia with gastroesophageal reflux Elevated parathyroid hormone Weight loss Acid reflux Surgical History (Updated 06/23/25 @ 08:33 by Cailin Arciniega RN) History of esophagogastroduodenoscopy (EGD) (06/12/25) Hx of colonoscopy History of ankle surgery Family History Mother Cancer Social History Household Members: None Housing: Homeless Are you a primary plant care worker to a significant other at home: No Do you presently have visiting nurse or other home services: No Patient Tobacco Use Status: Never used Tobacco Substance Use Type: Marijuana service: No Telehealth Telehealth Telehealth Platform: Telephone Location of provider rendering services: practice address Location of patient: address on file Patient Identification confirmed using: Name, : Yes Telehealth method: voice only Patient verbally consented to treatment: Yes Patient verbally consented to billing insurance company: Yes Patient informed of any privacy concerns related to visit: Yes Minutes spent on Phone/Video with Pt.: 30 Assessment & Plan Assessment & Plan (1) Hiatal hernia with gastroesophageal reflux: Comment: EGD with balloon dilation 02/16/25 -hiatal hernia, gastritis , no esophageal mass/tears seen, tight pylorus outlet (balloon dilation). Code(s): K44.9 - Diaphragmatic hernia without obstruction or gangrene; K21.9 - Gastro- esophageal reflux disease without esophagitis Category: Medical Plan: 1. We discussed that her recent CT of the abdomen shows a moderate size diaphragmatic hernia which means that about one fourth of your stomach lives in the chest pushing at your heart and your lungs and is causing the severe heartburn you have despite using two medications. These hernias do not go away but increase in size over time causing more symptoms and requiring a more complex operation at an older age. These hernias are also worsened by your extra weight. We discussed the details of the diaphragmatic hernia repair and the potential technical challenges such as being able to achieve enough mobilization of the esophagus back in the abdomen and being able to close the diaphragmatic muscle (crura) primarily with sutures. We also discussed the possibility of using a biologic mesh to close the hernia defect if the crura cannot be adequately re-approximated primarily with sutures. We also discussed the option of doing a gastropexy or a fundoplication to prevent postoperative reflux and prevent hernia recurrence. As we discussed, I favor the gastropexy as the fundoplication can cause several distrurbing symptoms such as gas-bloating, flatulence, inability to burp which can be bothersome to patients. Also we discussed the complexity of a potential hernia recurrence in association with a hernia recurrence. He was in agreement not to have a fundoplication. We also discussed that after surgery, he will need to be on a liquid diet with protein shakes the first week. The second week will add protein bars and soft foods and after the third week we will introduce small amounts of regular food. The transition to normal eating habits will take about 6 weeks which is the time required for the repair to heal completely. 2. Preop prescriptions were provided and explained the purpose of each one. Need to be purchased preop. Start Pantoprazole now as you get it from the pharmacy, 1 pill per day. Sucralfate and Zofran are for after surgery as needed. 3. Bowel prep: please do 7 packets ?of Miralax mixing each one with a an 8oz glass of water, crystal light, gatorade zero, or propel ?on 06/25/25 and the same amount on 06/26/25. The Miralax you begin with one packet at a time in 8oz water or crystal light, gatorade zero, or propel ?as early in the day as you can and you do them back to back until you finish them. Continue the protein shakes during ?the bowel prep. 4. Needs to purchase 1oz medicine cups . 5. Needs to purchase Children's liquid Tylenol for postop pain control. 6. Avoid aspirin, motrin, Advil, Aleve, Meloxicam, Excedrin, Ibuprofen, Naproxyn. Tylenol is OK. 8. Will do basic preop blood work-up tomorrow Thursday fasting for 12 hours and is scheduled to see the Anesthesiologist prior to the day of surgery. 10. Importance of adherence to postop folllow-up and recommendations was underscored and he understands that. 11. Stop food as of tomorrow Thursday and continue with 2 PREMIER protein shakes (mix 4oz Premier shake for each with 4oz almond milk) at 8am-10am and 11am-1pm and three more PREMIER protein shakes (8oz each and NOT the whole bottle) at 2pm-4pm, 5pm-7pm and 8pm-10pm 12. No soups, broths or V8 13. The patient's?medical?history has been reviewed and they are considered low risk for post op DVT and therefore DVT prophylaxis is not considered necessary. Travel after surgery was reviewed. The patient has not disclosed any travel plans during the first 30 days after surgery and they have been advised that within the first 30 days after surgery any bus, plane, train or car travel over 2 hours in duration is contraindicated due to the possibility of developing blood clots from immobility. Any travel, needs to include periods of ambulation of 10 minutes in duration every 2 hours.? Patient was instructed to discuss any plans for travel during this period with their bariatric surgeon.? 14. As of tomorrow, please try to check your blood pressure daily in the morning. If your blood pressure is: Below 120/70: do not take the Amlodipine 121/71 to 135/85: take HALF Amlodipine Over 136/86: take the whole Amlodipine 15. Please take at the day of surgery the following medications: Amlodipine if the blood pressure that day is high enough to justify it based on the parameters at the previous bullet point. 17. Absolutely no smoking or vaping, or marijuana until the surgery and for at least the first 4 weeks. Only nicotine patches are allowed. 18. Send me weight measurements on Thursday, the day of surgery before you go to the hospital. 19. Avoid any steroids by mouth for any reason. Let me know if someone prescribes them to you Medications: New ondansetron Only take one every 12 hours as needed if you have nausea 4 mg PO Q12H 20 tabs 0RF nausea and vomiting R11.0 - Nausea sucralfate 10 mL PO BID 600 mL 2RF K21.9 - Gastro-esophageal reflux disease without esophagitis polyethylene glycol 3350 Mix each measuring cup with 8oz of water, Crystal light, or Gatorade zero, or Propel and do 7 measuring cups on 06/25/25 and another 7 measuring cups on 06/26/25 17 grams PO DAILY 238 grams 0RF Z01.818 - Encounter for other preprocedural examination
== END 2025-06-23 14:03 | disposition home or self-care (01) ==
LOC: HO.HBS 09:34
PROVIDERS: Visit Provider Surgery
DX: K44.9 Diaphragmatic hernia without obstruction or gangrene (principal); K21.9 Gastro-esophageal reflux disease without esophagitis
CPT/HCPCS: 99214

== ENCOUNTER 2025-06-27 06:00 | Inpatient (IN) | payer OTHER, SELFPAY ==
--- OUTSIDE RECORDS SUMMARY | 2025-01-03 07:30 | XMS_ITS ---
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 Active TYLENOL 8 HR ARTHRITIS PAIN [...] bedtime Please deliver to Health Services for [address] 02/23/2024 Active Social History Tobacco Use: Social History Observation Description Date Details (start date - stop date) Never Smoker NA - NA Sex Assigned At : Social History Observation Description Sex Assigned At Male Tobacco Use Assessment MU Question Answer Notes What is your current smoking status? nonsmoker Encounters Encounter Location Date Provider Diagnosis [address] [address] 01/03/2025 Ginny Dial Encounter for screening for [...] Braeden REYES WDOB: [birth year] (55 yo M)Acc No.[id number]:01/03/2025 Progress Notes Patient: Braeden WAYNE Provider: RAJ Emmanuel :1970 A ge:54 Y S ex:Male Date:01/03/2025 Address:[address] [place], [place] [id number] Subjective: * Chief Complaints: * 1 . [...] this type of visit. Location of provider:. 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 * Hospitalization/Major Diagno stic Procedure: [facility] Orthopedic surgery 2014. * Family History: M other: 50 yrs, Multiple Myeloma, heart disease, diagnosed with Cancer, disseminated, Cardiopathy. F ather: , hx unknown. F amily Hx: diagnosed with Cardiopathy, Cancer, disseminated. 2 sister(s) - healthy. 1 son(s) . . Has not heard from son, he is in [employer] Unknown health info for father. * Social History: H ousing/living arrangements: 09/09/23-been at [facility] over 1 month, previously sleeping outside in [place] in the parksPreviuous HX:08/14/[address] into [address] [place] [address], 2 weeks ago; feels unsafe from insect bites in the clinic01/23: [facility] living on streets.. S Alisia Screening Entered Date 0 09/09/2023 How is this screening being conducted today? B y phone What is your housing situation today? I have housing today, but I am worried about losing housing in the future [facility] Think about the place you live. Do you have problems with any of the following? (Check all that apply) P est such as bugs, ants, or mice Pt has received multiple bug bites in the longterm. Within the past 12 months, you worried [...] 1 10/15/2022 M ental Health: 09/09/23-engaging with [facility] team. Has an intake with med prescriber, Fannie Degroot, PMHNP-09/10/2411 Depression and anxiety; not currenlty seeing anyone for MH counseling.. S gilma Last grade completed 1 2 Required SPED services N o Reading/Writing competent L iterate W ork Hx: most recent employment Yadira last worked in 1995Incarcerated doing pre-release [id number]. 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 I ncome: 09/09/23-received SNAP but has been waiting for appt with medical and/or psych provider to complete med report for his EAEDC [id number]/8/23 Food stamps; has applied SSI spoke with Shy for next steps.. L egal issues/Incarcerations: [employer] came out 2006.. P CP/last visit: 07/29/23 [facility] Inpatient for Blood in Stool. T ransportation: [...] deliver to [facility] [address] [place] [address]., Taking ESCITALOPRAM 5 mg tablet 1 tab orally once a day in morning , Notes to Pharmacist: Please deliver to [facility] [address] [place] [address]., Taking ROSUVASTATIN 10 mg tablet 1 tab(s) [...] * Electronic signature of Doyle Dial on 06/27/2025 at 06:26 AM EDT Sign off status: Pending * Provider: Isaac Dial, ROSALINEC Date: 0 01/03/2025 Generated for Howard lomas/Candis/Jaspal on: 06:26 AM EDT History and Physical Notes * HPI (History of Present Illness) Category Sub-Category Detail Notes Category Not es General -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 Diverticulosis and hyperlipidemia, presents self for lab f/u today -[facility] - He was seen by BRENDA. Notes [...]
--- OUTSIDE RECORDS SUMMARY | 2025-03-06 06:30 | XMS_ITS ---
Author Organization [facility] Address [address] [place] [address] Care Team Providers Care Power Checker Name Role Phone Ginny Dial Primary Care Provider [phone] [facility], Nursing Unavailable [phone] REASON FOR VISIT Office: BP 2 week f/u Social History Sex Assigned At : Social History Observation Description Sex Assigned At Male Encounters Encounter Location Date Provider Diagnosis [facility] [address] [place] [address] 03/06/2025 Nursing [facility] Plan Of Treatment No Information Progress Notes * Braeden REYES WDOB: [birth year] (55 yo M)Acc No.[id number]:03/06/2025 Progress Notes Patient: Braeden WAYNE Provider: Nando paez [facility] :1970 A ge:55 Y S ex:Male Date:03/06/2025 Address:[address] [place], [place] [phone] Pcp:Ginny Dial Subjective: * Chief Complaints: * 1 . Office: BP 2 week f/u. * Medical History: Objective: * Vitals: Assessment: Plan: * Treatment: * Images: Billing Information: * Electronic signature of Ivana malhotra [facility] on 06/27/2025 at 06:26 AM EDT Sign off status: Pending * Provider: Nando paez [facility] Date: 0 03/06/2025 Generated for Printi ng/Faxing/eTransmitting on: 1 06:26 AM EDT
--- OUTSIDE RECORDS SUMMARY | 2025-05-20 17:00 | XMS_ITS ---
Author Organization [facility] Address [address] [place] [phone] Care Team Providers Care Brick Catcher Name Role Phone Ginny Dial Primary Care Provider Migration, Provider Unavailable Unavailable [facility]AS[facility]IT [facility] Encounter Medications Medication SIG (Take, Route, [...] deliver to [facility] [address] [place] [address]. 02/23/2024 Not-Taking Escitalopram Oxalate 5 MG 1 tab orally once a day in morning Please deliver to [facility] [address] [place] [address]. Not-Taking Esomeprazole Magnesium 40 MG 1 cap(s) orally once a day Active Triamcinolone Acetonide 0.025 % 1 mehnaz applied topically 3 times a day Not-Taking Social History Sex Assigned At : Social History Observation Description Sex Assigned At Male Encounters Encounter Location Date Provider Diagnosis [address] [address] 05/20/2025 Provider Migration Essential (primary) hypertension I10 [...] Braeden REYES WDOB: [birth year] (55 yo M)Acc No.[id number]:05/20/2025 Patient: Braeden WAYNE Provider: :1970 A ge:55 Y S ex:Male Date:05/20/2025 Address:[address] [place] [phone] Pcp:Ginny Dial Subjective: * Chief Complaints: * 1 . [facility] En[facility]. * Medical History: * [...] deliver to [facility] [address] [place] [address]., Not-Taking/PRN Escitalopram Oxalate 5 MG Tablet 1 tab orally once a day in morning , Notes to Pharmacist: Please deliver to [facility] [address] [place] [address]., Not-Taking/PRN Rosuvastatin Calcium 10 MG Tablet 1 [...] Electronic signature of Prov ider Migration on 06/27/2025 at 06:26 AM EDT Sign off status: Pending * Provider: Date: 0 05/20/2025 Generated for Howard lomas/Candis/Jaspal on: 1 06:26 AM EDT
--- NOTE | 2025-06-23 12:53 | HO.ANESPROP2 ---
Documented by User: Leonela Petty NP 06/26/25 09:55 HPI - Anesthesia Eval Consult details Narrative: 55yo M for Hernia Diaphragmatic Lap Reducible BMI 31 PMFSH Active Problems Active Problems: All Active Problems B12 deficiency (Acute) Diaphragmatic hernia (Acute) Hypertension (Acute) BMI 31.0-31.9,adult (Acute) Obesity (Acute) Constipation (Acute) Hiatal hernia with gastroesophageal reflux (Acute) Elevated parathyroid hormone (Acute) Weight loss (Acute) Acid reflux (Acute) Past Medical History Medical History Situational anxiety Nausea Diaphragmatic hernia Hypertension BMI 31.0-31.9,adult Obesity Constipation Hiatal hernia with gastroesophageal reflux Elevated parathyroid hormone Weight loss Acid reflux Family History Family History Mother Cancer Family history of problems with anesthesia: No Surgical History Surgical History History of esophagogastroduodenoscopy (EGD) (06/12/25) Hx of colonoscopy History of ankle surgery History of Problems with Anesthesia: No Social History Social History Household Members: None Housing: Apartment Are you a primary customer care specialist to a significant other at home: No Do you presently have visiting nurse or other home services: No Patient Tobacco Use Status: Never used Tobacco Use of substances other than those prescribed or required for medical reasons: Yes Substance Use Type: Marijuana Substance Use Frequency: Daily Have you been hit, kicked, punched, or otherwise hurt by someone within the past year? If so, by whom?: No Are you DNR?: No Advance Directives: No Advance Directives Information Provided: Yes Advance Directives on File: No Poor oral hygiene: Yes (missing teeth) service: No Meds Allergies Allergy/AdvReac Type Severity Reaction Status Date / Time No Known Allergies Allergy Verified 06/27/25 06:17 Home Medications ?Medication ?Instructions ?Recorded ?Confirmed ?Last Taken ?Type amlodipine 5 mg tablet 5 mg PO DAILY 03/03/25 06/26/25 06/23/25 History Exam Pertinent Lab Results Pertinent Lab Results: Lab Results 06/24/25 06/24/25 Range/Units 09:59 10:01 WBC 7.5 (4.8-10.8) X10*3/uL RBC 4.09 L (4.60-5.80) X10*6/uL Hgb 13.6 L (14.0-18.0) g/dl Hct 40.3 L (42.0-52.0) % MCV 98.5 H (80.0-98.0) fL MCH 33.3 H (27.0-33.0) pg MCHC 33.7 (31.0-36.0) g/dl RDW 13.5 (11.0-16.0) % Plt Count 191 (160-400) X10*3/uL MPV 10.1 (9.4-12.4) fL Immature Gran % (Auto) 0.3 (0.0-0.4) % Neut % (Auto) 54.6 (45-73) % Lymph % (Auto) 36.1 (20-40) % Benson % (Auto) 6.3 (2-11) % Eos % (Auto) 2.4 (0-4) % Baso % (Auto) 0.3 (0-2) % Lymph # (Auto) 2.7 (1.2-4.9) X10*3/uL Benson # (Auto) 0.5 (0.1-1.2) X10*3/uL Eos # (Auto) 0.2 (0.0-0.4) X10*3/uL Baso # (Auto) 0.0 (0.0-0.2) X10*3/uL Abs Immat Gran (auto) 0.02 (0.00-0.03) X10*3/uL Absolute Neuts (auto) 4.1 (2.0-8.3) x10*3/uL Absolute Nucleated RBC 0.000 (0.0-0.012) X10*3/uL Nucleated RBC % (auto) 0.0 (0.0-0.2) /100WBC PT 10.8 L (10.9-12.4) SEC INR 0.9 (0.9-1.1) APTT 27.7 (26.7-34.1) SEC Sodium 140 (135-145) mmol/L Potassium 4.1 D (3.3-5.1) mmol/L Chloride 106 (96-108) mmol/L Carbon Dioxide 23 (22-29) mmol/L Anion Gap 15 (12-20) BUN 14 (9-16) mg/dL Creatinine 1.13 (0.5-1.4) mg/dL Estim Creat Clear Calc TNP Estimated GFR > 60 Random Glucose 103 (60-115) mg/dL Estimat Average Glucose 108 mg/dL Hemoglobin A1c % 5.4 (<6.0) % Insulin Level 12 (2-29) uU/mL Calcium 9.2 (8.4-10.2) mg/dL Total Bilirubin 1.0 (0.0-1.0) mg/dL AST 18 (5-37) U/L ALT 17 (0-40) U/L Alkaline Phosphatase 61 (39-117) U/L C-Reactive Protein 0.23 (< or = 0.50) mg/dL Total Protein 7.3 (6.5-8.0) g/dL Albumin 4.3 (3.5-5.0) g/dL Triglycerides 52 (<150) mg/dL Cholesterol 241 H (<200) mg/dL LDL Cholesterol, Calc 178 H (<100) mg/dL HDL Cholesterol 53 (>40) mg/dL TSH 0.98 (0.32-4.0) uIU/mL Blood Type B Positive Antibody Screen NEGATIVE Narrative Narrative: EKG 12/2024 Vent. Rate : 63 BPM Atrial Rate : 63 BPM P-R Int : 180 ms QRS Dur : 82 ms QT Int : 408 ms P-R-T Axes : 43 4 30 degrees QTcB Int : 417 ms Normal sinus rhythm Normal ECG No previous ECGs available Assessment and Plan Assessment Anesthesia Assessment: Chart Reviewed Final Anesthetic Review Family History of Problems with Anesthesia: No History of Problems with Anesthesia: No Documented by User: Mary Raza MD 06/27/25 07:28 [facility] Past Medical History Medical History Situational anxiety Nausea Diaphragmatic hernia Hypertension BMI 31.0-31.9,adult Obesity Constipation Hiatal hernia with gastroesophageal reflux Elevated parathyroid hormone Weight loss Acid reflux Family History Family History Mother Cancer Surgical History Surgical History History of esophagogastroduodenoscopy (EGD) (06/12/25) Hx of colonoscopy History of ankle surgery Social History Social History Household Members: None Housing: Apartment Are you a primary customer care specialist to a significant other at home: No Do you presently have visiting nurse or other home services: No Patient Tobacco Use Status: Never used Tobacco Use of substances other than those prescribed or required for medical reasons: Yes Substance Use Type: Marijuana Substance Use Frequency: Daily Have you been hit, kicked, punched, or otherwise hurt by someone within the past year? If so, by whom?: No Are you DNR?: No Advance Directives: No Advance Directives Information Provided: Yes Advance Directives on File: No Poor oral hygiene: Yes (missing teeth) service: No Meds Allergies Allergy/AdvReac Type Severity Reaction Status Date / Time No Known Allergies Allergy Verified 06/27/25 06:17 Home Medications ?Medication ?Instructions ?Recorded ?Confirmed ?Last Taken ?Type amlodipine 5 mg tablet 5 mg PO DAILY 03/03/25 06/26/25 06/23/25 History Exam Airway Mallampati Class: III TM Dist: >3cm Neck ROM: Full Loose/Missing/Broken Teeth: Yes and Upper Heart: RRR Lungs: CTA Assessment and Plan Assessment Anesthesia Assessment: Anesthesia Plan Discussed Final Anesthetic Review NPO: Yes ASA Class: II Final Preanesthetic Review: Meds/Allgs Chart Reviewed, Consent Obtained/Reviewed and Anes Risks/Benef Reviewed Patient Risk: Low Procedure Risk: Intermediate Anesthetic Plan Anesthetic Plan: GA Disposition: Standard PACU
[2025-06-24 10:02] LABS: MANUAL DIFF FLAG NO
[2025-06-24 10:57] LABS: Hematocrit 40.3 % (42.0-52.0); Hemoglobin 13.6 g/dl (14.0-18.0); Imm Gran Abs Auto 0.02 X10*3/uL (0.00-0.03); Imm Gran Pct Auto 0.3 % (0.0-0.4); Lymphocytes Absolute Auto 2.7 X10*3/uL (1.2-4.9); Mean Corpuscular HGB Conc 33.7 g/dl (31.0-36.0); Mean Corpuscular Hemoglobin 33.3 pg (27.0-33.0); Mean Corpuscular Volume 98.5 fL (80.0-98.0); NRBC Abs Auto 0.000 X10*3/uL (0.0-0.012); NRBC Pct Auto 0.0 /100WBC (0.0-0.2); Platelet Count 191 X10*3/uL (160-400); Red Blood Count 4.09 X10*6/uL (4.60-5.80); White Blood Count 7.5 X10*3/uL (4.8-10.8)
[2025-06-24 11:10] LABS: INTERNATIONAL NORM RATIO 0.9 (0.9-1.1); Prothrombin Time 10.8 SEC (10.9-12.4)
[2025-06-24 11:13] LABS: Partial Thromboplastin Time 27.7 SEC (26.7-34.1)
[2025-06-24 11:47] LABS: Alanine Aminotransferase 17 U/L (0-40); Albumin Level 4.3 g/dL (3.5-5.0); Alkaline Phosphatase 61 U/L (39-117); Anion Gap 15 (12-20); Aspartate Amino Transferase 18 U/L (5-37); Blood Urea Nitrogen 14 mg/dL (9-16); Calcium 9.2 mg/dL (8.4-10.2); Carbon Dioxide 23 mmol/L (22-29); Chloride 106 mmol/L (96-108); Cholesterol 241 mg/dL (<200); Estimated Glomerular Filt Rate > 60; HDL Cholesterol 53 mg/dL (>40); Potassium 4.1 mmol/L (3.3-5.1); Sodium 140 mmol/L (135-145); Total Protein 7.3 g/dL (6.5-8.0); Triglycerides 52 mg/dL (<150)
[2025-06-24 11:53] LABS: Hemoglobin A1C 123.4814 umol/L; Total Hemoglobin (HGBA1C) 3465.0876 umol/L
[2025-06-26 09:18] VITALS: BMI 31.2
[2025-06-26 10:10] VITALS: BP 124/68; PULSE 75; RESP 16; O2SAT 99
[2025-06-27] VITALS (8 sets, daily range): BP systolic 121–147; BP diastolic 64–78; PULSE 66–99; RESP 14–20; TEMP 36.5–37.3; O2SAT 98–100; BMI 30.6
[2025-06-27] MEDS: Lactated Ringers 1,000 ML 100 ML IVCONT ×3 (06:22→21:05)
[2025-06-27] MEDS: Lactated Ringers 1,000 ML 999 ML IV (06:22)
--- OUTSIDE RECORDS SUMMARY | 2025-06-27 06:26 | XMS_ITS | Patient Health Record ---
Author Organization [facility] Address [address] [place] [address] Care Team Providers Care Denial Resolution Specialist Name Role Phone Ginny Dial Primary Care Provider [phone] Tam Degroot Unavailable [phone] [facility], Nursing Unavailable [phone] Daina Rudolph Unavailable [phone] [facility], CHW Unavailable [phone] Migration, Provider Unavailable Unavailable Allergies No Known [...] For Referral Reason PT-1 Requested for [facility] [address] [facility] 12 months x 2 visits a month Referral Organization [facility] Referring Provider First Name Ginny Referring Provider Last Name Yojana Referring Provider Speciality Nurse Prac titioner Referred Provider PT1, Request Referral Priority Routine Reason [facility] evalu[facility] for GERD with no relief from H2 Valerie Diagnosis 1 Gastro-esophageal re flux disease with esophagitis, without bleeding (K21.00) Referral Organization [facility] Referring Provider First Name Ginny Referring Provider Last Name Yojana Referring Provider Speciality Nurse Maurcie haddad Referred Provider [facility], Gastroenterology Referred Provider Specialty Gastroentero logy General Notes Charla Ramon 2024 09:27:11 AM >Faxed to [facility], Juany Marcelino 12/19/2024 10:35:21 AM > paperwork refaxedFermín Katelyn 01/31/2025 02:01:28 PM > pt seen twice - notes requestedArun Paris 01/31/2025 03:20:45 PM > notes to scan Referral Priority Routine Referral Appointment Date 01/04/2025 Reason evaluate for recurre nt dermatitis Diagnosis 1 Dermatitis, unspecif ied (L30.9) Referral Organization [facility] Referring Provider First Name Ginny Referring Provider Last Name Yojana Referring Provider Speciality Nurse Maurice haddad Referred Provider Dodie, Dermatology Referred Provider Specialty Dermatology General Notes Charla Ramon 2024 09:36:46 AM >[facility] does not take [facility], referred to Trudy Munguia, referral and notes faxed, Juany Marcelino 12/19/2024 10:36:17 AM > paperwork refaxFermín jay Katelyn 04/04/2025 11:54:49 AM > pt seen note scanned Referral Priority Routine Referral Appointment Date 03/30/2025 Reason To [address] [place] [address] Zelda [facility] Referral Organization [facility] Referring Provider First Name Ginny Referring Provider Last Name Yojana Referring Provider Speciality Nurse Maurice haddad Referred Provider PT1, Request Referral Priority Routine Reason [facility] [address] [place] [address] [facility] [address] (12 months X 3 visit) Referral Organization [facility] Referring Provider First Name Ginny Referring Provider Last Name Yojana Referring Provider Speciality Nurse Maurice haddad Referred Provider PT, -1 Referral Priority Routine Reason [facility], [address], [facility] P: [phone] F: [phone] evaluate for blurred vision Diagnosis 1 Diverticulosis of la rge intestine without perforation or abscess without bleeding (K57.30) Referral Organization [facility] Referring Provider First Name Ginny Referring Provider [...] deliver to [facility] [address] [place] [address]. 02/23/2024 Not-Taking Escitalopram Oxalate 5 MG 1 tab orally once a day in morning Please deliver to [facility] [address] [place] [address]. Not-Taking Esomeprazole Magnesium 40 MG 1 cap(s) [...] Risk Notes Problem Vitamin B>12< deficiency anaemia (56926578) Vitamin B12 deficiency anemia, unspecified (D51.9) Active confirmed Problem Obesity (746468798) Obesity, unspecified (E66.9) Active confirmed Problem Mixed hyperlipidemia (395387372) Mixed hyperlipidemia (E78.2) Active confirmed Problem Severe recurrent major depression without psychotic features (82044312) Major depressive disorder, recurrent severe without psychotic features (F33.2) Active confirmed Problem Generalized anxiety disorder (72738672) Generalized anxiety disorder (F41.1) Active confirmed Problem Insomnia 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 disorder (03003344) Insomnia due to other mental disorder (F51.05) Active confirmed Problem Essential hypertension (03969829) Essential (primary) hypertension (I10) Active confirmed Problem Peripheral vascular disease (473029660) Peripheral vascular disease, unspecified (I73.9) Active confirmed Problem Diverticular disease of colon (834146401) Diverticulosis of large intestine without perforation or abscess without bleeding (K57.30) Active confirmed Problem Cervical radiculopathy (41459166) Radiculopathy, cervical region (M54.12) Active confirmed Problem Lumbar radiculopathy (937178429) Radiculopathy, lumbar region (M54.16) Active confirmed Problem Gastroesophageal reflux disease with esophagitis (disorder) (713470676) Gastro-esophageal reflux disease with esophagitis, without bleeding (K21.00) Active confirmed Problem Body mass index 30.00 to 34.99 (473564858861171) Body mass index [BMI] 32.0-32.9, adult (Z68.32) Active confirmed Problem Sheltered homelessness (030820075753155) Sheltered homelessness (Z59.01) Active confirmed Problem Recurrent major depression (14107212) Major depressive disorder, recurrent, unspecified (F33.9) Inactive confirmed Problem Migraine without aura, not refractory (disorder) (473864800) Migraine, unspecified, not intractable, without status migrainosus (G43.909) Inactive confirmed Problem Backache (226686226) Dorsalgia, unspecified (M54.9) Inactive confirmed Problem Headache (67942009) Headache (R51) Inactive conf irmed Problem Financially poor (78840633) Insufficient social insurance and welfare support (Z59.7) Inactive confirmed Problem Body mass index 35.00 to 39.99 (408666531149265) Body mass index [BMI] 36.0-36.9, adult (Z68.36) Inactive confirmed Vital Signs Temperature 98 degrees Fahrenheit 02/20/2025 Oximetry 97 02/20/2025 Blood pressure diastolic 88 02/20/2025 Height 75.5 in 02/20/2025 Blood pressure systolic 180 02/20/2025 Weight 264.6 lbs 02/20/2025 BMI 32.63 kg/m2 02/20/2025 Encounters Encounter Location Date Provider Diagnosis [address] [address] 05/20/2025 Provider Migration Essential (primary) hypertension I10 [facility] [address] [address] 07/12/[address] [address] 07/13/[address] [address] 07/26/2024 Eddieliza Casionan Encounter for screening for COVID-19 Z11.52 ; Mixed hyperlipidemia E78.2 ; Obesity, unspecified E66.9 ; Vitamin B12 deficiency anemia, unspecified D51.9 ; Immunization not carried out because of patient refusal Z28.21 and Sheltered homelessness Z59.01 [facility] [address] [place] [address] [facility] [place] [phone] 08/10/2024 Eddionel Laureanoan Person consulting for explanation of examination or test findings Z71.2 and Vitamin B12 deficiency anemia, unspecified D51.[address] [address] 02/20/2025 Eddieliza Casionan Encounter for screening for [...] I10 and Unspecified subjective visual disturbances H53.[address] [address] 02/20/2025 [facility] [address] [place] [phone] 12/29/2024 Eddieliza Casionan [address] [address] 07/26/2024 Eddieliza Casionan [facility] [address] [place] [phone] 07/26/2024 Eddieliza Casionan [address] [address] 07/28/2024 Eddieliza Casionan [facility] [address] [place] [phone] 08/09/2024 [facility] [address] [place] [phone] 08/16/2024 Eddieliza Casionan [address] [address] 12/12/2024 Eddieliza Casionan Dermatitis, unspecified L30.9 and Gastro-esophageal reflux disease with esophagitis, without bleeding K21.[address] [address] 12/16/2024 Eddieliza Casionan [address] [address] 12/29/2024 Eddieliza Casionan [facility] [address] [place] [phone] 12/30/2024 Eddieliza Casionan [address] [address] 02/01/2025 Eddieliza Casionan [address] [address] 02/20/2025 Eddieliza Casionan [address] [address] 03/30/2025 Eddieliza Casionan Assessments Encounter Date Diagnosis [...] his hydroxyzine. I will talk to his [facility] health provider. He should refrain from scrubbing and using alcohol and [id number] plain cold water and soap with no [...] homelessness (ICD-10 - Z59.01) Has apartment with [employer] 02/20/2025 Major depressive disorder, recurrent severe without [...] agrees Discussed Amlodipine. Serious S/E: chest pain, DC, hypotension, hepatitis, hypersensitivity reacitons. Lesser S/E: peripheral [...] Insured Coverage Start Date Coverage End Date [place] C3 [address] [place], [place] [id number] Braeden Carpenter Self - patient is the insured 4 [place] [employer] [facility] [address] [place] [address] [id number] Braeden Carpenter Self - patient is the insured [address] [facility] [address] [address] [place] [address] [id number] Braeden Carpenter Self - patient is the [...] ligaments torn 2014 Hospitalization History Reason Date(Month/Year) [facility] sur[facility] y 2014
[2025-06-27] MEDS: Aprepitant 32 MG/4.4 ML VIAL IVPUSH (06:32)
--- NOTE | 2025-06-27 07:06 | MHC.SHP ---
Pre-Procedural Eval Section A - 24 Hr Update-Section A only Date of Service: 06/27/25 The patient is an INPATIENT: Yes The patient has been examined within 24 hours of the surgical procedure. The History & Physical has been completed within 30 days and I have reviewed it.: Yes Section B - Complete if H&P > 30 days Chief Complaint: Diaphragmatic hernia Relevant Family History (Specify if Yes): No Relevant Social History: None Present Medications: None Medical History: No relevant PMH History of Previous Operations: No relevant previous surgery Allergies: Allergies Allergy/AdvReac Type Severity Reaction Status Date / Time No Known Allergies Allergy Verified 06/27/25 06:17 Review of Systems Sugical H&P ROS: Negative: Constitution, Cardiovascular, Respiratory, Neurological, Psychiatric, Hem-Onc, Allergic/Immunologic, Gastrointestinal, Genitourinary, Musculoskeletal, Integumentary, Endocrine and Eyes/Ears/Nose/Throat Exam Surgical H&P Exam: Normal: HEENT, Normal: Heart, Normal: Lungs, Normal: Extremities, Normal: Abdomen, Normal: Skin and Normal: Neurological Plan Diagnosis/Plan: Unchanged I have reviewed the history and physical and performed a pertinent physical examination on my patient. No changes have occurred unless specified. Time Spent With Patient Time: Total time managing care of this patient today ____ minutes.
--- NOTE | 2025-06-27 10:05 | PM.OP ---
Brief Operative Note Date of Service: 06/27/25 Pre-op diagnosis: Incarcerated diaphragmatic hernia Procedure: Date of Service: 06/27/2025 Pre-op diagnosis: Incarcerated Diaphragmatic hernia Post-op diagnosis: same COMORBIDITIES: GERD, diaphragmatic hernia, hypertension ?INDICATIONS: The patient is a 55 year old male who was referred to me from Dr. Valencia for a diaphragmatic hernia and GERD confirmed by EGD and CT. The patient is scheduled today for diaphragmatic hernia repair. Risks of recurrent hernia, dysphagia, persistent GERD, VTE, leak, infection and bleeding were discussed with the patient and he is in agreement with the plan. PROCEDURE: Esophago-gastroscopy, laparoscopic lysis of adhesions,laparoscopic excision of esophageal lipoma, laparoscopic repair of incarcerated diaphragmatic hernia and laparoscopic gastropexy. DESCRIPTION OF PROCEDURE: After informed consent was obtained from the patient, the patient was given preoperative antibiotics, and was transferred to the operating room. After successful induction of general anesthesia, pneumatic compression devices were placed on both lower extremities. An upper endoscopy was performed next. The oropharynx and upper esophagus appeared to be within normal limits. The stomach was entered and the scope was advanced all the way to the pylorus.? After all fluid and air were suctioned and the stomach was fully decompressed, the scope was withdrawn and secured in the mid esophagus. The patient was then prepped and draped in the usual sterile manner. Abdominal access was established at the right upper quadrant with the Lulu technique. A 12 mm blunt trocar was inserted and the abdomen was insufflated with CO2 to a pressure of 15 mmHg. Following that additional ports were placed, specifically two 5 mm Versi-step ports to the left upper and one 5 mm Versi-step to the right upper quadrant. 1% lidocaine plain was used to infiltrate all port sites as well as all fascia defects. Following that, the patient was placed in a steep reverse Trendelenburg position. An additional 5 mm port was placed to the right flank for the Mediflex retractor that was used to retract the left lobe of the liver. There was an incarcerated large paraesophageal hernia with about one quarter of the stomach herniated into the chest next to the esophagus. I then opened the gastrocolic ligament between the transverse colon and the greater curvature of the stomach with the ultrasonic device to enter the lesser sac and facilitate the ligation of the short gastric vessels. I started at at the upper third along the greater curvature and using the Thunderbeat, all attachments were divided. There was a large lipoma which was incarcerated posteriorly into the hernia defect. This was mobilized completely and excised. There was an obvious significant-sized diaphragmatic hernia. The stomach was incarcerated into the mediastinum. I continued dissecting along the hiatus toward the left anthony into the mediastinum mobilizing the hernia sac from the mediastinum. The esophagus was carefully dissected off the aorta. The pleura spaces were not violated in either side. The pars flaccida was opened. It was actually herniated into the hernia defect. The vena cava was not dilated and it was carefully protected. I then continued by dissecting even further into the posterior retro-esophageal space all the way to the angle of His. I continued to mobilize the esophagus into the mediastinum circumferentially. The esophagus was densely adherent to the aorta and the majority of these adhesions were mobilized. Both vagal nerves were seen and preserved. With extensive circumferential dissection into the mediastinum, I was able to bring the GE junction at least 3cm below the crura. The gastro-esophageal fat pad was quite large and it was also incarcerated into the mediastinum and it was completely excised. I closed the hernia defect with five interrupted #0 Surgidac sutures using the Endo Stitch device, three of which were placed posterior and two of which anterior to the esophagus. The bites were carefully placed to include both the ventral and dorsal aspect of the two crura, advancing slightly more at the left anthony as it was located more diagonally than the right. ? A gastropexy was then performed in order to prevent postoperative GERD and partial gastric volvulus. Several interrupted 2.0 Surgidac sutures were placed between the greater curvature of the dissected stomach and the previously divided greater omentum and gastro-colic ligament using the Endo-Stitch device. ?An upper endoscopy was performed. There was no narrowing at the GE junction or any esophageal injury. The scope was easily advanced all the way to the pylorus which was clearly visualized. There was no narrowing anywhere. I confirmed that the GE junction was 3cm intra-abdominally. At that point the gastroscope was withdrawn from the patient?s mouth while we were decompressing the bowel and the stomach from any remaining air. I looked into the lesser sac to see how the stomach was situating and it was situating well. There was no bleeding from the, spleen, or short gastric vessels. The Mediflex retractor was removed, and the undersurface of the liver was inspected and there was no bleeding. The patient was placed in supine position. Then 30cc of Ropivacaine plain with 10 mg of Dexamethasone were used to infiltrate the fascial closure as well as all skin incisions. At this point, the abdomen was deflated, all ports were removed under direct vision, and no bleeding was noted from any of the port sites. The skin incisions were irrigated with saline and were closed with 4-0 absorbable monofilament sutures. Steri-Strips and OpSites were used to cover all incisions. The patient was extubated and was transferred in stable condition to the recovery room for further care. I was present and performed all casey parts of the procedure. Ms. Simpson was the assistant purchasing manager. There were no residents to assist with this case. Ger Escobedo MD, PhD, FACS Surgeon: Jude Escobedo MD Anesthesia: GETA, local and other (TAP block) Was an Metal Buffer used for this Procedure?: Yes Metal Buffer: Nesha Simpson Estimated blood loss (mL): 10 IV fluids (mL): 1,700 Urine output (mL): 0 (No Swift to record output) Pathology: other (1) Esophageal lipoma, 2) gastro-esophageal fat pad) Condition: stable Disposition: PACU
--- NOTE | 2025-06-27 10:10 | PM.DS ---
DS: Providers Provider Date of Service: 06/28/25 Date of admission: 06/27/25 06:00 Date of discharge: 06/28/25 Primary care physician: Unknown Physician DS: Summary Hospital Course Hospital Course: ADMITTING DIAGNOSIS: diaphragmatic hernia, GERD, HTN, obesity DISCHARGE DIAGNOSIS: same, s/p laparoscopic diaphragmatic hernia repair with gastropexy PAST SURGICAL HISTORY:? Hx of colonoscopy History of ankle surgery PROCEDURE: upper endoscopy, laparoscopic diaphragmatic hernia repair and gastropexy DISCHARGE SUMMARY: History of Present Illness: The patient is a?55 year-old man with a BMI of?30.6 kg/m2 and associated co-morbidities as described above. The patient had extensive work-up for GERD/regurgitation and was found to have a diaphragmatic hernia. He was electively scheduled for laparoscopic, possible open diaphragmatic hernia repair and gastropexy. Risks and complications of the surgery were discussed with the patient in advance, particularly the possibility of , pulmonary embolism, anastomotic leak, bleeding, bowel injury, GERD, cardiac, renal or pulmonary complications. The patient understood all the risks and was in agreement with the surgical plan. Hospital Course: The patient underwent an uneventful laparoscopic diaphragmatic hernia repair with gastropexy on the day of admission. Postoperatively, the patient was transferred to the surgical floor. The patient received IV acetaminophen and IV Dilaudid for pain control. Patient was started on bariatric phase 1 diet POD #0. On postoperative day one, the patient was feeling well without nausea, vomiting, fevers, or tachycardia. The patient had some mild incisional pain and the abdomen was soft.? ? On the morning of postoperative day one, the patient was continued on 1 ounce of water or ice every half hour. During the day, the patient did fairly well, having some incisional pain, but able to ambulate adequately and to tolerate liquids well. Since the patient is doing well, we decided that the patient was ready to be discharged. The patient was given instructions to follow-up in office next week and to call the office for any fever over 101, persistent abdominal pain, nausea, vomiting, GERD, symptoms of DVT such as calf tenderness, or leg swelling, or pulmonary embolism such as chest pain or shortness of breath.? The patient was also instructed to drink 40-60 ounces of liquids per day using the 1-ounce cups. The patient had been given prescriptions for Tylenol for pain, Zofran prn for nausea, and pantoprazole and carafate previously. The patient was encouraged to ambulate and use the incentive spirometer. The patient was allowed to shower, but no baths, and encouraged to stay active at home. All of these instructions were given to the patient personally. All questions were answered and the patient understood all instructions, the instructions were also given to the patient in print. Time Attestation Discharge Coordination Time (in mins): 30 Quality: Safe Use of Opioids Does Pt have an Active Cancer Diagnosis on the Problem List?: No Quality: Stroke Does the patient have a stroke diagnosis?: No Physical Exam Vital Signs: Vital Signs: Last Vital Signs Temp 98.5 F 06/27/25 09:56 Pulse 84 06/27/25 10:06 Resp 18 06/27/25 10:06 BP 140/69 H 06/27/25 10:06 Pulse Ox 100 06/27/25 10:06 O2 Del Method Room Air 06/27/25 10:06 BMI result Body Mass Index 30.6 DS: Data Data Completed and Pending Pending studies at discharge: Pending at discharge 06/27/25 09:29 Surgical [PTH] Routine Discharge Plan Discharge Anticipated Discharge Date/Time: 06/28/25 10:00 Patient Disposition: Home, Self-Care Discharge Diagnosis: s/p laparoscopic diaphragmatic hernia repair with gastropexy Referrals: Physician,Unknown J [Primary Care Provider, Medical] - 1 Week Discharge Medications: Continued ondansetron 4 mg tablet,disintegrating 4 mg sublingual Q8H PRN (Reason: for nausea/vomiting) Qty: 45 0RF esomeprazole magnesium 40 mg capsule,delayed release(DR/EC) 40 mg PO DAILY Qty: 60 3RF senna 8.6 mg capsule 8.6 mg PO BEDTIME PRN (Reason: constipation) Qty: 90 0RF Rx Instructions: Take one tablet daily at bedtime as needed constipation sucralfate 100 mg/mL suspension 10 ml PO BID Qty: 600 2RF Held amlodipine 5 mg tablet 5 mg PO DAILY Hold Instructions: Resume on 06/28/25. Only resume according to parameters given by Dr. Escobedo Discontinued famotidine 20 mg tablet 20 mg PO DAILY Qty: 90 1RF Rx Instructions: Take one tablet daily at bedtime Discharge Orders: Discharge Order (Routine); Ordered 06/28/25 Ordered By: Nesha Simpson Activity on Discharge: No heavy lifting Stand Alone Forms: Patient Portal Discharge page Print Language: Serbian Care Plan Goals: resolution of GERD Health Concerns: diaphragmatic hernia Plan of Treatment: No tub baths, sex or returning to work until discussed at first post op appointment. No alcohol, tobacco or illegal drug use. Continue to use incentive spirometer hourly while awake. Walk in home for 5- 10 minutes every 2 hours during the first week. Wear abdominal binder with activity. Follow all meal plan instructions from your bariatric surgeon. Review bariatric handbook and call with any questions. Discharge Instructions 1. Please call your doctor or come back to the emergency room should any new symptoms arise. 2. Activity: abstain from alcohol,? limited stair climbing, no bending, no driving, no exercise, no illicit substances, no lifting, no sex, no tub bath, no work. 4. Diet: follow your bariatric surgeon's recommendations for advancing diet. 5. Dressing Change/Wound Care: Your incisions are covered with waterproof dressings. You can shower with these and pat dry. Do not rub over dressings or incisions. If the area is tender, you may apply an ice pack for short intervals (no more than 20 minutes on, followed by at least 20 minutes off). Do not apply heat. Do not use creams, lotions, or topical antibiotics unless instructed to do so by your surgeon. 6. Call your doctor if: - Your temperature exceeds 101.5 F - You experience excessive pain or swelling - You have an unexpected reaction to medication - You have excessive bleeding - You experience continued vomiting/nausea - Your incision begins to separate - Your incision shows signs of infection such as increased redness, swelling, excessive pain, heat, or drainage (light blood or clear fluid is normal) General instructions: No lifting greater than 10 lbs for the next 6 weeks[address] driving within 24 hours of taking narcotic pain medications. If you do not move your bowels in the next 2 days, please take milk of magnesia over the counter. Please follow the post op diet and do not advance your diet until instructed by your surgeon or until you are seen in the office in about 1 week. Please walk around your home every hour or two to prevent blood clots from forming in your legs. You do not need to wake from sleeping to walk. Please sleep in a bed or couch to prevent kinking at the hips and knees. Please take your incentive spirometer (your lung online merchandising coordinator) home with you and use it for the next few days to prevent pneumonias. You may shower; no hot tubs, baths or swimming pools. Please make sure you are consuming 40-60 ounces of total fluids per day. Avoid all carbonation. Please call the office with any questions or concerns such as increasing abdominal pain, fever, chills, shortness of breath, chest pain, leg pain or swelling, or redness or drainage from your incisions. Do not hesitate to contact the office with any questions at . The patient's medical history has been reviewed and they are considered low risk for post op DVT and therefore DVT prophylaxis is not considered necessary. Travel after surgery was reviewed. The patient has not disclosed any travel plans during the first 30 days after surgery and they have been advised that within the first 30 days after surgery any bus, plane, train or car travel over 2 hours in duration is contraindicated due to the possibility of developing blood clots from immobility. Any travel, needs to include periods of ambulation of 10 minutes in duration every 2 hours.? The patient was instructed to discuss any plans for travel during this period with their bariatric surgeon. Assessment: s/p laparoscopic diaphragmatic hernia repair with gastropexy
[2025-06-27 11:29] LABS: Hematocrit 36.9 % (42.0-52.0); Hemoglobin 12.5 g/dl (14.0-18.0)
[2025-06-27 11:44] LABS: Anion Gap 12 (12-20); Blood Urea Nitrogen 14 mg/dL (9-16); Calcium 8.7 mg/dL (8.4-10.2); Carbon Dioxide 25 mmol/L (22-29); Chloride 107 mmol/L (96-108); Creatinine Clr Calc Pharmacy 82.8; Estimated Glomerular Filt Rate 54; Potassium 4.2 mmol/L (3.3-5.1); Sodium 140 mmol/L (135-145)
--- NOTE | 2025-06-27 13:00 | PHA.MEDREC ---
Pharmacy Consult ? Medication Reconciliation Pharmacy has reviewed the medication reconciliation done by nursing.
[2025-06-27] MEDS: 0.9 % Sodium Chloride Flush 3 ML SYRINGE IVFLUSH (20:07)
[2025-06-28] VITALS: BP 141/87; PULSE 71; RESP 18; TEMP 36.5; O2SAT 99
[2025-06-28 03:18] VITALS: BP 125/73; PULSE 68; RESP 18; TEMP 37.1; O2SAT 97
[2025-06-28] MEDS: Lactated Ringers 1,000 ML 100 ML IVCONT (06:59)
[2025-06-28 07:29] VITALS: BP 127/57; PULSE 58; RESP 18; TEMP 36; O2SAT 98
[2025-06-28 07:37] LABS: MANUAL DIFF FLAG NO
[2025-06-28 07:43] LABS: Hematocrit 35.8 % (42.0-52.0); Hemoglobin 12.3 g/dl (14.0-18.0); Imm Gran Abs Auto 0.03 X10*3/uL (0.00-0.03); Imm Gran Pct Auto 0.3 % (0.0-0.4); Lymphocytes Absolute Auto 2.0 X10*3/uL (1.2-4.9); Mean Corpuscular HGB Conc 34.4 g/dl (31.0-36.0); Mean Corpuscular Hemoglobin 33.9 pg (27.0-33.0); Mean Corpuscular Volume 98.6 fL (80.0-98.0); NRBC Abs Auto 0.000 X10*3/uL (0.0-0.012); NRBC Pct Auto 0.0 /100WBC (0.0-0.2); Platelet Count 176 X10*3/uL (160-400); Red Blood Count 3.63 X10*6/uL (4.60-5.80); White Blood Count 9.3 X10*3/uL (4.8-10.8)
[2025-06-28 07:55] LABS: Anion Gap 13 (12-20); Blood Urea Nitrogen 17 mg/dL (9-16); Calcium 8.7 mg/dL (8.4-10.2); Carbon Dioxide 24 mmol/L (22-29); Chloride 105 mmol/L (96-108); Creatinine Clr Calc Pharmacy 106.3; Estimated Glomerular Filt Rate > 60; Potassium 4.1 mmol/L (3.3-5.1); Sodium 138 mmol/L (135-145)
--- NOTE | 2025-06-28 08:43 | HO.POSTANES ---
Post Anesthesia Evaluation Post Anesthesia Evaluation Date of Service: 06/28/25 Vital Signs: Vital Signs Temp Pulse Resp BP Pulse Ox O2 Del Method 06/28/25 07:29 96.8 F 58 18 127/57 L 98 Room Air 06/28/25 03:18 98.7 F 68 18 125/73 97 Room Air 06/28/25 00:00 97.7 F 71 18 141/87 H 99 Room Air Anesthesia: General Mental Status: Awake Pain Control: Satisfactory Nausea/Vomiting: None Hydration: Adequate Anesthesia-Related Issues: No Anes. Related Issues
--- NOTE | 2025-06-28 09:45 | MHC.CM.PN ---
Patient discharged prior to being seen by case management. Home self care. Patient arranged for private transportation to home.
== END 2025-06-28 09:42 | disposition home or self-care (01) | DRG 220 ==
LOC: HO.SSSA 10:09 → HO.S3 10:12
PROVIDERS: Surgery; Admitting Provider Physician Assistant Surgical; Visit Provider Physician Assistant Surgical
PROC: 0BQT3ZZ Repair Diaphragm, Percutaneous Approach (ICD-10-PCS; principal; 2025-06-27 07:30)
DX: K44.0 Diaphragmatic hernia with obstruction, without gangrene (principal); E66.9 Obesity, unspecified; I10 Essential (primary) hypertension; K21.9 Gastro-esophageal reflux disease without esophagitis; Z68.30 Body mass index [BMI] 30.0-30.9, adult; Z79.899 Other long term (current) drug therapy
CPT/HCPCS: 36415; 80048; 80053; 80061; 83036; 83525; 84443; 85014; 85018; 85025; 85610; 85730; 86140; 86850; 86900; 86901; 88304; A4649; C9145; J0131; J0330; J0690; J1100; J1171; J1308; J2003; J2250; J2405; J2704; J2795; J3010; J7120

== ENCOUNTER → 2025-06-27 06:00 | Outpatient (BNV) | payer OTHER, SELFPAY | PROVIDERS: Admitting Provider Physician Assistant Surgical; Visit Provider Surgery | DX: K44.0 Diaphragmatic hernia with obstruction, without gangrene (principal) | CPT/HCPCS: 43281 ==

== ENCOUNTER 2025-07-12 14:52 | Outpatient (AMB) | payer OTHER, SELFPAY ==
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
--- OUTSIDE RECORDS SUMMARY | 2025-03-06 05:30 | XMS_ITS ---
Author Organization [facility] Address [address] [place] [address] Care Team Providers Care Hand Filer Balance Wheel Name Role Phone Ginny Dial Primary Care Provider [facility], Nursing Unavailable [phone] REASON FOR VISIT Office: BP 2 week f/u Social History Sex Assigned At : Social History Observation Description Sex Assigned At Male Encounters Encounter Location Date Provider Diagnosis [facility] [address] [place] [address] 03/06/2025 Nursing [facility] Plan Of Treatment No Information Progress Notes * Braeden REYES WDOB: [birth year] (55 yo M)Acc No.[id number]:03/06/2025 Progress Notes Patient: Braeden WAYNE Provider: Nando paez [facility] :1970 A ge:55 Y S ex:Male Date:03/06/2025 Address:[address] [place], [place] [phone] Pcp:Ginny Dial Subjective: * Chief Complaints: * 1 . Office: BP 2 week f/u. * Medical History: Objective: * Vitals: Assessment: Plan: * Treatment: * Images: Billing Information: * Electronic signature of Ivana malhotra [facility] on 07/12/2025 at 06:00 PM EST Sign off status: Pending * Provider: Nando paez [facility] Date: 0 03/06/2025 Generated for Printi ng/Faxing/eTransmitting on: 1 09/11/2024 06:00 PM EST
--- OUTSIDE RECORDS SUMMARY | 2025-05-20 16:00 | XMS_ITS ---
Author Organization [facility] Address [address] [place] [phone] Care Team Providers Care Park Warden Name Role Phone Ginny Dial Primary Care Provider Migration, Provider Unavailable Unavailable [facility]AS[facility] VISIT [facility] Encounter Medications Medication SIG (Take, Route, Frequency, Duration) Notes Start Date End Date Status Vitamin B-12 1000 MCG 1 tab(s) chewable once a day 08/13/2023 Not-Taking amLODIPine Besylate 5 MG 1 tab(s) orally once a day for 90 days 02/21/2025 Active Tylenol 8 Hour Arthritis Pain 650 MG 2 tab(s) orally every 8 hours for 30 days 09/11/2023 Not-Taking Naprosyn 500 MG 1 tab(s) orally 2 times a day 02/02/2019 Not-Taking Pantoprazole Sodium 40 MG 1 tab(s) orally once a day for 30 day(s) 02/01/2025 Not-Taking Rosuvastatin Calcium 10 MG 1 tab(s) orally once a day Not-Taking cloNIDine HCl 0.1 MG 1 tab(s) orally once a day at bedtime Please deliver to [facility] [address] [place] [address]. 02/23/2024 Not-Taking Escitalopram Oxalate 5 MG 1 tab orally once a day in morning Please deliver to [facility] [address] [place] [address]. Not-Taking Esomeprazole Magnesium 40 MG 1 cap(s) orally once a day Active Triamcinolone Acetonide 0.025 % 1 mehnaz applied topically 3 times a day Not-Taking Social History Sex Assigned At : Social History Observation Description Sex Assigned At Male Encounters Encounter Location Date Provider Diagnosis [address] [phone] 05/20/2025 Provider Migration Essential (primary) hypertension I10 Assessments Encounter Date Diagnosis (ICD Code) Assessment Notes Treatment Notes Treatment Clinical Notes Section Notes 05/20/2025 Essential (primary) hypertension (ICD-10 - I10) Plan Of Treatment Medication Medication Name Sig Start Date Stop Date Notes amLODIPine Besylate 5 MG 1 tab(s) orally once a day for 90 days 02/21/2025 Progress Notes * Braeden REYES WDOB: [birth year] (55 yo M)Acc No.[id number]:05/20/2025 Patient: Braeden WAYNE Provider: :1970 A ge:55 Y S ex:Male Date:05/20/2025 Address:[address] [place] [phone] Pcp:Ginny Dial Subjective: * Chief Complaints: * 1 . [facility] En[facility]. * Medical History: * Medications: T aking Esomeprazole Magnesium 40 MG Capsule Delayed Release 1 cap(s) orally once a day , Not-Taking/PRN Triamcinolone Acetonide 0.025 % Cream 1 mehnaz applied topically 3 times a day , Not-Taking/PRN cloNIDine HCl 0.1 MG Tablet 1 tab(s) orally once a day at bedtime , Notes to Pharmacist: Please deliver to [facility] [address] [place] [address]., Not-Taking/PRN Escitalopram Oxalate 5 MG Tablet 1 tab orally once a day in morning , Notes to Pharmacist: Please deliver to [facility] [address] [place] [address]., Not-Taking/PRN Rosuvastatin Calcium 10 MG Tablet 1 tab(s) orally once a day , Not-Taking/PRN Vitamin B-12 1000 MCG Tablet 1 tab(s) chewable once a day , Not-Taking/PRN Pantoprazole Sodium 40 MG Tablet Delayed Release 1 tab(s) orally once a day , Not-Taking/PRN Tylenol 8 Hour Arthritis Pain 650 MG Tablet Extended Release 2 tab(s) orally every 8 hours , Not-Taking/PRN Naprosyn 500 MG Tablet 1 tab(s) orally 2 times a day Objective: * Vitals: Assessment: * Assessment: 1. E ssential (primary) hypertension - I10 Plan: * Treatment: * Images: Billing Information: * Visit Code: * Procedure Codes: * Electronic signature of Prov ider Migration on 07/12/2025 at 06:00 PM EST Sign off status: Pending * Provider: Date: 0 05/20/2025 Generated for Howard lomas/Candis/Jaspal on: 1 09/11/2024 06:00 PM EST
--- NOTE | 2025-07-12 14:59 | MHC.OFFVISWM ---
VS Expanded 07/12/25 15:13 BP 127/67 Blood Pressure Location Rt brachial Blood Pressure Position Sitting Pulse 65 Pulse Source Pulse Oximeter Temp 98.3 F Temperature Source Temporal Artery Scan Pulse Oximetry 100 Oxygen Delivery Method Room Air Height 6 ft 4 in Weight 247 lb BMI 30.1 Body Fat % 27.1 Body Fat Mass 67.0 Fat Free Mass 179.8 Visceral Fat Rating 14.0 Body Water % 49.9 Body Water Mass 123.2 Muscle Mass/Score 171.0 Basal Metabolic Rate/Score 2,427 Intake Visit Reasons: (OV) s/p Diaphragmatic Hernia 06/27/25 Allergies No Known Allergies Allergy (Verified 07/12/25 15:15) HPI Comments Details: Pt is 2 weeks s/p lap diaphragmatic hernia repair with gastopexy 06/27/2025. Pt has trialed some soft foods, but still struggling with regurgitation. This is better compared to prior from surgery. No vomiting. Food just feels like it gets stuck. He has not been in communication with Dr Oneil since a few days after surgery. He did not check in with Dr Oneil one week after surgery. Eating things like pasta, hash browns, bread. [facility] Medical History Situational anxiety Nausea Diaphragmatic hernia Hypertension BMI 31.0-31.9,adult Obesity Constipation Hiatal hernia with gastroesophageal reflux Elevated parathyroid hormone Weight loss Acid reflux Surgical History (Updated 07/12/25 @ 15:16 by Sharona Mcneill CMA) Hx of hernia repair History of esophagogastroduodenoscopy (EGD) (06/12/25) Hx of colonoscopy History of ankle surgery Family History Mother Cancer Social History Household Members: None Housing: Apartment Are you a primary caretaker resort to a significant other at home: No Do you presently have visiting nurse or other home services: No Patient Tobacco Use Status: Never used Tobacco Substance Use Type: Marijuana service: No Physical Exam Const General: cooperative, comfortable and no acute distress Orientation/consciousness: patient oriented x3 GI Other: soft, nontender, nondistended, incisions healing well with steri-strips c/d/i Neuro General: patient oriented x3 Assessment & Plan Assessment & Plan (1) Obesity: Code(s): E66.9 - Obesity, unspecified Category: Medical (2) Hiatal hernia with gastroesophageal reflux: Comment: EGD with balloon dilation 02/16/25 -hiatal hernia, gastritis , no esophageal mass/tears seen, tight pylorus outlet (balloon dilation). Code(s): K44.9 - Diaphragmatic hernia without obstruction or gangrene; K21.9 - Gastro-esophageal reflux disease without esophagitis Category: Medical Plan Pt has not been compliant with communication with our office. I discussed the risks of this with him as well as the risks of advancing his diet without direction. I gave him a case of Ensure shakes. I told him to communicate with me. Gave him new meal plan as below. 8-11am Ensure shake 12pm 4ff scrambled eggs 1-4pm Ensure shake 6pm 4ff soft meat 8pm protein bar May shower but no bath or submersion of abdomen in water. May start exercise.? No abdominal exercises x 6 weeks. Abdominal binder for the next week with activity or exercise. Continue meal plan per Dr Oneil until next f/u in 4 weeks. Reviewed pantoprazole and carafate dosing. Reminded of the pace of drinking 2 mL/min or 1oz per 15 min. RTC 4w.
[2025-07-12 15:13] VITALS: BP 127/67; PULSE 65; TEMP 36.8; O2SAT 100; BMI 30.1
--- OUTSIDE RECORDS SUMMARY | 2025-07-12 18:00 | XMS_ITS | Encounter Summary ---
Author Organization [facility] Address [address] [place] [address] Care Team Providers Care Aircraft Time Clerk Name Role Phone Physician, Pcp Unknown Primary Care Provider Linda vailable Encounter Details Date Type Department Care Team (Late st Contact Info) Description 07/26/2024 Lab Requisition [facility] Lab [address] [facility] [place] [address] Ginny Dial, TYLER [address] [place] [address] Vitamin B12 deficiency anemia, unspecified; Mixed hyperlipidemia; [...] Vitamin B12 (07/26/2024 9:43 AM EST) Pathologist [facility] Vitamin B-12 401 250 - 900 pcg/mL LAB CHEMISTRY METHOD 07/26/2024 6:22 PM EST [facility] Blood Venous blood specimen / Unknown 07/26/2024 9:43 AM EST 07/26/2024 6:01 PM EST [facility] BLOOD ORDERABLES Final Result [facility] [address] [place] [address], [place] [phone] * Thyroid stimulating hormone with reflex to free t4 and free t3 (07/26/2024 9:43 AM EST) [facility] TSH 0.78 0.40 - 4.00 mcIU/mL LAB CHEMISTRY METHOD 07/26/2024 6:08 PM EST [facility] Blood Venous blood specimen / Unknown 07/26/2024 9:43 AM EST 07/26/2024 6:01 PM EST [facility] BLOOD ORDERABLES Final Result [facility] [address] [place] [address], [place] [phone] * Lipid panel with reflex to direct LDL (07/26/2024 9:43 AM EST) [facility] Cholesterol 162 0 - 200 mg/dL LAB CHEMISTRY METHOD 07/26/2024 6:17 PM EST [facility] Triglycerides 44 0 - 150 mg/dL LAB CHEMISTRY METHOD 07/26/2024 6:17 PM EST [facility] HDL 54 >=40 mg/dL [...] 07/26/2024 6:01 PM EST us Eddionel Dial [facility] BLOOD ORDERABLES Final Result Performing Organization Address City/[facility]/ZIP Co de Phone Number [facility] [address] [place] [address], [place] [phone] * Hemoglobin A1c (07/26/2024 9:43 AM EST) Pathologist [facility] Hemoglobin A1C 4.9 <6.5 % LAB CHEMISTRY METHOD 07/27/2024 1:00 PM [facility] Mean Bld Glu Estim. 94 mg/dL LAB CHEMISTRY METHOD 07/27/2024 1:00 PM [facility] Blood Venous blood specimen / Unknown 07/26/2024 9:43 AM EST 07/26/2024 5:51 PM EST us Eddielinoreen Dial [facility] BLOOD ORDERABLES Final Result Performing Organization Address [facility]/ZIP Co de Phone Number [facility] [address] [place] [address], [place] [phone] * (ABNORMAL) Complete blood count (07/26/2024 9:43 [...] HOSPITAL LAB Platelets 161 130 - 400 K/[facility] LAB HEMETOLOGY METHOD 07/26/2024 5:51 PM [facility] MPV 11.8(H) 7.0 - 11.0 [place] LAB HEMETOLOGY METHOD 07/26/2024 5:51 PM [facility] NRBC 0.0 <1.0 % LAB HEMETOLOGY METHOD 07/26/2024 5:51 PM [facility] NRBC Absolute 0.00 <0.10 K/[facility] LAB HEMETOLOGY METHOD 07/26/2024 5:51 PM EST [facility] Blood Venous blood specimen / Unknown 07/26/2024 9:43 AM EST 07/26/2024 5:51 PM EST us Ginny Dial [facility] BLOOD ORDERABLES Final Result [facility] [address] [place] [address], documented in this encounter Visit Diagnoses Diagnosis Vitamin B12 deficiency anemia, unspecified Mixed hyperlipidemia Obesity, unspecified documented in this encounter Care Teams Aircraft Time Clerk Relationship Specialty Start Date End Date Physician, Pcp Unknown PCP - General 07/26/24 documented as of this encounter
--- OUTSIDE RECORDS SUMMARY | 2025-07-12 18:00 | XMS_ITS | Clinical Summary ---
Author Organization [address] [facility] Address [address] [place] [address] Phone Care Team Providers Care Air Brake Worker Name Role Phone Physician, Pcp Unknown Primary [...] LAB CHEMISTRY METHOD 07/26/2024 6:17 PM EST [facility] Triglycerides 44 0 - 150 mg/dL LAB CHEMISTRY METHOD 07/26/2024 6:17 PM EST [facility] HDL 54 >=40 mg/dL LAB CHEMISTRY METHOD 07/26/2024 6:17 PM EST [facility] LDL Calculated 99 0 - 100 mg/dL LAB CHEMISTRY METHOD 07/26/2024 6:17 PM EST [facility] VLDL Cholesterol Juan 8.8 mg/dL LAB CHEMISTRY METHOD 07/26/2024 6:17 PM EST [facility] Non HDL Chol. (LDL+VLDL) 108 <145 mg/dL LAB CHEMISTRY METHOD 07/26/2024 6:17 PM EST [facility] Chol/HDL Ratio 3.0 0.0 - 4.4 LAB CHEMISTRY METHOD 07/26/2024 6:17 PM EST [facility] Blood Venous blood specimen / Unknown 07/26/2024 9:43 AM EST 07/26/2024 6:01 PM EST us Eddionel Dial [employer] LAB BLOOD ORDERABLES Final Result [facility] [address] [place] [address], from Last 3 Months or Most Recently Relevant to Health Maintenance Insurance MEDICAID - [place] Care Teams Air Brake Worker Relationship Specialty Start Date End Date Physician, Pcp Unknown PCP - General 07/26/24
--- OUTSIDE RECORDS SUMMARY | 2025-07-12 18:00 | XMS_ITS | Patient Health Record ---
Author Organization [facility] Address [address] [place] [address] Care Team Providers Care Medical Auditor Name Role Phone Ginny Dial Primary Care Provider Tam Degroot Unavailable [phone] [facility], Nursing Unavailable [phone] Daina Rudolph Unavailable [phone] [facility], CHW Unavailable [phone] [facility], Provider Unavailable Unavailable Allergies No Known [...] For Referral Reason PT-1 Requested for H [facility] [address] [facility] 12 months x 2 visits a month Referral Organization [facility] Referring Provider First Name Ginny Referring Provider Last Name Yojana Referring Provider Speciality Nurse Prac titioner Referred Provider PT1, Request Referral Priority Routine Reason [facility] gastro evaluat e for GERD with no relief from H2 Valerie Diagnosis 1 Gastro-esophageal re flux disease with esophagitis, without bleeding (K21.00) Referral Organization [facility] Referring Provider First Name Ginny Referring Provider Last Name Yojana Referring Provider Speciality Nurse Maurice haddad Referred Provider [facility] er, Gastroenterology Referred Provider Specialty Gastroentero logy General Notes Charla Raomn 2024 09:27:11 AM >Faxed to [facility] GI, Juany Marcelino 12/19/2024 10:35:21 AM > paperwork refaxedFermín Katelyn 01/31/2025 02:01:28 PM > pt seen twice - notes requestedArun Paris 01/31/2025 03:20:45 PM > notes to scan Referral Priority Routine Referral Appointment Date 01/04/2025 Reason evaluate for recurre nt dermatitis Diagnosis 1 Dermatitis, unspecif ied (L30.9) Referral Organization [facility] Referring Provider First Name Ginny Referring Provider Last Name Yojana Referring Provider Speciality Nurse Maurice haddad Referred Provider Dodie, Dermatology Referred Provider Specialty Dermatology General Notes Charla Ramon 2024 09:36:46 AM >[facility] does not take [facility], referred to Trudy Munguia, referral and notes faxed, Juany Marcelino 12/19/2024 10:36:17 AM > paperwork refaxFermín jay Katelyn 04/04/2025 11:54:49 AM > pt seen note scanned Referral Priority Routine Referral Appointment Date 03/30/20[address] [place] [address] Zelda [facility] Referral Organization [facility] Referring Provider First Name Ginny Referring Provider Last Name Yojana Referring Provider Speciality Nurse Maurice haddad Referred Provider PT1, Request Referral Priority Routine Reason [facility] [address] [facility] [address] (12 months X 3 visit) Referral Organization [facility] Referring Provider First Name Ginny Referring Provider Last Name Yojana Referring Provider Speciality Nurse Maurice haddad Referred Provider PT, -1 Referral Priority Routine Reason [facility], [address], [facility] P: [phone] F: [phone] evaluate for blurred vision Diagnosis 1 Diverticulosis of la rge intestine without perforation or abscess without bleeding (K57.30) Referral Organization [facility] Referring Provider First Name Ginny Referring [...] deliver to [facility] [address] [place] [address]. 02/23/2024 Not-Taking Escitalopram Oxalate 5 MG 1 tab orally once a day in morning Please deliver to [facility] [address] [place] [address]. Not-Taking Esomeprazole Magnesium 40 MG 1 cap(s) [...] Risk Notes Problem Vitamin B>12< deficiency anaemia (14667250) Vitamin B12 deficiency anemia, unspecified (D51.9) Active confirmed Problem Obesity (820369370) Obesity, unspecified (E66.9) Active confirmed Problem Mixed hyperlipidemia (706743319) Mixed hyperlipidemia (E78.2) Active confirmed Problem Severe recurrent major depression without psychotic features (61398643) Major depressive disorder, recurrent severe without psychotic features (F33.2) Active confirmed Problem Generalized anxiety disorder (57481938) Generalized anxiety disorder (F41.1) Active confirmed Problem Insomnia 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 disorder (98102790) Insomnia due to other mental disorder (F51.05) Active confirmed Problem Essential hypertension (95005380) Essential (primary) hypertension (I10) Active confirmed Problem Peripheral vascular disease (017904240) Peripheral vascular disease, unspecified (I73.9) Active confirmed Problem Diverticular disease of colon (775784933) Diverticulosis of large intestine without perforation or abscess without bleeding (K57.30) Active confirmed Problem Cervical radiculopathy (25404917) Radiculopathy, cervical region (M54.12) Active confirmed Problem Lumbar radiculopathy (597340582) Radiculopathy, lumbar region (M54.16) Active confirmed Problem Gastroesophageal reflux disease with esophagitis (disorder) (902462740) Gastro-esophageal reflux disease with esophagitis, without bleeding (K21.00) Active confirmed Problem Body mass index 30.00 to 34.99 (760219480256640) Body mass index [BMI] 32.0-32.9, adult (Z68.32) Active confirmed Problem Sheltered homelessness (094374219389832) Sheltered homelessness (Z59.01) Active confirmed Problem Recurrent major depression (83818539) Major depressive disorder, recurrent, unspecified (F33.9) Inactive confirmed Problem Migraine without aura, not refractory (disorder) (310614288) Migraine, unspecified, not intractable, without status migrainosus (G43.909) Inactive confirmed Problem Backache (835307885) Dorsalgia, unspecified (M54.9) Inactive confirmed Problem Headache (42407330) Headache (R51) Inactive conf irmed Problem Financially poor (65805466) Insufficient social insurance and welfare support (Z59.7) Inactive confirmed Problem Body mass index 35.00 to 39.99 (738284670151709) Body mass index [BMI] 36.0-36.9, adult (Z68.36) Inactive confirmed Vital Signs Temperature 98 degrees Fahrenheit 02/20/2025 Oximetry 97 02/20/2025 Blood pressure diastolic 88 02/20/2025 Height 75.5 in 02/20/2025 Blood pressure systolic 180 02/20/2025 Weight 264.6 lbs 02/20/2025 BMI 32.63 kg/m2 02/20/2025 Encounters Encounter Location Date Provider Diagnosis [address] [address] 05/20/2025 Provider Migration Essential (primary) hypertension I[facility] [address] [address] 07/12/[address] [address] 07/13/[address] [address] 07/26/2024 Eddieliza Casionan Encounter for screening for COVID-19 Z11.52 ; Mixed hyperlipidemia E78.2 ; Obesity, unspecified E66.9 ; Vitamin B12 deficiency anemia, unspecified D51.9 ; Immunization not carried out because of patient refusal Z28.21 and Sheltered homelessness Z59.01 [facility] [address] [place] [address] [facility] [place] [phone] 08/10/2024 Eddionel Laureanoan Person consulting for explanation of examination or test findings Z71.2 and Vitamin B12 deficiency anemia, unspecified D51.[address] [address] 02/20/2025 Eddieliza Casionan Encounter for screening for [...] I10 and Unspecified subjective visual disturbances H53.[address] [address] 02/20/2025 [facility] [address] [place] [id number] 12/29/2024 Eddieliza Casionan [address] [address] 07/26/2024 Eddieliza Casionan [facility] [address] [place] [id number] 07/26/2024 Eddieliza Casionan [address] [address] 07/28/2024 Eddieliza Casionan [facility] [address] [place] [id number] 08/09/2024 Daina [facility] [address] [place] [address] 08/16/2024 [address] Casionan [address] [address] 12/12/2024 Eddieliza Casionan Dermatitis, unspecified L30.9 and Gastro-esophageal reflux disease with esophagitis, without bleeding K21.[address] [address] 12/16/2024 Eddieliza Casionan [address] [address] 12/29/2024 Eddieliza Casionan [facility] [address] [place] [id number] 12/30/2024 Eddieliza Casionan [address] [address] 02/01/2025 Eddieliza Casionan [address] [address] 02/20/2025 Eddieliza Casionan [address] [address] 03/30/2025 Eddieliza Casionan Assessments Encounter Date Diagnosis [...] I will talk to his [facility] provider. He should refrain from scrubbing and using alcohol and [id number] plain cold water and soap with no [...] homelessness (ICD-10 - Z59.01) Has apartment with [employer] 02/20/2025 Major depressive disorder, recurrent severe without [...] agrees Discussed Amlodipine. Serious S/E: chest pain, SC, hypotension, hepatitis, hypersensitivity reacitons. Lesser S/E: peripheral [...] Insured Coverage Start Date Coverage End Date [place] C3 [address] [place], [place] [id number] Braeden Carpenter Self - patient is the insured 4 [place] [facility] [address] [place] [address] [id number] Braeden Carpenter Self - patient is the insured 3 [facility] [place] [address] [address] [place] [address] [id number] Braeden Carpenter Self - patient is the [...] ligaments torn 2014 Hospitalization History Reason Date(Month/Year) [facility] Orthopedic surger y 2014
== END 2025-07-12 15:39 | disposition home or self-care (01) ==
LOC: HO.HBS 14:53
PROVIDERS: Visit Provider Physician Assistant Surgical
DX: E66.9 Obesity, unspecified (principal); Z68.30 Body mass index [BMI] 30.0-30.9, adult; K44.9 Diaphragmatic hernia without obstruction or gangrene; K21.9 Gastro-esophageal reflux disease without esophagitis
CPT/HCPCS: 99024

== ENCOUNTER → 2025-07-12 14:52 | Outpatient (BNVA) | payer OTHER, SELFPAY | PROVIDERS: Visit Provider Physician Assistant Surgical | DX: K21.9 Gastro-esophageal reflux disease without esophagitis (principal); K44.9 Diaphragmatic hernia without obstruction or gangrene; E66.9 Obesity, unspecified | CPT/HCPCS: 99212 ==

== ENCOUNTER 2025-08-16 09:00 | Outpatient (AMB) | payer OTHER, SELFPAY ==
--- NOTE | 2025-08-16 09:13 | A.OFFVIS_ITS ---
VS Expanded 08/16/25 09:32 Height 6 ft 4 in Weight 236 lb BMI 28.7 Intake Visit Reasons: TV s/p Diaphragmatic Hernia 06/27/25 *okay per AK* Allergies No Known Allergies Allergy (Verified 07/12/25 15:15) Medication List - Last Reconciled 08/16/25 by GABRIELA Castillo amlodipine 5 mg PO DAILY Held on 06/28/25. Instructions: Resume on 06/28/25. Only resume according to parameters given by Dr. Escobedo esomeprazole magnesium 40 mg PO DAILY ondansetron 4 mg sublingual Q8H PRN sennosides (senna) 8.6 mg PO BEDTIME PRN sucralfate 10 mL PO BID HPI Comments Details: 55yo M s/p lap diaphragmatic hernia repair 06/27/2025. At last visit he was not compliant with meal plan. Had advanced too quickly and without direction and as a result, was experiencing some regurgitation. I gave him the following meal plan: 8-11am Ensure shake 12pm 4ff scrambled eggs 1-4pm Ensure shake 6pm 4ff soft meat 8pm protein bar He notes that he continues to have some regurgitation but is 80% better. However he is still experiencing the feeling of getting stuck. He finds that he cannot pile on food or he will upchuck . He will have fried eggs but has not been d oing protein shakes recently. He does not want to do protein shakes. [facility] Medical History Situational anxiety Nausea Diaphragmatic hernia Hypertension BMI 31.0-31.9,adult Obesity Constipation Hiatal hernia with gastroesophageal reflux Elevated parathyroid hormone Weight loss Acid reflux Surgical History (Updated 07/12/25 @ 15:16 by Sharona Mcneill CMA) Hx of hernia repair History of esophagogastroduodenoscopy (EGD) (06/12/25) Hx of colonoscopy History of ankle surgery Family History Mother Cancer Social History Household Members: None Housing: Apartment Are you a primary acute care certified nursing assistant to a significant other at home: No Do you presently have visiting nurse or other home services: No Patient Tobacco Use Status: Never used Tobacco Substance Use Type: Marijuana service: No Telehealth Telehealth Telehealth Platform: Telephone Location of provider rendering services: practice address Location of patient: address on file Patient Identification confirmed using: Name, : Yes Telehealth method: voice only Patient verbally consented to treatment: Yes Patient verbally consented to billing insurance company: Yes Patient informed of any privacy concerns related to visit: Yes Minutes spent on Phone/Video with Pt.: 15 Assessment & Plan Assessment & Plan (1) Obesity: Code(s): E66.9 - Obesity, unspecified Category: Medical (2) Hiatal hernia with gastroesophageal reflux: Comment: EGD with balloon dilation 02/16/25 -hiatal hernia, gastritis , no esophageal mass/tears seen, tight pylorus outlet (balloon dilation). Code(s): K44.9 - Diaphragmatic hernia without obstruction or gangrene; K21.9 - Gastro- esophageal reflux disease without esophagitis Category: Medical (3) Diaphragmatic hernia: Code(s): K44.9 - Diaphragmatic hernia without obstruction or gangrene Category: Medical Qualifiers: Obstruction and gangrene presence: without obstruction or gangrene Qualified Code(s): K44.9 - Diaphragmatic hernia without obstruction or gangrene Plan I explained to the patient that he is still not eating properly at this point in his recovery from surgery. He should not expect to eat fried foods at this point. He should not try to pile on food and should certainly not be eating to the point of having to vomit. I gave him a new meal plan with different protein shake options and reviewed the appropriate pace of eating/drinking ([id number]) as well as appropriate portion sizes. 8-11am Fairlife shake or protein water (Premier, Isopure, or Protein 2O) 12pm 4 forkfuls scrambled eggs, do not cook in oil or butter 1-4pm Fairlife protein shake or protein water 6pm 4-6 forks soft meat like chicken or fish, 4 forks cooked veg 8pm another protein shake, bar, or Vietnamese yogurt or CC I asked him to text me if he has any questions about any of the above. I sent meal plan via text and he verified receipt. I texted a link to Fairlife shake as well as protein water handout. Restart carafate (he had stopped). Continue PPI. RTC 6w TV.
[2025-08-16 09:32] VITALS: BMI 28.7
== END 2025-08-16 12:22 | disposition home or self-care (01) ==
LOC: HO.HBS 09:29
PROVIDERS: Visit Provider Physician Assistant Surgical
DX: E66.3 Overweight (principal); Z68.28 Body mass index [BMI] 28.0-28.9, adult; K44.9 Diaphragmatic hernia without obstruction or gangrene; K21.9 Gastro-esophageal reflux disease without esophagitis
CPT/HCPCS: 99024